=== PATIENT | male | born 1965 | race Caucasian/White ===

== ENCOUNTER → 2016-02-24 | Outpatient (CLI) | payer OTHER ==
[~2016-02-24] MED LIST: /DULO30CA OR; /ESOM40CA; /ESOM40CA OR; /WARF5TA; /WARF5TA OR; ACET50TAOT PO; ACTI300C; ACTI300C OR; ACTI300C PO; AMIT25TA2; ASAC800T2 PO; ASACOL; ATIV2TAB PO; Asacol OR; BENA25CA2 PO; BENZ1TA PO; BENZ5TA PO; BUDE150T OR; BUPR150T2 PO; CITA20TA2 PO; CLOZ25TA2 PO; COUMADIN PO; CYMBALTA; D31000TA PO; DELZ400C PO; DEPA250C PO; DEPA250T2 PO; DEPA500T2 PO; DIAZ10TA2 OR; EFFE150C PO; FERR325T OR; FLUR15CA2; FLUV50TA PO; HALD5INJ2 PO; HYDR1CRE TOP; HYDRO50TAB PO; IMOD2TAB14 PO; INVE234I IM; INVE3TAB2; LAMI25TA; LAMI25TA PO; LITH600C PO; LOPERAMIDE; Loperamide PO; MERCAPTOPURINE; PROP1TAB26 PO; PROT1TAB2 PO; PURINETHOL OR; RISP2TAB30 PO; SERT-141 PO; THERTAB PO; TOPA100T8 PO; TOPI100T OR; TOPI50TA; TRAZ50TA OR; TRAZ50TA2 PO; TYLE325T5 PO; VALI5TAB; WARF1TAB35 PO; WARF4TAB28 PO; XARE20TA PO; [UNRECOGNIZED DRUG - CODE] PO; [UNRECOGNIZED DRUG - OTHER]; [UNRECOGNIZED DRUG - OTHER] PR; cogentin PO; haldol PO
[2016-02-24 08:06] LABS: BASO # 0.1 K/mm3 (0.0-0.2); BASO % 1.1 % (0.0-1.0); EOS # 0.2 K/mm3 (0.0-0.50); EOS % 2.1 % (0.0-3.0); LARGE UNSTAINED CELL # 0.2 K/mm3 (0.0-0.4); LARGE UNSTAINED CELL % 2.2 % (0.0-4.0); LYMPH # 1.9 K/mm3 (1.5-4.5); LYMPH % 17.6 % (24.0-44.0); MEAN CORPUSCULAR HEMOGLOBIN 32.3 pg (27.0-33.0); MEAN CORPUSCULAR HGB CONC 32.3 g/dl (32.0-36.5); MEAN CORPUSCULAR VOLUME 99.9 fl (80.0-96.0); MONO # 0.6 K/mm3 (0.0-0.8); MONO % 6.1 % (0.0-5.0); NEUTROPHILS # 6.7 K/mm3 (1.8-7.7); NEUTROPHILS % 70.9 % (36.0-66.0); PLATELET COUNT, AUTOMATED 309 k/mm3 (150-450); RED CELL DISTRIBUTION WIDTH 15.4 % (11.5-14.5); WHITE BLOOD COUNT 9.4 K/mm3 (4.0-10.0)
== END ==
LOC: M LAB 06:03
PROVIDERS: ATTEND Psychiatry & Neurology Psychiatry
DX: F25.0 Schizoaffective disorder, bipolar type (principal); Z79.899 Other long term (current) drug therapy

== ENCOUNTER → 2016-03-22 | Outpatient (CLI) | payer OTHER ==
[~2016-03-22] MED LIST changes: -IMOD2TAB14 PO; +IMOD2TAB16 PO
[2016-03-22 06:57] LABS: BASO % 0.5 % (0.0-1.0); EOS # 0.2 K/mm3 (0.0-0.50); EOS % 1.9 % (0.0-3.0); LARGE UNSTAINED CELL # 0.1 K/mm3 (0.0-0.4); LARGE UNSTAINED CELL % 0.9 % (0.0-4.0); LYMPH # 1.6 K/mm3 (1.5-4.5); LYMPH % 13.6 % (24.0-44.0); MEAN CORPUSCULAR HEMOGLOBIN 31.9 pg (27.0-33.0); MEAN CORPUSCULAR HGB CONC 31.9 g/dl (32.0-36.5); MONO # 0.6 K/mm3 (0.0-0.8); MONO % 5.4 % (0.0-5.0); NEUTROPHILS # 8.6 K/mm3 (1.8-7.7); NEUTROPHILS % 77.8 % (36.0-66.0); PLATELET COUNT, AUTOMATED 362 k/mm3 (150-450); RED CELL DISTRIBUTION WIDTH 14.7 % (11.5-14.5); WHITE BLOOD COUNT 11.1 K/mm3 (4.0-10.0)
== END ==
LOC: M LAB 06:01
PROVIDERS: ATTEND Psychiatry & Neurology Psychiatry
DX: F25.0 Schizoaffective disorder, bipolar type (principal)

== ENCOUNTER → 2016-04-19 | Outpatient (CLI) | payer OTHER ==
[2016-04-19 06:58] LABS: BASO % 0.4 % (0.0-1.0); EOS # 0.2 K/mm3 (0.0-0.50); EOS % 2.1 % (0.0-3.0); LARGE UNSTAINED CELL # 0.3 K/mm3 (0.0-0.4); LARGE UNSTAINED CELL % 2.2 % (0.0-4.0); LYMPH # 1.4 K/mm3 (1.5-4.5); LYMPH % 11.9 % (24.0-44.0); MEAN CORPUSCULAR HEMOGLOBIN 31.4 pg (27.0-33.0); MEAN CORPUSCULAR VOLUME 98.1 fl (80.0-96.0); MONO # 0.6 K/mm3 (0.0-0.8); NEUTROPHILS # 9.3 K/mm3 (1.8-7.7); NEUTROPHILS % 78.3 % (36.0-66.0); PLATELET COUNT, AUTOMATED 371 k/mm3 (150-450); RED CELL DISTRIBUTION WIDTH 14.5 % (11.5-14.5); WHITE BLOOD COUNT 11.8 K/mm3 (4.0-10.0)
== END ==
LOC: M LAB 06:01
PROVIDERS: ATTEND Psychiatry & Neurology Psychiatry
DX: M35.3 Polymyalgia rheumatica (principal)

== ENCOUNTER → 2016-04-21 | Outpatient (CLI) | payer OTHER ==
[2016-04-21 06:49] LABS: BASO % 0.4 % (0.0-1.0); EOS # 0.2 K/mm3 (0.0-0.50); EOS % 1.9 % (0.0-3.0); LYMPH # 1.7 K/mm3 (1.5-4.5); LYMPH % 14.6 % (24.0-44.0); MEAN CORPUSCULAR HEMOGLOBIN 31.9 pg (27.0-33.0); MEAN CORPUSCULAR HGB CONC 31.6 g/dl (32.0-36.5); MEAN CORPUSCULAR VOLUME 100.8 fl (80.0-96.0); MONO # 0.7 K/mm3 (0.0-0.8); MONO % 6.8 % (0.0-5.0); NEUTROPHILS % 74.9 % (36.0-66.0); RED CELL DISTRIBUTION WIDTH 14.7 % (11.5-14.5); WHITE BLOOD COUNT 10.7 K/mm3 (4.0-10.0)
[2016-04-21 07:24] LABS: ALBUMIN 3.5 GM/DL (3.2-5.2); ALBUMIN/GLOBULIN RATIO 1.03 (1.00-1.93); ALKALINE PHOSPHATASE 162 U/L (45-117); ALT/SGPT 16 U/L (12-78); ANION GAP 10 MEQ/L (8-16); AST/SGOT 13 U/L (15-37); BILIRUBIN,TOTAL 0.4 MG/DL (0.2-1.0); BLOOD UREA NITROGEN 7 MG/DL (7-18); CALCIUM LEVEL 8.6 MG/DL (8.5-10.1); CARBON DIOXIDE LEVEL 23 MEQ/L (21-32); CHLORIDE LEVEL 109 MEQ/L (98-107); CHOLESTEROL LEVEL 200 MG/DL (<200); GLOMERULAR FILTRATION RATE > 60.0 (>60); GLUCOSE, FASTING 103 MG/DL (70-105); POTASSIUM SERUM 4.1 MEQ/L (3.5-5.1); SODIUM LEVEL 142 MEQ/L (136-145); TOTAL PROTEIN 6.9 GM/DL (6.4-8.2); TRIGLYCERIDES LEVEL 102 MG/DL (<150)
== END ==
LOC: M LAB 06:00
PROVIDERS: ATTEND Nurse Practitioner Adult Health
DX: D64.9 Anemia, unspecified (principal); E55.9 Vitamin D deficiency, unspecified; E78.00 Pure hypercholesterolemia, unspecified; Z79.899 Other long term (current) drug therapy

== ENCOUNTER → 2016-05-17 | Outpatient (CLI) | payer OTHER ==
[2016-05-17 06:39] LABS: BASO % 0.3 % (0.0-1.0); EOS # 0.2 K/mm3 (0.0-0.50); EOS % 2.3 % (0.0-3.0); LARGE UNSTAINED CELL # 0.2 K/mm3 (0.0-0.4); LARGE UNSTAINED CELL % 1.6 % (0.0-4.0); LYMPH # 1.9 K/mm3 (1.5-4.5); LYMPH % 17.5 % (24.0-44.0); MEAN CORPUSCULAR HEMOGLOBIN 31.2 pg (27.0-33.0); MEAN CORPUSCULAR HGB CONC 31.3 g/dl (32.0-36.5); MEAN CORPUSCULAR VOLUME 99.6 fl (80.0-96.0); MONO # 0.5 K/mm3 (0.0-0.8); MONO % 5.4 % (0.0-5.0); NEUTROPHILS # 7.2 K/mm3 (1.8-7.7); NEUTROPHILS % 72.9 % (36.0-66.0); PLATELET COUNT, AUTOMATED 298 k/mm3 (150-450); WHITE BLOOD COUNT 9.8 K/mm3 (4.0-10.0)
== END ==
LOC: M LAB 06:05
PROVIDERS: ATTEND Psychiatry & Neurology Psychiatry
DX: F25.0 Schizoaffective disorder, bipolar type (principal)

== ENCOUNTER → 2016-06-14 | Outpatient (CLI) | payer OTHER ==
[2016-06-14 06:31] LABS: BASO % 0.4 % (0.0-1.0); EOS # 0.2 K/mm3 (0.0-0.50); EOS % 1.8 % (0.0-3.0); LARGE UNSTAINED CELL # 0.2 K/mm3 (0.0-0.4); LARGE UNSTAINED CELL % 1.6 % (0.0-4.0); LYMPH # 1.8 K/mm3 (1.5-4.5); MEAN CORPUSCULAR HEMOGLOBIN 31.8 pg (27.0-33.0); MEAN CORPUSCULAR HGB CONC 32.3 g/dl (32.0-36.5); MEAN CORPUSCULAR VOLUME 98.4 fl (80.0-96.0); MONO # 0.4 K/mm3 (0.0-0.8); NEUTROPHILS # 6.9 K/mm3 (1.8-7.7); NEUTROPHILS % 73.1 % (36.0-66.0); PLATELET COUNT, AUTOMATED 375 k/mm3 (150-450); RED CELL DISTRIBUTION WIDTH 14.9 % (11.5-14.5); WHITE BLOOD COUNT 9.4 K/mm3 (4.0-10.0)
== END ==
LOC: M LAB 06:03
PROVIDERS: ATTEND Nurse Practitioner Adult Health
DX: F25.0 Schizoaffective disorder, bipolar type (principal)

== ENCOUNTER → 2016-07-15 | Outpatient (CLI) | payer OTHER ==
[2016-07-15 06:48] LABS: BASO % 0.3 % (0.0-1.0); EOS # 0.2 K/mm3 (0.0-0.50); EOS % 1.7 % (0.0-3.0); LYMPH # 1.6 K/mm3 (1.5-4.5); MEAN CORPUSCULAR HEMOGLOBIN 32.4 pg (27.0-33.0); MEAN CORPUSCULAR HGB CONC 31.8 g/dl (32.0-36.5); MEAN CORPUSCULAR VOLUME 101.9 fl (80.0-96.0); MONO # 0.5 K/mm3 (0.0-0.8); MONO % 4.6 % (0.0-5.0); NEUTROPHILS # 8.6 K/mm3 (1.8-7.7); RED CELL DISTRIBUTION WIDTH 15.3 % (11.5-14.5)
== END ==
LOC: M LAB 06:13
PROVIDERS: ATTEND Psychiatry & Neurology Psychiatry
DX: F25.0 Schizoaffective disorder, bipolar type (principal); Z79.899 Other long term (current) drug therapy

== ENCOUNTER → 2016-08-09 | Outpatient (CLI) | payer OTHER ==
[2016-08-09 06:12] LABS: BASO % 0.3 % (0.0-1.0); EOS # 0.1 K/mm3 (0.0-0.50); EOS % 0.9 % (0.0-3.0); LYMPH # 1.4 K/mm3 (1.5-4.5); MEAN CORPUSCULAR HEMOGLOBIN 33.7 pg (27.0-33.0); MEAN CORPUSCULAR HGB CONC 32.1 g/dl (32.0-36.5); MONO # 0.7 K/mm3 (0.0-0.8); MONO % 5.3 % (0.0-5.0); NEUTROPHILS # 10.2 K/mm3 (1.8-7.7); RED CELL DISTRIBUTION WIDTH 15.5 % (11.5-14.5); WHITE BLOOD COUNT 12.5 K/mm3 (4.0-10.0)
== END ==
LOC: M LAB 06:01
PROVIDERS: ATTEND Psychiatry & Neurology Psychiatry
DX: F25.0 Schizoaffective disorder, bipolar type (principal)

== ENCOUNTER → 2016-08-10 | Outpatient (CLI) | payer OTHER ==
[2016-08-10 07:32] LABS: ALBUMIN 3.6 GM/DL (3.2-5.2); ALBUMIN/GLOBULIN RATIO 1.03 (1.00-1.93); ALKALINE PHOSPHATASE 163 U/L (45-117); ALT/SGPT 15 U/L (12-78); ANION GAP 7 MEQ/L (8-16); AST/SGOT 10 U/L (15-37); BILIRUBIN,DIRECT < 0.1 MG/DL (0.0-0.2); BILIRUBIN,TOTAL 0.5 MG/DL (0.2-1.0); BLOOD UREA NITROGEN 7 MG/DL (7-18); CALCIUM LEVEL 8.9 MG/DL (8.5-10.1); CARBON DIOXIDE LEVEL 25 MEQ/L (21-32); CHLORIDE LEVEL 110 MEQ/L (98-107); CREATININE FOR GFR 0.85 MG/DL (0.70-1.30); GLOMERULAR FILTRATION RATE > 60.0 (>60); GLUCOSE, FASTING 123 MG/DL (70-105); POTASSIUM SERUM 4.4 MEQ/L (3.5-5.1); SODIUM LEVEL 142 MEQ/L (136-145); TOTAL PROTEIN 7.1 GM/DL (6.4-8.2)
[2016-08-10 11:37] LABS: FOLATE 1.4 NG/ML (>5.4)
== END ==
LOC: M LAB 06:37
PROVIDERS: ATTEND Psychiatry & Neurology Psychiatry
DX: Z51.81 Encounter for therapeutic drug level monitoring (principal); Z79.899 Other long term (current) drug therapy

== ENCOUNTER → 2016-09-08 | Outpatient (CLI) | payer OTHER ==
[~2016-09-08] MED LIST changes: -ASAC800T2 PO; +ASAC800T3 PO; +BENZ-52 PO; +BENZ0.5T PO; -BENZ1TA PO; -BENZ5TA PO; -RISP2TAB30 PO; +RISP2TAB32 PO; +TOPA100T12 PO; -TOPA100T8 PO
[2016-09-08 06:52] LABS: BASO % 0.3 % (0.0-1.0); EOS # 0.2 K/mm3 (0.0-0.50); EOS % 1.6 % (0.0-3.0); LYMPH # 1.3 K/mm3 (1.5-4.5); LYMPH % 11.6 % (24.0-44.0); MEAN CORPUSCULAR HEMOGLOBIN 33.7 pg (27.0-33.0); MEAN CORPUSCULAR HGB CONC 32.9 g/dl (32.0-36.5); MEAN CORPUSCULAR VOLUME 102.3 fl (80.0-96.0); MONO # 0.6 K/mm3 (0.0-0.8); MONO % 5.1 % (0.0-5.0); NEUTROPHILS # 9.1 K/mm3 (1.8-7.7); NEUTROPHILS % 80.2 % (36.0-66.0); RED CELL DISTRIBUTION WIDTH 14.4 % (11.5-14.5); WHITE BLOOD COUNT 11.3 K/mm3 (4.0-10.0)
== END ==
LOC: M LAB 06:00
PROVIDERS: ATTEND Psychiatry & Neurology Psychiatry
DX: Z51.81 Encounter for therapeutic drug level monitoring (principal); Z79.899 Other long term (current) drug therapy

== ENCOUNTER → 2016-10-08 | Outpatient (CLI) | payer OTHER ==
[2016-10-08 06:48] LABS: BASO % 0.2 % (0.0-1.0); EOS # 0.1 K/mm3 (0.0-0.50); EOS % 0.8 % (0.0-3.0); LYMPH # 1.5 K/mm3 (1.5-4.5); LYMPH % 10.3 % (24.0-44.0); MEAN CORPUSCULAR HEMOGLOBIN 32.1 pg (27.0-33.0); MEAN CORPUSCULAR HGB CONC 33.1 g/dl (32.0-36.5); MONO # 0.7 K/mm3 (0.0-0.8); MONO % 5.4 % (0.0-5.0); NEUTROPHILS # 10.7 K/mm3 (1.8-7.7); NEUTROPHILS % 82.2 % (36.0-66.0); WHITE BLOOD COUNT 13.1 K/mm3 (4.0-10.0)
== END ==
LOC: M LAB 06:07
PROVIDERS: ATTEND Psychiatry & Neurology Psychiatry
DX: F25.0 Schizoaffective disorder, bipolar type (principal)

== ENCOUNTER → 2016-11-08 | Outpatient (CLI) | payer OTHER ==
[2016-11-08 07:11] LABS: BASO % 0.3 % (0.0-1.0); EOS # 0.2 K/mm3 (0.0-0.50); EOS % 1.8 % (0.0-3.0); LYMPH # 1.1 K/mm3 (1.5-4.5); LYMPH % 8.6 % (24.0-44.0); MEAN CORPUSCULAR HEMOGLOBIN 31.2 pg (27.0-33.0); MEAN CORPUSCULAR HGB CONC 32.4 g/dl (32.0-36.5); MEAN CORPUSCULAR VOLUME 96.5 fl (80.0-96.0); MONO # 0.6 K/mm3 (0.0-0.8); MONO % 4.7 % (0.0-5.0); NEUTROPHILS # 10.4 K/mm3 (1.8-7.7); NEUTROPHILS % 83.8 % (36.0-66.0); WHITE BLOOD COUNT 12.4 K/mm3 (4.0-10.0)
== END ==
LOC: M LAB 05:53
PROVIDERS: ATTEND Psychiatry & Neurology Psychiatry
DX: D70.9 Neutropenia, unspecified (principal)

== ENCOUNTER → 2017-01-10 | Outpatient (CLI) | payer OTHER ==
[2017-01-10 06:39] LABS: BASO % 0.4 % (0.0-1.0); EOS # 0.2 10^3/uL (0.0-0.50); EOS % 1.8 % (0.0-3.0); IMMATURE GRANULOCYTE % 0.6 % (0-0); LYMPH # 1.5 10^3/uL (1.5-4.5); MEAN CORPUSCULAR HEMOGLOBIN 30.7 pg (27.0-33.0); MEAN CORPUSCULAR HGB CONC 32.3 g/dl (32.0-36.5); MEAN CORPUSCULAR VOLUME 94.8 fl (80.0-96.0); MONO # 0.7 10^3/uL (0.0-0.8); MONO % 6.6 % (0.0-5.0); NEUTROPHILS # 8.4 10^3/uL (1.8-7.7); NEUTROPHILS % 76.6 % (36.0-66.0); PLATELET COUNT, AUTOMATED 340 10^3/uL (150-450); RED CELL DISTRIBUTION WIDTH 15.4 % (11.5-14.5)
== END ==
LOC: M LAB 06:12
PROVIDERS: ATTEND Psychiatry & Neurology Psychiatry
DX: D64.9 Anemia, unspecified (principal); E03.9 Hypothyroidism, unspecified; E55.9 Vitamin D deficiency, unspecified; E78.00 Pure hypercholesterolemia, unspecified; Z79.899 Other long term (current) drug therapy

== ENCOUNTER → 2017-01-10 | Outpatient (CLI) | payer OTHER ==
[2017-01-10 06:39] LABS: BASO # 0.1 10^3/uL (0.0-0.2); BASO % 0.6 % (0.0-1.0); EOS # 0.2 10^3/uL (0.0-0.50); EOS % 1.6 % (0.0-3.0); IMMATURE GRANULOCYTE % 0.6 % (0-0); LYMPH # 1.5 10^3/uL (1.5-4.5); LYMPH % 13.4 % (24.0-44.0); MEAN CORPUSCULAR HGB CONC 32.4 g/dl (32.0-36.5); MEAN CORPUSCULAR VOLUME 95.5 fl (80.0-96.0); MONO # 0.7 10^3/uL (0.0-0.8); MONO % 6.7 % (0.0-5.0); NEUTROPHILS # 8.3 10^3/uL (1.8-7.7); NEUTROPHILS % 77.1 % (36.0-66.0); PLATELET COUNT, AUTOMATED 343 10^3/uL (150-450); RED CELL DISTRIBUTION WIDTH 15.4 % (11.5-14.5); WHITE BLOOD COUNT 10.8 10^3/uL (4.0-10.0)
[2017-01-10 07:14] LABS: ALBUMIN 3.3 GM/DL (3.2-5.2); ALKALINE PHOSPHATASE 109 U/L (45-117); ALT/SGPT 12 U/L (12-78); ANION GAP 10 MEQ/L (8-16); AST/SGOT 12 U/L (7-37); BILIRUBIN,TOTAL 0.4 MG/DL (0.2-1.0); BLOOD UREA NITROGEN 6 MG/DL (7-18); CALCIUM LEVEL 8.8 MG/DL (8.5-10.1); CARBON DIOXIDE LEVEL 22 MEQ/L (21-32); CHLORIDE LEVEL 112 MEQ/L (98-107); CHOLESTEROL LEVEL 219 MG/DL (<200); CREATININE FOR GFR 0.77 MG/DL (0.70-1.30); FREE T4 1.07 NG/DL (0.76-1.46); GLOMERULAR FILTRATION RATE > 60.0 (>60); GLUCOSE, FASTING 105 MG/DL (70-105); POTASSIUM SERUM 3.8 MEQ/L (3.5-5.1); SODIUM LEVEL 144 MEQ/L (136-145); TOTAL PROTEIN 6.6 GM/DL (6.4-8.2); TRIGLYCERIDES LEVEL 136 MG/DL (<150)
== END ==
LOC: M LAB 06:09
PROVIDERS: ATTEND Nurse Practitioner Adult Health
DX: D64.9 Anemia, unspecified (principal); E03.9 Hypothyroidism, unspecified; E55.9 Vitamin D deficiency, unspecified; Z79.899 Other long term (current) drug therapy; E78.00 Pure hypercholesterolemia, unspecified

== ENCOUNTER → 2017-02-08 | Outpatient (CLI) | payer OTHER ==
[2017-02-08 06:23] LABS: BASO % 0.4 % (0.0-1.0); EOS # 0.2 10^3/uL (0.0-0.50); EOS % 2.2 % (0.0-3.0); IMMATURE GRANULOCYTE % 0.4 % (0-0); LYMPH # 1.9 10^3/uL (1.5-4.5); LYMPH % 19.9 % (24.0-44.0); MEAN CORPUSCULAR HEMOGLOBIN 31.4 pg (27.0-33.0); MEAN CORPUSCULAR HGB CONC 32.7 g/dl (32.0-36.5); MEAN CORPUSCULAR VOLUME 96.1 fl (80.0-96.0); MONO # 0.6 10^3/uL (0.0-0.8); MONO % 6.5 % (0.0-5.0); NEUTROPHILS # 6.8 10^3/uL (1.8-7.7); NEUTROPHILS % 70.6 % (36.0-66.0); PLATELET COUNT, AUTOMATED 310 10^3/uL (150-450); RED CELL DISTRIBUTION WIDTH 14.9 % (11.5-14.5); WHITE BLOOD COUNT 9.6 10^3/uL (4.0-10.0)
== END ==
LOC: M LAB 06:02
PROVIDERS: ATTEND Psychiatry & Neurology Psychiatry
DX: M35.3 Polymyalgia rheumatica (principal)

== ENCOUNTER → 2017-03-11 | Outpatient (CLI) | payer OTHER ==
[2017-03-11 08:38] LABS: BASO # 0.1 10^3/uL (0.0-0.2); BASO % 0.6 % (0.0-1.0); EOS # 0.2 10^3/uL (0.0-0.50); EOS % 1.8 % (0.0-3.0); HEMATOCRIT 37.7 % (42.0-52.0); HEMOGLOBIN 12.6 g/dl (14.0-18.0); IMMATURE GRANULOCYTE # 0.1 10^3/uL (0-0); IMMATURE GRANULOCYTE % 0.8 % (0-0); LYMPH # 1.6 10^3/uL (1.5-4.5); MEAN CORPUSCULAR HEMOGLOBIN 32.5 pg (27.0-33.0); MEAN CORPUSCULAR HGB CONC 33.4 g/dl (32.0-36.5); MEAN CORPUSCULAR VOLUME 97.2 fl (80.0-96.0); MONO # 0.6 10^3/uL (0.0-0.8); MONO % 6.7 % (0.0-5.0); NEUTROPHILS # 6.5 10^3/uL (1.8-7.7); NEUTROPHILS % 72.1 % (36.0-66.0); PLATELET COUNT, AUTOMATED 280 10^3/uL (150-450); RED BLOOD COUNT 3.88 10^6/uL (4.30-6.10); RED CELL DISTRIBUTION WIDTH 15.4 % (11.5-14.5)
== END ==
LOC: M LAB 06:03
DX: Z51.81 Encounter for therapeutic drug level monitoring (principal); Z79.899 Other long term (current) drug therapy
CPT/HCPCS: 85027

== ENCOUNTER → 2017-04-11 | Outpatient (CLI) | payer OTHER ==
[2017-04-11 06:42] LABS: BASO # 0.1 10^3/uL (0.0-0.2); BASO % 0.6 % (0.0-1.0); EOS # 0.1 10^3/uL (0.0-0.50); EOS % 1.4 % (0.0-3.0); HEMATOCRIT 40.2 % (42.0-52.0); HEMOGLOBIN 13.4 g/dl (14.0-18.0); IMMATURE GRANULOCYTE % 0.3 % (0-3.0); LYMPH # 1.6 10^3/uL (1.5-4.5); LYMPH % 15.1 % (24.0-44.0); MEAN CORPUSCULAR HEMOGLOBIN 33.1 pg (27.0-33.0); MEAN CORPUSCULAR HGB CONC 33.3 g/dl (32.0-36.5); MEAN CORPUSCULAR VOLUME 99.3 fl (80.0-96.0); MONO # 0.6 10^3/uL (0.0-0.8); MONO % 5.9 % (0.0-5.0); NEUTROPHILS # 7.9 10^3/uL (1.8-7.7); NEUTROPHILS % 76.7 % (36.0-66.0); PLATELET COUNT, AUTOMATED 281 10^3/uL (150-450); RED BLOOD COUNT 4.05 10^6/uL (4.30-6.10); RED CELL DISTRIBUTION WIDTH 14.7 % (11.5-14.5); WHITE BLOOD COUNT 10.3 10^3/uL (4.0-10.0)
== END ==
LOC: M LAB 06:01
DX: F25.0 Schizoaffective disorder, bipolar type (principal)
CPT/HCPCS: 85025

== ENCOUNTER → 2017-05-09 | Outpatient (CLI) | payer OTHER ==
[2017-05-09 07:15] LABS: BASO # 0.1 10^3/uL (0.0-0.2); BASO % 0.5 % (0.0-1.0); EOS # 0.2 10^3/uL (0.0-0.50); EOS % 1.9 % (0.0-3.0); HEMOGLOBIN 12.8 g/dl (14.0-18.0); IMMATURE GRANULOCYTE # 0.1 10^3/uL (0-0); IMMATURE GRANULOCYTE % 0.5 % (0-3.0); LYMPH # 1.6 10^3/uL (1.5-4.5); LYMPH % 17.1 % (24.0-44.0); MEAN CORPUSCULAR HEMOGLOBIN 33.3 pg (27.0-33.0); MEAN CORPUSCULAR HGB CONC 32.8 g/dl (32.0-36.5); MEAN CORPUSCULAR VOLUME 101.6 fl (80.0-96.0); MONO # 0.8 10^3/uL (0.0-0.8); MONO % 8.2 % (0.0-5.0); NEUTROPHILS # 6.8 10^3/uL (1.8-7.7); NEUTROPHILS % 71.8 % (36.0-66.0); PLATELET COUNT, AUTOMATED 278 10^3/uL (150-450); RED BLOOD COUNT 3.84 10^6/uL (4.30-6.10); RED CELL DISTRIBUTION WIDTH 15.5 % (11.5-14.5); WHITE BLOOD COUNT 9.5 10^3/uL (4.0-10.0)
== END ==
LOC: M LAB 06:17
DX: Z51.81 Encounter for therapeutic drug level monitoring (principal); Z79.899 Other long term (current) drug therapy
CPT/HCPCS: 85027

== ENCOUNTER → 2017-06-09 | Outpatient (CLI) | payer OTHER ==
[2017-06-09 06:31] LABS: BASO % 0.5 % (0.0-1.0); EOS # 0.1 10^3/uL (0.0-0.50); EOS % 1.6 % (0.0-3.0); HEMATOCRIT 35.5 % (42.0-52.0); HEMOGLOBIN 11.9 g/dl (13.5-17.5); IMMATURE GRANULOCYTE % 0.4 % (0-3.0); LYMPH # 1.6 10^3/uL (1.5-4.5); LYMPH % 20.1 % (24.0-44.0); MEAN CORPUSCULAR HEMOGLOBIN 34.2 pg (27.0-33.0); MEAN CORPUSCULAR HGB CONC 33.5 g/dl (32.0-36.5); MONO # 0.6 10^3/uL (0.0-0.8); MONO % 6.7 % (0.0-5.0); NEUTROPHILS # 5.8 10^3/uL (1.8-7.7); NEUTROPHILS % 70.7 % (36.0-66.0); PLATELET COUNT, AUTOMATED 246 10^3/uL (150-450); RED BLOOD COUNT 3.48 10^6/uL (4.30-6.10); RED CELL DISTRIBUTION WIDTH 16.2 % (11.5-14.5); WHITE BLOOD COUNT 8.2 10^3/uL (4.0-10.0)
== END ==
LOC: M LAB 06:01
DX: Z79.899 Other long term (current) drug therapy (principal)
CPT/HCPCS: 85027

== ENCOUNTER → 2017-07-06 | Outpatient (CLI) | payer OTHER ==
[2017-07-06 06:23] LABS: BASO # 0.1 10^3/uL (0.0-0.2); BASO % 0.6 % (0.0-1.0); EOS # 0.2 10^3/uL (0.0-0.50); HEMATOCRIT 38.2 % (42.0-52.0); HEMOGLOBIN 12.8 g/dl (13.5-17.5); IMMATURE GRANULOCYTE # 0.1 10^3/uL (0-0); IMMATURE GRANULOCYTE % 0.6 % (0-3.0); LYMPH # 1.9 10^3/uL (1.5-4.5); LYMPH % 20.8 % (24.0-44.0); MEAN CORPUSCULAR HEMOGLOBIN 35.6 pg (27.0-33.0); MEAN CORPUSCULAR HGB CONC 33.5 g/dl (32.0-36.5); MEAN CORPUSCULAR VOLUME 106.1 fl (80.0-96.0); MONO # 0.6 10^3/uL (0.0-0.8); MONO % 6.2 % (0.0-5.0); NEUTROPHILS # 6.2 10^3/uL (1.8-7.7); NEUTROPHILS % 69.8 % (36.0-66.0); PLATELET COUNT, AUTOMATED 224 10^3/uL (150-450); RED CELL DISTRIBUTION WIDTH 14.8 % (11.5-14.5); WHITE BLOOD COUNT 8.9 10^3/uL (4.0-10.0)
== END ==
LOC: M LAB 06:01
DX: F25.0 Schizoaffective disorder, bipolar type (principal); Z79.899 Other long term (current) drug therapy
CPT/HCPCS: 85027

== ENCOUNTER → 2017-08-08 | Outpatient (CLI) | payer OTHER ==
[2017-08-08 07:06] LABS: BASO # 0.1 10^3/uL (0.0-0.2); BASO % 0.8 % (0.0-1.0); EOS # 0.2 10^3/uL (0.0-0.50); EOS % 2.1 % (0.0-3.0); HEMATOCRIT 37.2 % (42.0-52.0); HEMOGLOBIN 12.6 g/dl (13.5-17.5); IMMATURE GRANULOCYTE # 0.1 10^3/uL (0-0); IMMATURE GRANULOCYTE % 0.6 % (0-3.0); LYMPH # 1.7 10^3/uL (1.5-4.5); LYMPH % 18.9 % (24.0-44.0); MEAN CORPUSCULAR HEMOGLOBIN 34.9 pg (27.0-33.0); MEAN CORPUSCULAR HGB CONC 33.9 g/dl (32.0-36.5); MONO # 0.6 10^3/uL (0.0-0.8); MONO % 6.5 % (0.0-5.0); NEUTROPHILS # 6.2 10^3/uL (1.8-7.7); NEUTROPHILS % 71.1 % (36.0-66.0); PLATELET COUNT, AUTOMATED 265 10^3/uL (150-450); RED BLOOD COUNT 3.61 10^6/uL (4.30-6.10); RED CELL DISTRIBUTION WIDTH 13.9 % (11.5-14.5); WHITE BLOOD COUNT 8.7 10^3/uL (4.0-10.0)
== END ==
LOC: M LAB 06:13
DX: F25.0 Schizoaffective disorder, bipolar type (principal)
CPT/HCPCS: 85027

== ENCOUNTER → 2017-09-05 | Outpatient (CLI) | payer OTHER ==
[2017-09-05 06:46] LABS: BASO # 0.1 10^3/uL (0.0-0.2); BASO % 0.8 % (0.0-1.0); EOS # 0.2 10^3/uL (0.0-0.50); EOS % 2.4 % (0.0-3.0); HEMATOCRIT 38.2 % (42.0-52.0); HEMOGLOBIN 12.7 g/dl (13.5-17.5); IMMATURE GRANULOCYTE % 0.3 % (0-3.0); LYMPH # 1.6 10^3/uL (1.5-4.5); LYMPH % 19.9 % (24.0-44.0); MEAN CORPUSCULAR HEMOGLOBIN 34.1 pg (27.0-33.0); MEAN CORPUSCULAR HGB CONC 33.2 g/dl (32.0-36.5); MEAN CORPUSCULAR VOLUME 102.7 fl (80.0-96.0); MONO # 0.5 10^3/uL (0.0-0.8); MONO % 6.5 % (0.0-5.0); NEUTROPHILS # 5.6 10^3/uL (1.8-7.7); NEUTROPHILS % 70.1 % (36.0-66.0); PLATELET COUNT, AUTOMATED 245 10^3/uL (150-450); RED BLOOD COUNT 3.72 10^6/uL (4.30-6.10); RED CELL DISTRIBUTION WIDTH 15.2 % (11.5-14.5)
== END ==
LOC: M LAB 06:10
DX: F25.9 Schizoaffective disorder, unspecified (principal)
CPT/HCPCS: 85027

== ENCOUNTER → 2017-09-05 | Outpatient (CLI) | payer OTHER ==
[2017-09-05 06:47] LABS: BASO % 0.5 % (0.0-1.0); EOS # 0.2 10^3/uL (0.0-0.50); EOS % 2.5 % (0.0-3.0); HEMATOCRIT 39.4 % (42.0-52.0); HEMOGLOBIN 12.8 g/dl (13.5-17.5); IMMATURE GRANULOCYTE # 0.1 10^3/uL (0-0); IMMATURE GRANULOCYTE % 0.6 % (0-3.0); LYMPH # 1.5 10^3/uL (1.5-4.5); LYMPH % 18.8 % (24.0-44.0); MEAN CORPUSCULAR HGB CONC 32.5 g/dl (32.0-36.5); MEAN CORPUSCULAR VOLUME 104.8 fl (80.0-96.0); MONO # 0.5 10^3/uL (0.0-0.8); MONO % 6.2 % (0.0-5.0); NEUTROPHILS # 5.7 10^3/uL (1.8-7.7); NEUTROPHILS % 71.4 % (36.0-66.0); PLATELET COUNT, AUTOMATED 230 10^3/uL (150-450); RED BLOOD COUNT 3.76 10^6/uL (4.30-6.10); RED CELL DISTRIBUTION WIDTH 15.2 % (11.5-14.5)
[2017-09-05 07:17] LABS: ALBUMIN 3.4 GM/DL (3.2-5.2); ALKALINE PHOSPHATASE 140 U/L (45-117); ALT/SGPT 15 U/L (12-78); ANION GAP 10 MEQ/L (8-16); AST/SGOT 10 U/L (7-37); BILIRUBIN,TOTAL 0.5 MG/DL (0.2-1.0); BLOOD UREA NITROGEN 6 MG/DL (7-18); CALCIUM LEVEL 8.6 MG/DL (8.5-10.1); CARBON DIOXIDE LEVEL 24 MEQ/L (21-32); CHLORIDE LEVEL 109 MEQ/L (98-107); CHOLESTEROL LEVEL 187 MG/DL (<200); CHOLESTEROL RISK RATIO 3.116 (<5); CREATININE FOR GFR 0.88 MG/DL (0.70-1.30); FREE T4 1.02 NG/DL (0.76-1.46); GLOMERULAR FILTRATION RATE > 60.0 (>56); GLUCOSE, FASTING 97 MG/DL (70-100); HDL CHOLESTEROL 60 MG/DL (>40); NON-HDL-C 127 MG/DL; POTASSIUM SERUM 4.1 MEQ/L (3.5-5.1); SODIUM LEVEL 143 MEQ/L (136-145); TOTAL PROTEIN 6.8 GM/DL (6.4-8.2); TRIGLYCERIDES LEVEL 110 MG/DL (<150)
[2017-09-05 08:05] LABS: ESTIMATED AVERAGE GLUCOSE 59 MG/DL (60-110); HEMOGLOBIN A1c 3.7 %
[2017-09-05 09:50] LABS: TOTAL 25(OH) VITAMIN D 31.2 NG/ML (30.0-100.0)
== END ==
LOC: M LAB 06:06
DX: D64.9 Anemia, unspecified (principal)
CPT/HCPCS: 84443

== ENCOUNTER → 2017-10-04 | Outpatient (CLI) | payer OTHER ==
[2017-10-04 06:47] LABS: BASO # 0.1 10^3/uL (0.0-0.2); BASO % 0.8 % (0.0-1.0); EOS # 0.2 10^3/uL (0.0-0.50); EOS % 2.2 % (0.0-3.0); HEMOGLOBIN 12.3 g/dl (13.5-17.5); IMMATURE GRANULOCYTE % 0.5 % (0-3.0); LYMPH # 1.5 10^3/uL (1.5-4.5); LYMPH % 19.2 % (24.0-44.0); MEAN CORPUSCULAR HEMOGLOBIN 35.2 pg (27.0-33.0); MEAN CORPUSCULAR HGB CONC 33.2 g/dl (32.0-36.5); MONO # 0.5 10^3/uL (0.0-0.8); MONO % 6.9 % (0.0-5.0); NEUTROPHILS # 5.4 10^3/uL (1.8-7.7); NEUTROPHILS % 70.4 % (36.0-66.0); PLATELET COUNT, AUTOMATED 260 10^3/uL (150-450); RED BLOOD COUNT 3.49 10^6/uL (4.30-6.10); WHITE BLOOD COUNT 7.7 10^3/uL (4.0-10.0)
== END ==
LOC: M LAB 06:04
DX: F25.9 Schizoaffective disorder, unspecified (principal)
CPT/HCPCS: 85027

== ENCOUNTER → 2017-10-31 | Outpatient (CLI) | payer OTHER ==
[2017-10-31 06:56] LABS: BASO # 0.1 10^3/uL (0.0-0.2); BASO % 0.7 % (0.0-1.0); EOS # 0.2 10^3/uL (0.0-0.50); HEMATOCRIT 38.8 % (42.0-52.0); HEMOGLOBIN 12.6 g/dl (13.5-17.5); IMMATURE GRANULOCYTE % 0.4 % (0-3.0); LYMPH # 1.8 10^3/uL (1.5-4.5); LYMPH % 21.8 % (24.0-44.0); MEAN CORPUSCULAR HEMOGLOBIN 34.4 pg (27.0-33.0); MEAN CORPUSCULAR HGB CONC 32.5 g/dl (32.0-36.5); MONO # 0.6 10^3/uL (0.0-0.8); MONO % 7.6 % (0.0-5.0); NEUTROPHILS # 5.5 10^3/uL (1.8-7.7); NEUTROPHILS % 67.5 % (36.0-66.0); PLATELET COUNT, AUTOMATED 257 10^3/uL (150-450); RED BLOOD COUNT 3.66 10^6/uL (4.30-6.10); RED CELL DISTRIBUTION WIDTH 14.2 % (11.5-14.5); WHITE BLOOD COUNT 8.2 10^3/uL (4.0-10.0)
== END ==
LOC: M LAB 06:07
DX: F25.9 Schizoaffective disorder, unspecified (principal)
CPT/HCPCS: 36415

== ENCOUNTER → 2017-10-31 | Outpatient (CLI) | payer OTHER ==
[2017-10-31 07:12] LABS: BASO # 0.1 10^3/uL (0.0-0.2); BASO % 0.8 % (0.0-1.0); EOS # 0.2 10^3/uL (0.0-0.50); EOS % 2.3 % (0.0-3.0); HEMATOCRIT 37.9 % (42.0-52.0); HEMOGLOBIN 12.4 g/dl (13.5-17.5); IMMATURE GRANULOCYTE % 0.3 % (0-3.0); LYMPH # 1.8 10^3/uL (1.5-4.5); LYMPH % 22.3 % (24.0-44.0); MEAN CORPUSCULAR HGB CONC 32.7 g/dl (32.0-36.5); MEAN CORPUSCULAR VOLUME 103.8 fl (80.0-96.0); MONO # 0.6 10^3/uL (0.0-0.8); MONO % 7.6 % (0.0-5.0); NEUTROPHILS # 5.3 10^3/uL (1.8-7.7); NEUTROPHILS % 66.7 % (36.0-66.0); PLATELET COUNT, AUTOMATED 255 10^3/uL (150-450); RED BLOOD COUNT 3.65 10^6/uL (4.30-6.10)
== END ==
LOC: M LAB 06:11
DX: F25.0 Schizoaffective disorder, bipolar type (principal)
CPT/HCPCS: 85025

== ENCOUNTER → 2017-11-28 | Outpatient (CLI) | payer OTHER ==
[2017-11-28 06:37] LABS: BASO # 0.1 10^3/uL (0.0-0.2); BASO % 0.8 % (0.0-1.0); EOS # 0.2 10^3/uL (0.0-0.50); EOS % 2.7 % (0.0-3.0); HEMATOCRIT 40.2 % (42.0-52.0); HEMOGLOBIN 12.8 g/dl (13.5-17.5); IMMATURE GRANULOCYTE % 0.6 % (0-3.0); LYMPH % 24.9 % (24.0-44.0); MEAN CORPUSCULAR HEMOGLOBIN 32.6 pg (27.0-33.0); MEAN CORPUSCULAR HGB CONC 31.8 g/dl (32.0-36.5); MEAN CORPUSCULAR VOLUME 102.3 fl (80.0-96.0); MONO # 0.6 10^3/uL (0.0-0.8); MONO % 7.4 % (0.0-5.0); NEUTROPHILS % 63.6 % (36.0-66.0); PLATELET COUNT, AUTOMATED 226 10^3/uL (150-450); RED BLOOD COUNT 3.93 10^6/uL (4.30-6.10); RED CELL DISTRIBUTION WIDTH 14.6 % (11.5-14.5); WHITE BLOOD COUNT 7.9 10^3/uL (4.0-10.0)
== END ==
LOC: M LAB 06:04
DX: F25.0 Schizoaffective disorder, bipolar type (principal)
CPT/HCPCS: 85025

== ENCOUNTER → 2017-12-28 | Outpatient (CLI) | payer OTHER ==
[2017-12-28 06:41] LABS: BASO # 0.1 10^3/uL (0.0-0.2); BASO % 0.6 % (0.0-1.0); EOS # 0.2 10^3/uL (0.0-0.50); EOS % 2.6 % (0.0-3.0); HEMATOCRIT 38.6 % (42.0-52.0); HEMOGLOBIN 12.4 g/dl (13.5-17.5); IMMATURE GRANULOCYTE % 0.5 % (0-3.0); LYMPH # 2.1 10^3/uL (1.5-4.5); LYMPH % 23.9 % (24.0-44.0); MEAN CORPUSCULAR HEMOGLOBIN 33.1 pg (27.0-33.0); MEAN CORPUSCULAR HGB CONC 32.1 g/dl (32.0-36.5); MEAN CORPUSCULAR VOLUME 102.9 fl (80.0-96.0); MONO # 0.6 10^3/uL (0.0-0.8); MONO % 7.3 % (0.0-5.0); NEUTROPHILS # 5.7 10^3/uL (1.8-7.7); NEUTROPHILS % 65.1 % (36.0-66.0); PLATELET COUNT, AUTOMATED 233 10^3/uL (150-450); RED BLOOD COUNT 3.75 10^6/uL (4.30-6.10); RED CELL DISTRIBUTION WIDTH 14.9 % (11.5-14.5); WHITE BLOOD COUNT 8.7 10^3/uL (4.0-10.0)
== END ==
LOC: M LAB 06:08
DX: F25.0 Schizoaffective disorder, bipolar type (principal)
CPT/HCPCS: 85025

== ENCOUNTER → 2018-01-23 | Outpatient (CLI) | payer OTHER ==
[2018-01-23 06:39] LABS: HEMATOCRIT 38.1 % (42.0-52.0); HEMOGLOBIN 12.4 g/dl (13.5-17.5); MEAN CORPUSCULAR VOLUME 105.2 fl (80.0-96.0); RED BLOOD COUNT 3.62 10^6/uL (4.30-6.10); WHITE BLOOD COUNT 6.9 10^3/uL (4.0-10.0)
[2018-01-23 06:40] LABS: BASO # 0.1 10^3/uL (0.0-0.2); BASO % 0.7 % (0.0-1.0); EOS # 0.2 10^3/uL (0.0-0.50); EOS % 2.2 % (0.0-3.0); IMMATURE GRANULOCYTE % 0.1 % (0-3.0); LYMPH # 1.6 10^3/uL (1.5-4.5); LYMPH % 22.5 % (24.0-44.0); MEAN CORPUSCULAR HEMOGLOBIN 34.3 pg (27.0-33.0); MEAN CORPUSCULAR HGB CONC 32.5 g/dl (32.0-36.5); MONO # 0.6 10^3/uL (0.0-0.8); NEUTROPHILS # 4.6 10^3/uL (1.8-7.7); NEUTROPHILS % 66.5 % (36.0-66.0); PLATELET COUNT, AUTOMATED 224 10^3/uL (150-450); RED CELL DISTRIBUTION WIDTH 14.6 % (11.5-14.5)
== END ==
LOC: M LAB 06:01
DX: F25.0 Schizoaffective disorder, bipolar type (principal)
CPT/HCPCS: 85025

== ENCOUNTER → 2018-02-23 | Outpatient (CLI) | payer OTHER ==
[~2018-02-23] MED LIST changes: +ACET500T15 PO; -ACET50TAOT PO; -EFFE150C PO; +EFFE150C2 PO
[2018-02-23 06:55] LABS: BASO # 0.1 10^3/uL (0.0-0.2); BASO % 0.8 % (0.0-1.0); EOS # 0.1 10^3/uL (0.0-0.50); EOS % 1.8 % (0.0-3.0); HEMATOCRIT 40.2 % (42.0-52.0); HEMOGLOBIN 13.2 g/dl (13.5-17.5); LYMPH # 1.5 10^3/uL (1.5-4.5); LYMPH % 20.8 % (24.0-44.0); MEAN CORPUSCULAR HGB CONC 32.8 g/dl (32.0-36.5); MEAN CORPUSCULAR VOLUME 100.5 fl (80.0-96.0); MONO # 0.4 10^3/uL (0.0-0.8); MONO % 5.7 % (0.0-5.0); NEUTROPHILS # 5.2 10^3/uL (1.8-7.7); NEUTROPHILS % 70.8 % (36.0-66.0); PLATELET COUNT, AUTOMATED 253 10^3/uL (150-450); WHITE BLOOD COUNT 7.3 10^3/uL (4.0-10.0)
== END ==
LOC: M LAB 06:19
PROVIDERS: ATTEND Nurse Practitioner Psychiatric/Mental Health
DX: F25.0 Schizoaffective disorder, bipolar type (principal); Z51.81 Encounter for therapeutic drug level monitoring; Z79.899 Other long term (current) drug therapy

== ENCOUNTER → 2018-02-23 | Outpatient (CLI) | payer OTHER ==
[2018-02-23 06:54] LABS: BASO # 0.1 10^3/uL (0.0-0.2); BASO % 1.1 % (0.0-1.0); EOS # 0.1 10^3/uL (0.0-0.50); EOS % 1.6 % (0.0-3.0); HEMATOCRIT 39.9 % (42.0-52.0); HEMOGLOBIN 13.1 g/dl (13.5-17.5); LYMPH # 1.5 10^3/uL (1.5-4.5); LYMPH % 20.1 % (24.0-44.0); MEAN CORPUSCULAR HEMOGLOBIN 33.2 pg (27.0-33.0); MEAN CORPUSCULAR HGB CONC 32.8 g/dl (32.0-36.5); MONO # 0.4 10^3/uL (0.0-0.8); NEUTROPHILS # 5.2 10^3/uL (1.8-7.7); NEUTROPHILS % 70.8 % (36.0-66.0); PLATELET COUNT, AUTOMATED 264 10^3/uL (150-450); RED BLOOD COUNT 3.95 10^6/uL (4.30-6.10); WHITE BLOOD COUNT 7.3 10^3/uL (4.0-10.0)
[2018-02-23 07:27] LABS: ALBUMIN 3.5 GM/DL (3.2-5.2); ALT/SGPT 11 U/L (12-78); BILIRUBIN,TOTAL 0.6 MG/DL (0.2-1.0); BLOOD UREA NITROGEN 6 MG/DL (7-18); CALCIUM LEVEL 8.6 MG/DL (8.5-10.1); CARBON DIOXIDE LEVEL 21 MEQ/L (21-32); CHLORIDE LEVEL 106 MEQ/L (98-107); CHOLESTEROL LEVEL 185 MG/DL (<200); CHOLESTEROL RISK RATIO 3.303 (<5); CREATININE FOR GFR 1.04 MG/DL (0.70-1.30); GLOMERULAR FILTRATION RATE > 60.0 (>56); GLUCOSE, FASTING 101 MG/DL (70-100); HDL CHOLESTEROL 56 MG/DL (>40); LDL CHOLESTEROL 109 MG/DL (<100); NON-HDL-C 129 MG/DL; SODIUM LEVEL 138 MEQ/L (136-145); TOTAL PROTEIN 6.8 GM/DL (6.4-8.2); TRIGLYCERIDES LEVEL 102 MG/DL (<150)
== END ==
LOC: M LAB 06:13
PROVIDERS: ATTEND Internal Medicine Cardiovascular Disease
DX: R53.83 Other fatigue (principal); I10 Essential (primary) hypertension; E78.2 Mixed hyperlipidemia; E03.8 Other specified hypothyroidism

== ENCOUNTER → 2018-03-20 | Outpatient (CLI) | payer OTHER ==
[2018-03-20 07:06] LABS: BASO # 0.1 10^3/uL (0.0-0.2); EOS # 0.2 10^3/uL (0.0-0.50); EOS % 2.3 % (0.0-3.0); HEMATOCRIT 38.7 % (42.0-52.0); HEMOGLOBIN 12.6 g/dl (13.5-17.5); LYMPH # 1.5 10^3/uL (1.5-4.5); LYMPH % 21.6 % (24.0-44.0); MEAN CORPUSCULAR HEMOGLOBIN 33.4 pg (27.0-33.0); MEAN CORPUSCULAR HGB CONC 32.6 g/dl (32.0-36.5); MEAN CORPUSCULAR VOLUME 102.7 fl (80.0-96.0); MONO # 0.6 10^3/uL (0.0-0.8); MONO % 8.8 % (0.0-5.0); NEUTROPHILS # 4.6 10^3/uL (1.8-7.7); NEUTROPHILS % 65.9 % (36.0-66.0); PLATELET COUNT, AUTOMATED 249 10^3/uL (150-450); RED BLOOD COUNT 3.77 10^6/uL (4.30-6.10)
== END ==
LOC: M LAB 06:38
PROVIDERS: ATTEND Nurse Practitioner Psychiatric/Mental Health
DX: F25.0 Schizoaffective disorder, bipolar type (principal)

== ENCOUNTER → 2018-04-19 | Outpatient (CLI) | payer OTHER ==
[2018-04-19 06:58] LABS: BASO # 0.1 10^3/uL (0.0-0.2); BASO % 0.8 % (0.0-1.0); EOS # 0.2 10^3/uL (0.0-0.50); EOS % 1.7 % (0.0-3.0); HEMATOCRIT 39.1 % (42.0-52.0); HEMOGLOBIN 12.5 g/dl (13.5-17.5); LYMPH % 22.6 % (24.0-44.0); MEAN CORPUSCULAR HEMOGLOBIN 32.6 pg (27.0-33.0); MEAN CORPUSCULAR VOLUME 101.8 fl (80.0-96.0); MONO # 0.6 10^3/uL (0.0-0.8); NEUTROPHILS # 5.9 10^3/uL (1.8-7.7); NEUTROPHILS % 67.7 % (36.0-66.0); PLATELET COUNT, AUTOMATED 221 10^3/uL (150-450); RED BLOOD COUNT 3.84 10^6/uL (4.30-6.10); WHITE BLOOD COUNT 8.7 10^3/uL (4.0-10.0)
== END ==
LOC: M LAB 06:13
PROVIDERS: ATTEND Nurse Practitioner Psychiatric/Mental Health
DX: F25.0 Schizoaffective disorder, bipolar type (principal)

== ENCOUNTER → 2018-05-15 | Outpatient (CLI) | payer OTHER ==
[~2018-05-15] MED LIST changes: -/DULO30CA OR; -/ESOM40CA; -/ESOM40CA OR; -/WARF5TA; -/WARF5TA OR; +COUM1TAB17; +COUM1TAB17 OR; +CYMB1CAP5 OR; +HYDR-4274 PO; -HYDRO50TAB PO; +NEXI1CAP3; +NEXI1CAP3 OR
[2018-05-15 06:52] LABS: BASO # 0.1 10^3/uL (0.0-0.2); BASO % 0.9 % (0.0-1.0); EOS # 0.2 10^3/uL (0.0-0.50); EOS % 2.6 % (0.0-3.0); HEMATOCRIT 40.3 % (42.0-52.0); HEMOGLOBIN 12.9 g/dl (13.5-17.5); LYMPH # 1.8 10^3/uL (1.5-4.5); LYMPH % 26.2 % (24.0-44.0); MEAN CORPUSCULAR HEMOGLOBIN 32.8 pg (27.0-33.0); MEAN CORPUSCULAR VOLUME 102.5 fl (80.0-96.0); MONO # 0.6 10^3/uL (0.0-0.8); MONO % 7.9 % (0.0-5.0); NEUTROPHILS # 4.3 10^3/uL (1.8-7.7); PLATELET COUNT, AUTOMATED 238 10^3/uL (150-450); RED BLOOD COUNT 3.93 10^6/uL (4.30-6.10); WHITE BLOOD COUNT 6.9 10^3/uL (4.0-10.0)
== END ==
LOC: M LAB 06:10
PROVIDERS: ATTEND Nurse Practitioner Psychiatric/Mental Health
DX: F25.0 Schizoaffective disorder, bipolar type (principal)

== ENCOUNTER → 2018-06-14 | Outpatient (CLI) | payer OTHER ==
[2018-06-14 06:38] LABS: BASO # 0.1 10^3/uL (0.0-0.2); BASO % 0.9 % (0.0-1.0); EOS # 0.1 10^3/uL (0.0-0.50); EOS % 1.3 % (0.0-3.0); HEMATOCRIT 38.5 % (42.0-52.0); HEMOGLOBIN 12.6 g/dl (13.5-17.5); LYMPH # 1.8 10^3/uL (1.5-4.5); LYMPH % 21.4 % (24.0-44.0); MEAN CORPUSCULAR HEMOGLOBIN 33.2 pg (27.0-33.0); MEAN CORPUSCULAR HGB CONC 32.7 g/dl (32.0-36.5); MEAN CORPUSCULAR VOLUME 101.6 fl (80.0-96.0); MONO # 0.6 10^3/uL (0.0-0.8); NEUTROPHILS # 5.9 10^3/uL (1.8-7.7); PLATELET COUNT, AUTOMATED 233 10^3/uL (150-450); RED BLOOD COUNT 3.79 10^6/uL (4.30-6.10); WHITE BLOOD COUNT 8.6 10^3/uL (4.0-10.0)
== END ==
LOC: M LAB 06:08
PROVIDERS: ATTEND Nurse Practitioner Psychiatric/Mental Health
DX: F25.0 Schizoaffective disorder, bipolar type (principal)

== ENCOUNTER → 2018-07-11 | Outpatient (CLI) | payer OTHER ==
[2018-07-11 06:58] LABS: BASO # 0.1 10^3/uL (0.0-0.2); BASO % 0.9 % (0.0-1.0); EOS # 0.2 10^3/uL (0.0-0.50); EOS % 1.9 % (0.0-3.0); HEMATOCRIT 40.6 % (42.0-52.0); HEMOGLOBIN 12.9 g/dl (13.5-17.5); LYMPH # 1.6 10^3/uL (1.5-4.5); LYMPH % 18.6 % (24.0-44.0); MEAN CORPUSCULAR HEMOGLOBIN 33.3 pg (27.0-33.0); MEAN CORPUSCULAR HGB CONC 31.8 g/dl (32.0-36.5); MEAN CORPUSCULAR VOLUME 104.9 fl (80.0-96.0); MONO # 0.6 10^3/uL (0.0-0.8); MONO % 7.5 % (0.0-5.0); NEUTROPHILS % 70.6 % (36.0-66.0); PLATELET COUNT, AUTOMATED 254 10^3/uL (150-450); RED BLOOD COUNT 3.87 10^6/uL (4.30-6.10); WHITE BLOOD COUNT 8.5 10^3/uL (4.0-10.0)
== END ==
LOC: M LAB 06:08
PROVIDERS: ATTEND Nurse Practitioner Psychiatric/Mental Health
DX: F25.0 Schizoaffective disorder, bipolar type (principal)

== ENCOUNTER → 2018-08-14 | Outpatient (CLI) | payer OTHER ==
[~2018-08-14] MED LIST changes: +ALL10TAB29 PO; +AMAN100T PO; -BENZ0.5T PO; +BENZ0.5T23 PO; +LOXA5CAP PO; +MIRT1TAB15 PO; +NEUR400C PO; +OMEP40CA97 PO; +PROP80TA PO; +SULF1TAB30 PO; +SYNT137T7 PO; +VENTAER INH; +XARE10TA PO
[2018-08-14 07:01] LABS: BASO # 0.1 10^3/uL (0.0-0.2); BASO % 0.8 % (0.0-1.0); EOS # 0.1 10^3/uL (0.0-0.50); EOS % 1.5 % (0.0-3.0); HEMATOCRIT 41.4 % (42.0-52.0); HEMOGLOBIN 13.2 g/dl (13.5-17.5); LYMPH # 1.9 10^3/uL (1.5-4.5); LYMPH % 20.6 % (24.0-44.0); MEAN CORPUSCULAR HEMOGLOBIN 32.8 pg (27.0-33.0); MEAN CORPUSCULAR HGB CONC 31.9 g/dl (32.0-36.5); MEAN CORPUSCULAR VOLUME 102.7 fl (80.0-96.0); MONO # 0.6 10^3/uL (0.0-0.8); MONO % 6.6 % (0.0-5.0); NEUTROPHILS # 6.4 10^3/uL (1.8-7.7); NEUTROPHILS % 70.2 % (36.0-66.0); PLATELET COUNT, AUTOMATED 297 10^3/uL (150-450); RED BLOOD COUNT 4.03 10^6/uL (4.30-6.10); WHITE BLOOD COUNT 9.1 10^3/uL (4.0-10.0)
[2018-08-14 07:28] LABS: ALBUMIN 3.7 GM/DL (3.2-5.2); ALT/SGPT 20 U/L (12-78); BILIRUBIN,TOTAL 0.7 MG/DL (0.2-1.0); BLOOD UREA NITROGEN 6 MG/DL (7-18); CARBON DIOXIDE LEVEL 26 MEQ/L (21-32); CHLORIDE LEVEL 106 MEQ/L (98-107); CHOLESTEROL LEVEL 188 MG/DL (<200); CHOLESTEROL RISK RATIO 3.081 (<5); CREATININE FOR GFR 1.05 MG/DL (0.70-1.30); FREE T4 1.12 NG/DL (0.76-1.46); GLOMERULAR FILTRATION RATE > 60.0 (>56); GLUCOSE, FASTING 95 MG/DL (70-100); HDL CHOLESTEROL 61 MG/DL (>40); LDL CHOLESTEROL 106 MG/DL (<100); NON-HDL-C 127 MG/DL; POTASSIUM SERUM 4.5 MEQ/L (3.5-5.1); SODIUM LEVEL 139 MEQ/L (136-145); TOTAL PROTEIN 7.2 GM/DL (6.4-8.2); TRIGLYCERIDES LEVEL 103 MG/DL (<150)
[2018-08-14 08:44] LABS: HEMOGLOBIN A1c 3.7 %
== END ==
LOC: M LAB 06:21
PROVIDERS: ATTEND Physician Assistant Medical
DX: R53.83 Other fatigue (principal); I10 Essential (primary) hypertension; E78.2 Mixed hyperlipidemia; E03.9 Hypothyroidism, unspecified

== ENCOUNTER 2018-08-28 08:53 | Emergency (ER) | payer OTHER ==
[~2018-08-28] VITALS: Ht 180.3 cm; Wt 131.8 kg
[~2018-08-28 08:53] MED LIST changes: -ALL10TAB29 PO; -AMAN100T PO; -LOXA5CAP PO; -MIRT1TAB15 PO; -NEUR400C PO; -OMEP40CA97 PO; -PROP80TA PO; -SULF1TAB30 PO; -SYNT137T7 PO; -VENTAER INH; -XARE10TA PO
[2018-08-28 08:54] VITALS: BP 142/92
--- NOTE | 2018-08-28 10:57 | REP ---
LEFT SECOND TOE: Four views of the left second toe are performed. There is an avulsion fracture at the dorsal base of the distal phalanx. No other acute fracture or dislocation is seen. Electronically Signed by Og Melton MD 08/28/2018 01:13 P
== END 2018-08-28 11:27 | disposition home or self-care (01) ==
LOC: M ED 08:53
DX: S92.532A Displaced fracture of distal phalanx of left lesser toe(s), initial encounter for closed fracture (principal); X58.XXXA Exposure to other specified factors, initial encounter; Y92.89 Other specified places as the place of occurrence of the external cause; Z86.711 Personal history of pulmonary embolism; Z86.718 Personal history of other venous thrombosis and embolism; Z79.899 Other long term (current) drug therapy; Z79.01 Long term (current) use of anticoagulants; Z88.8 Allergy status to other drugs, medicaments and biological substances

== ENCOUNTER 2018-10-09 03:14 | Emergency (ER) | payer OTHER ==
[~2018-10-09] VITALS: Ht 180.3 cm; Wt 131.8 kg
[2018-10-09 03:57] LABS: BASO # 0.1 10^3/uL (0.0-0.2); BASO % 0.7 % (0.0-1.0); EOS # 0.1 10^3/uL (0.0-0.50); EOS % 0.9 % (0.0-3.0); HEMATOCRIT 41.8 % (42.0-52.0); HEMOGLOBIN 13.9 g/dl (13.5-17.5); LYMPH # 1.4 10^3/uL (1.5-4.5); LYMPH % 19.9 % (24.0-44.0); MEAN CORPUSCULAR HEMOGLOBIN 32.1 pg (27.0-33.0); MEAN CORPUSCULAR HGB CONC 33.3 g/dl (32.0-36.5); MEAN CORPUSCULAR VOLUME 96.5 fl (80.0-96.0); MONO # 0.5 10^3/uL (0.0-0.8); MONO % 7.4 % (0.0-5.0); NEUTROPHILS % 70.8 % (36.0-66.0); PLATELET COUNT, AUTOMATED 279 10^3/uL (150-450); RED BLOOD COUNT 4.33 10^6/uL (4.30-6.10)
[2018-10-09] MEDS ORDERED: AMAN100T PO (03:58)
[2018-10-09] MEDS ORDERED: XARE10TA PO (03:58)
[2018-10-09] MEDS ORDERED: ALL10TAB29 PO (03:58)
[2018-10-09] MEDS ORDERED: VENTAER INH (03:58)
[2018-10-09] MEDS ORDERED: OMEP40CA2 PO (03:58)
[2018-10-09] MEDS ORDERED: NEUR400C PO (03:58)
[2018-10-09] MEDS ORDERED: SYNT137T7 PO (03:58)
[2018-10-09] MEDS ORDERED: PROP80TA PO (03:58)
[2018-10-09] MEDS ORDERED: MIRT1TAB15 PO (03:58)
[2018-10-09] MEDS ORDERED: SULF1TAB30 PO (03:58)
[2018-10-09] MEDS ORDERED: LOXA5CAP PO (03:58)
[2018-10-09] MEDS ORDERED: NS 1,000 ML IV ONE (04:45)
[2018-10-09 04:58] LABS: ALBUMIN 3.3 GM/DL (3.2-5.2); ALT/SGPT 10 U/L (12-78); BILIRUBIN,TOTAL 0.9 MG/DL (0.2-1.0); BLOOD UREA NITROGEN 5 MG/DL (7-18); CALCIUM LEVEL 8.4 MG/DL (8.5-10.1); CARBON DIOXIDE LEVEL 26 MEQ/L (21-32); CHLORIDE LEVEL 100 MEQ/L (98-107); CREATININE FOR GFR 0.92 MG/DL (0.70-1.30); GLOMERULAR FILTRATION RATE > 60.0 (>56); GLUCOSE, FASTING 98 MG/DL (70-100); POTASSIUM SERUM 3.1 MEQ/L (3.5-5.1); SODIUM LEVEL 136 MEQ/L (136-145); TOTAL PROTEIN 6.4 GM/DL (6.4-8.2)
[2018-10-09] MEDS ORDERED: POTASSIUM CHLORIDE 10 MEQ SR TABLET PO ONE (05:30)
[2018-10-09 06:52] VITALS: BP 168/74
--- NOTE | 2018-10-09 20:25 | ECGEPIP ---
[facility] - ED Test Date: 2018-10-09 Pat Name: YOSHI GERMAIN Department: Room: - Gender: Male Supervisor Stripping: : 1965 Requested By: MARILYN OLIVA Order Number: [id number] Reading MD: Enrique Wall Measurements Intervals Ward Rate: 52 P: 15 RI: 183 QRS: 6 QRSD: 120 T: 29 QT: 453 QTc: 425 Interpretive Statements SINUS BRADYCARDIA MODERATE INTRAVENTRICULAR CONDUCTION DELAY NONSPECIFIC ST & T-WAVE ABNORMALITY NO PRIORS FOR COMPARISON Electronically Signed on 10-09-2018 20:25:18 EDT by Enrique Wall
== END 2018-10-09 06:55 | disposition home or self-care (01) ==
LOC: M ED 03:14
DX: E86.9 Volume depletion, unspecified (principal); E03.9 Hypothyroidism, unspecified; R94.31 Abnormal electrocardiogram [ECG] [EKG]; J45.909 Unspecified asthma, uncomplicated; F25.9 Schizoaffective disorder, unspecified; K50.90 Crohn's disease, unspecified, without complications; D50.9 Iron deficiency anemia, unspecified; Z79.52 Long term (current) use of systemic steroids; Z79.899 Other long term (current) drug therapy; Z88.8 Allergy status to other drugs, medicaments and biological substances

== ENCOUNTER → 2022-01-27 | Outpatient (CLI) | payer OTHER ==
[~2022-01-27] MED LIST changes: +AMAN100T PO; +CETI-24 PO; -DELZ400C PO; +DELZ400C5 PO; +LOXA5CAP PO; +MIRT1TAB15 PO; +NEUR400C PO; +OMEP40CA4 PO; +PROP80TA PO; +SULF1TAB30 PO; +SYNT137T7 PO; +VENTAER INH; +XARE10TA PO
[2022-01-27 06:59] LABS: HEMATOCRIT 36.8 % (42.0-52.0); HEMOGLOBIN 11.1 g/dl (13.5-17.5); MEAN CORPUSCULAR HEMOGLOBIN 27.1 pg (27.0-33.0); MEAN CORPUSCULAR HGB CONC 30.2 g/dl (32.0-36.5); PLATELET COUNT, AUTOMATED 424 10^3/uL (150-450); RED BLOOD COUNT 4.09 10^6/uL (4.30-6.10); WHITE BLOOD COUNT 11.5 10^3/uL (4.0-10.0)
[2022-01-27 08:18] LABS: FREE T4 1.61 NG/DL (0.89-1.76); THYROID STIMULATING HORMONE 0.718 uIU/ML (0.55-4.78)
[2022-01-27 08:24] LABS: ALBUMIN 3.1 G/DL (3.2-5.2); BLOOD UREA NITROGEN 12 MG/DL (9-23); CALCIUM LEVEL 8.9 MG/DL (8.5-10.1); CARBON DIOXIDE LEVEL 17 MMOL/L (20-31); CHLORIDE LEVEL 106 MMOL/L (98-107); CHOLESTEROL LEVEL 170 MG/DL (<200); CHOLESTEROL RISK RATIO 3.82 (<5); CREATININE FOR GFR 0.84 MG/DL (0.70-1.30); GLOMERULAR FILTRATION RATE > 60.0 (>56); GLUCOSE, FASTING 113 MG/DL (60-100); HDL CHOLESTEROL 44.5 MG/DL (>40); LDL CHOLESTEROL 105.9 MG/DL (<100); NON-HDL-C 126 MG/DL; PHOSPHORUS LEVEL 3.5 MG/DL (2.5-4.9); POTASSIUM SERUM 4.5 MMOL/L (3.5-5.1); SODIUM LEVEL 137 MMOL/L (136-145); TRIGLYCERIDES LEVEL 98 MG/DL (<150)
== END ==
LOC: M LAB 06:19
PROVIDERS: ATTEND Physician Assistant
DX: E78.5 Hyperlipidemia, unspecified (principal); I10 Essential (primary) hypertension; E03.9 Hypothyroidism, unspecified; E66.9 Obesity, unspecified; Z12.5 Encounter for screening for malignant neoplasm of prostate

== ENCOUNTER 2022-05-04 09:29 | Emergency (ER) | payer BC, MEDICAID, OTHER ==
[~2022-05-04 09:29] MED LIST changes: +AMOX875T2 PO; +BACI1CAP PO; -BENZ-52 PO; +BENZ1TAB5 PO; +CETI-25 PO; +DOXY-444 PO; +FLOM0.4C39 PO; +GABA600T4 PO; +INVE156I IM; +LEVO112T2 PO; +LISI10TA22 PO; +LOPE1CAP5 PO; +MESA4ENE RC; +MESA50SU PR; +PROP80CA PO; +REME45TA2 PO; +SULF500T2 PO
[2022-05-04 10:26] LABS: BASO % 0.4 % (0.0-1.0); EOS % 0.3 % (0.0-3.0); HEMATOCRIT 35.2 % (42.0-52.0); HEMOGLOBIN 11.1 g/dl (13.5-17.5); LYMPH # 1.4 10^3/uL (1.5-5.0); LYMPH % 13.9 % (24.0-44.0); MEAN CORPUSCULAR HEMOGLOBIN 27.5 pg (27.0-33.0); MEAN CORPUSCULAR HGB CONC 31.5 g/dl (32.0-36.5); MEAN CORPUSCULAR VOLUME 87.3 fl (80.0-96.0); MONO # 1.2 10^3/uL (0.0-0.8); NEUTROPHILS # 7.1 10^3/uL (1.5-8.5); NEUTROPHILS % 72.6 % (36.0-66.0); PLATELET COUNT, AUTOMATED 411 10^3/uL (150-450); RED BLOOD COUNT 4.03 10^6/uL (4.30-6.10); WHITE BLOOD COUNT 9.7 10^3/uL (4.0-10.0)
[2022-05-04 11:17] LABS: ALBUMIN 2.1 G/DL (3.2-5.2); BILIRUBIN,DIRECT 0.2 MG/DL (<0.4); BILIRUBIN,TOTAL 0.7 MG/DL (0.3-1.2); TOTAL PROTEIN 5.8 G/DL (5.7-8.2)
[2022-05-04 12:33] VITALS: BP 143/75
== END 2022-05-04 12:50 | disposition home or self-care (01) ==
LOC: M ED 09:29
DX: R53.83 Other fatigue (principal); I10 Essential (primary) hypertension; K21.9 Gastro-esophageal reflux disease without esophagitis; K50.90 Crohn's disease, unspecified, without complications; Z87.442 Personal history of urinary calculi; Z88.6 Allergy status to analgesic agent; Z79.891 Long term (current) use of opiate analgesic; Z79.83 Long term (current) use of bisphosphonates; Z79.2 Long term (current) use of antibiotics; Z79.899 Other long term (current) drug therapy

== ENCOUNTER 2022-05-06 08:29 | Inpatient (IN) | payer OTHER ==
[~2022-05-06] VITALS: Ht 180.3 cm; Wt 108.0 kg
[2022-05-06] MEDS: LEVOTHYROXINE 112MCG TABLET (0.112MG) PO SCH (06:00)
[~2022-05-06 08:29] MED LIST changes: +BENZ0.5T2 PO; -BENZ0.5T23 PO
[2022-05-06] MEDS: CETIRIZINE (ZyrTEC) 10 MG TAB PO SCH (09:00)
[2022-05-06] MEDS: AMANTADINE 100MG TABLET PO SCH ×2 (09:00→21:26)
[2022-05-06] MEDS: OMEPRAZOLE 20MG CAP PO SCH ×2 (09:00→21:26)
[2022-05-06] MEDS: TOPIRAMATE (TopAMAX) 100 MG TAB PO SCH (09:00)
[2022-05-06] MEDS: PROPRANOLOL 80MG LA CAP PO SCH (09:00)
[2022-05-06] MEDS ORDERED: PANTOPRAZOLE 40MG VIAL IV ONE (09:10)
[2022-05-06] MEDS ORDERED: NS 1,000 ML IV ONE (09:20)
[2022-05-06 09:23] LABS: BASO % 0.3 % (0.0-1.0); EOS % 0.1 % (0.0-3.0); HEMATOCRIT 34.9 % (42.0-52.0); HEMOGLOBIN 10.8 g/dl (13.5-17.5); LYMPH # 1.3 10^3/uL (1.5-5.0); LYMPH % 14.3 % (24.0-44.0); MEAN CORPUSCULAR HEMOGLOBIN 27.2 pg (27.0-33.0); MEAN CORPUSCULAR HGB CONC 30.9 g/dl (32.0-36.5); MEAN CORPUSCULAR VOLUME 87.9 fl (80.0-96.0); MONO # 0.8 10^3/uL (0.0-0.8); MONO % 8.6 % (2.0-8.0); NEUTROPHILS % 75.8 % (36.0-66.0); PLATELET COUNT, AUTOMATED 429 10^3/uL (150-450); RED BLOOD COUNT 3.97 10^6/uL (4.30-6.10); WHITE BLOOD COUNT 9.2 10^3/uL (4.0-10.0)
[2022-05-06 09:29] LABS: INR 1.29; PARTIAL THROMBOPLASTIN TIME 23.3 SECONDS (24.8-34.2); PROTHROMBIN TIME 16.3 SECONDS (12.5-14.5)
[2022-05-06 09:49] LABS: THYROID STIMULATING HORMONE 3.594 uIU/ML (0.55-4.78)
[2022-05-06 09:54] LABS: ALBUMIN 2.1 G/DL (3.2-5.2); ALKALINE PHOSPHATASE 150 U/L (46-116); ALT/SGPT 15 U/L (7.0-40); AST/SGOT 82 U/L (<34); BILIRUBIN,DIRECT 0.3 MG/DL (<0.4); BILIRUBIN,TOTAL 0.8 MG/DL (0.3-1.2); BLOOD UREA NITROGEN 7 MG/DL (9-23); CALCIUM LEVEL 7.8 MG/DL (8.5-10.1); CARBON DIOXIDE LEVEL 29 MMOL/L (20-31); CHLORIDE LEVEL 94 MMOL/L (98-107); CK-MB VALUE MASS < 1.0 NG/ML (<3.6); CPK CREATINE PHOSPHOKINASE 100 U/L (46-171); CREATININE FOR GFR 0.63 MG/DL (0.70-1.30); FREE T4 1.16 NG/DL (0.89-1.76); GLOMERULAR FILTRATION RATE > 60.0 (>56); GLUCOSE, FASTING 90 MG/DL (60-100); POTASSIUM SERUM 5.7 MMOL/L (3.5-5.1); SODIUM LEVEL 130 MMOL/L (136-145)
[2022-05-06 10:11] LABS: RSV AMPLIFICATION NEGATIVE (NEGATIVE)
[2022-05-06] MEDS ORDERED: ISOVUE-370 76% 100ML VIAL As Ordered ONE (10:16)
[2022-05-06 10:31] LABS: LIPASE 43 U/L (12-53)
[2022-05-06] MEDS ORDERED: FLOM0.4C39 PO (13:31)
[2022-05-06] MEDS ORDERED: OMEP40CA4 PO (13:31)
[2022-05-06] MEDS ORDERED: MESA50SU PR (13:34)
[2022-05-06] MEDS ORDERED: PATIENT COMMENT (13:34)
[2022-05-06] MEDS ORDERED: HOME MED LIST COMPLETE! XX SCH (13:35)
[2022-05-06] MEDS: cefTRIAXone SOD 1 GM in D5W MINI-BAG PLUS 50 ML IV SCH (13:45)
[2022-05-06] MEDS: metroNIDAZOLE (FLAGYL) 500MG TABLET PO SCH ×2 (14:15→17:57)
[2022-05-06 15:08] LABS: PERCENT SATURATION 19.6 % (19.7-50.0)
[2022-05-06 15:09] LABS: C REACTIVE PROTEIN QUANTITATIV 10.6 MG/DL (<1.0)
[2022-05-06 15:11] LABS: FERRITIN 515.9 NG/ML (10.5-307.3)
[2022-05-06] MEDS ORDERED: SOD POLYSTYRENE SULFONATE SUSP 15GM 60ML UD PO ONE (16:00)
[2022-05-06] MEDS: NS 1,000 ML IV SCH (17:00)
[2022-05-06] MEDS: ACETAMINOPHEN TAB 650MG DOSE (2X325MG) PO PRN (18:33)
[2022-05-06] MEDS: TAMSULOSIN 0.4 MG CAP PO SCH (21:26)
[2022-05-06] MEDS: MESALAMINE 1,000 MG SUPP PR SCH (21:27)
[2022-05-06] MEDS: GABAPENTIN 300 MG CAP PO SCH (21:27)
[2022-05-06 23:40] VITALS: BP 132/72; TEMP 98.6; O2SAT 93
[2022-05-07] MEDS: metroNIDAZOLE (FLAGYL) 500MG TABLET PO SCH ×4 (00:25→17:52)
[2022-05-07] MEDS: NS 1,000 ML IV SCH ×4 (00:25→20:09)
[2022-05-07 04:00] VITALS: BP_SYST 108; BP_SYST 116; BP_SYST 126; BP_DIAS 57; BP_DIAS 66; BP_DIAS 70
[2022-05-07 04:19] VITALS: BP 125/70; TEMP 97.3; O2SAT 94
[2022-05-07] MEDS: LOPERAMIDE 2 MG CAPLET PO PRN ×2 (04:28→21:29)
[2022-05-07] MEDS: ACETAMINOPHEN TAB 650MG DOSE (2X325MG) PO PRN ×2 (04:28→17:52)
[2022-05-07 04:56] LABS: HEMATOCRIT 34.8 % (42.0-52.0); MEAN CORPUSCULAR HEMOGLOBIN 27.8 pg (27.0-33.0); MEAN CORPUSCULAR HGB CONC 31.6 g/dl (32.0-36.5); MEAN CORPUSCULAR VOLUME 88.1 fl (80.0-96.0); PLATELET COUNT, AUTOMATED 425 10^3/uL (150-450); RED BLOOD COUNT 3.95 10^6/uL (4.30-6.10); WHITE BLOOD COUNT 11.9 10^3/uL (4.0-10.0)
[2022-05-07] MEDS: LEVOTHYROXINE 112MCG TABLET (0.112MG) PO SCH (06:02)
[2022-05-07 07:41] VITALS: BP 138/67; TEMP 96.8; O2SAT 94
[2022-05-07 07:49] LABS: ALBUMIN 2.1 G/DL (3.2-5.2); ALKALINE PHOSPHATASE 163 U/L (46-116); ALT/SGPT 13 U/L (7.0-40); AST/SGOT 31 U/L (<34); BILIRUBIN,TOTAL 0.7 MG/DL (0.3-1.2); BLOOD UREA NITROGEN 6 MG/DL (9-23); CALCIUM LEVEL 7.7 MG/DL (8.5-10.1); CARBON DIOXIDE LEVEL 25 MMOL/L (20-31); CHLORIDE LEVEL 98 MMOL/L (98-107); CREATININE FOR GFR 0.49 MG/DL (0.70-1.30); GLOMERULAR FILTRATION RATE > 60.0 (>56); GLUCOSE, FASTING 113 MG/DL (60-100); POTASSIUM SERUM 3.3 MMOL/L (3.5-5.1); SODIUM LEVEL 134 MMOL/L (136-145); TOTAL PROTEIN 5.9 G/DL (5.7-8.2)
[2022-05-07] MEDS ORDERED: POTASSIUM CHLORIDE 10MEQ SR TABLET PO ONE (08:10)
[2022-05-07] MEDS: PROPRANOLOL 80MG LA CAP PO SCH (08:43)
[2022-05-07] MEDS: AMANTADINE 100MG TABLET PO SCH ×2 (08:43→21:28)
[2022-05-07] MEDS: TOPIRAMATE (TopAMAX) 100 MG TAB PO SCH (08:44)
[2022-05-07] MEDS: CETIRIZINE (ZyrTEC) 10 MG TAB PO SCH (08:44)
[2022-05-07] MEDS: OMEPRAZOLE 20MG CAP PO SCH ×2 (08:44→21:29)
[2022-05-07 09:45] LABS: MAGNESIUM LEVEL 1.6 MG/DL (1.8-2.4)
[2022-05-07] MEDS: MAG SULF 1GM/100ML (MAG RUN) 1 GM in IV 1 EA IV SCH ×2 (10:11→11:26)
[2022-05-07 11:42] VITALS: BP 131/67; TEMP 96.9; O2SAT 94
[2022-05-07] MEDS: cefTRIAXone SOD 1 GM in D5W MINI-BAG PLUS 50 ML IV SCH (14:04)
[2022-05-07] MEDS: FOLIC ACID 1MG TAB PO SCH (14:04)
[2022-05-07] MEDS: methylPREDNISolone 40MG 1ML VIAL IV SCH (17:52)
[2022-05-07 20:00] VITALS: BP 113/64; TEMP 97.3; O2SAT 94
[2022-05-07] MEDS: RIVAROXABAN 10MG TAB (XARELTO) PO SCH (21:29)
[2022-05-07] MEDS: GABAPENTIN 300 MG CAP PO SCH (21:29)
[2022-05-07] MEDS: TAMSULOSIN 0.4 MG CAP PO SCH (21:30)
[2022-05-07] MEDS: MESALAMINE 1,000 MG SUPP PR SCH (21:31)
[2022-05-07 22:00] VITALS: BP 98/54
[2022-05-08] MEDS: metroNIDAZOLE (FLAGYL) 500MG TABLET PO SCH ×5 (00:55→23:15)
[2022-05-08] MEDS: NS 1,000 ML IV SCH ×3 (03:01→20:24)
[2022-05-08 04:00] VITALS: BP 127/68; TEMP 96.7; O2SAT 95
[2022-05-08] MEDS: LEVOTHYROXINE 112MCG TABLET (0.112MG) PO SCH (06:01)
[2022-05-08] MEDS: methylPREDNISolone 40MG 1ML VIAL IV SCH ×2 (06:02→17:32)
[2022-05-08 06:11] LABS: HEMATOCRIT 29.9 % (42.0-52.0); HEMOGLOBIN 9.1 g/dl (13.5-17.5); MEAN CORPUSCULAR HEMOGLOBIN 27.5 pg (27.0-33.0); MEAN CORPUSCULAR HGB CONC 30.4 g/dl (32.0-36.5); MEAN CORPUSCULAR VOLUME 90.3 fl (80.0-96.0); PLATELET COUNT, AUTOMATED 350 10^3/uL (150-450); RED BLOOD COUNT 3.31 10^6/uL (4.30-6.10); WHITE BLOOD COUNT 8.7 10^3/uL (4.0-10.0)
[2022-05-08 06:47] LABS: ALBUMIN 1.7 G/DL (3.2-5.2); ALKALINE PHOSPHATASE 134 U/L (46-116); ALT/SGPT 10 U/L (7.0-40); AST/SGOT 20 U/L (<34); BILIRUBIN,TOTAL 0.5 MG/DL (0.3-1.2); BLOOD UREA NITROGEN < 5 MG/DL (9-23); CALCIUM LEVEL 7.5 MG/DL (8.5-10.1); CARBON DIOXIDE LEVEL 26 MMOL/L (20-31); CHLORIDE LEVEL 103 MMOL/L (98-107); CREATININE FOR GFR 0.63 MG/DL (0.70-1.30); GLOMERULAR FILTRATION RATE > 60.0 (>56); GLUCOSE, FASTING 87 MG/DL (60-100); MAGNESIUM LEVEL 1.9 MG/DL (1.8-2.4); POTASSIUM SERUM 2.7 MMOL/L (3.5-5.1); SODIUM LEVEL 137 MMOL/L (136-145); TOTAL PROTEIN 4.8 G/DL (5.7-8.2)
[2022-05-08] MEDS: LOPERAMIDE 2 MG CAPLET PO PRN ×3 (07:30→17:36)
[2022-05-08 07:37] VITALS: BP 148/74; TEMP 97; O2SAT 93
[2022-05-08] MEDS ORDERED: KCL 10MEQ/100ML SWI (KRUN) 10 MEQ in IV 1 EA IV ONE (08:00)
[2022-05-08] MEDS ORDERED: POTASSIUM CHLORIDE 10MEQ SR TABLET PO ONE ×3 (08:00→16:25)
[2022-05-08] MEDS ORDERED: FLUBLOK(EGG FREE)(QUAD)INFLUENZA VACC 0.5ML SYRINGE 18YRS & OLDER IM.IMMUN ONE (09:00)
[2022-05-08] MEDS: TOPIRAMATE (TopAMAX) 100 MG TAB PO SCH (09:25)
[2022-05-08] MEDS: PROPRANOLOL 80MG LA CAP PO SCH (09:26)
[2022-05-08] MEDS: CETIRIZINE (ZyrTEC) 10 MG TAB PO SCH (09:26)
[2022-05-08] MEDS: FOLIC ACID 1MG TAB PO SCH (09:26)
[2022-05-08] MEDS: AMANTADINE 100MG TABLET PO SCH ×2 (09:26→20:15)
[2022-05-08] MEDS: OMEPRAZOLE 20MG CAP PO SCH ×2 (09:26→20:10)
[2022-05-08] MEDS: cefTRIAXone SOD 1 GM in D5W MINI-BAG PLUS 50 ML IV SCH (13:12)
[2022-05-08 14:57] LABS: HEMATOCRIT 27.8 % (42.0-52.0); HEMOGLOBIN 8.7 g/dl (13.5-17.5)
[2022-05-08 15:22] LABS: BLOOD UREA NITROGEN 7 MG/DL (9-23); CALCIUM LEVEL 7.4 MG/DL (8.5-10.1); CARBON DIOXIDE LEVEL 26 MMOL/L (20-31); CHLORIDE LEVEL 104 MMOL/L (98-107); CREATININE FOR GFR 0.72 MG/DL (0.70-1.30); GLOMERULAR FILTRATION RATE > 60.0 (>56); GLUCOSE, FASTING 117 MG/DL (60-100); POTASSIUM SERUM 3.1 MMOL/L (3.5-5.1); SODIUM LEVEL 136 MMOL/L (136-145)
[2022-05-08 16:00] VITALS: BP 114/75; TEMP 97.9; O2SAT 93
[2022-05-08 18:00] VITALS: BP_SYST 103; BP_SYST 113; BP_SYST 70; BP_DIAS 44; BP_DIAS 69; BP_DIAS 74
[2022-05-08 18:26] LABS: HEMATOCRIT 30.3 % (42.0-52.0); HEMOGLOBIN 9.5 g/dl (13.5-17.5)
[2022-05-08 20:00] VITALS: BP 123/74; TEMP 97.3; O2SAT 96
[2022-05-08] MEDS: FERROUS SULFATE 325MG TAB PO SCH (20:09)
[2022-05-08] MEDS: MIRTAZAPINE 15 MG TAB PO SCH (20:09)
[2022-05-08] MEDS: GABAPENTIN 300 MG CAP PO SCH (20:09)
[2022-05-08] MEDS: RIVAROXABAN 10MG TAB (XARELTO) PO SCH (20:10)
[2022-05-08] MEDS: TAMSULOSIN 0.4 MG CAP PO SCH (20:10)
[2022-05-08] MEDS: sulfaSALAzine 500 MG TABEC PO SCH (20:15)
[2022-05-08] MEDS: MESALAMINE 1,000 MG SUPP PR SCH (20:16)
[2022-05-08] MEDS: FLUDROCORTISONE ACETATE 0.1 MG TAB PO SCH (20:49)
[2022-05-09 00:29] LABS: HEMATOCRIT 30.2 % (42.0-52.0); HEMOGLOBIN 9.3 g/dl (13.5-17.5)
[2022-05-09 03:04] VITALS: BP_SYST 125; BP_SYST 150; BP_SYST 97; BP_DIAS 65; BP_DIAS 85; BP_DIAS 89
[2022-05-09] MEDS: methylPREDNISolone 40MG 1ML VIAL IV SCH (04:59)
[2022-05-09 06:00] VITALS: BP 126/69; TEMP 97.7; O2SAT 98
[2022-05-09] MEDS: NS 1,000 ML IV SCH ×3 (06:08→20:27)
[2022-05-09] MEDS: metroNIDAZOLE (FLAGYL) 500MG TABLET PO SCH ×3 (06:08→20:15)
[2022-05-09] MEDS: LEVOTHYROXINE 112MCG TABLET (0.112MG) PO SCH (06:09)
[2022-05-09 07:14] LABS: HEMATOCRIT 29.9 % (42.0-52.0); HEMOGLOBIN 9.2 g/dl (13.5-17.5); MEAN CORPUSCULAR HGB CONC 30.8 g/dl (32.0-36.5); MEAN CORPUSCULAR VOLUME 91.2 fl (80.0-96.0); PLATELET COUNT, AUTOMATED 370 10^3/uL (150-450); RED BLOOD COUNT 3.28 10^6/uL (4.30-6.10); WHITE BLOOD COUNT 10.2 10^3/uL (4.0-10.0)
[2022-05-09 07:41] LABS: ALBUMIN 1.8 G/DL (3.2-5.2); ALKALINE PHOSPHATASE 129 U/L (46-116); ALT/SGPT < 9 U/L (7.0-40); AST/SGOT 18 U/L (<34); BILIRUBIN,TOTAL 0.4 MG/DL (0.3-1.2); BLOOD UREA NITROGEN 9 MG/DL (9-23); CALCIUM LEVEL 7.9 MG/DL (8.5-10.1); CARBON DIOXIDE LEVEL 27 MMOL/L (20-31); CHLORIDE LEVEL 106 MMOL/L (98-107); GLOMERULAR FILTRATION RATE > 60.0 (>56); GLUCOSE, FASTING 93 MG/DL (60-100); MAGNESIUM LEVEL 1.9 MG/DL (1.8-2.4); POTASSIUM SERUM 3.6 MMOL/L (3.5-5.1); SODIUM LEVEL 140 MMOL/L (136-145); TOTAL PROTEIN 4.8 G/DL (5.7-8.2)
[2022-05-09] MEDS: FOLIC ACID 1MG TAB PO SCH (09:06)
[2022-05-09] MEDS: sulfaSALAzine 500 MG TABEC PO SCH ×2 (09:06→20:14)
[2022-05-09] MEDS: TOPIRAMATE (TopAMAX) 100 MG TAB PO SCH (09:07)
[2022-05-09] MEDS: OMEPRAZOLE 20MG CAP PO SCH ×2 (09:08→20:14)
[2022-05-09] MEDS: FLUDROCORTISONE ACETATE 0.1 MG TAB PO SCH (09:08)
[2022-05-09] MEDS: AMANTADINE 100MG TABLET PO SCH ×2 (09:09→20:13)
[2022-05-09] MEDS: PROPRANOLOL 80MG LA CAP PO SCH (09:09)
[2022-05-09] MEDS: CETIRIZINE (ZyrTEC) 10 MG TAB PO SCH (09:09)
[2022-05-09] MEDS: FERROUS SULFATE 325MG TAB PO SCH ×2 (09:09→20:14)
[2022-05-09] MEDS: LOPERAMIDE 2 MG CAPLET PO PRN ×2 (09:18→20:27)
[2022-05-09 10:00] VITALS: BP_SYST 107; BP_SYST 115; BP_SYST 135; BP_DIAS 78; BP_DIAS 79; BP_DIAS 82
[2022-05-09] MEDS ORDERED: POTASSIUM CHLORIDE 10MEQ SR TABLET PO ONE (10:45)
[2022-05-09] MEDS ORDERED: predniSONE 20 MG TAB PO ONE (10:50)
[2022-05-09] MEDS: LACTOBACILLUS ACIDOPHILUS CAP (BACID) PO SCH ×2 (11:23→20:14)
[2022-05-09] MEDS: CEFDINIR 300 MG CAP (OMNICEF) PO SCH ×2 (11:23→20:14)
[2022-05-09 14:00] VITALS: BP 125/82; TEMP 97.7; O2SAT 93
[2022-05-09 18:30] VITALS: BP_SYST 146; BP_SYST 153; BP_SYST 94; BP_DIAS 74; BP_DIAS 94; BP_DIAS 98
[2022-05-09] MEDS: MESALAMINE 1,000 MG SUPP PR SCH (20:13)
[2022-05-09] MEDS: TAMSULOSIN 0.4 MG CAP PO SCH (20:14)
[2022-05-09] MEDS: FINASTERIDE 5MG TAB PO SCH (20:14)
[2022-05-09] MEDS: MIRTAZAPINE 15 MG TAB PO SCH (20:14)
[2022-05-09] MEDS: RIVAROXABAN 10MG TAB (XARELTO) PO SCH (20:15)
[2022-05-09] MEDS: GABAPENTIN 300 MG CAP PO SCH (20:15)
[2022-05-09 22:00] VITALS: BP 155/85; TEMP 97.7; O2SAT 96
[2022-05-10 02:00] VITALS: BP_SYST 124; BP_SYST 133; BP_SYST 152; BP_DIAS 75; BP_DIAS 76; BP_DIAS 85
[2022-05-10] MEDS: NS 1,000 ML IV SCH ×4 (03:40→20:28)
[2022-05-10] MEDS: LEVOTHYROXINE 112MCG TABLET (0.112MG) PO SCH (05:26)
[2022-05-10 06:00] VITALS: BP 134/79; TEMP 98.1; O2SAT 95
[2022-05-10 06:58] LABS: HEMATOCRIT 29.7 % (42.0-52.0); HEMOGLOBIN 8.9 g/dl (13.5-17.5); MEAN CORPUSCULAR HEMOGLOBIN 28.1 pg (27.0-33.0); MEAN CORPUSCULAR VOLUME 93.7 fl (80.0-96.0); PLATELET COUNT, AUTOMATED 388 10^3/uL (150-450); RED BLOOD COUNT 3.17 10^6/uL (4.30-6.10); WHITE BLOOD COUNT 7.7 10^3/uL (4.0-10.0)
[2022-05-10 07:23] LABS: ALBUMIN 1.9 G/DL (3.2-5.2); ALKALINE PHOSPHATASE 138 U/L (46-116); ALT/SGPT 12 U/L (7.0-40); AST/SGOT 31 U/L (<34); BILIRUBIN,TOTAL 0.5 MG/DL (0.3-1.2); BLOOD UREA NITROGEN 8 MG/DL (9-23); CALCIUM LEVEL 8.1 MG/DL (8.5-10.1); CARBON DIOXIDE LEVEL 24 MMOL/L (20-31); CHLORIDE LEVEL 107 MMOL/L (98-107); CREATININE FOR GFR 0.66 MG/DL (0.70-1.30); GLOMERULAR FILTRATION RATE > 60.0 (>56); GLUCOSE, FASTING 100 MG/DL (60-100); MAGNESIUM LEVEL 1.5 MG/DL (1.8-2.4); POTASSIUM SERUM 3.4 MMOL/L (3.5-5.1); SODIUM LEVEL 139 MMOL/L (136-145); TOTAL PROTEIN 5.1 G/DL (5.7-8.2)
[2022-05-10] MEDS ORDERED: POTASSIUM CHLORIDE 10MEQ SR TABLET PO ONE (07:30)
[2022-05-10] MEDS: MAG SULF 1GM/100ML (MAG RUN) 1 GM in IV 1 EA IV SCH ×3 (08:10→10:13)
[2022-05-10] MEDS: sulfaSALAzine 500 MG TABEC PO SCH ×2 (08:11→20:21)
[2022-05-10] MEDS: LACTOBACILLUS ACIDOPHILUS CAP (BACID) PO SCH ×2 (08:11→20:22)
[2022-05-10] MEDS: OMEPRAZOLE 20MG CAP PO SCH ×2 (08:11→20:22)
[2022-05-10] MEDS: LOPERAMIDE 2 MG CAPLET PO PRN ×2 (08:11→18:05)
[2022-05-10] MEDS: FERROUS SULFATE 325MG TAB PO SCH ×2 (08:12→20:22)
[2022-05-10] MEDS: FLUDROCORTISONE ACETATE 0.1 MG TAB PO SCH (08:12)
[2022-05-10] MEDS: PROPRANOLOL 80MG LA CAP PO SCH (08:12)
[2022-05-10] MEDS: CEFDINIR 300 MG CAP (OMNICEF) PO SCH ×2 (08:12→20:21)
[2022-05-10] MEDS: TOPIRAMATE (TopAMAX) 100 MG TAB PO SCH (08:13)
[2022-05-10] MEDS: metroNIDAZOLE (FLAGYL) 500MG TABLET PO SCH ×3 (08:13→20:22)
[2022-05-10] MEDS: FOLIC ACID 1MG TAB PO SCH (08:13)
[2022-05-10] MEDS: AMANTADINE 100MG TABLET PO SCH ×2 (08:13→20:28)
[2022-05-10] MEDS: CETIRIZINE (ZyrTEC) 10 MG TAB PO SCH (08:13)
[2022-05-10] MEDS ORDERED: predniSONE 20 MG TAB PO SCH (09:00)
[2022-05-10] MEDS ORDERED: predniSONE 10MG TAB PO SCH (11:27)
[2022-05-10] MEDS: ACETAMINOPHEN TAB 650MG DOSE (2X325MG) PO PRN (11:49)
[2022-05-10 14:00] VITALS: BP 154/96; TEMP 98.1; O2SAT 95
[2022-05-10 14:22] VITALS: BP_SYST 113; BP_SYST 140; BP_SYST 154; BP_DIAS 80; BP_DIAS 95; BP_DIAS 96
[2022-05-10] MEDS: MESALAMINE 1,000 MG SUPP PR SCH (20:18)
[2022-05-10] MEDS: RIVAROXABAN 10MG TAB (XARELTO) PO SCH (20:22)
[2022-05-10] MEDS: FINASTERIDE 5MG TAB PO SCH (20:22)
[2022-05-10] MEDS: GABAPENTIN 300 MG CAP PO SCH (20:22)
[2022-05-10] MEDS: MIRTAZAPINE 15 MG TAB PO SCH (20:22)
[2022-05-10 22:00] VITALS: BP_SYST 113; BP_SYST 148; BP_SYST 149; BP_DIAS 79; BP_DIAS 91; BP_DIAS 97; TEMP 98.2; O2SAT 95
[2022-05-11 05:26] VITALS: BP 151/84; TEMP 98.1; O2SAT 96
[2022-05-11] MEDS: ACETAMINOPHEN TAB 650MG DOSE (2X325MG) PO PRN (05:28)
[2022-05-11] MEDS: NS 1,000 ML IV SCH ×3 (05:28→18:04)
[2022-05-11] MEDS: LEVOTHYROXINE 112MCG TABLET (0.112MG) PO SCH (05:28)
[2022-05-11 06:30] LABS: HEMATOCRIT 28.9 % (42.0-52.0); HEMOGLOBIN 8.8 g/dl (13.5-17.5); MEAN CORPUSCULAR HEMOGLOBIN 28.1 pg (27.0-33.0); MEAN CORPUSCULAR HGB CONC 30.4 g/dl (32.0-36.5); MEAN CORPUSCULAR VOLUME 92.3 fl (80.0-96.0); PLATELET COUNT, AUTOMATED 375 10^3/uL (150-450); RED BLOOD COUNT 3.13 10^6/uL (4.30-6.10); WHITE BLOOD COUNT 14.1 10^3/uL (4.0-10.0)
[2022-05-11 07:07] LABS: ALBUMIN 1.8 G/DL (3.2-5.2); ALKALINE PHOSPHATASE 118 U/L (46-116); ALT/SGPT 12 U/L (7.0-40); AST/SGOT 21 U/L (<34); BILIRUBIN,TOTAL 0.4 MG/DL (0.3-1.2); BLOOD UREA NITROGEN 8 MG/DL (9-23); CALCIUM LEVEL 7.7 MG/DL (8.5-10.1); CARBON DIOXIDE LEVEL 25 MMOL/L (20-31); CHLORIDE LEVEL 109 MMOL/L (98-107); CREATININE FOR GFR 0.61 MG/DL (0.70-1.30); GLOMERULAR FILTRATION RATE > 60.0 (>56); GLUCOSE, FASTING 89 MG/DL (60-100); MAGNESIUM LEVEL 1.5 MG/DL (1.8-2.4); POTASSIUM SERUM 2.7 MMOL/L (3.5-5.1); SODIUM LEVEL 141 MMOL/L (136-145); TOTAL PROTEIN 4.7 G/DL (5.7-8.2)
[2022-05-11] MEDS ORDERED: POTASSIUM CHLORIDE 10MEQ SR TABLET PO ONE ×2 (07:55→22:30)
[2022-05-11] MEDS: PROPRANOLOL 80MG LA CAP PO SCH (09:06)
[2022-05-11] MEDS: MAG SULF 1GM/100ML (MAG RUN) 1 GM in IV 1 EA IV SCH ×3 (09:06→11:19)
[2022-05-11] MEDS: CEFDINIR 300 MG CAP (OMNICEF) PO SCH ×2 (09:06→20:30)
[2022-05-11] MEDS: LOPERAMIDE 2 MG CAPLET PO PRN (09:06)
[2022-05-11] MEDS: TOPIRAMATE (TopAMAX) 100 MG TAB PO SCH (09:06)
[2022-05-11] MEDS: FLUDROCORTISONE ACETATE 0.1 MG TAB PO SCH (09:06)
[2022-05-11] MEDS: sulfaSALAzine 500 MG TABEC PO SCH ×2 (09:07→20:36)
[2022-05-11] MEDS: FERROUS SULFATE 325MG TAB PO SCH ×2 (09:07→20:31)
[2022-05-11] MEDS: metroNIDAZOLE (FLAGYL) 500MG TABLET PO SCH ×3 (09:07→20:31)
[2022-05-11] MEDS: FOLIC ACID 1MG TAB PO SCH (09:07)
[2022-05-11] MEDS: AMANTADINE 100MG TABLET PO SCH ×2 (09:07→20:30)
[2022-05-11] MEDS: predniSONE 10MG TAB PO SCH (09:08)
[2022-05-11] MEDS: LACTOBACILLUS ACIDOPHILUS CAP (BACID) PO SCH ×2 (09:08→20:31)
[2022-05-11] MEDS: OMEPRAZOLE 20MG CAP PO SCH ×2 (09:08→20:37)
[2022-05-11] MEDS: CETIRIZINE (ZyrTEC) 10 MG TAB PO SCH (09:08)
[2022-05-11] MEDS: KCL 10MEQ/100ML SWI (KRUN) 10 MEQ in IV 1 EA IV SCH ×4 (12:54→18:50)
[2022-05-11] MEDS ORDERED: ONDANSETRON 4MG 2ML VIAL IV PRN (13:00)
[2022-05-11 14:00] VITALS: BP 136/94; TEMP 98.1; O2SAT 94
[2022-05-11] MEDS ORDERED: LIDOCAINE 1% MDV 20ML VIAL As Ordered ONE (16:14)
[2022-05-11 17:47] VITALS: BP 136/90
[2022-05-11] MEDS ORDERED: SODIUM CHLORIDE 0.9% INJ 10 ML SYR IV SCH (18:00)
[2022-05-11] MEDS ORDERED: SODIUM CHLORIDE 0.9% INJ 10 ML SYR IV PRN (18:00)
[2022-05-11] MEDS ORDERED: KCL 10MEQ IN STERILE WATER 100ML As Ordered ONE (18:46)
[2022-05-11] MEDS: SODIUM CHLORIDE 0.9% INJ 10 ML SYR IV SCH (19:50)
[2022-05-11 20:00] VITALS: BP 140/91; TEMP 98.1; O2SAT 96
[2022-05-11] MEDS: GABAPENTIN 300 MG CAP PO SCH (20:30)
[2022-05-11] MEDS: MIRTAZAPINE 15 MG TAB PO SCH (20:31)
[2022-05-11] MEDS: FINASTERIDE 5MG TAB PO SCH (20:31)
[2022-05-11] MEDS: MESALAMINE 1,000 MG SUPP PR SCH (20:32)
[2022-05-11] MEDS: RIVAROXABAN 10MG TAB (XARELTO) PO SCH (20:37)
[2022-05-11] MEDS: KCL 40MEQ in NS 1000ML 1,000 ML IV SCH (22:38)
[2022-05-12] MEDS: LEVOTHYROXINE 112MCG TABLET (0.112MG) PO SCH (05:01)
[2022-05-12] MEDS: KCL 40MEQ in NS 1000ML 1,000 ML IV SCH ×2 (05:01→12:13)
[2022-05-12 05:53] VITALS: BP 143/83; TEMP 98.2; O2SAT 96
[2022-05-12 06:12] LABS: BASO % 0.3 % (0.0-1.0); EOS % 0.3 % (0.0-3.0); HEMATOCRIT 30.7 % (42.0-52.0); HEMOGLOBIN 9.3 g/dl (13.5-17.5); LYMPH # 0.6 10^3/uL (1.5-5.0); LYMPH % 4.5 % (24.0-44.0); MEAN CORPUSCULAR HEMOGLOBIN 27.9 pg (27.0-33.0); MEAN CORPUSCULAR HGB CONC 30.3 g/dl (32.0-36.5); MEAN CORPUSCULAR VOLUME 92.2 fl (80.0-96.0); MONO # 1.5 10^3/uL (0.0-0.8); MONO % 10.6 % (2.0-8.0); NEUTROPHILS # 11.5 10^3/uL (1.5-8.5); NEUTROPHILS % 83.3 % (36.0-66.0); PLATELET COUNT, AUTOMATED 394 10^3/uL (150-450); RED BLOOD COUNT 3.33 10^6/uL (4.30-6.10); WHITE BLOOD COUNT 13.8 10^3/uL (4.0-10.0)
[2022-05-12 06:52] LABS: ALBUMIN 1.8 G/DL (3.2-5.2); ALKALINE PHOSPHATASE 110 U/L (46-116); ALT/SGPT 13 U/L (7.0-40); AST/SGOT 21 U/L (<34); BILIRUBIN,TOTAL 0.4 MG/DL (0.3-1.2); BLOOD UREA NITROGEN 7 MG/DL (9-23); CALCIUM LEVEL 7.9 MG/DL (8.5-10.1); CARBON DIOXIDE LEVEL 24 MMOL/L (20-31); CHLORIDE LEVEL 112 MMOL/L (98-107); CREATININE FOR GFR 0.59 MG/DL (0.70-1.30); GLOMERULAR FILTRATION RATE > 60.0 (>56); GLUCOSE, FASTING 85 MG/DL (60-100); MAGNESIUM LEVEL 1.6 MG/DL (1.8-2.4); POTASSIUM SERUM 3.8 MMOL/L (3.5-5.1); SODIUM LEVEL 142 MMOL/L (136-145); TOTAL PROTEIN 4.8 G/DL (5.7-8.2)
[2022-05-12] MEDS: AMANTADINE 100MG TABLET PO SCH ×2 (08:43→20:35)
[2022-05-12] MEDS: CEFDINIR 300 MG CAP (OMNICEF) PO SCH ×2 (08:43→20:36)
[2022-05-12] MEDS: sulfaSALAzine 500 MG TABEC PO SCH ×2 (08:43→20:36)
[2022-05-12] MEDS: LACTOBACILLUS ACIDOPHILUS CAP (BACID) PO SCH ×2 (08:43→20:36)
[2022-05-12] MEDS: PROPRANOLOL 20 MG TAB PO SCH (08:43)
[2022-05-12] MEDS: predniSONE 10MG TAB PO SCH (08:43)
[2022-05-12] MEDS: MAG SULF 1GM/100ML (MAG RUN) 1 GM in IV 1 EA IV SCH ×2 (08:43→09:52)
[2022-05-12] MEDS: CETIRIZINE (ZyrTEC) 10 MG TAB PO SCH (08:44)
[2022-05-12] MEDS: OMEPRAZOLE 20MG CAP PO SCH ×2 (08:44→20:36)
[2022-05-12] MEDS: TOPIRAMATE (TopAMAX) 100 MG TAB PO SCH (08:44)
[2022-05-12] MEDS: FOLIC ACID 1MG TAB PO SCH (08:44)
[2022-05-12] MEDS: FERROUS SULFATE 325MG TAB PO SCH ×2 (08:44→20:36)
[2022-05-12] MEDS: metroNIDAZOLE (FLAGYL) 500MG TABLET PO SCH ×3 (08:44→20:36)
[2022-05-12] MEDS: FLUDROCORTISONE ACETATE 0.1 MG TAB PO SCH (08:44)
[2022-05-12] MEDS ORDERED: PROPRANOLOL 60MG LA CAP PO SCH (09:00)
[2022-05-12 09:44] VITALS: BP_SYST 133; BP_SYST 137; BP_SYST 142; BP_DIAS 86; BP_DIAS 87; BP_DIAS 90
[2022-05-12 14:00] VITALS: BP 137/87; TEMP 99; O2SAT 93
[2022-05-12] MEDS: SODIUM CHLORIDE 0.9% INJ 10 ML SYR IV SCH (16:36)
[2022-05-12 20:00] VITALS: BP 149/82; TEMP 98.1; O2SAT 96
[2022-05-12] MEDS: GABAPENTIN 300 MG CAP PO SCH (20:36)
[2022-05-12] MEDS: MIRTAZAPINE 15 MG TAB PO SCH (20:36)
[2022-05-12] MEDS: FINASTERIDE 5MG TAB PO SCH (20:37)
[2022-05-12] MEDS: RIVAROXABAN 10MG TAB (XARELTO) PO SCH (20:37)
[2022-05-12] MEDS: MESALAMINE 1,000 MG SUPP PR SCH (20:37)
[2022-05-12 22:23] VITALS: BP_SYST 138; BP_SYST 144; BP_SYST 149; BP_DIAS 81; BP_DIAS 82; BP_DIAS 83
[2022-05-13] VITALS (21 sets, daily range): BP systolic 106–191; BP diastolic 69–142; TEMP 97–102.9; O2SAT 69–98
[2022-05-13] MEDS: KCL 40MEQ in NS 1000ML 1,000 ML IV SCH ×2 (01:23→12:37)
[2022-05-13] MEDS ORDERED: TAMSULOSIN 0.4 MG CAP PO ONE (05:25)
[2022-05-13] MEDS: LEVOTHYROXINE 112MCG TABLET (0.112MG) PO SCH (05:46)
[2022-05-13] MEDS ORDERED: TAMSULOSIN 0.4 MG CAP PO SCH (09:00)
[2022-05-13] MEDS: metroNIDAZOLE (FLAGYL) 500MG TABLET PO SCH (09:14)
[2022-05-13] MEDS: CEFDINIR 300 MG CAP (OMNICEF) PO SCH (09:14)
[2022-05-13] MEDS: CETIRIZINE (ZyrTEC) 10 MG TAB PO SCH (09:14)
[2022-05-13] MEDS: LACTOBACILLUS ACIDOPHILUS CAP (BACID) PO SCH ×2 (09:14→21:00)
[2022-05-13] MEDS: FOLIC ACID 1MG TAB PO SCH (09:14)
[2022-05-13] MEDS: AMANTADINE 100MG TABLET PO SCH ×2 (09:15→21:00)
[2022-05-13] MEDS: OMEPRAZOLE 20MG CAP PO SCH ×2 (09:15→21:00)
[2022-05-13] MEDS: sulfaSALAzine 500 MG TABEC PO SCH ×2 (09:15→21:00)
[2022-05-13] MEDS: FERROUS SULFATE 325MG TAB PO SCH ×2 (09:15→21:00)
[2022-05-13] MEDS: TOPIRAMATE (TopAMAX) 100 MG TAB PO SCH (09:15)
[2022-05-13] MEDS: PROPRANOLOL 20 MG TAB PO SCH (09:17)
[2022-05-13] MEDS: predniSONE 10MG TAB PO SCH (09:18)
[2022-05-13] MEDS: FLUDROCORTISONE ACETATE 0.1 MG TAB PO SCH (09:18)
[2022-05-13 10:20] LABS: BASO % 0.3 % (0.0-1.0); EOS # 0.1 10^3/uL (0.0-0.5); EOS % 0.5 % (0.0-3.0); HEMATOCRIT 29.3 % (42.0-52.0); HEMOGLOBIN 8.9 g/dl (13.5-17.5); LYMPH % 7.8 % (24.0-44.0); MEAN CORPUSCULAR HEMOGLOBIN 28.5 pg (27.0-33.0); MEAN CORPUSCULAR HGB CONC 30.4 g/dl (32.0-36.5); MEAN CORPUSCULAR VOLUME 93.9 fl (80.0-96.0); MONO % 12.5 % (2.0-8.0); NEUTROPHILS # 10.2 10^3/uL (1.5-8.5); NEUTROPHILS % 78.1 % (36.0-66.0); PLATELET COUNT, AUTOMATED 343 10^3/uL (150-450); RED BLOOD COUNT 3.12 10^6/uL (4.30-6.10)
[2022-05-13 10:46] LABS: MONO # 1.6 10^3/uL (0.0-0.8)
[2022-05-13] MEDS ORDERED: BENZONATATE 100MG CAPSULE PO PRN (12:30)
[2022-05-13 12:33] LABS: ALBUMIN 1.9 G/DL (3.2-5.2); ALKALINE PHOSPHATASE 107 U/L (46-116); ALT/SGPT 11 U/L (7.0-40); AST/SGOT 20 U/L (<34); BILIRUBIN,TOTAL 0.4 MG/DL (0.3-1.2); BLOOD UREA NITROGEN 10 MG/DL (9-23); CALCIUM LEVEL 8.1 MG/DL (8.5-10.1); CARBON DIOXIDE LEVEL 23 MMOL/L (20-31); CHLORIDE LEVEL 110 MMOL/L (98-107); CREATININE FOR GFR 0.57 MG/DL (0.70-1.30); GLOMERULAR FILTRATION RATE > 60.0 (>56); GLUCOSE, FASTING 97 MG/DL (60-100); MAGNESIUM LEVEL 1.7 MG/DL (1.8-2.4); POTASSIUM SERUM 5.2 MMOL/L (3.5-5.1); SODIUM LEVEL 139 MMOL/L (136-145); TOTAL PROTEIN 5.1 G/DL (5.7-8.2)
[2022-05-13] MEDS ORDERED: metroNIDAZOLE (FLAGYL) 500MG TABLET PO SCH (14:00)
[2022-05-13] MEDS: MAGNESIUM OXIDE 400MG TAB (MAG-OX) PO SCH ×2 (15:32→21:00)
[2022-05-13] MEDS ORDERED: NS 1,000 ML IV SCH (17:00)
[2022-05-13] MEDS: SODIUM CHLORIDE 0.9% INJ 10 ML SYR IV SCH (17:35)
[2022-05-13] MEDS ORDERED: IPRATROPIUM 0.5MG/ALBUTEROL 2.5MG INH SOL UD 3ML (DUONEB) NEB ONE (20:00)
[2022-05-13] MEDS ORDERED: ISOVUE-370 76% 100ML VIAL As Ordered ONE (20:25)
[2022-05-13] MEDS ORDERED: NS 500 ML IV ONE (20:30)
[2022-05-13] MEDS ORDERED: VANCOMYCIN HCL 1,000 MG, VIAL MATE ADAPTER 1 EACH in NS 250 ML IV SCH (20:35)
[2022-05-13] MEDS: RIVAROXABAN 10MG TAB (XARELTO) PO SCH (21:00)
[2022-05-13] MEDS: MIRTAZAPINE 15 MG TAB PO SCH (21:00)
[2022-05-13] MEDS: GABAPENTIN 300 MG CAP PO SCH (21:00)
[2022-05-13] MEDS: PIPERACILLIN/TAZOBACTAM SOD 3.375 GM in D5W MINI-BAG PLUS 50 ML IV SCH (21:00)
[2022-05-13] MEDS: FINASTERIDE 5MG TAB PO SCH (21:00)
[2022-05-13] MEDS: MESALAMINE 1,000 MG SUPP PR SCH (21:00)
[2022-05-13 21:01] LABS: BASO # 0.1 10^3/uL (0.0-0.2); BASO % 0.2 % (0.0-1.0); HEMOGLOBIN 10.4 g/dl (13.5-17.5); LYMPH # 1.7 10^3/uL (1.5-5.0); MEAN CORPUSCULAR HEMOGLOBIN 28.4 pg (27.0-33.0); MEAN CORPUSCULAR HGB CONC 29.7 g/dl (32.0-36.5); MEAN CORPUSCULAR VOLUME 95.6 fl (80.0-96.0); NEUTROPHILS # 20.9 10^3/uL (1.5-8.5); NEUTROPHILS % 84.7 % (36.0-66.0); PLATELET COUNT, AUTOMATED 568 10^3/uL (150-450); RED BLOOD COUNT 3.66 10^6/uL (4.30-6.10); WHITE BLOOD COUNT 24.7 10^3/uL (4.0-10.0)
[2022-05-13] MEDS ORDERED: ACETAMINOPHEN 1000MG 100ML IV BAG IV ONE (21:05)
[2022-05-13] MEDS: NS 1,000 ML IV SCH (21:15)
[2022-05-13 21:21] LABS: CK-MB VALUE MASS 1.4 NG/ML (<3.6)
[2022-05-13 21:23] LABS: CPK CREATINE PHOSPHOKINASE 41 U/L (46-171); MB/CK RELATIVE INDEX 3.41 (< OR =4)
[2022-05-13 21:52] LABS: ALKALINE PHOSPHATASE 118 U/L (46-116); ALT/SGPT 10 U/L (7.0-40); AST/SGOT 14 U/L (<34); BILIRUBIN,TOTAL 0.3 MG/DL (0.3-1.2); BLOOD UREA NITROGEN 10 MG/DL (9-23); CALCIUM LEVEL 8.5 MG/DL (8.5-10.1); CARBON DIOXIDE LEVEL 23 MMOL/L (20-31); CHLORIDE LEVEL 109 MMOL/L (98-107); CREATININE FOR GFR 0.67 MG/DL (0.70-1.30); GLOMERULAR FILTRATION RATE > 60.0 (>56); GLUCOSE, FASTING 185 MG/DL (60-100); MAGNESIUM LEVEL 1.6 MG/DL (1.8-2.4); POTASSIUM SERUM 6.2 MMOL/L (3.5-5.1); SODIUM LEVEL 137 MMOL/L (136-145); TOTAL PROTEIN 5.6 G/DL (5.7-8.2)
[2022-05-13] MEDS ORDERED: VANCOMYCIN HCL 1,000 MG, VIAL MATE ADAPTER 1 EACH in NS 250 ML IV ONE ×2 (22:00→23:00)
[2022-05-13 22:08] LABS: APPEARANCE, URINE CLEAR (CLEAR); BACTERIA, URINE AUTO NEGATIVE (NEGATIVE); BILIRUBIN, URINE AUTO NEGATIVE (NEGATIVE); BLOOD, URINE BLOOD 1+ (NEGATIVE); COLOR, URINE AMBER (YELLOW); GLUCOSE, URINE (UA) AUTO NEGATIVE (NEGATIVE); KETONE, URINE AUTO TRACE mg/dL (NEGATIVE); LEUKOCYTE ESTERASE, URINE AUTO TRACE (NEGATIVE); MUCUS, URINE SMALL (NEGATIVE); NITRITE, URINE AUTO NEGATIVE (NEGATIVE); PROTEIN, URINE AUTO NEGATIVE (NEGATIVE); RBC, URINE AUTO 2 /HPF (0-3); SQUAMOUS EPITHELIAL CELL UR AU 0 /HPF (0-6); UROBILINOGEN, URINE AUTO 0.2 mg/dL (0.0-2.0); WBC, URINE AUTO 4 /HPF (0-3)
[2022-05-13 22:10] LABS: SPECIFIC GRAVITY URINE AUTO >1.060 (1.002-1.035)
[2022-05-13 22:30] LABS: MONO # 1.7 10^3/uL (0.0-0.8)
[2022-05-13] MEDS ORDERED: CALCIUM GLUCONATE 1,000 MG in D5W MINI-BAG PLUS 100 ML IV ONE (22:30)
[2022-05-13] MEDS ORDERED: DEXTROSE 50% 50ML SYRINGE IV STA (23:22)
[2022-05-13] MEDS ORDERED: HumuLIN R (REGULAR) INSULIN (NovoLIN R) **100U/ML** PER UNIT IV STA (23:22)
[2022-05-13] MEDS ORDERED: ALBUTEROL SULFATE 2.5MG/0.5ML INH NEB SOLN NEB ONE (23:30)
[2022-05-13] MEDS ORDERED: FUROSEMIDE 40MG/4ML VIAL IV ONE (23:30)
[2022-05-14] VITALS (19 sets, daily range): BP systolic 108–167; BP diastolic 52–108; TEMP 96.8–101.2; O2SAT 83–96
[2022-05-14] MEDS: PIPERACILLIN/TAZOBACTAM SOD 3.375 GM in D5W MINI-BAG PLUS 50 ML IV SCH ×4 (03:16→23:25)
[2022-05-14] MEDS: NS 1,000 ML IV SCH (03:55)
[2022-05-14] MEDS ORDERED: LORazepam 2 MG/ML 1ML VIAL IV STA (05:20)
[2022-05-14 05:51] LABS: BASO # 0.1 10^3/uL (0.0-0.2); BASO % 0.2 % (0.0-1.0); HEMATOCRIT 37.1 % (42.0-52.0); HEMOGLOBIN 11.1 g/dl (13.5-17.5); LYMPH # 0.8 10^3/uL (1.5-5.0); LYMPH % 2.6 % (24.0-44.0); MEAN CORPUSCULAR HEMOGLOBIN 28.5 pg (27.0-33.0); MEAN CORPUSCULAR HGB CONC 29.9 g/dl (32.0-36.5); MEAN CORPUSCULAR VOLUME 95.1 fl (80.0-96.0); MONO # 2.1 10^3/uL (0.0-0.8); NEUTROPHILS # 25.9 10^3/uL (1.5-8.5); NEUTROPHILS % 89.2 % (36.0-66.0); PLATELET COUNT, AUTOMATED 583 10^3/uL (150-450); WHITE BLOOD COUNT 29.1 10^3/uL (4.0-10.0)
[2022-05-14] MEDS: LEVOTHYROXINE 112MCG TABLET (0.112MG) PO SCH (06:12)
[2022-05-14 06:33] LABS: BLOOD UREA NITROGEN 10 MG/DL (9-23); CALCIUM LEVEL 9.2 MG/DL (8.5-10.1); CARBON DIOXIDE LEVEL 23 MMOL/L (20-31); CHLORIDE LEVEL 106 MMOL/L (98-107); CREATININE FOR GFR 0.75 MG/DL (0.70-1.30); GLOMERULAR FILTRATION RATE > 60.0 (>56); GLUCOSE, FASTING 138 MG/DL (60-100); POTASSIUM SERUM 6.3 MMOL/L (3.5-5.1); SODIUM LEVEL 137 MMOL/L (136-145)
[2022-05-14] MEDS ORDERED: DEXTROSE 50% 50ML SYRINGE IV STA (06:36)
[2022-05-14] MEDS ORDERED: HumuLIN R (REGULAR) INSULIN (NovoLIN R) **100U/ML** PER UNIT IV STA (06:36)
[2022-05-14] MEDS ORDERED: CALCIUM GLUCONATE 1,000 MG in D5W MINI-BAG PLUS 100 ML IV ONE (06:45)
[2022-05-14] MEDS ORDERED: FUROSEMIDE 40MG/4ML VIAL IV ONE (06:45)
[2022-05-14] MEDS ORDERED: SODIUM BICARBONATE 8.4% INJ 50ML SYRINGE IV STA (06:58)
[2022-05-14 07:53] LABS: VANCOMYCIN RANDOM 21.5 UG/ML
[2022-05-14] MEDS ORDERED: FUROSEMIDE 20MG/2ML VIAL IV ONE ×2 (07:55→16:00)
[2022-05-14] MEDS ORDERED: VANCOMYCIN HCL 750 MG, VIAL MATE ADAPTER 1 EACH in D5W 250 ML IV SCH ×2 (08:00→09:00)
[2022-05-14] MEDS: VANCOMYCIN HCL 1,000 MG, VIAL MATE ADAPTER 1 EACH in D5W 250 ML IV SCH ×2 (08:17→22:56)
[2022-05-14 11:14] LABS: BLOOD UREA NITROGEN 10 MG/DL (9-23); CALCIUM LEVEL 8.5 MG/DL (8.5-10.1); CARBON DIOXIDE LEVEL 25 MMOL/L (20-31); CHLORIDE LEVEL 106 MMOL/L (98-107); CREATININE FOR GFR 0.68 MG/DL (0.70-1.30); GLOMERULAR FILTRATION RATE > 60.0 (>56); GLUCOSE, FASTING 117 MG/DL (60-100); POTASSIUM SERUM 4.9 MMOL/L (3.5-5.1); SODIUM LEVEL 139 MMOL/L (136-145)
[2022-05-14] MEDS ORDERED: LIDOCAINE 1% MDV 20ML VIAL As Ordered ONE (13:24)
[2022-05-14] MEDS: LEVALBUTEROL 1.25MG 0.5ML CONCENTRATE NEB INH PRN ×2 (14:49→20:41)
[2022-05-14] MEDS: SODIUM CHLORIDE HYPERTONIC 3% 15ML NEB SOL INH SCH ×2 (14:49→20:42)
[2022-05-14] MEDS: HEPARIN SOD (PORCINE) 5000UNITS/ML 1ML VIAL/SYRINGE SQ SCH ×2 (16:42→23:30)
[2022-05-14] MEDS: MAG SULF 1GM/100ML (MAG RUN) 1 GM in IV 1 EA IV SCH ×2 (16:42→20:37)
[2022-05-14] MEDS: PANTOPRAZOLE 40MG VIAL IV SCH (16:42)
[2022-05-14] MEDS: SODIUM CHLORIDE 0.9% INJ 10 ML SYR IV SCH ×2 (17:35→18:22)
[2022-05-15] VITALS (7 sets, daily range): BP systolic 104–146; BP diastolic 62–90; TEMP 96.4–99.1; O2SAT 89–97
[2022-05-15] MEDS: MAG SULF 1GM/100ML (MAG RUN) 1 GM in IV 1 EA IV SCH ×2 (00:39→01:25)
[2022-05-15] MEDS: LEVALBUTEROL 1.25MG 0.5ML CONCENTRATE NEB INH PRN ×4 (01:37→20:50)
[2022-05-15] MEDS: SODIUM CHLORIDE HYPERTONIC 3% 15ML NEB SOL INH SCH ×4 (01:37→20:50)
[2022-05-15] MEDS: PIPERACILLIN/TAZOBACTAM SOD 3.375 GM in D5W MINI-BAG PLUS 50 ML IV SCH ×4 (03:03→21:36)
[2022-05-15] MEDS: SODIUM CHLORIDE 0.9% INJ 10 ML SYR IV SCH ×2 (05:14→18:23)
[2022-05-15] MEDS: HEPARIN SOD (PORCINE) 5000UNITS/ML 1ML VIAL/SYRINGE SQ SCH ×3 (05:27→21:36)
[2022-05-15 06:10] LABS: BASO % 0.2 % (0.0-1.0); EOS % 0.1 % (0.0-3.0); HEMATOCRIT 27.9 % (42.0-52.0); LYMPH # 0.8 10^3/uL (1.5-5.0); LYMPH % 3.5 % (24.0-44.0); MEAN CORPUSCULAR HEMOGLOBIN 28.1 pg (27.0-33.0); MEAN CORPUSCULAR HGB CONC 30.5 g/dl (32.0-36.5); MEAN CORPUSCULAR VOLUME 92.4 fl (80.0-96.0); MONO # 1.5 10^3/uL (0.0-0.8); MONO % 6.3 % (2.0-8.0); NEUTROPHILS # 20.8 10^3/uL (1.5-8.5); NEUTROPHILS % 89.1 % (36.0-66.0); RED BLOOD COUNT 3.02 10^6/uL (4.30-6.10); WHITE BLOOD COUNT 23.4 10^3/uL (4.0-10.0)
[2022-05-15 06:17] LABS: HEMOGLOBIN 8.5 g/dl (13.5-17.5); PLATELET COUNT, AUTOMATED 360 10^3/uL (150-450)
[2022-05-15 06:29] LABS: BLOOD UREA NITROGEN 11 MG/DL (9-23); CALCIUM LEVEL 7.8 MG/DL (8.5-10.1); CARBON DIOXIDE LEVEL 28 MMOL/L (20-31); CHLORIDE LEVEL 105 MMOL/L (98-107); CREATININE FOR GFR 0.66 MG/DL (0.70-1.30); GLOMERULAR FILTRATION RATE > 60.0 (>56); GLUCOSE, FASTING 94 MG/DL (60-100); MAGNESIUM LEVEL 2.2 MG/DL (1.8-2.4); POTASSIUM SERUM 4.2 MMOL/L (3.5-5.1); SODIUM LEVEL 139 MMOL/L (136-145)
[2022-05-15] MEDS: VANCOMYCIN HCL 1,000 MG, VIAL MATE ADAPTER 1 EACH in D5W 250 ML IV SCH (07:43)
[2022-05-15] MEDS ORDERED: TAMSULOSIN 0.4 MG CAP PO SCH (09:00)
[2022-05-15] MEDS: LEVOTHYROXINE 100MCG (0.1MG) 5ML SDV PF (SOLUTION FORM) IV SCH (09:42)
[2022-05-15] MEDS: PANTOPRAZOLE 40MG VIAL IV SCH (09:42)
[2022-05-15] MEDS: methylPREDNISolone 40MG 1ML VIAL IV SCH ×2 (12:01→23:44)
[2022-05-15 15:40] LABS: HEMATOCRIT 27.1 % (42.0-52.0); HEMOGLOBIN 8.4 g/dl (13.5-17.5)
[2022-05-15] MEDS: MICAFUNGIN SODIUM 100 MG in D5W MINI-BAG PLUS 100 ML IV SCH (16:46)
[2022-05-15] MEDS ORDERED: FAT EMULSION IV 250 ML IV ONE (18:00)
[2022-05-15] MEDS ORDERED: [UNRECOGNIZED DRUG - OTHER] IV SCH ×7 (18:00)
[2022-05-15] MEDS: INSULIN LISPRO (NovoLOG) PER UNIT SC SCH ×2 (18:00→23:21)
[2022-05-15] MEDS ORDERED: SODIUM ACETATE IV SCH ×7 (18:00)
[2022-05-15] MEDS ORDERED: SODIUM CHLORIDE IV SCH ×7 (18:00)
[2022-05-15] MEDS ORDERED: oxyCODONE 5MG TAB PO PRN (18:20)
[2022-05-15] MEDS ORDERED: fentaNYL 100 MCG/2 ML INJECTION IV PRN (18:20)
[2022-05-15] MEDS ORDERED: MEPERIDINE 25 MG/ML 1ML VIAL IV PRN (18:20)
[2022-05-15] MEDS ORDERED: ONDANSETRON 4MG 2ML VIAL IV PRN (18:20)
[2022-05-15] MEDS ORDERED: LIDOCAINE 2% 100MG/5ML SDV (FOR ANES.) As Ordered ONE (19:05)
[2022-05-15] MEDS ORDERED: propofoL 200 MG/20 ML VIAL As Ordered ONE (19:05)
[2022-05-15 19:13] LABS: ALBUMIN 1.5 G/DL (3.2-5.2); ALKALINE PHOSPHATASE 100 U/L (46-116); ALT/SGPT < 9 U/L (7.0-40); AST/SGOT 11 U/L (<34); BILIRUBIN,DIRECT 0.2 MG/DL (<0.4); BILIRUBIN,TOTAL 0.5 MG/DL (0.3-1.2); TOTAL PROTEIN 4.5 G/DL (5.7-8.2)
[2022-05-15] MEDS ORDERED: ACETAMINOPHEN TAB 650MG DOSE (2X325MG) PO ONE (21:15)
[2022-05-15] MEDS ORDERED: KETOROLAC 30 MG/ML 1ML VIAL IV ONE (22:00)
[2022-05-15] MEDS: SODIUM CHLORIDE 0.9% INJ 10 ML SYR IV PRN (23:44)
[2022-05-16] VITALS (73 sets, daily range): BP systolic 62–146; BP diastolic 34–81; TEMP 96.6–100.6; O2SAT 86–100
[2022-05-16] MEDS: SODIUM CHLORIDE HYPERTONIC 3% 15ML NEB SOL INH SCH ×3 (01:25→14:00)
[2022-05-16] MEDS: LEVALBUTEROL 1.25MG 0.5ML CONCENTRATE NEB INH PRN ×3 (01:25→19:29)
[2022-05-16] MEDS: PIPERACILLIN/TAZOBACTAM SOD 3.375 GM in D5W MINI-BAG PLUS 50 ML IV SCH ×4 (03:21→20:51)
[2022-05-16] MEDS: HEPARIN SOD (PORCINE) 5000UNITS/ML 1ML VIAL/SYRINGE SQ SCH (05:20)
[2022-05-16] MEDS: SODIUM CHLORIDE 0.9% INJ 10 ML SYR IV SCH ×2 (05:20→18:00)
[2022-05-16 05:32] LABS: BASO % 0.1 % (0.0-1.0); HEMATOCRIT 27.1 % (42.0-52.0); LYMPH # 0.3 10^3/uL (1.5-5.0); LYMPH % 1.7 % (24.0-44.0); MEAN CORPUSCULAR HGB CONC 33.2 g/dl (32.0-36.5); MEAN CORPUSCULAR VOLUME 93.4 fl (80.0-96.0); MONO # 0.5 10^3/uL (0.0-0.8); NEUTROPHILS # 15.7 10^3/uL (1.5-8.5); NEUTROPHILS % 94.7 % (36.0-66.0); PLATELET COUNT, AUTOMATED 319 10^3/uL (150-450); WHITE BLOOD COUNT 16.6 10^3/uL (4.0-10.0)
[2022-05-16 07:30] LABS: BLOOD UREA NITROGEN 16 MG/DL (9-23); CALCIUM LEVEL 7.7 MG/DL (8.5-10.1); CARBON DIOXIDE LEVEL 29 MMOL/L (20-31); CHLORIDE LEVEL 103 MMOL/L (98-107); CREATININE FOR GFR 0.65 MG/DL (0.70-1.30); GLOMERULAR FILTRATION RATE > 60.0 (>56); GLUCOSE, FASTING 157 MG/DL (60-100); PHOSPHORUS LEVEL 3.8 MG/DL (2.5-4.9); POTASSIUM SERUM 3.3 MMOL/L (3.5-5.1); SODIUM LEVEL 136 MMOL/L (136-145)
[2022-05-16] MEDS: PANTOPRAZOLE 40MG VIAL IV SCH (09:58)
[2022-05-16] MEDS: LEVOTHYROXINE 100MCG (0.1MG) 5ML SDV PF (SOLUTION FORM) IV SCH (09:58)
[2022-05-16] MEDS ORDERED: KCL 20MEQ IN 100ML SWI (KRUN) 20 MEQ in IV 1 EA IV ONE ×4 (10:00→21:00)
[2022-05-16] MEDS: INSULIN LISPRO (NovoLOG) PER UNIT SC SCH ×3 (10:01→18:00)
[2022-05-16] MEDS ORDERED: MIDAZOLAM INJ 2MG/2ML VIAL As Ordered ONE ×2 (12:07→16:19)
[2022-05-16] MEDS ORDERED: propofoL 200 MG/20 ML VIAL As Ordered ONE (12:07)
[2022-05-16] MEDS ORDERED: fentaNYL 250 MCG/5 ML INJECTION As Ordered ONE (12:07)
[2022-05-16] MEDS ORDERED: ROCURONIUM BROMIDE 50MG/5ML VIAL As Ordered ONE ×3 (12:07→14:35)
[2022-05-16] MEDS ORDERED: LIDOCAINE 2% 100MG/5ML SDV (FOR ANES.) As Ordered ONE (12:07)
[2022-05-16] MEDS ORDERED: CETACAINE SPRAY 5GM As Ordered ONE (12:15)
[2022-05-16] MEDS ORDERED: EPINEPHrine 1MG/10ML SYRINGE 1.5IN As Ordered ONE (12:15)
[2022-05-16] MEDS ORDERED: LIDOCAINE 1% SDV 30ML VIAL As Ordered ONE (12:15)
[2022-05-16] MEDS ORDERED: MEPERIDINE 25 MG/ML 1ML VIAL IV PRN (12:30)
[2022-05-16] MEDS ORDERED: fentaNYL 100 MCG/2 ML INJECTION IV PRN ×2 (12:30→15:30)
[2022-05-16] MEDS ORDERED: oxyCODONE 5MG TAB PO PRN (12:30)
[2022-05-16] MEDS ORDERED: ONDANSETRON 4MG 2ML VIAL IV PRN (12:30)
[2022-05-16] MEDS ORDERED: ZOSYN 3.375GM VIAL As Ordered ONE (13:12)
[2022-05-16] MEDS ORDERED: PHENYLEPHRINE 10MG/ML 1ML VIAL As Ordered ONE ×3 (13:43→14:56)
[2022-05-16] MEDS ORDERED: PHENYLephrine 500MCG 5ML (100MCG/ML) SYRINGE As Ordered ONE (13:43)
[2022-05-16] MEDS ORDERED: SUCCINYLCHOLINE 100MG/5ML SYRINGE As Ordered ONE (13:47)
[2022-05-16] MEDS ORDERED: LACRILUBE (AKWA TEARS) OPHTH OINT 3.5GM As Ordered ONE (13:47)
[2022-05-16] MEDS ORDERED: ALBUTEROL 6.7GM INHALER **FOR ANES. CART/OMNICELL ONLY As Ordered ONE (14:04)
[2022-05-16] MEDS ORDERED: MIDAZOLAM 5MG/ML 1ML VIAL As Ordered ONE (14:35)
[2022-05-16] MEDS ORDERED: LR 1,000 ML IV SCH (15:30)
[2022-05-16] MEDS ORDERED: PHENYLEPHRINE HCL INJ 10 MG in D5W 100 ML IV SCH (15:35)
[2022-05-16] MEDS ORDERED: COMBIVENT RESPIMAT 100-20MCG INHALER 4GM INH SCH (16:00)
[2022-05-16] MEDS: NOREPINEPHRINE 4MG IN D5 250ML 4 MG in IV 1 EA IV SCH ×4 (16:15→22:49)
[2022-05-16] MEDS ORDERED: LIDOCAINE 1% MDV 20ML VIAL As Ordered ONE (16:19)
[2022-05-16 17:08] LABS: ABG BASE EXCESS -1.7 (-2.0-2.0); ABG HCO3 24.4 MEQ/L (22.0-26.0); ABG O2 SATURATION 96.3 % (95.0-99.0); ABG PARTIAL PRESSURE CO2 47.2 mmHg (35.0-45.0); ABG PARTIAL PRESSURE O2 97.2 mmHg (75.0-100.0); ABG STANDARD HCO3 23.1 MEQ/L (22.0-26.0); ABG TOTAL CO2 25.9 MEQ/L (22.0-29.0); ABG pH (ARTERIAL) 7.332 UNITS (7.350-7.450)
[2022-05-16] MEDS ORDERED: MIDAZOLAM 5MG/ML 1ML VIAL IV ONE (17:45)
[2022-05-16] MEDS ORDERED: AMINO AC/ELECTROLYTE/DEX/CALC 2,000 ML IV SCH (18:00)
[2022-05-16] MEDS ORDERED: FAT EMULSION IV 250 ML IV ONE (18:00)
[2022-05-16] MEDS ORDERED: NS 1,000 ML IV ONE ×2 (18:25→18:55)
[2022-05-16 18:47] LABS: HEMOGLOBIN 9.4 g/dl (13.5-17.5); MEAN CORPUSCULAR HGB CONC 30.3 g/dl (32.0-36.5); MEAN CORPUSCULAR VOLUME 92.3 fl (80.0-96.0); RED BLOOD COUNT 3.36 10^6/uL (4.30-6.10); WHITE BLOOD COUNT 20.5 10^3/uL (4.0-10.0)
[2022-05-16 18:51] LABS: PLATELET COUNT, AUTOMATED 430 10^3/uL (150-450)
[2022-05-16 18:57] LABS: LYMPHOCYTES 6 % (16-44); MONOCYTES 2 % (0-5); NEUTROPHILS 85 % (28-66); PLATELET ESTIMATE NORMAL (NORMAL)
[2022-05-16 18:58] LABS: ANISOCYTOSIS 1+; HYPOCHROMASIA 1+
[2022-05-16] MEDS: MIDAZOLAM 100MG/100ML-0.9%NACL 100 MG in IV 1 EA IV SCH (19:04)
[2022-05-16] MEDS: MORPHINE 2 MG/ML 1ML VIAL IV PRN (19:18)
[2022-05-16] MEDS: MICAFUNGIN SODIUM 100 MG in D5W MINI-BAG PLUS 100 ML IV SCH (19:40)
[2022-05-16 20:01] LABS: ALBUMIN 1.5 G/DL (3.2-5.2); ALKALINE PHOSPHATASE 105 U/L (46-116); ALT/SGPT 24 U/L (7.0-40); AST/SGOT 99 U/L (<34); BILIRUBIN,TOTAL 0.7 MG/DL (0.3-1.2); BLOOD UREA NITROGEN 17 MG/DL (9-23); CALCIUM LEVEL 7.4 MG/DL (8.5-10.1); CARBON DIOXIDE LEVEL 24 MMOL/L (20-31); CHLORIDE LEVEL 106 MMOL/L (98-107); CREATININE FOR GFR 0.92 MG/DL (0.70-1.30); GLOMERULAR FILTRATION RATE > 60.0 (>56); GLUCOSE, FASTING 116 MG/DL (60-100); MAGNESIUM LEVEL 1.9 MG/DL (1.8-2.4); PHOSPHORUS LEVEL 4.6 MG/DL (2.5-4.9); POTASSIUM SERUM 3.2 MMOL/L (3.5-5.1); SODIUM LEVEL 137 MMOL/L (136-145); TOTAL PROTEIN 4.6 G/DL (5.7-8.2)
[2022-05-16] MEDS: HYDROCORTISONE 100MG/2ML VIAL IV SCH (20:26)
[2022-05-16] MEDS: CHLORHEXIDINE GLUCONATE 0.12 % 15ML UDC (PERIDEX ORAL RINSE) MT SCH (20:26)
[2022-05-16] MEDS: HEPARIN SOD (PORCINE) 5000UNITS/ML 1ML VIAL/SYRINGE SC SCH (22:55)
[2022-05-16] MEDS: LR 1,000 ML IV SCH (22:56)
[2022-05-16] MEDS ORDERED: VANCOMYCIN HCL 750 MG, VIAL MATE ADAPTER 1 EACH in D5W 250 ML IV ONE (23:00)
[2022-05-16 23:40] LABS: ABG BASE EXCESS -1.8 (-2.0-2.0); ABG HCO3 23.5 MEQ/L (22.0-26.0); ABG O2 SATURATION 98.4 % (95.0-99.0); ABG PARTIAL PRESSURE CO2 42.1 mmHg (35.0-45.0); ABG PARTIAL PRESSURE O2 117.2 mmHg (75.0-100.0); ABG TOTAL CO2 24.8 MEQ/L (22.0-29.0); ABG pH (ARTERIAL) 7.364 UNITS (7.350-7.450)
[2022-05-17] VITALS (101 sets, daily range): BP systolic 90–143; BP diastolic 53–94; TEMP 97.7–99.3; O2SAT 90–100
[2022-05-17] MEDS ORDERED: VANCOMYCIN HCL 750 MG, VIAL MATE ADAPTER 1 EACH in D5W 250 ML IV ONE ×3
[2022-05-17] MEDS: HYDROCORTISONE 100MG/2ML VIAL IV SCH ×4 (00:18→17:50)
[2022-05-17] MEDS: INSULIN LISPRO (NovoLOG) PER UNIT SC SCH ×4 (00:18→17:47)
[2022-05-17] MEDS: NOREPINEPHRINE 4MG IN D5 250ML 4 MG in IV 1 EA IV SCH ×6 (00:56→09:21)
[2022-05-17] MEDS: PIPERACILLIN/TAZOBACTAM SOD 3.375 GM in D5W MINI-BAG PLUS 50 ML IV SCH ×2 (02:20→09:48)
[2022-05-17] MEDS: LEVALBUTEROL 1.25MG 0.5ML CONCENTRATE NEB INH PRN (03:09)
[2022-05-17 04:14] LABS: BASO # 0.1 10^3/uL (0.0-0.2); BASO % 0.2 % (0.0-1.0); HEMOGLOBIN 8.8 g/dl (13.5-17.5); LYMPH # 0.7 10^3/uL (1.5-5.0); LYMPH % 3.1 % (24.0-44.0); MEAN CORPUSCULAR HEMOGLOBIN 28.3 pg (27.0-33.0); MEAN CORPUSCULAR HGB CONC 30.3 g/dl (32.0-36.5); MEAN CORPUSCULAR VOLUME 93.2 fl (80.0-96.0); MONO # 0.7 10^3/uL (0.0-0.8); MONO % 3.1 % (2.0-8.0); NEUTROPHILS # 21.3 10^3/uL (1.5-8.5); NEUTROPHILS % 92.8 % (36.0-66.0); PLATELET COUNT, AUTOMATED 417 10^3/uL (150-450); RED BLOOD COUNT 3.11 10^6/uL (4.30-6.10); WHITE BLOOD COUNT 22.9 10^3/uL (4.0-10.0)
[2022-05-17 04:45] LABS: ALKALINE PHOSPHATASE 88 U/L (46-116); ALT/SGPT 38 U/L (7.0-40); AST/SGOT 81 U/L (<34); BILIRUBIN,TOTAL 0.6 MG/DL (0.3-1.2); BLOOD UREA NITROGEN 22 MG/DL (9-23); CALCIUM LEVEL 6.9 MG/DL (8.5-10.1); CARBON DIOXIDE LEVEL 23 MMOL/L (20-31); CHLORIDE LEVEL 104 MMOL/L (98-107); CREATININE FOR GFR 1.15 MG/DL (0.70-1.30); GLOMERULAR FILTRATION RATE > 60.0 (>56); GLUCOSE, FASTING 262 MG/DL (60-100); POTASSIUM SERUM 3.8 MMOL/L (3.5-5.1); SODIUM LEVEL 134 MMOL/L (136-145); TOTAL PROTEIN 3.8 G/DL (5.7-8.2)
[2022-05-17] MEDS: LR 1,000 ML IV SCH (04:55)
[2022-05-17] MEDS: SODIUM CHLORIDE 0.9% INJ 10 ML SYR IV SCH ×2 (06:00→17:42)
[2022-05-17 06:16] LABS: ABG BASE EXCESS -2.6 (-2.0-2.0); ABG HCO3 22.2 MEQ/L (22.0-26.0); ABG O2 SATURATION 99.6 % (95.0-99.0); ABG PARTIAL PRESSURE CO2 38.1 mmHg (35.0-45.0); ABG PARTIAL PRESSURE O2 211.4 mmHg (75.0-100.0); ABG STANDARD HCO3 22.3 MEQ/L (22.0-26.0); ABG TOTAL CO2 23.4 MEQ/L (22.0-29.0); ABG pH (ARTERIAL) 7.383 UNITS (7.350-7.450)
[2022-05-17] MEDS: HEPARIN SOD (PORCINE) 5000UNITS/ML 1ML VIAL/SYRINGE SC SCH ×3 (06:22→21:20)
[2022-05-17] MEDS ORDERED: NS 1,000 ML IV ONE (07:35)
[2022-05-17] MEDS ORDERED: VANCOMYCIN HCL 1,000 MG, VIAL MATE ADAPTER 1 EACH in NS 250 ML IV SCH (08:00)
[2022-05-17] MEDS ORDERED: LIDOCAINE 1% MDV 20ML VIAL As Ordered ONE (08:05)
[2022-05-17] MEDS ORDERED: LIDOCAINE 1% MDV 20ML VIAL SC ONE (08:40)
[2022-05-17] MEDS ORDERED: LEVEMIR (INSULIN DETEMIR) 1 UNITS/0.01ML SC SCH (09:00)
[2022-05-17 09:19] LABS: PHOSPHORUS LEVEL 3.3 MG/DL (2.5-4.9)
[2022-05-17] MEDS: LEVOTHYROXINE 100MCG (0.1MG) 5ML SDV PF (SOLUTION FORM) IV SCH (09:48)
[2022-05-17] MEDS: CHLORHEXIDINE GLUCONATE 0.12 % 15ML UDC (PERIDEX ORAL RINSE) MT SCH ×2 (09:48→21:19)
[2022-05-17] MEDS: TOPIRAMATE 25 MG PO SCH (09:48)
[2022-05-17] MEDS: PANTOPRAZOLE 40MG VIAL IV SCH (09:48)
[2022-05-17] MEDS: MIDAZOLAM 100MG/100ML-0.9%NACL 100 MG in IV 1 EA IV SCH (11:47)
[2022-05-17] MEDS: VANCOMYCIN HCL 750 MG, VIAL MATE ADAPTER 1 EACH in D5W 250 ML IV SCH (13:55)
[2022-05-17 14:36] LABS: HEMATOCRIT 26.3 % (42.0-52.0)
[2022-05-17] MEDS: PIPERACILLIN/TAZOBACTAM SOD 4.5 GM in D5W MINI-BAG PLUS 50 ML IV SCH ×2 (15:08→21:20)
[2022-05-17] MEDS: MICAFUNGIN SODIUM 100 MG in D5W MINI-BAG PLUS 100 ML IV SCH (15:08)
[2022-05-17] MEDS ORDERED: FAT EMULSION IV 250 ML IV ONE (18:00)
[2022-05-17] MEDS ORDERED: MULTIVITAMIN ADULT IV SCH ×4 (18:00)
[2022-05-17] MEDS ORDERED: ZINC IV SCH ×4 (18:00)
[2022-05-17] MEDS ORDERED: MANGANESE IV SCH ×4 (18:00)
[2022-05-17] MEDS ORDERED: SELENIUM IV SCH ×4 (18:00)
[2022-05-17] MEDS ORDERED: COPPER IV SCH ×4 (18:00)
[2022-05-17] MEDS ORDERED: [UNRECOGNIZED DRUG - OTHER] IV SCH ×4 (18:00)
[2022-05-18] VITALS (74 sets, daily range): BP systolic 102–175; BP diastolic 59–121; TEMP 97.7–98.2; O2SAT 78–100
[2022-05-18] MEDS: HYDROCORTISONE 100MG/2ML VIAL IV SCH ×4 (00:38→19:26)
[2022-05-18] MEDS: VANCOMYCIN HCL 750 MG, VIAL MATE ADAPTER 1 EACH in D5W 250 ML IV SCH (00:38)
[2022-05-18] MEDS: PIPERACILLIN/TAZOBACTAM SOD 4.5 GM in D5W MINI-BAG PLUS 50 ML IV SCH ×4 (03:14→21:16)
[2022-05-18] MEDS: LEVALBUTEROL 1.25MG 0.5ML CONCENTRATE NEB INH PRN ×2 (03:47→20:05)
[2022-05-18 04:50] LABS: BASO % 0.1 % (0.0-1.0); HEMATOCRIT 23.6 % (42.0-52.0); HEMOGLOBIN 7.3 g/dl (13.5-17.5); LYMPH # 0.6 10^3/uL (1.5-5.0); LYMPH % 3.1 % (24.0-44.0); MEAN CORPUSCULAR HEMOGLOBIN 28.1 pg (27.0-33.0); MEAN CORPUSCULAR HGB CONC 30.9 g/dl (32.0-36.5); MEAN CORPUSCULAR VOLUME 90.8 fl (80.0-96.0); MONO # 0.6 10^3/uL (0.0-0.8); MONO % 3.3 % (2.0-8.0); NEUTROPHILS # 17.1 10^3/uL (1.5-8.5); NEUTROPHILS % 92.7 % (36.0-66.0); PLATELET COUNT, AUTOMATED 268 10^3/uL (150-450); WHITE BLOOD COUNT 18.5 10^3/uL (4.0-10.0)
[2022-05-18 05:24] LABS: ALBUMIN 0.9 G/DL (3.2-5.2); BILIRUBIN,TOTAL 0.5 MG/DL (0.3-1.2); CALCIUM LEVEL 7.5 MG/DL (8.5-10.1); CREATININE FOR GFR 1.35 MG/DL (0.70-1.30); GLOMERULAR FILTRATION RATE 58.6 (>56); TOTAL PROTEIN 3.9 G/DL (5.7-8.2)
[2022-05-18] MEDS: SODIUM CHLORIDE 0.9% INJ 10 ML SYR IV SCH ×2 (05:56→17:03)
[2022-05-18] MEDS: KCL 20MEQ IN 100ML SWI (KRUN) 20 MEQ in IV 1 EA IV SCH ×4 (05:57→07:05)
[2022-05-18] MEDS: HEPARIN SOD (PORCINE) 5000UNITS/ML 1ML VIAL/SYRINGE SC SCH ×3 (06:08→21:16)
[2022-05-18] MEDS: INSULIN LISPRO (NovoLOG) PER UNIT SC SCH ×5 (06:08→23:59)
[2022-05-18 06:14] LABS: ABG BASE EXCESS -0.8 (-2.0-2.0); ABG HCO3 23.6 MEQ/L (22.0-26.0); ABG O2 SATURATION 98.8 % (95.0-99.0); ABG PARTIAL PRESSURE CO2 37.4 mmHg (35.0-45.0); ABG PARTIAL PRESSURE O2 134.1 mmHg (75.0-100.0); ABG STANDARD HCO3 23.8 MEQ/L (22.0-26.0); ABG TOTAL CO2 24.7 MEQ/L (22.0-29.0); ABG pH (ARTERIAL) 7.417 UNITS (7.350-7.450)
[2022-05-18] MEDS: MIDAZOLAM 100MG/100ML-0.9%NACL 100 MG in IV 1 EA IV SCH ×2 (06:31→14:10)
[2022-05-18] MEDS ORDERED: KCL 20MEQ IN 100ML SWI (KRUN) 20 MEQ in IV 1 EA IV ONE ×2 (08:00)
[2022-05-18] MEDS: CHLORHEXIDINE GLUCONATE 0.12 % 15ML UDC (PERIDEX ORAL RINSE) MT SCH ×2 (08:22→21:16)
[2022-05-18] MEDS: TOPIRAMATE 25 MG PO SCH (08:22)
[2022-05-18] MEDS: LEVOTHYROXINE 100MCG (0.1MG) 5ML SDV PF (SOLUTION FORM) IV SCH (08:23)
[2022-05-18] MEDS: PANTOPRAZOLE 40MG VIAL IV SCH (08:23)
[2022-05-18] MEDS ORDERED: ETOMIDATE INJ 20MG/10ML VIAL IV STA ×2 (13:32→13:44)
[2022-05-18] MEDS ORDERED: ROCURONIUM BROMIDE 50MG/5ML VIAL IV STA (13:32)
[2022-05-18] MEDS ORDERED: ROCURONIUM BROMIDE 50MG/5ML VIAL IV SCH ×2 (13:45→14:00)
[2022-05-18] MEDS: IPRATROPIUM 0.5MG/ALBUTEROL 2.5MG INH SOL UD 3ML (DUONEB) NEB SCH ×2 (15:30→20:00)
[2022-05-18] MEDS: MICAFUNGIN SODIUM 100 MG in D5W MINI-BAG PLUS 100 ML IV SCH (15:48)
[2022-05-18 16:19] LABS: HEMATOCRIT 28.2 % (42.0-52.0); HEMOGLOBIN 8.9 g/dl (13.5-17.5)
[2022-05-18 16:34] LABS: ABG BASE EXCESS -0.4 (-2.0-2.0); ABG HCO3 23.8 MEQ/L (22.0-26.0); ABG O2 SATURATION 98.9 % (95.0-99.0); ABG PARTIAL PRESSURE CO2 37.6 mmHg (35.0-45.0); ABG PARTIAL PRESSURE O2 156.1 mmHg (75.0-100.0); ABG STANDARD HCO3 24.1 MEQ/L (22.0-26.0)
[2022-05-18] MEDS ORDERED: FAT EMULSION IV 250 ML IV ONE (18:00)
[2022-05-18] MEDS ORDERED: DEX IV SCH (18:00)
[2022-05-18] MEDS ORDERED: CALC IV SCH (18:00)
[2022-05-18] MEDS ORDERED: AMINO AC IV SCH (18:00)
[2022-05-18] MEDS ORDERED: ELECTROLYTE IV SCH (18:00)
[2022-05-18] MEDS ORDERED: INSULIN HUMAN REGULAR IV SCH (18:00)
[2022-05-19] VITALS (50 sets, daily range): BP systolic 131–168; BP diastolic 67–95; TEMP 97.5–98.7; O2SAT 90–100
[2022-05-19] MEDS: HYDROCORTISONE 100MG/2ML VIAL IV SCH ×4 (00:13→17:54)
[2022-05-19] MEDS: PIPERACILLIN/TAZOBACTAM SOD 4.5 GM in D5W MINI-BAG PLUS 50 ML IV SCH ×4 (02:34→20:10)
[2022-05-19] MEDS: MIDAZOLAM 100MG/100ML-0.9%NACL 100 MG in IV 1 EA IV SCH ×2 (04:27→17:56)
[2022-05-19 04:47] LABS: HEMOGLOBIN 8.3 g/dl (13.5-17.5); MEAN CORPUSCULAR HEMOGLOBIN 27.6 pg (27.0-33.0); MEAN CORPUSCULAR HGB CONC 31.9 g/dl (32.0-36.5); MEAN CORPUSCULAR VOLUME 86.4 fl (80.0-96.0); PLATELET COUNT, AUTOMATED 276 10^3/uL (150-450); RED BLOOD COUNT 3.01 10^6/uL (4.30-6.10); WHITE BLOOD COUNT 14.5 10^3/uL (4.0-10.0)
[2022-05-19] MEDS: SODIUM CHLORIDE 0.9% INJ 10 ML SYR IV SCH ×2 (05:13→17:30)
[2022-05-19 05:23] LABS: BILIRUBIN,TOTAL 0.4 MG/DL (0.3-1.2); CALCIUM LEVEL 7.4 MG/DL (8.5-10.1); CREATININE FOR GFR 1.44 MG/DL (0.70-1.30); GLOMERULAR FILTRATION RATE 54.4 (>56); TOTAL PROTEIN 4.3 G/DL (5.7-8.2)
[2022-05-19] MEDS: INSULIN LISPRO (NovoLOG) PER UNIT SC SCH ×4 (05:57→23:10)
[2022-05-19] MEDS: HEPARIN SOD (PORCINE) 5000UNITS/ML 1ML VIAL/SYRINGE SC SCH ×3 (05:59→23:10)
[2022-05-19] MEDS: KCL 20MEQ IN 100ML SWI (KRUN) 20 MEQ in IV 1 EA IV SCH ×4 (06:00→07:13)
[2022-05-19 06:06] LABS: ABG BASE EXCESS 0.1 (-2.0-2.0); ABG HCO3 24.4 MEQ/L (22.0-26.0); ABG O2 SATURATION 96.9 % (95.0-99.0); ABG PARTIAL PRESSURE O2 89.2 mmHg (75.0-100.0); ABG STANDARD HCO3 24.6 MEQ/L (22.0-26.0); ABG TOTAL CO2 25.5 MEQ/L (22.0-29.0); ABG pH (ARTERIAL) 7.425 UNITS (7.350-7.450)
[2022-05-19] MEDS: IPRATROPIUM 0.5MG/ALBUTEROL 2.5MG INH SOL UD 3ML (DUONEB) NEB SCH (07:26)
[2022-05-19] MEDS: PANTOPRAZOLE 40MG VIAL IV SCH (08:14)
[2022-05-19] MEDS: CHLORHEXIDINE GLUCONATE 0.12 % 15ML UDC (PERIDEX ORAL RINSE) MT SCH ×2 (08:15→20:10)
[2022-05-19] MEDS: MORPHINE 2 MG/ML 1ML VIAL IV PRN ×2 (08:15→19:59)
[2022-05-19] MEDS: TOPIRAMATE 25 MG PO SCH (08:15)
[2022-05-19] MEDS: LEVOTHYROXINE 100MCG (0.1MG) 5ML SDV PF (SOLUTION FORM) IV SCH (08:16)
[2022-05-19] MEDS ORDERED: KCL 20MEQ IN 100ML SWI (KRUN) 20 MEQ in IV 1 EA IV ONE ×2 (09:20)
[2022-05-19] MEDS: ALBUTEROL SULFATE 2.5MG/0.5ML INH NEB SOLN NEB SCH ×3 (11:07→19:22)
[2022-05-19] MEDS ORDERED: MIDAZOLAM 100MG/100ML-0.9%NACL 100 MG in IV 1 EA IV SCH (11:12)
[2022-05-19 12:48] LABS: HEMOGLOBIN 8.5 g/dl (13.5-17.5)
[2022-05-19] MEDS: MICAFUNGIN SODIUM 100 MG in D5W MINI-BAG PLUS 100 ML IV SCH (17:43)
[2022-05-19] MEDS ORDERED: MULTIVITAMIN -ADULT INJECTION 10 ML, ZINC/COPPER/MANGANESE/SELENIUM 1 ML in AMINO AC/EL... IV SCH (18:00)
[2022-05-19] MEDS ORDERED: FAT EMULSION IV 250 ML IV ONE (18:00)
[2022-05-20] VITALS (29 sets, daily range): BP systolic 100–163; BP diastolic 57–80; TEMP 97.4–99.6; O2SAT 87–100
[2022-05-20] MEDS: PIPERACILLIN/TAZOBACTAM SOD 4.5 GM in D5W MINI-BAG PLUS 50 ML IV SCH ×4 (03:54→19:56)
[2022-05-20] MEDS: MIDAZOLAM 100MG/100ML-0.9%NACL 100 MG in IV 1 EA IV SCH ×2 (03:56→16:11)
[2022-05-20 04:22] LABS: HEMATOCRIT 25.1 % (42.0-52.0); HEMOGLOBIN 7.9 g/dl (13.5-17.5); MEAN CORPUSCULAR HEMOGLOBIN 27.6 pg (27.0-33.0); MEAN CORPUSCULAR HGB CONC 31.5 g/dl (32.0-36.5); MEAN CORPUSCULAR VOLUME 87.8 fl (80.0-96.0); PLATELET COUNT, AUTOMATED 264 10^3/uL (150-450); RED BLOOD COUNT 2.86 10^6/uL (4.30-6.10); WHITE BLOOD COUNT 9.6 10^3/uL (4.0-10.0)
[2022-05-20 04:46] LABS: ALBUMIN 1.2 G/DL (3.2-5.2); BILIRUBIN,TOTAL 0.4 MG/DL (0.3-1.2); CALCIUM LEVEL 7.8 MG/DL (8.5-10.1); CREATININE FOR GFR 1.44 MG/DL (0.70-1.30); GLOMERULAR FILTRATION RATE 54.4 (>56); TOTAL PROTEIN 4.4 G/DL (5.7-8.2)
[2022-05-20] MEDS: INSULIN LISPRO (NovoLOG) PER UNIT SC SCH ×4 (05:33→23:48)
[2022-05-20] MEDS: KCL 20MEQ IN 100ML SWI (KRUN) 20 MEQ in IV 1 EA IV SCH ×6 (05:39→08:02)
[2022-05-20] MEDS: SODIUM CHLORIDE 0.9% INJ 10 ML SYR IV SCH ×2 (05:39→16:29)
[2022-05-20] MEDS: HEPARIN SOD (PORCINE) 5000UNITS/ML 1ML VIAL/SYRINGE SC SCH ×3 (05:39→22:45)
[2022-05-20] MEDS: ALBUTEROL SULFATE 2.5MG/0.5ML INH NEB SOLN NEB SCH ×4 (07:44→19:25)
[2022-05-20] MEDS: CHLORHEXIDINE GLUCONATE 0.12 % 15ML UDC (PERIDEX ORAL RINSE) MT SCH ×2 (08:02→19:56)
[2022-05-20] MEDS: PANTOPRAZOLE 40MG VIAL IV SCH (08:03)
[2022-05-20] MEDS: LEVOTHYROXINE 100MCG (0.1MG) 5ML SDV PF (SOLUTION FORM) IV SCH (08:03)
[2022-05-20] MEDS: TOPIRAMATE 25 MG PO SCH (08:04)
[2022-05-20] MEDS: MICAFUNGIN SODIUM 100 MG in D5W MINI-BAG PLUS 100 ML IV SCH (16:12)
[2022-05-20] MEDS: MORPHINE 2 MG/ML 1ML VIAL IV PRN ×3 (16:14→22:44)
[2022-05-20] MEDS ORDERED: MIDAZOLAM INJ 2MG/2ML VIAL IV ONE (16:30)
[2022-05-20] MEDS ORDERED: fentaNYL 100 MCG/2 ML INJECTION IV ONE (17:45)
[2022-05-20] MEDS ORDERED: AMINO AC/ELECTROLYTE/DEX/CALC 2,000 ML IV SCH (18:00)
[2022-05-20] MEDS ORDERED: FAT EMULSION IV 250 ML IV ONE (18:00)
[2022-05-20] MEDS ORDERED: FENTANYL DRIP LOCK BOX KEY 1 EACH XX PRN (18:15)
[2022-05-20] MEDS: fentaNYL CITRATE/NaCl 1,000 MCG in IV 1 EA IV SCH (18:44)
[2022-05-21] VITALS (32 sets, daily range): BP systolic 99–166; BP diastolic 57–88; TEMP 97.9–100; O2SAT 89–98
[2022-05-21] MEDS: PIPERACILLIN/TAZOBACTAM SOD 4.5 GM in D5W MINI-BAG PLUS 50 ML IV SCH ×4 (02:03→22:04)
[2022-05-21 04:24] LABS: HEMATOCRIT 30.5 % (42.0-52.0); HEMOGLOBIN 9.6 g/dl (13.5-17.5); MEAN CORPUSCULAR HEMOGLOBIN 27.8 pg (27.0-33.0); MEAN CORPUSCULAR HGB CONC 31.5 g/dl (32.0-36.5); MEAN CORPUSCULAR VOLUME 88.4 fl (80.0-96.0); PLATELET COUNT, AUTOMATED 298 10^3/uL (150-450); RED BLOOD COUNT 3.45 10^6/uL (4.30-6.10); WHITE BLOOD COUNT 16.9 10^3/uL (4.0-10.0)
[2022-05-21 04:53] LABS: ALBUMIN 1.1 G/DL (3.2-5.2); BILIRUBIN,TOTAL 0.6 MG/DL (0.3-1.2); CALCIUM LEVEL 7.5 MG/DL (8.5-10.1); CREATININE FOR GFR 1.53 MG/DL (0.70-1.30); GLOMERULAR FILTRATION RATE 50.7 (>56); POTASSIUM SERUM 3.6 MMOL/L (3.5-5.1); TOTAL PROTEIN 4.2 G/DL (5.7-8.2)
[2022-05-21] MEDS: SODIUM CHLORIDE 0.9% INJ 10 ML SYR IV SCH ×2 (06:00→17:43)
[2022-05-21] MEDS: INSULIN LISPRO (NovoLOG) PER UNIT SC SCH ×4 (06:00→23:21)
[2022-05-21] MEDS: HEPARIN SOD (PORCINE) 5000UNITS/ML 1ML VIAL/SYRINGE SC SCH ×3 (06:44→22:04)
[2022-05-21] MEDS: MIDAZOLAM 100MG/100ML-0.9%NACL 100 MG in IV 1 EA IV SCH (07:39)
[2022-05-21] MEDS: ALBUTEROL SULFATE 2.5MG/0.5ML INH NEB SOLN NEB SCH ×4 (08:07→20:15)
[2022-05-21 09:51] LABS: ABG BASE EXCESS -2.2 (-2.0-2.0); ABG HCO3 21.4 MEQ/L (22.0-26.0); ABG O2 SATURATION 97.6 % (95.0-99.0); ABG PARTIAL PRESSURE CO2 32.7 mmHg (35.0-45.0); ABG PARTIAL PRESSURE O2 103.6 mmHg (75.0-100.0); ABG STANDARD HCO3 22.6 MEQ/L (22.0-26.0); ABG TOTAL CO2 22.4 MEQ/L (22.0-29.0); ABG pH (ARTERIAL) 7.434 UNITS (7.350-7.450)
[2022-05-21] MEDS: LEVOTHYROXINE 100MCG (0.1MG) 5ML SDV PF (SOLUTION FORM) IV SCH (10:26)
[2022-05-21] MEDS: PANTOPRAZOLE 40MG VIAL IV SCH (10:26)
[2022-05-21] MEDS: CHLORHEXIDINE GLUCONATE 0.12 % 15ML UDC (PERIDEX ORAL RINSE) MT SCH ×2 (10:26→20:35)
[2022-05-21] MEDS: TOPIRAMATE 25 MG PO SCH (10:27)
[2022-05-21 13:10] LABS: VENOUS HCO3 24.2 MEQ/L (23.0-27.0); VENOUS O2 SATURATION 95.6 % (60.0-80.0); VENOUS PARTIAL PRESSURE CO2 48.1 mmHg (38.0-50.0); VENOUS STANDARD HCO3 22.7 MEQ/L; VENOUS TOTAL CO2 25.7 MEQ/L (24.0-28.0)
[2022-05-21] MEDS: fentaNYL CITRATE/NaCl 1,000 MCG in IV 1 EA IV SCH (15:32)
[2022-05-21] MEDS: FLUCONAZOLE 400 MG in IV 1 EA IV SCH (16:20)
[2022-05-21] MEDS ORDERED: MULTIVITAMIN -ADULT INJECTION 10 ML, ZINC/COPPER/MANGANESE/SELENIUM 1 ML in AMINO AC/EL... IV SCH (18:00)
[2022-05-21] MEDS ORDERED: FAT EMULSION IV 250 ML IV ONE (18:00)
[2022-05-21] MEDS: FLUCONAZOLE 200 MG in IV 1 EA IV SCH (18:22)
[2022-05-21] MEDS: MORPHINE 2 MG/ML 1ML VIAL IV PRN (23:17)
[2022-05-22] VITALS (54 sets, daily range): BP systolic 74–154; BP diastolic 41–90; TEMP 98.6–100.6; O2SAT 88–100
[2022-05-22 02:24] LABS: ABG BASE EXCESS -3.4 (-2.0-2.0); ABG HCO3 22.9 MEQ/L (22.0-26.0); ABG O2 SATURATION 97.6 % (95.0-99.0); ABG PARTIAL PRESSURE CO2 46.6 mmHg (35.0-45.0); ABG PARTIAL PRESSURE O2 107.2 mmHg (75.0-100.0); ABG STANDARD HCO3 21.6 MEQ/L (22.0-26.0); ABG TOTAL CO2 24.3 MEQ/L (22.0-29.0); ABG pH (ARTERIAL) 7.309 UNITS (7.350-7.450)
[2022-05-22] MEDS ORDERED: MIDAZOLAM 100MG/100ML-0.9%NACL 100 MG in IV 1 EA IV SCH (02:25)
[2022-05-22] MEDS ORDERED: FENTANYL DRIP LOCK BOX KEY 1 EACH XX PRN (02:25)
[2022-05-22] MEDS ORDERED: NS 500 ML IV ONE (02:35)
[2022-05-22] MEDS: MIDAZOLAM 100MG/100ML-0.9%NACL 100 MG in IV 1 EA IV SCH ×2 (02:53→18:08)
[2022-05-22] MEDS: fentaNYL CITRATE/NaCl 1,000 MCG in IV 1 EA IV SCH ×2 (02:54→14:09)
[2022-05-22] MEDS ORDERED: propofoL 200 MG/20 ML VIAL IV ONE (03:00)
[2022-05-22] MEDS ORDERED: ACETAMINOPHEN 1000MG 100ML IV BAG IV ONE (03:00)
[2022-05-22] MEDS: PIPERACILLIN/TAZOBACTAM SOD 4.5 GM in D5W MINI-BAG PLUS 50 ML IV SCH ×4 (03:28→21:18)
[2022-05-22] MEDS: ACETYLCYSTEINE 20% 4 ML VIAL (200MG/ML) INH SCH ×2 (04:12→19:07)
[2022-05-22 04:45] LABS: ABG BASE EXCESS -2.1 (-2.0-2.0); ABG HCO3 23.3 MEQ/L (22.0-26.0); ABG O2 SATURATION 98.8 % (95.0-99.0); ABG PARTIAL PRESSURE CO2 42.2 mmHg (35.0-45.0); ABG PARTIAL PRESSURE O2 198.3 mmHg (75.0-100.0); ABG STANDARD HCO3 22.7 MEQ/L (22.0-26.0); ABG TOTAL CO2 24.5 MEQ/L (22.0-29.0); ABG pH (ARTERIAL) 7.359 UNITS (7.350-7.450)
[2022-05-22] MEDS: HEPARIN SOD (PORCINE) 5000UNITS/ML 1ML VIAL/SYRINGE SC SCH ×3 (05:39→21:18)
[2022-05-22] MEDS: SODIUM CHLORIDE 0.9% INJ 10 ML SYR IV SCH ×2 (05:39→18:01)
[2022-05-22 05:43] LABS: HEMATOCRIT 28.9 % (42.0-52.0); HEMOGLOBIN 8.8 g/dl (13.5-17.5); MEAN CORPUSCULAR HEMOGLOBIN 27.6 pg (27.0-33.0); MEAN CORPUSCULAR HGB CONC 30.4 g/dl (32.0-36.5); MEAN CORPUSCULAR VOLUME 90.6 fl (80.0-96.0); PLATELET COUNT, AUTOMATED 290 10^3/uL (150-450); RED BLOOD COUNT 3.19 10^6/uL (4.30-6.10); WHITE BLOOD COUNT 18.9 10^3/uL (4.0-10.0)
[2022-05-22] MEDS: INSULIN LISPRO (NovoLOG) PER UNIT SC SCH ×3 (05:46→17:37)
[2022-05-22 06:10] LABS: ALBUMIN 1.1 G/DL (3.2-5.2); BILIRUBIN,TOTAL 0.4 MG/DL (0.3-1.2); CREATININE FOR GFR 1.5 MG/DL (0.70-1.30); GLOMERULAR FILTRATION RATE 51.9 (>56); POTASSIUM SERUM 3.6 MMOL/L (3.5-5.1); TOTAL PROTEIN 4.5 G/DL (5.7-8.2)
[2022-05-22 06:11] LABS: MAGNESIUM LEVEL 1.9 MG/DL (1.8-2.4); PHOSPHORUS LEVEL 4.6 MG/DL (2.5-4.9)
[2022-05-22] MEDS: ALBUTEROL SULFATE 2.5MG/0.5ML INH NEB SOLN NEB SCH ×4 (08:17→19:07)
[2022-05-22] MEDS ORDERED: MIDAZOLAM 5MG/ML 1ML VIAL IV STA (08:41)
[2022-05-22] MEDS: LEVOTHYROXINE 100MCG (0.1MG) 5ML SDV PF (SOLUTION FORM) IV SCH (09:00)
[2022-05-22] MEDS ORDERED: LIDOCAINE 1% MDV 20ML VIAL As Ordered ONE (09:05)
[2022-05-22] MEDS ORDERED: LIDOCAINE 1% MDV 20ML VIAL XX ONE (09:30)
[2022-05-22] MEDS: TOPIRAMATE 25 MG PO SCH (09:54)
[2022-05-22] MEDS: CHLORHEXIDINE GLUCONATE 0.12 % 15ML UDC (PERIDEX ORAL RINSE) MT SCH ×2 (09:54→21:17)
[2022-05-22] MEDS: PANTOPRAZOLE 40MG VIAL IV SCH (09:54)
[2022-05-22] MEDS: FLUCONAZOLE 200 MG in IV 1 EA IV SCH (16:15)
[2022-05-22] MEDS: FLUCONAZOLE 400 MG in IV 1 EA IV SCH (17:18)
[2022-05-22] MEDS ORDERED: FAT EMULSION IV 250 ML IV ONE (18:00)
[2022-05-22] MEDS ORDERED: AMINO AC/ELECTROLYTE/DEX/CALC 2,000 ML IV SCH (18:00)
[2022-05-23] VITALS (40 sets, daily range): BP systolic 119–153; BP diastolic 58–84; TEMP 98.3–99.9; O2SAT 95–99
[2022-05-23] MEDS: fentaNYL CITRATE/NaCl 1,000 MCG in IV 1 EA IV SCH (03:06)
[2022-05-23] MEDS: PIPERACILLIN/TAZOBACTAM SOD 4.5 GM in D5W MINI-BAG PLUS 50 ML IV SCH ×4 (03:55→21:33)
[2022-05-23 04:59] LABS: HEMATOCRIT 27.9 % (42.0-52.0); HEMOGLOBIN 8.4 g/dl (13.5-17.5); MEAN CORPUSCULAR HEMOGLOBIN 27.6 pg (27.0-33.0); MEAN CORPUSCULAR HGB CONC 30.1 g/dl (32.0-36.5); MEAN CORPUSCULAR VOLUME 91.8 fl (80.0-96.0); PLATELET COUNT, AUTOMATED 327 10^3/uL (150-450); RED BLOOD COUNT 3.04 10^6/uL (4.30-6.10); WHITE BLOOD COUNT 20.6 10^3/uL (4.0-10.0)
[2022-05-23 05:11] LABS: ALBUMIN 1.1 G/DL (3.2-5.2); BILIRUBIN,TOTAL 0.4 MG/DL (0.3-1.2); CALCIUM LEVEL 7.9 MG/DL (8.5-10.1); CREATININE FOR GFR 1.45 MG/DL (0.70-1.30); POTASSIUM SERUM 3.9 MMOL/L (3.5-5.1); TOTAL PROTEIN 4.6 G/DL (5.7-8.2)
[2022-05-23 05:55] LABS: ABG BASE EXCESS -3.3 (-2.0-2.0); ABG HCO3 21.7 MEQ/L (22.0-26.0); ABG O2 SATURATION 99.2 % (95.0-99.0); ABG PARTIAL PRESSURE CO2 38.5 mmHg (35.0-45.0); ABG PARTIAL PRESSURE O2 153.1 mmHg (75.0-100.0); ABG STANDARD HCO3 21.7 MEQ/L (22.0-26.0); ABG TOTAL CO2 22.8 MEQ/L (22.0-29.0); ABG pH (ARTERIAL) 7.368 UNITS (7.350-7.450)
[2022-05-23] MEDS: HEPARIN SOD (PORCINE) 5000UNITS/ML 1ML VIAL/SYRINGE SC SCH ×3 (06:13→21:33)
[2022-05-23] MEDS: INSULIN LISPRO (NovoLOG) PER UNIT SC SCH ×5 (06:14→23:39)
[2022-05-23] MEDS: SODIUM CHLORIDE 0.9% INJ 10 ML SYR IV SCH ×2 (06:14→18:36)
[2022-05-23] MEDS: ACETYLCYSTEINE 20% 4 ML VIAL (200MG/ML) INH SCH ×2 (07:23→19:48)
[2022-05-23] MEDS: ALBUTEROL SULFATE 2.5MG/0.5ML INH NEB SOLN NEB SCH ×4 (07:23→19:47)
[2022-05-23] MEDS: CHLORHEXIDINE GLUCONATE 0.12 % 15ML UDC (PERIDEX ORAL RINSE) MT SCH ×2 (08:25→21:33)
[2022-05-23] MEDS: TOPIRAMATE 25 MG PO SCH (08:26)
[2022-05-23] MEDS: LEVOTHYROXINE 100MCG (0.1MG) 5ML SDV PF (SOLUTION FORM) IV SCH (08:26)
[2022-05-23] MEDS: PANTOPRAZOLE 40MG VIAL IV SCH (08:26)
[2022-05-23] MEDS: FLUCONAZOLE 400 MG in IV 1 EA IV SCH (16:14)
[2022-05-23] MEDS ORDERED: AMINO AC/ELECTROLYTE/DEX/CALC 2,000 ML IV SCH (18:00)
[2022-05-23] MEDS ORDERED: FAT EMULSION IV 250 ML IV ONE (18:00)
[2022-05-23] MEDS: FLUCONAZOLE 200 MG in IV 1 EA IV SCH (18:37)
[2022-05-23] MEDS: MIDAZOLAM 100MG/100ML-0.9%NACL 100 MG in IV 1 EA IV SCH (19:06)
[2022-05-24] VITALS (34 sets, daily range): BP systolic 98–153; BP diastolic 56–82; TEMP 98.8–100.8; O2SAT 94–99
[2022-05-24] MEDS: PIPERACILLIN/TAZOBACTAM SOD 4.5 GM in D5W MINI-BAG PLUS 50 ML IV SCH ×4 (02:35→21:37)
[2022-05-24] MEDS: fentaNYL CITRATE/NaCl 1,000 MCG in IV 1 EA IV SCH ×2 (02:36→22:19)
[2022-05-24] MEDS ORDERED: LORazepam 2 MG/ML 1ML VIAL IM STA (03:27)
[2022-05-24] MEDS: INSULIN LISPRO (NovoLOG) PER UNIT SC SCH ×3 (05:09→18:00)
[2022-05-24] MEDS: HEPARIN SOD (PORCINE) 5000UNITS/ML 1ML VIAL/SYRINGE SC SCH ×3 (05:16→21:36)
[2022-05-24] MEDS: SODIUM CHLORIDE 0.9% INJ 10 ML SYR IV SCH ×2 (05:17→18:00)
[2022-05-24 05:34] LABS: HEMATOCRIT 25.5 % (42.0-52.0); HEMOGLOBIN 7.7 g/dl (13.5-17.5); MEAN CORPUSCULAR HEMOGLOBIN 27.7 pg (27.0-33.0); MEAN CORPUSCULAR HGB CONC 30.2 g/dl (32.0-36.5); MEAN CORPUSCULAR VOLUME 91.7 fl (80.0-96.0); PLATELET COUNT, AUTOMATED 324 10^3/uL (150-450); RED BLOOD COUNT 2.78 10^6/uL (4.30-6.10); WHITE BLOOD COUNT 19.5 10^3/uL (4.0-10.0)
[2022-05-24 05:47] LABS: ABG BASE EXCESS -1.2 (-2.0-2.0); ABG HCO3 22.9 MEQ/L (22.0-26.0); ABG O2 SATURATION 95.6 % (95.0-99.0); ABG PARTIAL PRESSURE CO2 35.7 mmHg (35.0-45.0); ABG PARTIAL PRESSURE O2 78.7 mmHg (75.0-100.0); ABG STANDARD HCO3 23.4 MEQ/L (22.0-26.0); ABG pH (ARTERIAL) 7.425 UNITS (7.350-7.450)
[2022-05-24 06:04] LABS: CALCIUM LEVEL 7.8 MG/DL (8.5-10.1); CREATININE FOR GFR 1.4 MG/DL (0.70-1.30); MAGNESIUM LEVEL 1.7 MG/DL (1.8-2.4); PHOSPHORUS LEVEL 4.2 MG/DL (2.5-4.9); POTASSIUM SERUM 4.1 MMOL/L (3.5-5.1)
[2022-05-24 06:06] LABS: THYROID STIMULATING HORMONE 3.222 uIU/ML (0.55-4.78)
[2022-05-24] MEDS ORDERED: MAGNESIUM OXIDE 400MG TAB (MAG-OX) NG ONE (07:45)
[2022-05-24] MEDS: ACETYLCYSTEINE 20% 4 ML VIAL (200MG/ML) INH SCH ×2 (07:50→19:07)
[2022-05-24] MEDS: ALBUTEROL SULFATE 2.5MG/0.5ML INH NEB SOLN NEB SCH ×4 (07:50→19:07)
[2022-05-24] MEDS: CHLORHEXIDINE GLUCONATE 0.12 % 15ML UDC (PERIDEX ORAL RINSE) MT SCH ×2 (08:03→21:36)
[2022-05-24] MEDS: TOPIRAMATE 25 MG PO SCH (08:04)
[2022-05-24] MEDS: LEVOTHYROXINE 100MCG (0.1MG) 5ML SDV PF (SOLUTION FORM) IV SCH (08:04)
[2022-05-24] MEDS: PANTOPRAZOLE 40MG VIAL IV SCH (08:04)
[2022-05-24] MEDS: MORPHINE 2 MG/ML 1ML VIAL IV PRN ×3 (08:39→17:01)
[2022-05-24] MEDS: FLUCONAZOLE 400 MG in IV 1 EA IV SCH (16:10)
[2022-05-24] MEDS: ACETAMINOPHEN 325MG/10.15ML UDC GT PRN (17:04)
[2022-05-24] MEDS ORDERED: AMINO AC/ELECTROLYTE/DEX/CALC 2,000 ML IV SCH (18:00)
[2022-05-24] MEDS ORDERED: FAT EMULSION IV 250 ML IV ONE (18:00)
[2022-05-24] MEDS: FLUCONAZOLE 200 MG in IV 1 EA IV SCH (18:17)
[2022-05-25] VITALS (41 sets, daily range): BP systolic 106–155; BP diastolic 55–88; TEMP 97.7–100; O2SAT 93–99
[2022-05-25] MEDS: MIDAZOLAM 100MG/100ML-0.9%NACL 100 MG in IV 1 EA IV SCH (01:20)
[2022-05-25] MEDS: PIPERACILLIN/TAZOBACTAM SOD 4.5 GM in D5W MINI-BAG PLUS 50 ML IV SCH ×4 (02:45→20:36)
[2022-05-25 05:34] LABS: HEMATOCRIT 24.6 % (42.0-52.0); HEMOGLOBIN 7.4 g/dl (13.5-17.5); MEAN CORPUSCULAR HEMOGLOBIN 27.5 pg (27.0-33.0); MEAN CORPUSCULAR HGB CONC 30.1 g/dl (32.0-36.5); MEAN CORPUSCULAR VOLUME 91.4 fl (80.0-96.0); PLATELET COUNT, AUTOMATED 324 10^3/uL (150-450); RED BLOOD COUNT 2.69 10^6/uL (4.30-6.10); WHITE BLOOD COUNT 18.1 10^3/uL (4.0-10.0)
[2022-05-25 05:54] LABS: ABG BASE EXCESS -2.5 (-2.0-2.0); ABG HCO3 22.4 MEQ/L (22.0-26.0); ABG O2 SATURATION 95.8 % (95.0-99.0); ABG PARTIAL PRESSURE CO2 39.2 mmHg (35.0-45.0); ABG PARTIAL PRESSURE O2 83.3 mmHg (75.0-100.0); ABG STANDARD HCO3 22.3 MEQ/L (22.0-26.0); ABG TOTAL CO2 23.6 MEQ/L (22.0-29.0); ABG pH (ARTERIAL) 7.375 UNITS (7.350-7.450)
[2022-05-25] MEDS: SODIUM CHLORIDE 0.9% INJ 10 ML SYR IV SCH ×2 (05:56→17:35)
[2022-05-25] MEDS: HEPARIN SOD (PORCINE) 5000UNITS/ML 1ML VIAL/SYRINGE SC SCH ×3 (05:56→20:37)
[2022-05-25] MEDS: INSULIN LISPRO (NovoLOG) PER UNIT SC SCH ×4 (05:57→17:35)
[2022-05-25 06:02] LABS: CALCIUM LEVEL 8.3 MG/DL (8.5-10.1); CREATININE FOR GFR 1.38 MG/DL (0.70-1.30); MAGNESIUM LEVEL 1.6 MG/DL (1.8-2.4); POTASSIUM SERUM 4.1 MMOL/L (3.5-5.1)
[2022-05-25] MEDS ORDERED: MAG SULF 1GM/100ML (MAG RUN) 1 GM in IV 1 EA IV ONE (07:00)
[2022-05-25] MEDS: ALBUTEROL SULFATE 2.5MG/0.5ML INH NEB SOLN NEB SCH ×4 (08:03→19:08)
[2022-05-25] MEDS: ACETYLCYSTEINE 20% 4 ML VIAL (200MG/ML) INH SCH ×2 (08:03→19:08)
[2022-05-25] MEDS: CHLORHEXIDINE GLUCONATE 0.12 % 15ML UDC (PERIDEX ORAL RINSE) MT SCH ×2 (08:04→20:36)
[2022-05-25] MEDS: PANTOPRAZOLE 40MG VIAL IV SCH (08:05)
[2022-05-25] MEDS: LEVOTHYROXINE 100MCG (0.1MG) 5ML SDV PF (SOLUTION FORM) IV SCH (08:05)
[2022-05-25] MEDS: TOPIRAMATE 25 MG PO SCH (08:07)
[2022-05-25] MEDS ORDERED: FUROSEMIDE 20MG/2ML VIAL IV ONE (09:00)
[2022-05-25] MEDS: fentaNYL CITRATE/NaCl 1,000 MCG in IV 1 EA IV SCH (13:35)
[2022-05-25] MEDS: MORPHINE 2 MG/ML 1ML VIAL IV PRN (14:40)
[2022-05-25] MEDS: FLUCONAZOLE 400 MG in IV 1 EA IV SCH (16:24)
[2022-05-25] MEDS ORDERED: AMINO AC/ELECTROLYTE/DEX/CALC 2,000 ML IV SCH (18:00)
[2022-05-25] MEDS ORDERED: FAT EMULSION IV 250 ML IV ONE (18:00)
[2022-05-25] MEDS: FLUCONAZOLE 200 MG in IV 1 EA IV SCH (18:47)
[2022-05-26] VITALS (37 sets, daily range): BP systolic 105–142; BP diastolic 56–79; TEMP 96.8–98.6; O2SAT 91–100
[2022-05-26] MEDS ORDERED: APIXABAN 5 MG TAB (ELIQUIS) PO SCH (00:55)
[2022-05-26] MEDS: MIDAZOLAM 100MG/100ML-0.9%NACL 100 MG in IV 1 EA IV SCH ×2 (02:35→17:52)
[2022-05-26] MEDS: PIPERACILLIN/TAZOBACTAM SOD 4.5 GM in D5W MINI-BAG PLUS 50 ML IV SCH ×2 (03:00→08:55)
[2022-05-26] MEDS: INSULIN LISPRO (NovoLOG) PER UNIT SC SCH ×5 (06:00→23:44)
[2022-05-26] MEDS: SODIUM CHLORIDE 0.9% INJ 10 ML SYR IV SCH ×2 (06:00→17:44)
[2022-05-26 06:01] LABS: HEMATOCRIT 23.7 % (42.0-52.0); HEMOGLOBIN 7.3 g/dl (13.5-17.5); MEAN CORPUSCULAR HEMOGLOBIN 28.2 pg (27.0-33.0); MEAN CORPUSCULAR HGB CONC 30.8 g/dl (32.0-36.5); MEAN CORPUSCULAR VOLUME 91.5 fl (80.0-96.0); PLATELET COUNT, AUTOMATED 358 10^3/uL (150-450); RED BLOOD COUNT 2.59 10^6/uL (4.30-6.10); WHITE BLOOD COUNT 15.9 10^3/uL (4.0-10.0)
[2022-05-26 06:02] LABS: ABG BASE EXCESS -4.2 (-2.0-2.0); ABG HCO3 20.4 MEQ/L (22.0-26.0); ABG PARTIAL PRESSURE O2 80.8 mmHg (75.0-100.0); ABG STANDARD HCO3 20.9 MEQ/L (22.0-26.0); ABG TOTAL CO2 21.5 MEQ/L (22.0-29.0); ABG pH (ARTERIAL) 7.383 UNITS (7.350-7.450)
[2022-05-26 06:35] LABS: CALCIUM LEVEL 8.3 MG/DL (8.5-10.1); CREATININE FOR GFR 1.39 MG/DL (0.70-1.30); GLOMERULAR FILTRATION RATE 56.5 (>56); MAGNESIUM LEVEL 1.7 MG/DL (1.8-2.4); POTASSIUM SERUM 4.5 MMOL/L (3.5-5.1)
[2022-05-26] MEDS: ACETYLCYSTEINE 20% 4 ML VIAL (200MG/ML) INH SCH (07:21)
[2022-05-26] MEDS: ALBUTEROL SULFATE 2.5MG/0.5ML INH NEB SOLN NEB SCH ×4 (07:21→19:37)
[2022-05-26] MEDS ORDERED: HEPARIN SOD (PORCINE) 5000UNITS/ML 1ML VIAL/SYRINGE IV PRN (08:05)
[2022-05-26] MEDS ORDERED: MAG SULF 1GM/100ML (MAG RUN) 1 GM in IV 1 EA IV ONE (08:10)
[2022-05-26] MEDS: PANTOPRAZOLE 40MG VIAL IV SCH (08:54)
[2022-05-26] MEDS: TOPIRAMATE 25 MG PO SCH (08:55)
[2022-05-26] MEDS: CHLORHEXIDINE GLUCONATE 0.12 % 15ML UDC (PERIDEX ORAL RINSE) MT SCH ×2 (08:55→21:50)
[2022-05-26] MEDS: LEVOTHYROXINE 100MCG (0.1MG) 5ML SDV PF (SOLUTION FORM) IV SCH (08:55)
[2022-05-26] MEDS: SODIUM CHLORIDE 0.9% INJ 10 ML SYR IV PRN (10:39)
[2022-05-26] MEDS: HEPARIN DRIP 25,000 UNITS in IV 1 EA IV SCH ×2 (10:47→23:46)
[2022-05-26] MEDS: fentaNYL CITRATE/NaCl 1,000 MCG in IV 1 EA IV SCH (11:10)
[2022-05-26] MEDS ORDERED: MIDAZOLAM INJ 2MG/2ML VIAL As Ordered ONE (13:50)
[2022-05-26] MEDS ORDERED: FUROSEMIDE 20MG/2ML VIAL IV ONE (15:25)
[2022-05-26] MEDS: FLUCONAZOLE 400 MG in IV 1 EA IV SCH (15:40)
[2022-05-26] MEDS: FLUCONAZOLE 200 MG in IV 1 EA IV SCH (17:46)
[2022-05-26] MEDS ORDERED: [UNRECOGNIZED DRUG - OTHER] IV SCH ×3 (18:00)
[2022-05-26] MEDS ORDERED: AMINO AC IV SCH ×3 (18:00)
[2022-05-26] MEDS ORDERED: ZINC IV SCH ×3 (18:00)
[2022-05-26] MEDS ORDERED: ELECTROLYTE IV SCH ×3 (18:00)
[2022-05-26] MEDS ORDERED: MANGANESE IV SCH ×3 (18:00)
[2022-05-26] MEDS ORDERED: CALC IV SCH ×3 (18:00)
[2022-05-26] MEDS ORDERED: DEX IV SCH ×3 (18:00)
[2022-05-26] MEDS ORDERED: FAT EMULSION IV 250 ML IV ONE (18:00)
[2022-05-26] MEDS ORDERED: SELENIUM IV SCH ×3 (18:00)
[2022-05-26] MEDS ORDERED: COPPER IV SCH ×3 (18:00)
[2022-05-27] VITALS (30 sets, daily range): BP systolic 104–138; BP diastolic 55–72; TEMP 97–99.7; O2SAT 93–100
[2022-05-27 05:39] LABS: HEMATOCRIT 23.2 % (42.0-52.0); HEMOGLOBIN 7.2 g/dl (13.5-17.5); MEAN CORPUSCULAR HEMOGLOBIN 28.2 pg (27.0-33.0); PLATELET COUNT, AUTOMATED 386 10^3/uL (150-450); RED BLOOD COUNT 2.55 10^6/uL (4.30-6.10); WHITE BLOOD COUNT 13.7 10^3/uL (4.0-10.0)
[2022-05-27] MEDS: INSULIN LISPRO (NovoLOG) PER UNIT SC SCH ×3 (05:46→17:33)
[2022-05-27 06:07] LABS: ABG BASE EXCESS -1.3 (-2.0-2.0); ABG HCO3 23.6 MEQ/L (22.0-26.0); ABG O2 SATURATION 98.8 % (95.0-99.0); ABG PARTIAL PRESSURE CO2 39.8 mmHg (35.0-45.0); ABG PARTIAL PRESSURE O2 144.1 mmHg (75.0-100.0); ABG STANDARD HCO3 23.4 MEQ/L (22.0-26.0); ABG TOTAL CO2 24.8 MEQ/L (22.0-29.0)
[2022-05-27 06:11] LABS: BILIRUBIN,TOTAL 0.2 MG/DL (0.3-1.2); CALCIUM LEVEL 8.5 MG/DL (8.5-10.1); CREATININE FOR GFR 1.36 MG/DL (0.70-1.30); GLOMERULAR FILTRATION RATE 57.9 (>56); MAGNESIUM LEVEL 1.7 MG/DL (1.8-2.4); POTASSIUM SERUM 4.5 MMOL/L (3.5-5.1)
[2022-05-27] MEDS ORDERED: MAG SULF 1GM/100ML (MAG RUN) 1 GM in IV 1 EA IV ONE (06:20)
[2022-05-27] MEDS: ALBUTEROL SULFATE 2.5MG/0.5ML INH NEB SOLN NEB SCH ×4 (07:03→20:18)
[2022-05-27] MEDS: TOPIRAMATE 25 MG PO SCH (08:14)
[2022-05-27] MEDS: PANTOPRAZOLE 40MG VIAL IV SCH (08:14)
[2022-05-27] MEDS: CHLORHEXIDINE GLUCONATE 0.12 % 15ML UDC (PERIDEX ORAL RINSE) MT SCH ×2 (08:14→20:02)
[2022-05-27] MEDS: LEVOTHYROXINE 100MCG (0.1MG) 5ML SDV PF (SOLUTION FORM) IV SCH (08:14)
[2022-05-27] MEDS: HEPARIN DRIP 25,000 UNITS in IV 1 EA IV SCH ×2 (10:52→21:49)
[2022-05-27] MEDS: fentaNYL CITRATE/NaCl 1,000 MCG in IV 1 EA IV SCH (13:36)
[2022-05-27] MEDS: FLUCONAZOLE 400 MG in IV 1 EA IV SCH (15:32)
[2022-05-27] MEDS: FLUCONAZOLE 200 MG in IV 1 EA IV SCH (17:33)
[2022-05-27] MEDS ORDERED: AMINO AC/ELECTROLYTE/DEX/CALC 1,000 ML IV SCH (18:00)
[2022-05-27] MEDS ORDERED: FAT EMULSION IV 250 ML IV ONE (18:00)
[2022-05-27] MEDS: MIDAZOLAM 100MG/100ML-0.9%NACL 100 MG in IV 1 EA IV SCH (19:02)
[2022-05-28] VITALS (34 sets, daily range): BP systolic 116–157; BP diastolic 64–86; TEMP 98.1–100.2; O2SAT 94–98
[2022-05-28] MEDS ORDERED: AMINO AC/ELECTROLYTE/DEX/CALC 2,000 ML IV SCH (04:00)
[2022-05-28 04:26] LABS: HEMATOCRIT 23.2 % (42.0-52.0); MEAN CORPUSCULAR HEMOGLOBIN 27.3 pg (27.0-33.0); MEAN CORPUSCULAR HGB CONC 29.7 g/dl (32.0-36.5); MEAN CORPUSCULAR VOLUME 91.7 fl (80.0-96.0); PLATELET COUNT, AUTOMATED 373 10^3/uL (150-450); RED BLOOD COUNT 2.53 10^6/uL (4.30-6.10); WHITE BLOOD COUNT 11.8 10^3/uL (4.0-10.0)
[2022-05-28 04:30] LABS: HEMOGLOBIN 6.9 g/dl (13.5-17.5)
[2022-05-28 04:59] LABS: BLOOD UREA NITROGEN 43 MG/DL (9-23); CALCIUM LEVEL 8.8 MG/DL (8.5-10.1); CARBON DIOXIDE LEVEL 23 MMOL/L (20-31); CHLORIDE LEVEL 104 MMOL/L (98-107); CREATININE FOR GFR 1.24 MG/DL (0.70-1.30); GLOMERULAR FILTRATION RATE > 60.0 (>56); GLUCOSE, FASTING 113 MG/DL (60-100); POTASSIUM SERUM 4.6 MMOL/L (3.5-5.1); SODIUM LEVEL 135 MMOL/L (136-145)
[2022-05-28] MEDS: fentaNYL CITRATE/NaCl 1,000 MCG in IV 1 EA IV SCH (05:41)
[2022-05-28] MEDS: INSULIN LISPRO (NovoLOG) PER UNIT SC SCH ×4 (05:46→18:00)
[2022-05-28] MEDS: ALBUTEROL SULFATE 2.5MG/0.5ML INH NEB SOLN NEB SCH (07:59)
[2022-05-28] MEDS: CHLORHEXIDINE GLUCONATE 0.12 % 15ML UDC (PERIDEX ORAL RINSE) MT SCH ×2 (09:03→21:34)
[2022-05-28] MEDS: ACETAMINOPHEN 325MG/10.15ML UDC GT PRN (09:04)
[2022-05-28] MEDS: TOPIRAMATE 25 MG PO SCH (09:04)
[2022-05-28] MEDS: PANTOPRAZOLE 40MG VIAL IV SCH (09:04)
[2022-05-28] MEDS: LEVOTHYROXINE 100MCG (0.1MG) 5ML SDV PF (SOLUTION FORM) IV SCH (09:05)
[2022-05-28] MEDS: HEPARIN DRIP 25,000 UNITS in IV 1 EA IV SCH ×2 (09:20→21:29)
[2022-05-28] MEDS ORDERED: LIDOCAINE 1% MDV 20ML VIAL As Ordered ONE (14:55)
[2022-05-28] MEDS: FLUCONAZOLE 400 MG in IV 1 EA IV SCH (16:49)
[2022-05-28] MEDS ORDERED: MANGANESE IV SCH ×3 (18:00)
[2022-05-28] MEDS ORDERED: ELECTROLYTE IV SCH ×3 (18:00)
[2022-05-28] MEDS ORDERED: MULTIVITAMIN -ADULT INJECTION 10 ML, ZINC/COPPER/MANGANESE/SELENIUM 1 ML in AMINO AC/EL... IV SCH ×4 (18:00)
[2022-05-28] MEDS ORDERED: FAT EMULSION IV 250 ML IV ONE (18:00)
[2022-05-28] MEDS ORDERED: SELENIUM IV SCH ×3 (18:00)
[2022-05-28] MEDS ORDERED: ZINC IV SCH ×3 (18:00)
[2022-05-28] MEDS ORDERED: [UNRECOGNIZED DRUG - OTHER] IV SCH ×3 (18:00)
[2022-05-28] MEDS ORDERED: DEX IV SCH ×3 (18:00)
[2022-05-28] MEDS ORDERED: AMINO AC/ELECTROLYTE/DEX/CALC 1,000 ML IV SCH (18:00)
[2022-05-28] MEDS ORDERED: AMINO AC IV SCH ×3 (18:00)
[2022-05-28] MEDS ORDERED: CALC IV SCH ×3 (18:00)
[2022-05-28] MEDS ORDERED: COPPER IV SCH ×3 (18:00)
[2022-05-28] MEDS: FLUCONAZOLE 200 MG in IV 1 EA IV SCH (18:26)
[2022-05-28] MEDS: SODIUM CHLORIDE 0.9% INJ 10 ML SYR IV SCH (18:28)
[2022-05-28] MEDS: MIDAZOLAM INJ 2MG/2ML VIAL IV PRN (22:16)
[2022-05-28] MEDS: ALBUTEROL SULFATE 2.5MG/0.5ML INH NEB SOLN NEB PRN (22:34)
[2022-05-28] MEDS ORDERED: MIDAZOLAM INJ 2MG/2ML VIAL IV STA (23:00)
[2022-05-28] MEDS: MIDAZOLAM 100MG/100ML-0.9%NACL 100 MG in IV 1 EA IV SCH (23:13)
[2022-05-29] VITALS (30 sets, daily range): BP systolic 122–157; BP diastolic 58–85; TEMP 97.5–100.2; O2SAT 95–97
[2022-05-29] MEDS: fentaNYL CITRATE/NaCl 1,000 MCG in IV 1 EA IV SCH ×2 (01:54→16:27)
[2022-05-29] MEDS ORDERED: diphenhydrAMINE 50MG/ML VIAL IV ONE (04:10)
[2022-05-29 04:54] LABS: HEMATOCRIT 24.5 % (42.0-52.0); HEMOGLOBIN 7.6 g/dl (13.5-17.5); MEAN CORPUSCULAR HEMOGLOBIN 27.7 pg (27.0-33.0); MEAN CORPUSCULAR VOLUME 89.4 fl (80.0-96.0); PLATELET COUNT, AUTOMATED 347 10^3/uL (150-450); RED BLOOD COUNT 2.74 10^6/uL (4.30-6.10)
[2022-05-29 05:23] LABS: BLOOD UREA NITROGEN 43 MG/DL (9-23); CALCIUM LEVEL 8.6 MG/DL (8.5-10.1); CARBON DIOXIDE LEVEL 23 MMOL/L (20-31); CHLORIDE LEVEL 107 MMOL/L (98-107); CREATININE FOR GFR 1.19 MG/DL (0.70-1.30); GLOMERULAR FILTRATION RATE > 60.0 (>56); GLUCOSE, FASTING 107 MG/DL (60-100); POTASSIUM SERUM 4.8 MMOL/L (3.5-5.1); SODIUM LEVEL 136 MMOL/L (136-145)
[2022-05-29] MEDS: INSULIN LISPRO (NovoLOG) PER UNIT SC SCH ×5 (05:31→23:45)
[2022-05-29] MEDS: SODIUM CHLORIDE 0.9% INJ 10 ML SYR IV SCH ×2 (06:06→15:25)
[2022-05-29] MEDS: HEPARIN DRIP 25,000 UNITS in IV 1 EA IV SCH ×3 (06:26→23:33)
[2022-05-29] MEDS: TOPIRAMATE 25 MG PO SCH (07:52)
[2022-05-29] MEDS: CHLORHEXIDINE GLUCONATE 0.12 % 15ML UDC (PERIDEX ORAL RINSE) MT SCH ×2 (07:52→20:59)
[2022-05-29] MEDS: PANTOPRAZOLE 40MG VIAL IV SCH (07:53)
[2022-05-29] MEDS: LEVOTHYROXINE 100MCG (0.1MG) 5ML SDV PF (SOLUTION FORM) IV SCH (07:53)
[2022-05-29] MEDS: FLUCONAZOLE 400 MG in IV 1 EA IV SCH (15:07)
[2022-05-29] MEDS: FLUCONAZOLE 200 MG in IV 1 EA IV SCH (17:07)
[2022-05-29] MEDS ORDERED: FAT EMULSION IV 250 ML IV ONE (18:00)
[2022-05-29] MEDS ORDERED: AMINO AC/ELECTROLYTE/DEX/CALC 1,000 ML IV SCH (18:00)
[2022-05-30] VITALS (28 sets, daily range): BP systolic 115–148; BP diastolic 55–81; TEMP 97.9–99.4; O2SAT 96–98
[2022-05-30] MEDS ORDERED: AMINO AC/ELECTROLYTE/DEX/CALC 2,000 ML IV SCH (04:00)
[2022-05-30] MEDS: ALBUTEROL SULFATE 2.5MG/0.5ML INH NEB SOLN NEB PRN (04:10)
[2022-05-30] MEDS: SODIUM CHLORIDE 0.9% INJ 10 ML SYR IV SCH ×2 (05:05→14:45)
[2022-05-30] MEDS: INSULIN LISPRO (NovoLOG) PER UNIT SC SCH ×4 (05:14→23:53)
[2022-05-30 05:21] LABS: HEMATOCRIT 24.7 % (42.0-52.0); HEMOGLOBIN 7.5 g/dl (13.5-17.5); MEAN CORPUSCULAR HEMOGLOBIN 27.2 pg (27.0-33.0); MEAN CORPUSCULAR HGB CONC 30.4 g/dl (32.0-36.5); MEAN CORPUSCULAR VOLUME 89.5 fl (80.0-96.0); PLATELET COUNT, AUTOMATED 320 10^3/uL (150-450); RED BLOOD COUNT 2.76 10^6/uL (4.30-6.10); WHITE BLOOD COUNT 12.8 10^3/uL (4.0-10.0)
[2022-05-30 06:08] LABS: BLOOD UREA NITROGEN 42 MG/DL (9-23); CALCIUM LEVEL 9.1 MG/DL (8.5-10.1); CARBON DIOXIDE LEVEL 24 MMOL/L (20-31); CHLORIDE LEVEL 106 MMOL/L (98-107); CREATININE FOR GFR 1.13 MG/DL (0.70-1.30); GLOMERULAR FILTRATION RATE > 60.0 (>56); GLUCOSE, FASTING 112 MG/DL (60-100); POTASSIUM SERUM 4.8 MMOL/L (3.5-5.1); SODIUM LEVEL 135 MMOL/L (136-145)
[2022-05-30] MEDS: MIDAZOLAM 100MG/100ML-0.9%NACL 100 MG in IV 1 EA IV SCH ×2 (06:10→23:05)
[2022-05-30] MEDS: HEPARIN DRIP 25,000 UNITS in IV 1 EA IV SCH ×2 (08:28→17:44)
[2022-05-30] MEDS: CHLORHEXIDINE GLUCONATE 0.12 % 15ML UDC (PERIDEX ORAL RINSE) MT SCH ×2 (08:29→20:27)
[2022-05-30] MEDS: LEVOTHYROXINE 100MCG (0.1MG) 5ML SDV PF (SOLUTION FORM) IV SCH (08:29)
[2022-05-30] MEDS: fentaNYL CITRATE/NaCl 1,000 MCG in IV 1 EA IV SCH (08:33)
[2022-05-30] MEDS: TOPIRAMATE 25 MG PO SCH (08:33)
[2022-05-30] MEDS: PANTOPRAZOLE 40MG VIAL IV SCH (08:33)
[2022-05-30] MEDS: MIDAZOLAM INJ 2MG/2ML VIAL IV PRN (09:15)
[2022-05-30] MEDS ORDERED: FAT EMULSION IV 250 ML IV ONE (18:00)
[2022-05-30] MEDS ORDERED: AMINO AC/ELECTROLYTE/DEX/CALC 1,000 ML IV SCH (18:00)
[2022-05-31] VITALS (36 sets, daily range): BP systolic 124–185; BP diastolic 60–94; TEMP 98.1–99.1; O2SAT 26–98
[2022-05-31] MEDS: fentaNYL CITRATE/NaCl 1,000 MCG in IV 1 EA IV SCH ×2 (01:53→23:55)
[2022-05-31] MEDS: HEPARIN DRIP 25,000 UNITS in IV 1 EA IV SCH (01:58)
[2022-05-31 05:11] LABS: HEMATOCRIT 31.2 % (42.0-52.0); MEAN CORPUSCULAR HEMOGLOBIN 28.1 pg (27.0-33.0); MEAN CORPUSCULAR HGB CONC 31.7 g/dl (32.0-36.5); MEAN CORPUSCULAR VOLUME 88.6 fl (80.0-96.0); PLATELET COUNT, AUTOMATED 295 10^3/uL (150-450); RED BLOOD COUNT 3.52 10^6/uL (4.30-6.10); WHITE BLOOD COUNT 12.5 10^3/uL (4.0-10.0)
[2022-05-31 05:22] LABS: HEMOGLOBIN 9.9 g/dl (13.5-17.5)
[2022-05-31 05:28] LABS: BLOOD UREA NITROGEN 41 MG/DL (9-23); CARBON DIOXIDE LEVEL 21 MMOL/L (20-31); CHLORIDE LEVEL 106 MMOL/L (98-107); CREATININE FOR GFR 1.06 MG/DL (0.70-1.30); GLOMERULAR FILTRATION RATE > 60.0 (>56); GLUCOSE, FASTING 99 MG/DL (60-100); POTASSIUM SERUM 5.3 MMOL/L (3.5-5.1); SODIUM LEVEL 135 MMOL/L (136-145)
[2022-05-31] MEDS: INSULIN LISPRO (NovoLOG) PER UNIT SC SCH ×2 (05:50→11:24)
[2022-05-31] MEDS: SODIUM CHLORIDE 0.9% INJ 10 ML SYR IV SCH ×2 (06:00→17:50)
[2022-05-31] MEDS: LEVOTHYROXINE 100MCG (0.1MG) 5ML SDV PF (SOLUTION FORM) IV SCH (08:15)
[2022-05-31] MEDS: PANTOPRAZOLE 40MG VIAL IV SCH (08:15)
[2022-05-31] MEDS: CHLORHEXIDINE GLUCONATE 0.12 % 15ML UDC (PERIDEX ORAL RINSE) MT SCH ×2 (08:16→20:21)
[2022-05-31] MEDS: TOPIRAMATE 25 MG PO SCH (08:32)
[2022-05-31] MEDS ORDERED: PATIROMER SORBITEX CALCIUM 8.4 GM POWDER PACKET (VELTASSA) PO ONE ×2 (09:00→22:35)
[2022-05-31] MEDS: MIDAZOLAM 100MG/100ML-0.9%NACL 100 MG in IV 1 EA IV SCH (09:00)
[2022-05-31] MEDS ORDERED: PHENYLEPHRINE 0.5% NASAL SPRAY 15 ML As Ordered ONE (13:47)
[2022-05-31] MEDS ORDERED: LIDOCAINE W/EPINEPHRINE 1% 20ML VIAL As Ordered ONE (13:47)
[2022-05-31] MEDS ORDERED: propofoL 200 MG/20 ML VIAL As Ordered ONE (13:52)
[2022-05-31] MEDS ORDERED: MIDAZOLAM INJ 2MG/2ML VIAL As Ordered ONE (13:52)
[2022-05-31] MEDS ORDERED: fentaNYL 100 MCG/2 ML INJECTION As Ordered ONE (13:52)
[2022-05-31] MEDS ORDERED: ROCURONIUM BROMIDE 50MG/5ML VIAL As Ordered ONE ×2 (13:52→14:04)
[2022-05-31] MEDS ORDERED: EPINEPHrine 1MG/10ML SYRINGE 1.5IN As Ordered ONE (13:53)
[2022-05-31] MEDS ORDERED: CLINDAMYCIN 600MG/50ML PREMIX BAG As Ordered ONE (14:02)
[2022-05-31] MEDS ORDERED: NEOSPORIN OINT 0.9 GM PKT TOP ONE (14:55)
[2022-05-31 22:04] LABS: BLOOD UREA NITROGEN 24 MG/DL (9-23); CALCIUM LEVEL 9.3 MG/DL (8.5-10.1); CARBON DIOXIDE LEVEL 22 MMOL/L (20-31); CHLORIDE LEVEL 107 MMOL/L (98-107); GLOMERULAR FILTRATION RATE > 60.0 (>56); GLUCOSE, FASTING 83 MG/DL (60-100); POTASSIUM SERUM 5.9 MMOL/L (3.5-5.1); SODIUM LEVEL 135 MMOL/L (136-145)
[2022-06-01] VITALS (30 sets, daily range): BP systolic 114–155; BP diastolic 61–94; TEMP 98.4–100.4; O2SAT 93–97
[2022-06-01 05:48] LABS: HEMATOCRIT 29.9 % (42.0-52.0); HEMOGLOBIN 9.4 g/dl (13.5-17.5); MEAN CORPUSCULAR HEMOGLOBIN 28.5 pg (27.0-33.0); MEAN CORPUSCULAR HGB CONC 31.4 g/dl (32.0-36.5); MEAN CORPUSCULAR VOLUME 90.6 fl (80.0-96.0); PLATELET COUNT, AUTOMATED 322 10^3/uL (150-450); WHITE BLOOD COUNT 11.4 10^3/uL (4.0-10.0)
[2022-06-01 06:00] LABS: BLOOD UREA NITROGEN 28 MG/DL (9-23); CALCIUM LEVEL 9.7 MG/DL (8.5-10.1); CARBON DIOXIDE LEVEL 23 MMOL/L (20-31); CHLORIDE LEVEL 107 MMOL/L (98-107); CREATININE FOR GFR 1.29 MG/DL (0.70-1.30); GLOMERULAR FILTRATION RATE > 60.0 (>56); GLUCOSE, FASTING 81 MG/DL (60-100); POTASSIUM SERUM 5.3 MMOL/L (3.5-5.1); SODIUM LEVEL 137 MMOL/L (136-145)
[2022-06-01] MEDS: SODIUM CHLORIDE 0.9% INJ 10 ML SYR IV SCH ×2 (06:06→18:13)
[2022-06-01] MEDS: CHLORHEXIDINE GLUCONATE 0.12 % 15ML UDC (PERIDEX ORAL RINSE) MT SCH ×2 (08:30→20:08)
[2022-06-01] MEDS: PANTOPRAZOLE 40MG VIAL IV SCH (08:31)
[2022-06-01] MEDS: LEVOTHYROXINE 100MCG (0.1MG) 5ML SDV PF (SOLUTION FORM) IV SCH (08:31)
[2022-06-01] MEDS: TOPIRAMATE 25 MG PO SCH (08:31)
[2022-06-01] MEDS ORDERED: MIDAZOLAM INJ 2MG/2ML VIAL IV PRN ×2 (08:45→16:10)
[2022-06-01] MEDS: NS 0.45% 1,000 ML IV SCH ×2 (10:06→23:30)
[2022-06-01] MEDS: HEPARIN DRIP 25,000 UNITS in IV 1 EA IV SCH ×2 (11:00→11:16)
[2022-06-01] MEDS: fentaNYL 100 MCG/2 ML INJECTION IV PRN ×2 (12:46→18:14)
[2022-06-01 16:43] LABS: CALCIUM LEVEL 9.6 MG/DL (8.5-10.1); CREATININE FOR GFR 1.36 MG/DL (0.70-1.30); GLOMERULAR FILTRATION RATE 57.9 (>56); POTASSIUM SERUM 4.8 MMOL/L (3.5-5.1)
[2022-06-02] VITALS (28 sets, daily range): BP systolic 128–174; BP diastolic 64–96; TEMP 97.1–99.3; O2SAT 89–97
[2022-06-02] MEDS: SODIUM CHLORIDE 0.9% INJ 10 ML SYR IV SCH ×2 (06:12→18:00)
[2022-06-02 06:20] LABS: HEMATOCRIT 31.5 % (42.0-52.0); HEMOGLOBIN 9.7 g/dl (13.5-17.5); MEAN CORPUSCULAR HEMOGLOBIN 28.3 pg (27.0-33.0); MEAN CORPUSCULAR HGB CONC 30.8 g/dl (32.0-36.5); MEAN CORPUSCULAR VOLUME 91.8 fl (80.0-96.0); PLATELET COUNT, AUTOMATED 278 10^3/uL (150-450); RED BLOOD COUNT 3.43 10^6/uL (4.30-6.10); WHITE BLOOD COUNT 10.1 10^3/uL (4.0-10.0)
[2022-06-02 07:15] LABS: CALCIUM LEVEL 10.2 MG/DL (8.5-10.1); CREATININE FOR GFR 1.46 MG/DL (0.70-1.30); GLOMERULAR FILTRATION RATE 53.4 (>56)
[2022-06-02] MEDS: CHLORHEXIDINE GLUCONATE 0.12 % 15ML UDC (PERIDEX ORAL RINSE) MT SCH ×2 (07:51→22:20)
[2022-06-02] MEDS: LEVOTHYROXINE 100MCG (0.1MG) 5ML SDV PF (SOLUTION FORM) IV SCH (07:51)
[2022-06-02] MEDS: PANTOPRAZOLE 40MG VIAL IV SCH (07:52)
[2022-06-02] MEDS: TOPIRAMATE 25 MG PO SCH (07:52)
[2022-06-02] MEDS ORDERED: LR 1,000 ML IV ONE ×2 (08:05→18:25)
[2022-06-02] MEDS ORDERED: HEPARIN SOD (PORCINE) 5000UNITS/ML 1ML VIAL/SYRINGE IV PRN (08:05)
[2022-06-02] MEDS: HEPARIN DRIP 25,000 UNITS in IV 1 EA IV SCH (10:13)
[2022-06-02] MEDS ORDERED: HEPARIN SOD (PORCINE) 5000UNITS/ML 1ML VIAL/SYRINGE IV ONE (17:50)
[2022-06-02] MEDS ORDERED: [UNRECOGNIZED DRUG - OTHER] IV SCH ×8 (18:00)
[2022-06-02] MEDS: INSULIN LISPRO (NovoLOG) PER UNIT SC SCH ×2 (18:00→23:51)
[2022-06-02] MEDS ORDERED: SODIUM CHLORIDE 23.4% INJ 13.6 MEQ, SODIUM ACETATE INJ 13.6 MEQ, SODIUM PHOSPHATE INJ 1... IV SCH ×8 (18:00)
[2022-06-02] MEDS ORDERED: SODIUM ACETATE IV SCH ×8 (18:00)
[2022-06-02] MEDS ORDERED: SODIUM CHLORIDE IV SCH ×8 (18:00)
[2022-06-02] MEDS ORDERED: FAT EMULSION IV 250 ML IV ONE (18:00)
[2022-06-02] MEDS ORDERED: MULTIVITAMIN -ADULT INJECTION 10 ML, ZINC/COPPER/MANGANESE/SELENIUM 1 ML in AMINO AC/EL... IV SCH ×4 (18:00)
[2022-06-02] MEDS ORDERED: METOPROLOL TART 12.5 MG PER 1/2 TAB NG SCH (18:20)
[2022-06-03] VITALS (30 sets, daily range): BP systolic 137–194; BP diastolic 68–92; TEMP 98.1–100.2; O2SAT 93–97
[2022-06-03 05:29] LABS: HEMATOCRIT 28.4 % (42.0-52.0); HEMOGLOBIN 8.9 g/dl (13.5-17.5); MEAN CORPUSCULAR HGB CONC 31.3 g/dl (32.0-36.5); MEAN CORPUSCULAR VOLUME 89.3 fl (80.0-96.0); PLATELET COUNT, AUTOMATED 254 10^3/uL (150-450); RED BLOOD COUNT 3.18 10^6/uL (4.30-6.10)
[2022-06-03] MEDS: HEPARIN DRIP 25,000 UNITS in IV 1 EA IV SCH (05:39)
[2022-06-03] MEDS: SODIUM CHLORIDE 0.9% INJ 10 ML SYR IV SCH (06:00)
[2022-06-03] MEDS: INSULIN LISPRO (NovoLOG) PER UNIT SC SCH ×3 (06:00→18:00)
[2022-06-03 06:02] LABS: CALCIUM LEVEL 10.4 MG/DL (8.5-10.1); CREATININE FOR GFR 1.37 MG/DL (0.70-1.30); GLOMERULAR FILTRATION RATE 57.4 (>56); POTASSIUM SERUM 3.1 MMOL/L (3.5-5.1)
[2022-06-03] MEDS: KCL 20MEQ IN 100ML SWI (KRUN) 20 MEQ in IV 1 EA IV SCH ×4 (06:36→08:41)
[2022-06-03 06:48] LABS: MAGNESIUM LEVEL 1.7 MG/DL (1.8-2.4)
[2022-06-03] MEDS: PANTOPRAZOLE 40MG VIAL IV SCH (08:41)
[2022-06-03] MEDS: LEVOTHYROXINE 100MCG (0.1MG) 5ML SDV PF (SOLUTION FORM) IV SCH (08:42)
[2022-06-03] MEDS: TOPIRAMATE 25 MG PO SCH (08:42)
[2022-06-03] MEDS ORDERED: HEPARIN SOD (PORCINE) 5000UNITS/ML 1ML VIAL/SYRINGE IV ONE (10:00)
[2022-06-03] MEDS: CHLORHEXIDINE GLUCONATE 0.12 % 15ML UDC (PERIDEX ORAL RINSE) MT SCH ×2 (10:14→20:45)
[2022-06-03 17:17] LABS: BLOOD UREA NITROGEN 34 MG/DL (9-23); CALCIUM LEVEL 10.2 MG/DL (8.5-10.1); CARBON DIOXIDE LEVEL 22 MMOL/L (20-31); CHLORIDE LEVEL 106 MMOL/L (98-107); CREATININE FOR GFR 1.29 MG/DL (0.70-1.30); GLOMERULAR FILTRATION RATE > 60.0 (>56); GLUCOSE, FASTING 113 MG/DL (60-100); POTASSIUM SERUM 3.5 MMOL/L (3.5-5.1); SODIUM LEVEL 136 MMOL/L (136-145)
[2022-06-03] MEDS ORDERED: AMINO AC/ELECTROLYTE/DEX/CALC 1,000 ML IV SCH (18:00)
[2022-06-03] MEDS ORDERED: FAT EMULSION IV 250 ML IV ONE (18:00)
[2022-06-03] MEDS: APIXABAN 5 MG TAB (ELIQUIS) PO SCH (18:22)
[2022-06-03] MEDS: fentaNYL 100 MCG/2 ML INJECTION IV PRN (22:21)
[2022-06-03] MEDS: SODIUM CHLORIDE 0.9% INJ 10 ML SYR IV PRN (22:30)
[2022-06-04] VITALS (28 sets, daily range): BP systolic 137–177; BP diastolic 63–93; TEMP 97.7–100.5; O2SAT 94–97
[2022-06-04] MEDS: INSULIN LISPRO (NovoLOG) PER UNIT SC SCH ×4 (00:06→18:15)
[2022-06-04] MEDS ORDERED: AMINO AC/ELECTROLYTE/DEX/CALC 2,000 ML IV SCH (04:00)
[2022-06-04 05:09] LABS: BASO % 0.3 % (0.0-1.0); EOS # 0.1 10^3/uL (0.0-0.5); HEMATOCRIT 28.1 % (42.0-52.0); HEMOGLOBIN 8.9 g/dl (13.5-17.5); LYMPH # 1.4 10^3/uL (1.5-5.0); LYMPH % 14.3 % (24.0-44.0); MEAN CORPUSCULAR HEMOGLOBIN 28.6 pg (27.0-33.0); MEAN CORPUSCULAR HGB CONC 31.7 g/dl (32.0-36.5); MEAN CORPUSCULAR VOLUME 90.4 fl (80.0-96.0); MONO # 0.8 10^3/uL (0.0-0.8); MONO % 8.2 % (2.0-8.0); NEUTROPHILS # 7.2 10^3/uL (1.5-8.5); NEUTROPHILS % 72.4 % (36.0-66.0); PLATELET COUNT, AUTOMATED 259 10^3/uL (150-450); RED BLOOD COUNT 3.11 10^6/uL (4.30-6.10); WHITE BLOOD COUNT 9.9 10^3/uL (4.0-10.0)
[2022-06-04 05:34] LABS: BLOOD UREA NITROGEN 36 MG/DL (9-23); CALCIUM LEVEL 9.9 MG/DL (8.5-10.1); CARBON DIOXIDE LEVEL 23 MMOL/L (20-31); CHLORIDE LEVEL 107 MMOL/L (98-107); CREATININE FOR GFR 1.25 MG/DL (0.70-1.30); GLOMERULAR FILTRATION RATE > 60.0 (>56); GLUCOSE, FASTING 117 MG/DL (60-100); POTASSIUM SERUM 3.5 MMOL/L (3.5-5.1); SODIUM LEVEL 138 MMOL/L (136-145)
[2022-06-04] MEDS: SODIUM CHLORIDE 0.9% INJ 10 ML SYR IV SCH ×2 (05:50→18:18)
[2022-06-04 05:51] LABS: ABG BASE EXCESS -0.9 (-2.0-2.0); ABG HCO3 22.6 MEQ/L (22.0-26.0); ABG O2 SATURATION 97.4 % (95.0-99.0); ABG PARTIAL PRESSURE CO2 33.4 mmHg (35.0-45.0); ABG PARTIAL PRESSURE O2 99.9 mmHg (75.0-100.0); ABG STANDARD HCO3 23.7 MEQ/L (22.0-26.0); ABG TOTAL CO2 23.7 MEQ/L (22.0-29.0); ABG pH (ARTERIAL) 7.449 UNITS (7.350-7.450)
[2022-06-04] MEDS: APIXABAN 5 MG TAB (ELIQUIS) PO SCH ×2 (05:56→18:08)
[2022-06-04 07:30] LABS: MAGNESIUM LEVEL 1.5 MG/DL (1.8-2.4)
[2022-06-04] MEDS: CHLORHEXIDINE GLUCONATE 0.12 % 15ML UDC (PERIDEX ORAL RINSE) MT SCH ×2 (08:40→20:10)
[2022-06-04] MEDS: LEVOTHYROXINE 100MCG (0.1MG) 5ML SDV PF (SOLUTION FORM) IV SCH (08:42)
[2022-06-04] MEDS: TOPIRAMATE 25 MG PO SCH (08:43)
[2022-06-04] MEDS: PANTOPRAZOLE 40MG VIAL IV SCH (08:44)
[2022-06-04] MEDS: FUROSEMIDE 40MG/4ML VIAL IV SCH (09:00)
[2022-06-04] MEDS ORDERED: KCL 10MEQ/100ML SWI (KRUN) 10 MEQ in IV 1 EA IV ONE (09:00)
[2022-06-04] MEDS ORDERED: MAG SULF 1GM/100ML (MAG RUN) 1 GM in IV 1 EA IV ONE (09:00)
[2022-06-04] MEDS: amLODIPine 5 MG TAB NG SCH (09:19)
[2022-06-04] MEDS: valACYclovir HCL 500 MG TAB NG SCH ×3 (10:12→21:51)
[2022-06-04] MEDS: hydrALAZINE 20MG/ML 1ML VIAL IV PRN (16:02)
[2022-06-04] MEDS ORDERED: FAT EMULSION IV 250 ML IV ONE (18:00)
[2022-06-04] MEDS ORDERED: MULTIVITAMIN -ADULT INJECTION 10 ML, ZINC/COPPER/MANGANESE/SELENIUM 1 ML in AMINO AC/EL... IV SCH ×4 (18:00)
[2022-06-04] MEDS: METOCLOPRAMIDE INJ 10MG/2ML VIAL IV SCH (18:16)
[2022-06-05] VITALS (26 sets, daily range): BP systolic 134–170; BP diastolic 65–85; TEMP 97.8–101.2; O2SAT 93–97
[2022-06-05] MEDS: INSULIN LISPRO (NovoLOG) PER UNIT SC SCH ×4 (00:20→17:56)
[2022-06-05] MEDS: METOCLOPRAMIDE INJ 10MG/2ML VIAL IV SCH ×2 (00:20→05:41)
[2022-06-05] MEDS: hydrALAZINE 20MG/ML 1ML VIAL IV PRN ×2 (00:34→07:26)
[2022-06-05] MEDS: fentaNYL 100 MCG/2 ML INJECTION IV PRN (00:34)
[2022-06-05] MEDS: SODIUM CHLORIDE 0.9% INJ 10 ML SYR IV PRN ×3 (00:49→21:57)
[2022-06-05] MEDS ORDERED: ACETAMINOPHEN 1000MG 100ML IV BAG IV ONE (01:00)
[2022-06-05 04:41] LABS: HEMATOCRIT 29.3 % (42.0-52.0); HEMOGLOBIN 9.2 g/dl (13.5-17.5); MEAN CORPUSCULAR HEMOGLOBIN 28.1 pg (27.0-33.0); MEAN CORPUSCULAR HGB CONC 31.4 g/dl (32.0-36.5); MEAN CORPUSCULAR VOLUME 89.6 fl (80.0-96.0); PLATELET COUNT, AUTOMATED 319 10^3/uL (150-450); RED BLOOD COUNT 3.27 10^6/uL (4.30-6.10); WHITE BLOOD COUNT 11.2 10^3/uL (4.0-10.0)
[2022-06-05 05:04] LABS: BLOOD UREA NITROGEN 41 MG/DL (9-23); CALCIUM LEVEL 9.4 MG/DL (8.5-10.1); CARBON DIOXIDE LEVEL 24 MMOL/L (20-31); CHLORIDE LEVEL 104 MMOL/L (98-107); CREATININE FOR GFR 1.16 MG/DL (0.70-1.30); GLOMERULAR FILTRATION RATE > 60.0 (>56); GLUCOSE, FASTING 123 MG/DL (60-100); MAGNESIUM LEVEL 1.6 MG/DL (1.8-2.4); POTASSIUM SERUM 3.6 MMOL/L (3.5-5.1); SODIUM LEVEL 135 MMOL/L (136-145)
[2022-06-05] MEDS: SODIUM CHLORIDE 0.9% INJ 10 ML SYR IV SCH ×2 (05:29→17:57)
[2022-06-05] MEDS: valACYclovir HCL 500 MG TAB NG SCH ×3 (05:41→21:52)
[2022-06-05] MEDS: APIXABAN 5 MG TAB (ELIQUIS) PO SCH ×2 (05:41→17:58)
[2022-06-05 05:57] LABS: ABG BASE EXCESS -2.3 (-2.0-2.0); ABG HCO3 21.5 MEQ/L (22.0-26.0); ABG O2 SATURATION 96.8 % (95.0-99.0); ABG PARTIAL PRESSURE CO2 33.1 mmHg (35.0-45.0); ABG PARTIAL PRESSURE O2 97.1 mmHg (75.0-100.0); ABG STANDARD HCO3 22.6 MEQ/L (22.0-26.0); ABG TOTAL CO2 22.5 MEQ/L (22.0-29.0)
[2022-06-05] MEDS: MAG SULF 1GM/100ML (MAG RUN) 1 GM in IV 1 EA IV SCH ×2 (06:10→07:26)
[2022-06-05] MEDS: TOPIRAMATE 25 MG PO SCH (08:29)
[2022-06-05] MEDS: amLODIPine 5 MG TAB NG SCH (08:29)
[2022-06-05] MEDS: CHLORHEXIDINE GLUCONATE 0.12 % 15ML UDC (PERIDEX ORAL RINSE) MT SCH ×2 (08:29→21:07)
[2022-06-05] MEDS: LEVOTHYROXINE 100MCG (0.1MG) 5ML SDV PF (SOLUTION FORM) IV SCH (08:30)
[2022-06-05] MEDS: FUROSEMIDE 40MG/4ML VIAL IV SCH (08:30)
[2022-06-05] MEDS: PANTOPRAZOLE 40MG VIAL IV SCH (08:30)
[2022-06-05] MEDS ORDERED: METOPROLOL TART 25 MG TABLET NG SCH (09:00)
[2022-06-05] MEDS ORDERED: ONDANSETRON 4MG 2ML VIAL IV ONE ×2 (09:25→14:00)
[2022-06-05] MEDS ORDERED: ONDANSETRON 4MG 2ML VIAL IV PRN ×2 (09:25→14:05)
[2022-06-05] MEDS: MEROPENEM INJ 1 GM in IV 1 EA IV SCH ×2 (12:11→21:03)
[2022-06-05] MEDS: LINEZOLID 600 MG in IV 1 EA IV SCH (14:36)
[2022-06-05] MEDS ORDERED: NS 500 ML IV ONE (16:45)
[2022-06-05] MEDS: AMINO AC/ELECTROLYTE/DEX/CALC 2,000 ML IV SCH (17:56)
[2022-06-05] MEDS ORDERED: AMINO AC/ELECTROLYTE/DEX/CALC 1,000 ML IV SCH (18:00)
[2022-06-05] MEDS ORDERED: FAT EMULSION IV 250 ML IV ONE (18:00)
[2022-06-05] MEDS: METOPROLOL 5 MG/5 ML VIAL IV SCH (21:52)
[2022-06-06] VITALS (31 sets, daily range): BP systolic 107–160; BP diastolic 60–78; TEMP 97.8–101.1; O2SAT 95–98
[2022-06-06] MEDS: fentaNYL 100 MCG/2 ML INJECTION IV PRN ×2 (00:51→10:17)
[2022-06-06] MEDS: LINEZOLID 600 MG in IV 1 EA IV SCH ×2 (02:09→15:26)
[2022-06-06] MEDS: SODIUM CHLORIDE 0.9% INJ 10 ML SYR IV PRN ×2 (02:09→08:55)
[2022-06-06] MEDS: MEROPENEM INJ 1 GM in IV 1 EA IV SCH ×3 (04:55→20:34)
[2022-06-06] MEDS: METOPROLOL 5 MG/5 ML VIAL IV SCH ×4 (04:55→21:32)
[2022-06-06 05:33] LABS: HEMATOCRIT 29.1 % (42.0-52.0); HEMOGLOBIN 9.3 g/dl (13.5-17.5); MEAN CORPUSCULAR HEMOGLOBIN 28.4 pg (27.0-33.0); PLATELET COUNT, AUTOMATED 438 10^3/uL (150-450); RED BLOOD COUNT 3.27 10^6/uL (4.30-6.10); WHITE BLOOD COUNT 13.2 10^3/uL (4.0-10.0)
[2022-06-06 05:59] LABS: BLOOD UREA NITROGEN 36 MG/DL (9-23); CALCIUM LEVEL 9.2 MG/DL (8.5-10.1); CARBON DIOXIDE LEVEL 22 MMOL/L (20-31); CHLORIDE LEVEL 102 MMOL/L (98-107); CREATININE FOR GFR 1.14 MG/DL (0.70-1.30); GLOMERULAR FILTRATION RATE > 60.0 (>56); GLUCOSE, FASTING 117 MG/DL (60-100); MAGNESIUM LEVEL 1.9 MG/DL (1.8-2.4); POTASSIUM SERUM 3.6 MMOL/L (3.5-5.1); SODIUM LEVEL 133 MMOL/L (136-145)
[2022-06-06] MEDS: SODIUM CHLORIDE 0.9% INJ 10 ML SYR IV SCH ×2 (06:00→17:57)
[2022-06-06] MEDS: valACYclovir HCL 500 MG TAB NG SCH ×3 (06:06→21:32)
[2022-06-06] MEDS: APIXABAN 5 MG TAB (ELIQUIS) PO SCH (06:06)
[2022-06-06] MEDS: INSULIN LISPRO (NovoLOG) PER UNIT SC SCH ×4 (06:08→17:58)
[2022-06-06] MEDS: AMINO AC/ELECTROLYTE/DEX/CALC 2,000 ML IV SCH ×2 (07:00→12:18)
[2022-06-06] MEDS: PANTOPRAZOLE 40MG VIAL IV SCH (08:54)
[2022-06-06] MEDS: FUROSEMIDE 40MG/4ML VIAL IV SCH (08:54)
[2022-06-06] MEDS: TOPIRAMATE 25 MG PO SCH (08:54)
[2022-06-06] MEDS: LEVOTHYROXINE 100MCG (0.1MG) 5ML SDV PF (SOLUTION FORM) IV SCH (08:54)
[2022-06-06] MEDS: CHLORHEXIDINE GLUCONATE 0.12 % 15ML UDC (PERIDEX ORAL RINSE) MT SCH ×2 (09:00→20:34)
[2022-06-06] MEDS ORDERED: ACETAMINOPHEN 1000MG 100ML IV BAG IV ONE (14:35)
[2022-06-06 16:26] LABS: HEMATOCRIT 29.3 % (42.0-52.0); HEMOGLOBIN 9.3 g/dl (13.5-17.5)
[2022-06-06] MEDS: POLYVINYL ALCOHOL OPHTH SOLN 15ML (LIQUITEARS) OS SCH ×2 (17:58→21:31)
[2022-06-06] MEDS ORDERED: FAT EMULSION IV 250 ML IV SCH (18:00)
[2022-06-06] MEDS ORDERED: AMINO AC/ELECTROLYTE/DEX/CALC 1,000 ML IV SCH (18:00)
[2022-06-07] VITALS (27 sets, daily range): BP systolic 127–153; BP diastolic 59–79; TEMP 98.9–101.3; O2SAT 95–98
[2022-06-07] MEDS ORDERED: AMINO AC/ELECTROLYTE/DEX/CALC 2,000 ML IV SCH (03:00)
[2022-06-07] MEDS: LINEZOLID 600 MG in IV 1 EA IV SCH ×2 (03:20→14:25)
[2022-06-07] MEDS: METOPROLOL 5 MG/5 ML VIAL IV SCH ×4 (04:40→21:55)
[2022-06-07] MEDS: MEROPENEM INJ 1 GM in IV 1 EA IV SCH ×3 (04:40→20:23)
[2022-06-07 05:06] LABS: VENOUS BASE EXCESS 0.5 (-2.0-2.0); VENOUS HCO3 23.6 MEQ/L (23.0-27.0); VENOUS O2 SATURATION 99.2 % (60.0-80.0); VENOUS PARTIAL PRESSURE CO2 32.7 mmHg (38.0-50.0); VENOUS PARTIAL PRESSURE O2 208.3 mmHg (30.0-50.0); VENOUS PH 7.477 UNITS (7.330-7.430); VENOUS SITE NOT GIVEN; VENOUS TOTAL CO2 24.6 MEQ/L (24.0-28.0)
[2022-06-07 05:10] LABS: HEMATOCRIT 29.8 % (42.0-52.0); HEMOGLOBIN 9.6 g/dl (13.5-17.5); MEAN CORPUSCULAR HEMOGLOBIN 28.8 pg (27.0-33.0); MEAN CORPUSCULAR HGB CONC 32.2 g/dl (32.0-36.5); MEAN CORPUSCULAR VOLUME 89.5 fl (80.0-96.0); PLATELET COUNT, AUTOMATED 515 10^3/uL (150-450); RED BLOOD COUNT 3.33 10^6/uL (4.30-6.10); WHITE BLOOD COUNT 14.1 10^3/uL (4.0-10.0)
[2022-06-07 05:36] LABS: ALBUMIN 1.6 G/DL (3.2-5.2); ALKALINE PHOSPHATASE 382 U/L (46-116); ALT/SGPT 36 U/L (7.0-40); AST/SGOT 69 U/L (<34); BILIRUBIN,TOTAL 0.3 MG/DL (0.3-1.2); BLOOD UREA NITROGEN 44 MG/DL (9-23); CALCIUM LEVEL 8.7 MG/DL (8.5-10.1); CARBON DIOXIDE LEVEL 22 MMOL/L (20-31); CHLORIDE LEVEL 101 MMOL/L (98-107); CREATININE FOR GFR 1.14 MG/DL (0.70-1.30); GLOMERULAR FILTRATION RATE > 60.0 (>56); GLUCOSE, FASTING 120 MG/DL (60-100); MAGNESIUM LEVEL 1.7 MG/DL (1.8-2.4); POTASSIUM SERUM 4.1 MMOL/L (3.5-5.1); SODIUM LEVEL 132 MMOL/L (136-145); TOTAL PROTEIN 6.8 G/DL (5.7-8.2); TRIGLYCERIDES LEVEL 113 MG/DL (<150)
[2022-06-07] MEDS: valACYclovir HCL 500 MG TAB NG SCH ×3 (05:52→21:55)
[2022-06-07] MEDS: INSULIN LISPRO (NovoLOG) PER UNIT SC SCH ×5 (05:52→23:42)
[2022-06-07 05:58] LABS: ANISOCYTOSIS 1+; EOSINOPHILS 2 % (0-3); LYMPHOCYTES 8 % (16-44); METAMYELOCYTES 1 % (0-0); MONOCYTES 9 % (0-5); MYELOCYTES 9 % (0-0); NEUTROPHILS 71 % (28-66); PLATELET ESTIMATE INCREASED (NORMAL)
[2022-06-07] MEDS: SODIUM CHLORIDE 0.9% INJ 10 ML SYR IV SCH ×2 (06:00→18:10)
[2022-06-07] MEDS: CHLORHEXIDINE GLUCONATE 0.12 % 15ML UDC (PERIDEX ORAL RINSE) MT SCH ×2 (09:14→20:23)
[2022-06-07] MEDS: PANTOPRAZOLE 40MG VIAL IV SCH (09:14)
[2022-06-07] MEDS: FUROSEMIDE 40MG/4ML VIAL IV SCH (09:14)
[2022-06-07] MEDS: TOPIRAMATE 25 MG PO SCH (09:15)
[2022-06-07] MEDS: POLYVINYL ALCOHOL OPHTH SOLN 15ML (LIQUITEARS) OS SCH (09:15)
[2022-06-07] MEDS: LEVOTHYROXINE 100MCG (0.1MG) 5ML SDV PF (SOLUTION FORM) IV SCH (09:15)
[2022-06-07] MEDS: CIPROFLOXACIN 0.3% OPHTH SOLN 2.5ML OU SCH ×4 (10:12→21:55)
[2022-06-07] MEDS ORDERED: LIDOCAINE 1% MDV 20ML VIAL As Ordered ONE (12:14)
[2022-06-07] MEDS: fentaNYL 100 MCG/2 ML INJECTION IV PRN (16:07)
[2022-06-07] MEDS ORDERED: FAT EMULSION IV 250 ML IV ONE (18:00)
[2022-06-07] MEDS ORDERED: MULTIVITAMIN -ADULT INJECTION 10 ML, ZINC/COPPER/MANGANESE/SELENIUM 1 ML in AMINO AC/EL... IV SCH ×4 (18:00)
[2022-06-07] MEDS: LACRILUBE (AKWA TEARS) OPHTH OINT 3.5GM OS SCH (20:23)
[2022-06-08] VITALS (30 sets, daily range): BP systolic 119–160; BP diastolic 59–90; TEMP 97.9–99.4; O2SAT 7–98
[2022-06-08] MEDS: CIPROFLOXACIN 0.3% OPHTH SOLN 2.5ML OU SCH ×6 (01:50→21:01)
[2022-06-08] MEDS: LINEZOLID 600 MG in IV 1 EA IV SCH ×2 (02:58→14:49)
[2022-06-08] MEDS: MEROPENEM INJ 1 GM in IV 1 EA IV SCH ×3 (04:48→21:00)
[2022-06-08] MEDS: METOPROLOL 5 MG/5 ML VIAL IV SCH ×4 (04:49→21:01)
[2022-06-08 05:12] LABS: HEMATOCRIT 31.2 % (42.0-52.0); HEMOGLOBIN 9.8 g/dl (13.5-17.5); MEAN CORPUSCULAR HGB CONC 31.4 g/dl (32.0-36.5); MEAN CORPUSCULAR VOLUME 89.1 fl (80.0-96.0); PLATELET COUNT, AUTOMATED 562 10^3/uL (150-450); WHITE BLOOD COUNT 13.2 10^3/uL (4.0-10.0)
[2022-06-08 05:41] LABS: BLOOD UREA NITROGEN 49 MG/DL (9-23); CALCIUM LEVEL 8.9 MG/DL (8.5-10.1); CARBON DIOXIDE LEVEL 25 MMOL/L (20-31); CHLORIDE LEVEL 102 MMOL/L (98-107); CREATININE FOR GFR 1.03 MG/DL (0.70-1.30); GLOMERULAR FILTRATION RATE > 60.0 (>56); GLUCOSE, FASTING 121 MG/DL (60-100); MAGNESIUM LEVEL 1.9 MG/DL (1.8-2.4); POTASSIUM SERUM 4.5 MMOL/L (3.5-5.1); SODIUM LEVEL 133 MMOL/L (136-145)
[2022-06-08] MEDS: INSULIN LISPRO (NovoLOG) PER UNIT SC SCH ×3 (05:44→17:45)
[2022-06-08] MEDS: valACYclovir HCL 500 MG TAB NG SCH ×3 (05:47→21:01)
[2022-06-08] MEDS: SODIUM CHLORIDE 0.9% INJ 10 ML SYR IV SCH ×2 (05:47→17:45)
[2022-06-08 05:48] LABS: BASOPHILS 3 % (0-1); EOSINOPHILS 5 % (0-3); LYMPHOCYTES 15 % (16-44); METAMYELOCYTES 1 % (0-0); MONOCYTES 11 % (0-5); MYELOCYTES 4 % (0-0); NEUTROPHILS 60 % (28-66)
[2022-06-08 05:49] LABS: ANISOCYTOSIS 1+; HYPOCHROMASIA 1+; PLATELET ESTIMATE INCREASED (NORMAL)
[2022-06-08] MEDS: LEVOTHYROXINE 100MCG (0.1MG) 5ML SDV PF (SOLUTION FORM) IV SCH (09:10)
[2022-06-08] MEDS: FUROSEMIDE 40MG/4ML VIAL IV SCH (09:11)
[2022-06-08] MEDS: CHLORHEXIDINE GLUCONATE 0.12 % 15ML UDC (PERIDEX ORAL RINSE) MT SCH ×2 (09:11→21:00)
[2022-06-08] MEDS: PANTOPRAZOLE 40MG VIAL IV SCH (09:11)
[2022-06-08] MEDS: TOPIRAMATE 25 MG PO SCH (09:11)
[2022-06-08] MEDS: fentaNYL 100 MCG/2 ML INJECTION IV PRN (11:24)
[2022-06-08] MEDS: AMINO AC/ELECTROLYTE/DEX/CALC 1,000 ML IV SCH (17:45)
[2022-06-08] MEDS ORDERED: FAT EMULSION IV 250 ML IV ONE (18:00)
[2022-06-08] MEDS ORDERED: AMINO AC/ELECTROLYTE/DEX/CALC 2,000 ML IV SCH (18:00)
[2022-06-08] MEDS: LACRILUBE (AKWA TEARS) OPHTH OINT 3.5GM OS SCH (21:00)
[2022-06-09] VITALS (26 sets, daily range): BP systolic 118–175; BP diastolic 58–94; TEMP 97.4–99.4; O2SAT 95–99
[2022-06-09] MEDS: INSULIN LISPRO (NovoLOG) PER UNIT SC SCH ×5 (00:25→23:24)
[2022-06-09] MEDS: CIPROFLOXACIN 0.3% OPHTH SOLN 2.5ML OU SCH ×6 (02:10→22:12)
[2022-06-09] MEDS: LINEZOLID 600 MG in IV 1 EA IV SCH ×2 (03:54→14:30)
[2022-06-09] MEDS: METOPROLOL 5 MG/5 ML VIAL IV SCH ×4 (03:58→22:10)
[2022-06-09 04:46] LABS: HEMATOCRIT 31.3 % (42.0-52.0); HEMOGLOBIN 9.9 g/dl (13.5-17.5); MEAN CORPUSCULAR HGB CONC 31.6 g/dl (32.0-36.5); MEAN CORPUSCULAR VOLUME 88.7 fl (80.0-96.0); PLATELET COUNT, AUTOMATED 601 10^3/uL (150-450); RED BLOOD COUNT 3.53 10^6/uL (4.30-6.10); WHITE BLOOD COUNT 14.6 10^3/uL (4.0-10.0)
[2022-06-09 05:08] LABS: EOSINOPHILS 6 % (0-3); LYMPHOCYTES 18 % (16-44); MONOCYTES 12 % (0-5); NEUTROPHILS 64 % (28-66)
[2022-06-09 05:09] LABS: ANISOCYTOSIS 1+; HYPOCHROMASIA 1+; PLATELET CLUMPS SMALL AMT; PLATELET ESTIMATE INCREASED (NORMAL)
[2022-06-09 05:10] LABS: BLOOD UREA NITROGEN 54 MG/DL (9-23); CALCIUM LEVEL 8.7 MG/DL (8.5-10.1); CARBON DIOXIDE LEVEL 24 MMOL/L (20-31); CHLORIDE LEVEL 103 MMOL/L (98-107); CREATININE FOR GFR 0.99 MG/DL (0.70-1.30); GLOMERULAR FILTRATION RATE > 60.0 (>56); GLUCOSE, FASTING 117 MG/DL (60-100); MAGNESIUM LEVEL 1.9 MG/DL (1.8-2.4); POTASSIUM SERUM 4.4 MMOL/L (3.5-5.1); SODIUM LEVEL 134 MMOL/L (136-145)
[2022-06-09] MEDS: MEROPENEM INJ 1 GM in IV 1 EA IV SCH ×3 (05:56→20:42)
[2022-06-09] MEDS: valACYclovir HCL 500 MG TAB NG SCH ×3 (05:58→22:10)
[2022-06-09] MEDS: APIXABAN 5 MG TAB (ELIQUIS) PO SCH (06:07)
[2022-06-09] MEDS: SODIUM CHLORIDE 0.9% INJ 10 ML SYR IV SCH ×2 (06:08→17:39)
[2022-06-09] MEDS: PANTOPRAZOLE 40MG VIAL IV SCH (08:28)
[2022-06-09] MEDS: CHLORHEXIDINE GLUCONATE 0.12 % 15ML UDC (PERIDEX ORAL RINSE) MT SCH ×2 (08:28→20:42)
[2022-06-09] MEDS: LEVOTHYROXINE 100MCG (0.1MG) 5ML SDV PF (SOLUTION FORM) IV SCH (08:28)
[2022-06-09] MEDS: FUROSEMIDE 40MG/4ML VIAL IV SCH (08:29)
[2022-06-09] MEDS: TOPIRAMATE 25 MG PO SCH (08:29)
[2022-06-09] MEDS: AMINO AC/ELECTROLYTE/DEX/CALC 1,000 ML IV SCH (11:45)
[2022-06-09] MEDS ORDERED: MULTIVITAMIN -ADULT INJECTION 10 ML, ZINC/COPPER/MANGANESE/SELENIUM 1 ML in AMINO AC/EL... IV SCH ×4 (18:00)
[2022-06-09] MEDS ORDERED: FAT EMULSION IV 250 ML IV ONE (18:00)
[2022-06-09] MEDS: LACRILUBE (AKWA TEARS) OPHTH OINT 3.5GM OS SCH (20:42)
[2022-06-09] MEDS: ACETAMINOPHEN 325MG/10.15ML UDC GT PRN (22:09)
[2022-06-10] VITALS (21 sets, daily range): BP systolic 108–158; BP diastolic 56–83; TEMP 97.9–98.9; O2SAT 95–99
[2022-06-10] MEDS: CIPROFLOXACIN 0.3% OPHTH SOLN 2.5ML OU SCH ×6 (02:19→21:18)
[2022-06-10] MEDS: LINEZOLID 600 MG in IV 1 EA IV SCH ×2 (03:35→14:44)
[2022-06-10] MEDS: MEROPENEM INJ 1 GM in IV 1 EA IV SCH ×3 (04:44→21:17)
[2022-06-10] MEDS: METOPROLOL 5 MG/5 ML VIAL IV SCH ×4 (04:44→21:18)
[2022-06-10 04:52] LABS: HEMATOCRIT 31.8 % (42.0-52.0); HEMOGLOBIN 10.1 g/dl (13.5-17.5); MEAN CORPUSCULAR HEMOGLOBIN 28.3 pg (27.0-33.0); MEAN CORPUSCULAR HGB CONC 31.8 g/dl (32.0-36.5); MEAN CORPUSCULAR VOLUME 89.1 fl (80.0-96.0); PLATELET COUNT, AUTOMATED 616 10^3/uL (150-450); RED BLOOD COUNT 3.57 10^6/uL (4.30-6.10); WHITE BLOOD COUNT 14.6 10^3/uL (4.0-10.0)
[2022-06-10 05:08] LABS: ATYPICAL LYMPH 1 % (0-5); BASOPHILS 1 % (0-1); EOSINOPHILS 13 % (0-3); LYMPHOCYTES 18 % (16-44); METAMYELOCYTES 1 % (0-0); MONOCYTES 8 % (0-5); MYELOCYTES 1 % (0-0); NEUTROPHILS 56 % (28-66); PLATELET ESTIMATE INCREASED (NORMAL)
[2022-06-10 05:09] LABS: ANISOCYTOSIS 1+
[2022-06-10 05:11] LABS: BLOOD UREA NITROGEN 51 MG/DL (9-23); CALCIUM LEVEL 9.1 MG/DL (8.5-10.1); CARBON DIOXIDE LEVEL 24 MMOL/L (20-31); CHLORIDE LEVEL 100 MMOL/L (98-107); CREATININE FOR GFR 0.87 MG/DL (0.70-1.30); GLOMERULAR FILTRATION RATE > 60.0 (>56); GLUCOSE, FASTING 119 MG/DL (60-100); MAGNESIUM LEVEL 1.9 MG/DL (1.8-2.4); POTASSIUM SERUM 4.2 MMOL/L (3.5-5.1); SODIUM LEVEL 133 MMOL/L (136-145)
[2022-06-10] MEDS: INSULIN LISPRO (NovoLOG) PER UNIT SC SCH ×2 (05:26→13:12)
[2022-06-10] MEDS: SODIUM CHLORIDE 0.9% INJ 10 ML SYR IV SCH ×2 (05:40→18:18)
[2022-06-10] MEDS: valACYclovir HCL 500 MG TAB NG SCH ×3 (05:40→21:18)
[2022-06-10] MEDS: CHLORHEXIDINE GLUCONATE 0.12 % 15ML UDC (PERIDEX ORAL RINSE) MT SCH ×2 (09:36→21:17)
[2022-06-10] MEDS: TOPIRAMATE 25 MG PO SCH (09:36)
[2022-06-10] MEDS: PANTOPRAZOLE 40MG VIAL IV SCH (09:37)
[2022-06-10] MEDS: FUROSEMIDE 40MG/4ML VIAL IV SCH (09:37)
[2022-06-10] MEDS: LEVOTHYROXINE 100MCG (0.1MG) 5ML SDV PF (SOLUTION FORM) IV SCH (09:37)
[2022-06-10] MEDS ORDERED: AMINO AC/ELECTROLYTE/DEX/CALC 1,000 ML IV SCH (18:00)
[2022-06-10] MEDS ORDERED: FAT EMULSION IV 250 ML IV ONE (18:00)
[2022-06-10] MEDS: fentaNYL 100 MCG/2 ML INJECTION IV PRN ×2 (18:17→21:18)
[2022-06-10] MEDS: LACRILUBE (AKWA TEARS) OPHTH OINT 3.5GM OS SCH (21:18)
[2022-06-10] MEDS: SODIUM CHLORIDE 0.9% INJ 10 ML SYR IV PRN (22:14)
[2022-06-11] VITALS (21 sets, daily range): BP systolic 127–150; BP diastolic 68–79; TEMP 97.7–98.9; O2SAT 97–99
[2022-06-11] MEDS: CIPROFLOXACIN 0.3% OPHTH SOLN 2.5ML OU SCH ×6 (02:11→21:53)
[2022-06-11] MEDS: LINEZOLID 600 MG in IV 1 EA IV SCH ×2 (02:12→15:01)
[2022-06-11] MEDS: METOPROLOL 5 MG/5 ML VIAL IV SCH ×4 (03:30→22:00)
[2022-06-11] MEDS ORDERED: AMINO AC/ELECTROLYTE/DEX/CALC 2,000 ML IV SCH (04:00)
[2022-06-11] MEDS: MEROPENEM INJ 1 GM in IV 1 EA IV SCH ×3 (04:36→21:54)
[2022-06-11 05:24] LABS: HEMATOCRIT 32.4 % (42.0-52.0); HEMOGLOBIN 10.3 g/dl (13.5-17.5); MEAN CORPUSCULAR HEMOGLOBIN 28.1 pg (27.0-33.0); MEAN CORPUSCULAR HGB CONC 31.8 g/dl (32.0-36.5); MEAN CORPUSCULAR VOLUME 88.5 fl (80.0-96.0); PLATELET COUNT, AUTOMATED 612 10^3/uL (150-450); RED BLOOD COUNT 3.66 10^6/uL (4.30-6.10); WHITE BLOOD COUNT 16.9 10^3/uL (4.0-10.0)
[2022-06-11 05:43] LABS: ALBUMIN 1.9 G/DL (3.2-5.2); ALKALINE PHOSPHATASE 376 U/L (46-116); ALT/SGPT 72 U/L (7.0-40); AST/SGOT 109 U/L (<34); BILIRUBIN,TOTAL 0.2 MG/DL (0.3-1.2); BLOOD UREA NITROGEN 47 MG/DL (9-23); CARBON DIOXIDE LEVEL 24 MMOL/L (20-31); CHLORIDE LEVEL 100 MMOL/L (98-107); GLOMERULAR FILTRATION RATE > 60.0 (>56); GLUCOSE, FASTING 113 MG/DL (60-100); MAGNESIUM LEVEL 1.8 MG/DL (1.8-2.4); POTASSIUM SERUM 4.3 MMOL/L (3.5-5.1); SODIUM LEVEL 133 MMOL/L (136-145); TOTAL PROTEIN 7.3 G/DL (5.7-8.2)
[2022-06-11 06:01] LABS: BASOPHILS 1 % (0-1); EOSINOPHILS 9 % (0-3); LYMPHOCYTES 13 % (16-44); MONOCYTES 12 % (0-5); MYELOCYTES 2 % (0-0); NEUTROPHILS 63 % (28-66); PLATELET ESTIMATE NORMAL (NORMAL)
[2022-06-11] MEDS: SODIUM CHLORIDE 0.9% INJ 10 ML SYR IV SCH ×2 (06:01→09:10)
[2022-06-11 06:02] LABS: ANISOCYTOSIS 1+; HYPOCHROMASIA 1+
[2022-06-11] MEDS: PANTOPRAZOLE 40MG VIAL IV SCH (08:32)
[2022-06-11] MEDS: LEVOTHYROXINE 100MCG (0.1MG) 5ML SDV PF (SOLUTION FORM) IV SCH (08:32)
[2022-06-11] MEDS: CHLORHEXIDINE GLUCONATE 0.12 % 15ML UDC (PERIDEX ORAL RINSE) MT SCH ×2 (08:32→21:53)
[2022-06-11] MEDS: FUROSEMIDE 40MG/4ML VIAL IV SCH (08:32)
[2022-06-11] MEDS: TOPIRAMATE 25 MG PO SCH (08:32)
[2022-06-11] MEDS: INSULIN LISPRO (NovoLOG) PER UNIT SC SCH (17:04)
[2022-06-11] MEDS ORDERED: FAT EMULSION IV 250 ML IV ONE ×2 (18:00)
[2022-06-11] MEDS ORDERED: MULTIVITAMIN -ADULT INJECTION 10 ML, ZINC/COPPER/MANGANESE/SELENIUM 1 ML in AMINO AC/EL... IV SCH ×4 (18:00)
[2022-06-11] MEDS: LACRILUBE (AKWA TEARS) OPHTH OINT 3.5GM OS SCH (21:53)
[2022-06-12] VITALS (10 sets, daily range): BP systolic 128–148; BP diastolic 63–78; TEMP 97.9–98.6; O2SAT 97–99
[2022-06-12] MEDS: LINEZOLID 600 MG in IV 1 EA IV SCH (02:10)
[2022-06-12] MEDS: MEROPENEM INJ 1 GM in IV 1 EA IV SCH (04:24)
[2022-06-12] MEDS: METOPROLOL 5 MG/5 ML VIAL IV SCH (04:24)
[2022-06-12 05:23] LABS: BASO # 0.2 10^3/uL (0.0-0.2); EOS # 1.3 10^3/uL (0.0-0.5); EOS % 7.6 % (0.0-3.0); HEMATOCRIT 31.4 % (42.0-52.0); HEMOGLOBIN 10.1 g/dl (13.5-17.5); LYMPH # 2.1 10^3/uL (1.5-5.0); LYMPH % 12.1 % (24.0-44.0); MEAN CORPUSCULAR HEMOGLOBIN 28.2 pg (27.0-33.0); MEAN CORPUSCULAR HGB CONC 32.2 g/dl (32.0-36.5); MEAN CORPUSCULAR VOLUME 87.7 fl (80.0-96.0); MONO % 10.5 % (2.0-8.0); NEUTROPHILS % 63.9 % (36.0-66.0); PLATELET COUNT, AUTOMATED 582 10^3/uL (150-450); RED BLOOD COUNT 3.58 10^6/uL (4.30-6.10); WHITE BLOOD COUNT 17.2 10^3/uL (4.0-10.0)
[2022-06-12] MEDS: SODIUM CHLORIDE 0.9% INJ 10 ML SYR IV SCH ×2 (05:23→18:24)
[2022-06-12 05:49] LABS: BLOOD UREA NITROGEN 45 MG/DL (9-23); CALCIUM LEVEL 8.8 MG/DL (8.5-10.1); CARBON DIOXIDE LEVEL 26 MMOL/L (20-31); CHLORIDE LEVEL 101 MMOL/L (98-107); CREATININE FOR GFR 0.75 MG/DL (0.70-1.30); GLOMERULAR FILTRATION RATE > 60.0 (>56); GLUCOSE, FASTING 113 MG/DL (60-100); MAGNESIUM LEVEL 1.9 MG/DL (1.8-2.4); POTASSIUM SERUM 4.3 MMOL/L (3.5-5.1); SODIUM LEVEL 134 MMOL/L (136-145)
[2022-06-12 05:57] LABS: MONO # 1.8 10^3/uL (0.0-0.8)
[2022-06-12] MEDS ORDERED: FAT EMULSION IV 250 ML IV ONE ×2 (06:00→18:00)
[2022-06-12] MEDS: INSULIN LISPRO (NovoLOG) PER UNIT SC SCH ×5 (06:00→23:57)
[2022-06-12] MEDS ORDERED: VANCOMYCIN HCL 500 MG in D5W MINI-BAG PLUS 100 ML IV ONE (08:00)
[2022-06-12] MEDS: LEVOTHYROXINE 100MCG (0.1MG) 5ML SDV PF (SOLUTION FORM) IV SCH (08:45)
[2022-06-12] MEDS: CHLORHEXIDINE GLUCONATE 0.12 % 15ML UDC (PERIDEX ORAL RINSE) MT SCH ×2 (08:45→20:13)
[2022-06-12] MEDS: PANTOPRAZOLE 40MG VIAL IV SCH (08:45)
[2022-06-12] MEDS: TOPIRAMATE 25 MG PO SCH (08:46)
[2022-06-12] MEDS: FUROSEMIDE 40MG/4ML VIAL IV SCH (08:46)
[2022-06-12] MEDS: VANCOMYCIN HCL 1,000 MG, VIAL MATE ADAPTER 1 EACH in NS 250 ML IV SCH ×2 (10:32→20:14)
[2022-06-12] MEDS: METOPROLOL TART 25 MG TABLET PO SCH ×2 (10:32→20:14)
[2022-06-12] MEDS: APIXABAN 5 MG TAB (ELIQUIS) PO SCH ×2 (10:33→20:13)
[2022-06-12] MEDS ORDERED: AMINO AC/ELECTROLYTE/DEX/CALC 2,000 ML IV SCH (18:00)
[2022-06-12] MEDS: LACRILUBE (AKWA TEARS) OPHTH OINT 3.5GM OS SCH (20:14)
[2022-06-13] VITALS (22 sets, daily range): BP systolic 126–157; BP diastolic 65–80; TEMP 96.8–98.5; O2SAT 95–100
[2022-06-13] MEDS: SODIUM CHLORIDE 0.9% INJ 10 ML SYR IV SCH ×2 (04:38→17:06)
[2022-06-13 05:02] LABS: HEMATOCRIT 30.8 % (42.0-52.0); MEAN CORPUSCULAR HEMOGLOBIN 28.9 pg (27.0-33.0); MEAN CORPUSCULAR HGB CONC 32.5 g/dl (32.0-36.5); PLATELET COUNT, AUTOMATED 544 10^3/uL (150-450); RED BLOOD COUNT 3.46 10^6/uL (4.30-6.10); WHITE BLOOD COUNT 17.5 10^3/uL (4.0-10.0)
[2022-06-13 05:21] LABS: ANISOCYTOSIS 1+; EOSINOPHILS 5 % (0-3); HYPOCHROMASIA 1+; LYMPHOCYTES 16 % (16-44); METAMYELOCYTES 2 % (0-0); MONOCYTES 13 % (0-5); NEUTROPHILS 64 % (28-66); PLATELET CLUMPS SMALL AMT; PLATELET ESTIMATE INCREASED (NORMAL)
[2022-06-13 05:22] LABS: TOXIC VACUOLATION 1+
[2022-06-13 05:33] LABS: ALKALINE PHOSPHATASE 352 U/L (46-116); ALT/SGPT 64 U/L (7.0-40); AST/SGOT 79 U/L (<34); BILIRUBIN,TOTAL 0.2 MG/DL (0.3-1.2); BLOOD UREA NITROGEN 44 MG/DL (9-23); CARBON DIOXIDE LEVEL 25 MMOL/L (20-31); CHLORIDE LEVEL 103 MMOL/L (98-107); CREATININE FOR GFR 0.68 MG/DL (0.70-1.30); GLOMERULAR FILTRATION RATE > 60.0 (>56); GLUCOSE, FASTING 112 MG/DL (60-100); MAGNESIUM LEVEL 1.9 MG/DL (1.8-2.4); POTASSIUM SERUM 4.1 MMOL/L (3.5-5.1); SODIUM LEVEL 135 MMOL/L (136-145); TOTAL PROTEIN 7.2 G/DL (5.7-8.2)
[2022-06-13] MEDS: INSULIN LISPRO (NovoLOG) PER UNIT SC SCH ×3 (06:00→17:17)
[2022-06-13] MEDS: ALBUTEROL SULFATE 2.5MG/0.5ML INH NEB SOLN NEB SCH ×3 (08:25→23:07)
[2022-06-13] MEDS: SODIUM CHLORIDE HYPERTONIC 3% 15ML NEB SOL INH SCH ×3 (08:26→23:07)
[2022-06-13] MEDS: VANCOMYCIN HCL 750 MG, VIAL MATE ADAPTER 1 EACH in D5W 250 ML IV SCH ×2 (09:16→21:05)
[2022-06-13] MEDS: CHLORHEXIDINE GLUCONATE 0.12 % 15ML UDC (PERIDEX ORAL RINSE) MT SCH ×2 (09:16→21:00)
[2022-06-13] MEDS: TOPIRAMATE 25 MG PO SCH (09:16)
[2022-06-13] MEDS: METOPROLOL TART 25 MG TABLET PO SCH ×2 (09:17→21:07)
[2022-06-13] MEDS: APIXABAN 5 MG TAB (ELIQUIS) PO SCH ×2 (09:17→21:05)
[2022-06-13] MEDS: FUROSEMIDE 40MG/4ML VIAL IV SCH (09:17)
[2022-06-13] MEDS: PANTOPRAZOLE 40MG VIAL IV SCH (09:17)
[2022-06-13] MEDS: LEVOTHYROXINE 100MCG (0.1MG) 5ML SDV PF (SOLUTION FORM) IV SCH (09:17)
[2022-06-13] MEDS ORDERED: AMINO AC/ELECTROLYTE/DEX/CALC 1,000 ML IV SCH (12:12)
[2022-06-13] MEDS ORDERED: FAT EMULSION IV 250 ML IV ONE (18:00)
[2022-06-13] MEDS ORDERED: AMINO AC/ELECTROLYTE/DEX/CALC 2,000 ML IV SCH (18:00)
[2022-06-13] MEDS: LACRILUBE (AKWA TEARS) OPHTH OINT 3.5GM OS SCH (21:10)
[2022-06-14] VITALS (9 sets, daily range): BP systolic 128–154; BP diastolic 62–85; TEMP 97.1–99; O2SAT 97–100
[2022-06-14] MEDS: INSULIN LISPRO (NovoLOG) PER UNIT SC SCH ×3 (00:12→12:00)
[2022-06-14 05:48] LABS: BASO # 0.2 10^3/uL (0.0-0.2); BASO % 1.1 % (0.0-1.0); EOS # 0.4 10^3/uL (0.0-0.5); EOS % 2.6 % (0.0-3.0); HEMATOCRIT 31.8 % (42.0-52.0); LYMPH # 2.2 10^3/uL (1.5-5.0); LYMPH % 13.6 % (24.0-44.0); MEAN CORPUSCULAR HEMOGLOBIN 28.4 pg (27.0-33.0); MEAN CORPUSCULAR HGB CONC 31.4 g/dl (32.0-36.5); MEAN CORPUSCULAR VOLUME 90.3 fl (80.0-96.0); MONO # 1.5 10^3/uL (0.0-0.8); NEUTROPHILS # 11.2 10^3/uL (1.5-8.5); NEUTROPHILS % 69.1 % (36.0-66.0); PLATELET COUNT, AUTOMATED 465 10^3/uL (150-450); RED BLOOD COUNT 3.52 10^6/uL (4.30-6.10); WHITE BLOOD COUNT 16.2 10^3/uL (4.0-10.0)
[2022-06-14] MEDS: SODIUM CHLORIDE 0.9% INJ 10 ML SYR IV SCH ×2 (06:13→18:05)
[2022-06-14 06:25] LABS: ALBUMIN 1.9 G/DL (3.2-5.2); ALKALINE PHOSPHATASE 324 U/L (46-116); ALT/SGPT 60 U/L (7.0-40); AST/SGOT 67 U/L (<34); BILIRUBIN,TOTAL 0.2 MG/DL (0.3-1.2); BLOOD UREA NITROGEN 46 MG/DL (9-23); CALCIUM LEVEL 8.7 MG/DL (8.5-10.1); CARBON DIOXIDE LEVEL 24 MMOL/L (20-31); CHLORIDE LEVEL 104 MMOL/L (98-107); CREATININE FOR GFR 0.64 MG/DL (0.70-1.30); GLOMERULAR FILTRATION RATE > 60.0 (>56); GLUCOSE, FASTING 118 MG/DL (60-100); MAGNESIUM LEVEL 1.8 MG/DL (1.8-2.4); SODIUM LEVEL 135 MMOL/L (136-145); TOTAL PROTEIN 6.7 G/DL (5.7-8.2)
[2022-06-14] MEDS: SODIUM CHLORIDE HYPERTONIC 3% 15ML NEB SOL INH SCH ×3 (07:17→23:18)
[2022-06-14] MEDS: ALBUTEROL SULFATE 2.5MG/0.5ML INH NEB SOLN NEB SCH ×3 (07:17→23:18)
[2022-06-14] MEDS: PANTOPRAZOLE 40MG VIAL IV SCH (08:41)
[2022-06-14] MEDS: FUROSEMIDE 40MG/4ML VIAL IV SCH (08:41)
[2022-06-14] MEDS: APIXABAN 5 MG TAB (ELIQUIS) PO SCH ×2 (08:42→20:18)
[2022-06-14] MEDS: TOPIRAMATE 25 MG PO SCH (08:42)
[2022-06-14] MEDS: METOPROLOL TART 25 MG TABLET PO SCH ×2 (08:42→20:17)
[2022-06-14] MEDS: CHLORHEXIDINE GLUCONATE 0.12 % 15ML UDC (PERIDEX ORAL RINSE) MT SCH ×2 (08:43→20:16)
[2022-06-14] MEDS: LEVOTHYROXINE 100MCG (0.1MG) 5ML SDV PF (SOLUTION FORM) IV SCH (09:00)
[2022-06-14] MEDS: VANCOMYCIN HCL 750 MG, VIAL MATE ADAPTER 1 EACH in D5W 250 ML IV SCH (09:05)
[2022-06-14] MEDS: VANCOMYCIN HCL 500 MG in D5W MINI-BAG PLUS 100 ML IV SCH (10:44)
[2022-06-14] MEDS ORDERED: AMINO AC/ELECTROLYTE/DEX/CALC 1,000 ML IV SCH (12:12)
[2022-06-14] MEDS: LACRILUBE (AKWA TEARS) OPHTH OINT 3.5GM OS SCH (20:18)
[2022-06-15] VITALS: BP 124/74; TEMP 97.2; O2SAT 97
[2022-06-15 04:00] VITALS: BP 132/83; TEMP 97.8; O2SAT 99
[2022-06-15] MEDS: SODIUM CHLORIDE 0.9% INJ 10 ML SYR IV SCH ×2 (05:42→17:53)
[2022-06-15 05:46] LABS: BASO # 0.1 10^3/uL (0.0-0.2); BASO % 0.8 % (0.0-1.0); EOS # 0.1 10^3/uL (0.0-0.5); EOS % 0.8 % (0.0-3.0); HEMATOCRIT 31.3 % (42.0-52.0); HEMOGLOBIN 9.8 g/dl (13.5-17.5); LYMPH % 12.2 % (24.0-44.0); MEAN CORPUSCULAR HEMOGLOBIN 28.3 pg (27.0-33.0); MEAN CORPUSCULAR HGB CONC 31.3 g/dl (32.0-36.5); MEAN CORPUSCULAR VOLUME 90.5 fl (80.0-96.0); MONO % 9.2 % (2.0-8.0); NEUTROPHILS # 12.3 10^3/uL (1.5-8.5); NEUTROPHILS % 73.1 % (36.0-66.0); PLATELET COUNT, AUTOMATED 452 10^3/uL (150-450); RED BLOOD COUNT 3.46 10^6/uL (4.30-6.10); WHITE BLOOD COUNT 16.8 10^3/uL (4.0-10.0)
[2022-06-15 06:12] LABS: ALBUMIN 2.2 G/DL (3.2-5.2); ALKALINE PHOSPHATASE 321 U/L (46-116); ALT/SGPT 60 U/L (7.0-40); AST/SGOT 60 U/L (<34); BILIRUBIN,TOTAL 0.3 MG/DL (0.3-1.2); BLOOD UREA NITROGEN 45 MG/DL (9-23); CALCIUM LEVEL 8.8 MG/DL (8.5-10.1); CARBON DIOXIDE LEVEL 26 MMOL/L (20-31); CHLORIDE LEVEL 104 MMOL/L (98-107); GLOMERULAR FILTRATION RATE > 60.0 (>56); GLUCOSE, FASTING 87 MG/DL (60-100); MAGNESIUM LEVEL 1.8 MG/DL (1.8-2.4); POTASSIUM SERUM 3.7 MMOL/L (3.5-5.1); SODIUM LEVEL 138 MMOL/L (136-145)
[2022-06-15 06:47] LABS: MONO # 1.6 10^3/uL (0.0-0.8)
[2022-06-15] MEDS: ALBUTEROL SULFATE 2.5MG/0.5ML INH NEB SOLN NEB SCH ×3 (07:10→23:10)
[2022-06-15] MEDS: SODIUM CHLORIDE HYPERTONIC 3% 15ML NEB SOL INH SCH ×3 (07:10→23:11)
[2022-06-15 08:08] VITALS: BP 123/63; TEMP 97.3; O2SAT 96
[2022-06-15] MEDS: CHLORHEXIDINE GLUCONATE 0.12 % 15ML UDC (PERIDEX ORAL RINSE) MT SCH ×2 (09:00→20:43)
[2022-06-15] MEDS: FUROSEMIDE 40MG/4ML VIAL IV SCH (09:51)
[2022-06-15] MEDS: LEVOTHYROXINE 100MCG (0.1MG) 5ML SDV PF (SOLUTION FORM) IV SCH (09:51)
[2022-06-15] MEDS: PANTOPRAZOLE 40MG VIAL IV SCH (09:51)
[2022-06-15] MEDS: VANCOMYCIN HCL 750 MG, VIAL MATE ADAPTER 1 EACH in D5W 250 ML IV SCH (09:51)
[2022-06-15] MEDS: METOPROLOL TART 25 MG TABLET PO SCH ×2 (09:52→20:42)
[2022-06-15] MEDS: TOPIRAMATE 25 MG PO SCH (09:52)
[2022-06-15] MEDS: APIXABAN 5 MG TAB (ELIQUIS) PO SCH ×2 (09:53→20:42)
[2022-06-15] MEDS: VANCOMYCIN HCL 500 MG in D5W MINI-BAG PLUS 100 ML IV SCH (11:34)
[2022-06-15 12:05] VITALS: BP 133/76; TEMP 97.6; O2SAT 98
[2022-06-15 16:11] VITALS: BP 135/87; TEMP 97.2; O2SAT 95
[2022-06-15 20:32] VITALS: BP 133/68; TEMP 97.4; O2SAT 98
[2022-06-15] MEDS: LACRILUBE (AKWA TEARS) OPHTH OINT 3.5GM OS SCH (20:43)
[2022-06-16] VITALS (7 sets, daily range): BP systolic 121–190; BP diastolic 64–85; TEMP 96.7–97.9; O2SAT 90–99
[2022-06-16 05:20] LABS: BASO # 0.1 10^3/uL (0.0-0.2); BASO % 0.8 % (0.0-1.0); EOS # 0.1 10^3/uL (0.0-0.5); EOS % 0.3 % (0.0-3.0); HEMATOCRIT 32.2 % (42.0-52.0); HEMOGLOBIN 10.1 g/dl (13.5-17.5); LYMPH # 2.2 10^3/uL (1.5-5.0); LYMPH % 13.5 % (24.0-44.0); MEAN CORPUSCULAR HEMOGLOBIN 28.2 pg (27.0-33.0); MEAN CORPUSCULAR HGB CONC 31.4 g/dl (32.0-36.5); MEAN CORPUSCULAR VOLUME 89.9 fl (80.0-96.0); MONO # 1.5 10^3/uL (0.0-0.8); MONO % 9.2 % (2.0-8.0); NEUTROPHILS # 12.1 10^3/uL (1.5-8.5); NEUTROPHILS % 73.4 % (36.0-66.0); PLATELET COUNT, AUTOMATED 444 10^3/uL (150-450); RED BLOOD COUNT 3.58 10^6/uL (4.30-6.10); WHITE BLOOD COUNT 16.5 10^3/uL (4.0-10.0)
[2022-06-16 05:48] LABS: ALBUMIN 2.4 G/DL (3.2-5.2); ALKALINE PHOSPHATASE 323 U/L (46-116); ALT/SGPT 62 U/L (7.0-40); AST/SGOT 58 U/L (<34); BILIRUBIN,TOTAL 0.3 MG/DL (0.3-1.2); BLOOD UREA NITROGEN 47 MG/DL (9-23); CALCIUM LEVEL 8.9 MG/DL (8.5-10.1); CARBON DIOXIDE LEVEL 25 MMOL/L (20-31); CHLORIDE LEVEL 105 MMOL/L (98-107); CREATININE FOR GFR 0.75 MG/DL (0.70-1.30); GLOMERULAR FILTRATION RATE > 60.0 (>56); GLUCOSE, FASTING 106 MG/DL (60-100); MAGNESIUM LEVEL 1.6 MG/DL (1.8-2.4); POTASSIUM SERUM 3.4 MMOL/L (3.5-5.1); SODIUM LEVEL 139 MMOL/L (136-145); TOTAL PROTEIN 7.3 G/DL (5.7-8.2)
[2022-06-16] MEDS: SODIUM CHLORIDE 0.9% INJ 10 ML SYR IV SCH ×2 (06:09→17:40)
[2022-06-16] MEDS ORDERED: MAG SULF 1GM/100ML (MAG RUN) 1 GM in IV 1 EA IV ONE (07:00)
[2022-06-16] MEDS: SODIUM CHLORIDE HYPERTONIC 3% 15ML NEB SOL INH SCH ×3 (07:03→23:12)
[2022-06-16] MEDS: ALBUTEROL SULFATE 2.5MG/0.5ML INH NEB SOLN NEB SCH ×3 (07:03→23:12)
[2022-06-16] MEDS ORDERED: KCL 10MEQ/100ML SWI (KRUN) 10 MEQ in IV 1 EA IV ONE (08:00)
[2022-06-16 08:11] LABS: VANCOMYCIN RANDOM 18.6 UG/ML
[2022-06-16] MEDS: CHLORHEXIDINE GLUCONATE 0.12 % 15ML UDC (PERIDEX ORAL RINSE) MT SCH ×2 (09:00→21:26)
[2022-06-16] MEDS: FUROSEMIDE 40MG/4ML VIAL IV SCH (09:01)
[2022-06-16] MEDS: APIXABAN 5 MG TAB (ELIQUIS) PO SCH ×2 (09:01→20:51)
[2022-06-16] MEDS: PANTOPRAZOLE 40MG VIAL IV SCH (09:01)
[2022-06-16] MEDS: METOPROLOL TART 25 MG TABLET PO SCH ×2 (09:02→20:51)
[2022-06-16] MEDS: TOPIRAMATE 25 MG PO SCH (09:03)
[2022-06-16] MEDS: LEVOTHYROXINE 100MCG (0.1MG) 5ML SDV PF (SOLUTION FORM) IV SCH (09:04)
[2022-06-16] MEDS: VANCOMYCIN HCL 750 MG, VIAL MATE ADAPTER 1 EACH in D5W 250 ML IV SCH (09:04)
[2022-06-16] MEDS: VANCOMYCIN HCL 500 MG in D5W MINI-BAG PLUS 100 ML IV SCH (09:10)
[2022-06-16] MEDS: LACRILUBE (AKWA TEARS) OPHTH OINT 3.5GM OS SCH (21:26)
[2022-06-17 00:33] VITALS: BP 132/79; TEMP 97.3; O2SAT 97
[2022-06-17 05:13] VITALS: BP 134/80; TEMP 96.4; O2SAT 98
[2022-06-17] MEDS: SODIUM CHLORIDE 0.9% INJ 10 ML SYR IV SCH ×2 (05:52→18:31)
[2022-06-17 06:08] LABS: BASO # 0.1 10^3/uL (0.0-0.2); BASO % 0.8 % (0.0-1.0); EOS # 0.1 10^3/uL (0.0-0.5); EOS % 0.4 % (0.0-3.0); HEMATOCRIT 31.4 % (42.0-52.0); HEMOGLOBIN 9.7 g/dl (13.5-17.5); LYMPH # 2.1 10^3/uL (1.5-5.0); LYMPH % 13.6 % (24.0-44.0); MEAN CORPUSCULAR HEMOGLOBIN 28.1 pg (27.0-33.0); MEAN CORPUSCULAR HGB CONC 30.9 g/dl (32.0-36.5); MONO # 1.4 10^3/uL (0.0-0.8); MONO % 8.8 % (2.0-8.0); NEUTROPHILS # 11.7 10^3/uL (1.5-8.5); NEUTROPHILS % 74.8 % (36.0-66.0); PLATELET COUNT, AUTOMATED 426 10^3/uL (150-450); RED BLOOD COUNT 3.45 10^6/uL (4.30-6.10); WHITE BLOOD COUNT 15.6 10^3/uL (4.0-10.0)
[2022-06-17 06:29] LABS: ALBUMIN 2.4 G/DL (3.2-5.2); ALKALINE PHOSPHATASE 284 U/L (46-116); ALT/SGPT 60 U/L (7.0-40); AST/SGOT 44 U/L (<34); BILIRUBIN,TOTAL 0.4 MG/DL (0.3-1.2); BLOOD UREA NITROGEN 51 MG/DL (9-23); CALCIUM LEVEL 8.9 MG/DL (8.5-10.1); CARBON DIOXIDE LEVEL 26 MMOL/L (20-31); CHLORIDE LEVEL 107 MMOL/L (98-107); CREATININE FOR GFR 0.77 MG/DL (0.70-1.30); GLOMERULAR FILTRATION RATE > 60.0 (>56); GLUCOSE, FASTING 109 MG/DL (60-100); MAGNESIUM LEVEL 1.8 MG/DL (1.8-2.4); POTASSIUM SERUM 3.3 MMOL/L (3.5-5.1); SODIUM LEVEL 141 MMOL/L (136-145); TOTAL PROTEIN 7.2 G/DL (5.7-8.2)
[2022-06-17] MEDS: SODIUM CHLORIDE HYPERTONIC 3% 15ML NEB SOL INH SCH ×3 (07:12→23:18)
[2022-06-17] MEDS: ALBUTEROL SULFATE 2.5MG/0.5ML INH NEB SOLN NEB SCH ×3 (07:12→23:18)
[2022-06-17 08:00] VITALS: BP 158/80; TEMP 96.8; O2SAT 98
[2022-06-17] MEDS ORDERED: POTASSIUM CHLORIDE 10% LIQ 20MEQ/15ML UDC NG ONE (08:00)
[2022-06-17] MEDS: TOPIRAMATE 25 MG PO SCH (10:04)
[2022-06-17] MEDS: FUROSEMIDE 40MG/4ML VIAL IV SCH (10:05)
[2022-06-17] MEDS: METOPROLOL TART 25 MG TABLET PO SCH ×2 (10:06→21:41)
[2022-06-17] MEDS: PANTOPRAZOLE 40MG VIAL IV SCH (10:06)
[2022-06-17] MEDS: LEVOTHYROXINE 100MCG (0.1MG) 5ML SDV PF (SOLUTION FORM) IV SCH (10:07)
[2022-06-17] MEDS: APIXABAN 5 MG TAB (ELIQUIS) PO SCH ×2 (10:07→21:40)
[2022-06-17] MEDS: CHLORHEXIDINE GLUCONATE 0.12 % 15ML UDC (PERIDEX ORAL RINSE) MT SCH ×2 (10:07→21:40)
[2022-06-17] MEDS: VANCOMYCIN HCL 750 MG, VIAL MATE ADAPTER 1 EACH in D5W 250 ML IV SCH (10:08)
[2022-06-17] MEDS: VANCOMYCIN HCL 500 MG in D5W MINI-BAG PLUS 100 ML IV SCH (11:57)
[2022-06-17 12:00] VITALS: BP 128/76; TEMP 96.7; O2SAT 100
[2022-06-17 16:17] VITALS: BP 134/82; TEMP 97.8; O2SAT 96
[2022-06-17 20:38] VITALS: BP 151/90; TEMP 97.3; O2SAT 97
[2022-06-17] MEDS: LACRILUBE (AKWA TEARS) OPHTH OINT 3.5GM OS SCH (21:41)
[2022-06-18 00:44] VITALS: BP 135/65; TEMP 97.6; O2SAT 98
[2022-06-18 04:00] VITALS: BP 141/79; TEMP 97.5; O2SAT 97
[2022-06-18] MEDS: SODIUM CHLORIDE 0.9% INJ 10 ML SYR IV SCH ×2 (06:18→18:56)
[2022-06-18 06:39] LABS: BASO # 0.1 10^3/uL (0.0-0.2); BASO % 0.6 % (0.0-1.0); EOS # 0.1 10^3/uL (0.0-0.5); EOS % 0.3 % (0.0-3.0); LYMPH % 13.3 % (24.0-44.0); MEAN CORPUSCULAR HEMOGLOBIN 28.6 pg (27.0-33.0); MEAN CORPUSCULAR HGB CONC 31.3 g/dl (32.0-36.5); MEAN CORPUSCULAR VOLUME 91.4 fl (80.0-96.0); MONO # 1.2 10^3/uL (0.0-0.8); MONO % 7.9 % (2.0-8.0); NEUTROPHILS # 11.3 10^3/uL (1.5-8.5); NEUTROPHILS % 76.3 % (36.0-66.0); PLATELET COUNT, AUTOMATED 394 10^3/uL (150-450); WHITE BLOOD COUNT 14.8 10^3/uL (4.0-10.0)
[2022-06-18 06:54] LABS: ALBUMIN 2.6 G/DL (3.2-5.2); ALKALINE PHOSPHATASE 255 U/L (46-116); ALT/SGPT 50 U/L (7.0-40); AST/SGOT 37 U/L (<34); BILIRUBIN,TOTAL 0.3 MG/DL (0.3-1.2); BLOOD UREA NITROGEN 52 MG/DL (9-23); CALCIUM LEVEL 9.2 MG/DL (8.5-10.1); CARBON DIOXIDE LEVEL 26 MMOL/L (20-31); CHLORIDE LEVEL 107 MMOL/L (98-107); CREATININE FOR GFR 0.82 MG/DL (0.70-1.30); GLOMERULAR FILTRATION RATE > 60.0 (>56); GLUCOSE, FASTING 110 MG/DL (60-100); MAGNESIUM LEVEL 1.7 MG/DL (1.8-2.4); POTASSIUM SERUM 3.2 MMOL/L (3.5-5.1); SODIUM LEVEL 144 MMOL/L (136-145); TOTAL PROTEIN 7.3 G/DL (5.7-8.2)
[2022-06-18] MEDS ORDERED: POTASSIUM CHLORIDE 10% LIQ 20MEQ/15ML UDC NG ONE (07:15)
[2022-06-18] MEDS: ALBUTEROL SULFATE 2.5MG/0.5ML INH NEB SOLN NEB SCH ×3 (07:20→23:20)
[2022-06-18] MEDS: SODIUM CHLORIDE HYPERTONIC 3% 15ML NEB SOL INH SCH ×3 (07:20→23:20)
[2022-06-18 08:10] VITALS: BP 125/72; TEMP 97.5; O2SAT 97
[2022-06-18] MEDS: APIXABAN 5 MG TAB (ELIQUIS) PO SCH ×2 (10:43→21:01)
[2022-06-18] MEDS: TOPIRAMATE 25 MG PO SCH (10:44)
[2022-06-18] MEDS: METOPROLOL TART 25 MG TABLET PO SCH ×2 (10:44→21:04)
[2022-06-18] MEDS: FUROSEMIDE 40MG/4ML VIAL IV SCH (10:45)
[2022-06-18] MEDS: LEVOTHYROXINE 100MCG (0.1MG) 5ML SDV PF (SOLUTION FORM) IV SCH (10:46)
[2022-06-18] MEDS: PANTOPRAZOLE 40MG VIAL IV SCH (10:46)
[2022-06-18] MEDS: VANCOMYCIN HCL 750 MG, VIAL MATE ADAPTER 1 EACH in D5W 250 ML IV SCH (10:47)
[2022-06-18] MEDS: CHLORHEXIDINE GLUCONATE 0.12 % 15ML UDC (PERIDEX ORAL RINSE) MT SCH ×2 (11:34→21:03)
[2022-06-18] MEDS: VANCOMYCIN HCL 500 MG in D5W MINI-BAG PLUS 100 ML IV SCH (11:35)
[2022-06-18 12:21] VITALS: BP 123/62; TEMP 97.1; O2SAT 99
[2022-06-18 16:43] VITALS: BP 130/81; TEMP 97.2; O2SAT 98
[2022-06-18 19:40] VITALS: BP 130/81; TEMP 97; O2SAT 99
[2022-06-18] MEDS: LACRILUBE (AKWA TEARS) OPHTH OINT 3.5GM OS SCH (21:02)
[2022-06-19] VITALS: BP 131/70; TEMP 98.4; O2SAT 95
[2022-06-19 04:10] VITALS: BP 138/75; TEMP 97.8; O2SAT 99
[2022-06-19 04:22] LABS: BASO # 0.1 10^3/uL (0.0-0.2); BASO % 0.8 % (0.0-1.0); EOS # 0.1 10^3/uL (0.0-0.5); EOS % 0.4 % (0.0-3.0); HEMATOCRIT 32.5 % (42.0-52.0); LYMPH # 2.4 10^3/uL (1.5-5.0); LYMPH % 15.1 % (24.0-44.0); MEAN CORPUSCULAR HEMOGLOBIN 28.2 pg (27.0-33.0); MEAN CORPUSCULAR HGB CONC 30.8 g/dl (32.0-36.5); MEAN CORPUSCULAR VOLUME 91.8 fl (80.0-96.0); MONO # 1.3 10^3/uL (0.0-0.8); MONO % 8.3 % (2.0-8.0); NEUTROPHILS # 11.8 10^3/uL (1.5-8.5); NEUTROPHILS % 74.2 % (36.0-66.0); PLATELET COUNT, AUTOMATED 393 10^3/uL (150-450); RED BLOOD COUNT 3.54 10^6/uL (4.30-6.10); WHITE BLOOD COUNT 15.9 10^3/uL (4.0-10.0)
[2022-06-19 04:43] LABS: ALBUMIN 2.5 G/DL (3.2-5.2); ALKALINE PHOSPHATASE 234 U/L (46-116); ALT/SGPT 45 U/L (7.0-40); AST/SGOT 35 U/L (<34); BILIRUBIN,TOTAL 0.4 MG/DL (0.3-1.2); BLOOD UREA NITROGEN 54 MG/DL (9-23); CALCIUM LEVEL 9.2 MG/DL (8.5-10.1); CARBON DIOXIDE LEVEL 27 MMOL/L (20-31); CHLORIDE LEVEL 108 MMOL/L (98-107); GLOMERULAR FILTRATION RATE > 60.0 (>56); GLUCOSE, FASTING 107 MG/DL (60-100); MAGNESIUM LEVEL 1.7 MG/DL (1.8-2.4); POTASSIUM SERUM 3.3 MMOL/L (3.5-5.1); SODIUM LEVEL 144 MMOL/L (136-145); TOTAL PROTEIN 7.3 G/DL (5.7-8.2)
[2022-06-19] MEDS: SODIUM CHLORIDE 0.9% INJ 10 ML SYR IV SCH ×2 (05:44→18:46)
[2022-06-19] MEDS ORDERED: MAG SULF 1GM/100ML (MAG RUN) 1 GM in IV 1 EA IV ONE (06:00)
[2022-06-19] MEDS ORDERED: KCL 10MEQ/100ML SWI (KRUN) 10 MEQ in IV 1 EA IV SCH (07:00)
[2022-06-19] MEDS ORDERED: POTASSIUM CHLORIDE 10% LIQ 20MEQ/15ML UDC PO ONE (07:10)
[2022-06-19] MEDS ORDERED: POTASSIUM CHLORIDE 10MEQ SR TABLET PO ONE (07:10)
[2022-06-19] MEDS: ALBUTEROL SULFATE 2.5MG/0.5ML INH NEB SOLN NEB SCH (07:15)
[2022-06-19] MEDS: SODIUM CHLORIDE HYPERTONIC 3% 15ML NEB SOL INH SCH (07:16)
[2022-06-19 07:39] VITALS: BP 128/74; TEMP 97.1; O2SAT 98
[2022-06-19] MEDS ORDERED: APIXABAN 5 MG TAB (ELIQUIS) NG SCH (09:00)
[2022-06-19] MEDS: PANTOPRAZOLE 40MG VIAL IV SCH (09:52)
[2022-06-19] MEDS: POTASSIUM CHLORIDE 10% LIQ 20MEQ/15ML UDC NG SCH ×2 (09:53→20:47)
[2022-06-19] MEDS: FUROSEMIDE 40MG/4ML VIAL IV SCH (09:53)
[2022-06-19] MEDS: VANCOMYCIN HCL 750 MG, VIAL MATE ADAPTER 1 EACH in D5W 250 ML IV SCH (09:54)
[2022-06-19] MEDS: TOPIRAMATE 25 MG PO SCH (09:54)
[2022-06-19] MEDS: METOPROLOL TART 25 MG TABLET NG SCH ×2 (09:54→20:48)
[2022-06-19] MEDS: LEVOTHYROXINE 100MCG (0.1MG) 5ML SDV PF (SOLUTION FORM) IV SCH (09:54)
[2022-06-19] MEDS: APIXABAN 5 MG TAB (ELIQUIS) NG SCH ×2 (09:55→20:48)
[2022-06-19] MEDS: VANCOMYCIN HCL 500 MG in D5W MINI-BAG PLUS 100 ML IV SCH (11:23)
[2022-06-19 11:37] VITALS: BP 123/75; TEMP 97.4; O2SAT 98
[2022-06-19 15:31] VITALS: BP 146/74; TEMP 96.7; O2SAT 98
[2022-06-19 20:02] VITALS: BP 106/58; TEMP 96.9; O2SAT 98
[2022-06-19] MEDS: LACRILUBE (AKWA TEARS) OPHTH OINT 3.5GM OS SCH (20:48)
[2022-06-20] VITALS: BP 126/68; TEMP 97.4; O2SAT 99
[2022-06-20] MEDS: ALBUTEROL SULFATE 2.5MG/0.5ML INH NEB SOLN NEB SCH ×3 (00:34→15:46)
[2022-06-20] MEDS: SODIUM CHLORIDE HYPERTONIC 3% 15ML NEB SOL INH SCH ×3 (00:35→15:46)
[2022-06-20 04:14] VITALS: BP 121/66; TEMP 97.2; O2SAT 99
[2022-06-20] MEDS: SODIUM CHLORIDE 0.9% INJ 10 ML SYR IV SCH ×2 (05:12→17:26)
[2022-06-20 07:24] VITALS: BP 130/73; TEMP 98.6; O2SAT 99
[2022-06-20 08:27] LABS: BASO # 0.1 10^3/uL (0.0-0.2); BASO % 0.5 % (0.0-1.0); EOS # 0.1 10^3/uL (0.0-0.5); EOS % 0.3 % (0.0-3.0); HEMATOCRIT 33.8 % (42.0-52.0); HEMOGLOBIN 10.4 g/dl (13.5-17.5); LYMPH # 1.7 10^3/uL (1.5-5.0); LYMPH % 11.5 % (24.0-44.0); MEAN CORPUSCULAR HEMOGLOBIN 28.5 pg (27.0-33.0); MEAN CORPUSCULAR HGB CONC 30.8 g/dl (32.0-36.5); MEAN CORPUSCULAR VOLUME 92.6 fl (80.0-96.0); MONO # 0.8 10^3/uL (0.0-0.8); MONO % 5.6 % (2.0-8.0); NEUTROPHILS # 11.7 10^3/uL (1.5-8.5); NEUTROPHILS % 81.2 % (36.0-66.0); PLATELET COUNT, AUTOMATED 397 10^3/uL (150-450); RED BLOOD COUNT 3.65 10^6/uL (4.30-6.10); WHITE BLOOD COUNT 14.4 10^3/uL (4.0-10.0)
[2022-06-20 08:51] LABS: VANCOMYCIN LEVEL TROUGH 17.1 UG/ML (10.0-20.0)
[2022-06-20 08:53] LABS: ALBUMIN 2.9 G/DL (3.2-5.2); ALKALINE PHOSPHATASE 216 U/L (46-116); ALT/SGPT 37 U/L (7.0-40); AST/SGOT 33 U/L (<34); BILIRUBIN,TOTAL 0.4 MG/DL (0.3-1.2); BLOOD UREA NITROGEN 37 MG/DL (9-23); CALCIUM LEVEL 9.4 MG/DL (8.5-10.1); CARBON DIOXIDE LEVEL 23 MMOL/L (20-31); CHLORIDE LEVEL 111 MMOL/L (98-107); GLOMERULAR FILTRATION RATE > 60.0 (>56); GLUCOSE, FASTING 111 MG/DL (60-100); MAGNESIUM LEVEL 1.8 MG/DL (1.8-2.4); POTASSIUM SERUM 4.3 MMOL/L (3.5-5.1); SODIUM LEVEL 143 MMOL/L (136-145); TOTAL PROTEIN 7.8 G/DL (5.7-8.2)
[2022-06-20] MEDS: VANCOMYCIN HCL 750 MG, VIAL MATE ADAPTER 1 EACH in D5W 250 ML IV SCH (10:00)
[2022-06-20] MEDS: PANTOPRAZOLE 40MG VIAL IV SCH (10:02)
[2022-06-20] MEDS: FUROSEMIDE 40MG/4ML VIAL IV SCH (10:03)
[2022-06-20] MEDS: LEVOTHYROXINE 100MCG (0.1MG) 5ML SDV PF (SOLUTION FORM) IV SCH (10:03)
[2022-06-20] MEDS: METOPROLOL TART 25 MG TABLET NG SCH ×2 (10:04→20:05)
[2022-06-20] MEDS: TOPIRAMATE 25 MG PO SCH (10:04)
[2022-06-20] MEDS: APIXABAN 5 MG TAB (ELIQUIS) NG SCH ×2 (10:04→20:05)
[2022-06-20] MEDS: POTASSIUM CHLORIDE 10% LIQ 20MEQ/15ML UDC NG SCH (10:05)
[2022-06-20] MEDS: VANCOMYCIN HCL 500 MG in D5W MINI-BAG PLUS 100 ML IV SCH (11:10)
[2022-06-20 11:14] VITALS: BP 145/76; TEMP 97.8; O2SAT 93
[2022-06-20 15:57] VITALS: BP 144/75; TEMP 97.5; O2SAT 98
[2022-06-20 19:37] VITALS: BP 133/75; TEMP 97.8; O2SAT 94
[2022-06-20] MEDS: LACRILUBE (AKWA TEARS) OPHTH OINT 3.5GM OS SCH (20:05)
[2022-06-21] VITALS (7 sets, daily range): BP systolic 119–140; BP diastolic 62–80; TEMP 96.8–97.6; O2SAT 95–100
[2022-06-21] MEDS: SODIUM CHLORIDE 0.9% INJ 10 ML SYR IV SCH ×2 (05:26→18:26)
[2022-06-21] MEDS: LEVOTHYROXINE 112MCG TABLET (0.112MG) NG SCH (05:26)
[2022-06-21 07:50] LABS: BASO # 0.1 10^3/uL (0.0-0.2); BASO % 0.6 % (0.0-1.0); EOS # 0.1 10^3/uL (0.0-0.5); EOS % 0.3 % (0.0-3.0); HEMATOCRIT 32.3 % (42.0-52.0); HEMOGLOBIN 10.1 g/dl (13.5-17.5); LYMPH # 1.8 10^3/uL (1.5-5.0); MEAN CORPUSCULAR HGB CONC 31.3 g/dl (32.0-36.5); MEAN CORPUSCULAR VOLUME 92.8 fl (80.0-96.0); MONO % 6.1 % (2.0-8.0); NEUTROPHILS # 13.6 10^3/uL (1.5-8.5); NEUTROPHILS % 81.2 % (36.0-66.0); PLATELET COUNT, AUTOMATED 345 10^3/uL (150-450); RED BLOOD COUNT 3.48 10^6/uL (4.30-6.10); WHITE BLOOD COUNT 16.8 10^3/uL (4.0-10.0)
[2022-06-21] MEDS: ALBUTEROL SULFATE 2.5MG/0.5ML INH NEB SOLN NEB SCH ×4 (08:09→23:58)
[2022-06-21] MEDS: SODIUM CHLORIDE HYPERTONIC 3% 15ML NEB SOL INH SCH ×4 (08:10→23:58)
[2022-06-21] MEDS: FUROSEMIDE 40MG/4ML VIAL IV SCH (08:23)
[2022-06-21] MEDS: PANTOPRAZOLE 40MG VIAL IV SCH (08:23)
[2022-06-21] MEDS: POTASSIUM CHLORIDE 10% LIQ 20MEQ/15ML UDC NG SCH (08:23)
[2022-06-21] MEDS: TOPIRAMATE 25 MG PO SCH (08:24)
[2022-06-21] MEDS: APIXABAN 5 MG TAB (ELIQUIS) NG SCH ×2 (08:24→20:38)
[2022-06-21] MEDS: METOPROLOL TART 25 MG TABLET NG SCH ×2 (08:24→20:37)
[2022-06-21] MEDS: VANCOMYCIN HCL 750 MG, VIAL MATE ADAPTER 1 EACH in D5W 250 ML IV SCH (08:25)
[2022-06-21 09:04] LABS: ALBUMIN 2.8 G/DL (3.2-5.2); ALKALINE PHOSPHATASE 211 U/L (46-116); ALT/SGPT 42 U/L (7.0-40); AST/SGOT 38 U/L (<34); BILIRUBIN,TOTAL 0.4 MG/DL (0.3-1.2); BLOOD UREA NITROGEN 51 MG/DL (9-23); CALCIUM LEVEL 9.7 MG/DL (8.5-10.1); CARBON DIOXIDE LEVEL 23 MMOL/L (20-31); CHLORIDE LEVEL 112 MMOL/L (98-107); CREATININE FOR GFR 0.76 MG/DL (0.70-1.30); GLOMERULAR FILTRATION RATE > 60.0 (>56); GLUCOSE, FASTING 103 MG/DL (60-100); MAGNESIUM LEVEL 1.7 MG/DL (1.8-2.4); POTASSIUM SERUM 4.2 MMOL/L (3.5-5.1); SODIUM LEVEL 144 MMOL/L (136-145); TOTAL PROTEIN 7.7 G/DL (5.7-8.2)
[2022-06-21 10:07] LABS: ALBUMIN 2.6 G/DL (3.2-5.2); ALKALINE PHOSPHATASE 217 U/L (46-116); ALT/SGPT 41 U/L (7.0-40); AST/SGOT 35 U/L (<34); BILIRUBIN,TOTAL 0.5 MG/DL (0.3-1.2); BLOOD UREA NITROGEN 50 MG/DL (9-23); CALCIUM LEVEL 9.8 MG/DL (8.5-10.1); CARBON DIOXIDE LEVEL 25 MMOL/L (20-31); CHLORIDE LEVEL 108 MMOL/L (98-107); CREATININE FOR GFR 0.78 MG/DL (0.70-1.30); GLOMERULAR FILTRATION RATE > 60.0 (>56); GLUCOSE, FASTING 122 MG/DL (60-100); POTASSIUM SERUM 5.1 MMOL/L (3.5-5.1); SODIUM LEVEL 142 MMOL/L (136-145); TOTAL PROTEIN 7.6 G/DL (5.7-8.2)
[2022-06-21] MEDS: VANCOMYCIN HCL 500 MG in D5W MINI-BAG PLUS 100 ML IV SCH (10:31)
[2022-06-21] MEDS ORDERED: ISOVUE-370 76% 100ML VIAL As Ordered ONE (12:02)
[2022-06-21] MEDS: SODIUM CHLORIDE 0.9% INJ 10 ML SYR IV PRN (18:26)
[2022-06-21] MEDS: LACRILUBE (AKWA TEARS) OPHTH OINT 3.5GM OS SCH (20:38)
[2022-06-22 03:57] VITALS: BP 131/74; TEMP 97.8; O2SAT 98
[2022-06-22] MEDS: LEVOTHYROXINE 112MCG TABLET (0.112MG) NG SCH (06:22)
[2022-06-22] MEDS: SODIUM CHLORIDE 0.9% INJ 10 ML SYR IV SCH ×2 (06:23→18:20)
[2022-06-22 07:03] LABS: BASO # 0.1 10^3/uL (0.0-0.2); BASO % 0.6 % (0.0-1.0); EOS # 0.1 10^3/uL (0.0-0.5); EOS % 0.5 % (0.0-3.0); HEMATOCRIT 32.6 % (42.0-52.0); HEMOGLOBIN 10.3 g/dl (13.5-17.5); LYMPH # 1.7 10^3/uL (1.5-5.0); LYMPH % 10.5 % (24.0-44.0); MEAN CORPUSCULAR HEMOGLOBIN 29.1 pg (27.0-33.0); MEAN CORPUSCULAR HGB CONC 31.6 g/dl (32.0-36.5); MEAN CORPUSCULAR VOLUME 92.1 fl (80.0-96.0); MONO % 6.4 % (2.0-8.0); NEUTROPHILS # 13.1 10^3/uL (1.5-8.5); NEUTROPHILS % 81.1 % (36.0-66.0); PLATELET COUNT, AUTOMATED 386 10^3/uL (150-450); RED BLOOD COUNT 3.54 10^6/uL (4.30-6.10); WHITE BLOOD COUNT 16.1 10^3/uL (4.0-10.0)
[2022-06-22] MEDS: ALBUTEROL SULFATE 2.5MG/0.5ML INH NEB SOLN NEB SCH ×3 (07:29→23:46)
[2022-06-22] MEDS: SODIUM CHLORIDE HYPERTONIC 3% 15ML NEB SOL INH SCH ×3 (07:29→23:47)
[2022-06-22 07:44] LABS: ALBUMIN 2.8 G/DL (3.2-5.2); ALKALINE PHOSPHATASE 206 U/L (46-116); ALT/SGPT 39 U/L (7.0-40); AST/SGOT 34 U/L (<34); BILIRUBIN,TOTAL 0.4 MG/DL (0.3-1.2); BLOOD UREA NITROGEN 48 MG/DL (9-23); CALCIUM LEVEL 9.6 MG/DL (8.5-10.1); CARBON DIOXIDE LEVEL 24 MMOL/L (20-31); CHLORIDE LEVEL 109 MMOL/L (98-107); CREATININE FOR GFR 0.76 MG/DL (0.70-1.30); GLOMERULAR FILTRATION RATE > 60.0 (>56); GLUCOSE, FASTING 113 MG/DL (60-100); MAGNESIUM LEVEL 1.8 MG/DL (1.8-2.4); SODIUM LEVEL 142 MMOL/L (136-145); TOTAL PROTEIN 7.7 G/DL (5.7-8.2)
[2022-06-22 08:30] VITALS: BP 126/78; TEMP 97.8; O2SAT 97
[2022-06-22] MEDS: PANTOPRAZOLE 40MG VIAL IV SCH (08:43)
[2022-06-22] MEDS: METOPROLOL TART 25 MG TABLET NG SCH ×2 (08:44→21:55)
[2022-06-22] MEDS: TOPIRAMATE 25 MG PO SCH (08:44)
[2022-06-22] MEDS: FUROSEMIDE 40MG/4ML VIAL IV SCH (08:44)
[2022-06-22] MEDS: APIXABAN 5 MG TAB (ELIQUIS) NG SCH ×2 (08:45→21:55)
[2022-06-22] MEDS: VANCOMYCIN HCL 750 MG, VIAL MATE ADAPTER 1 EACH in D5W 250 ML IV SCH ×2 (08:58→10:06)
[2022-06-22] MEDS ORDERED: LIDOCAINE 1% MDV 20ML VIAL As Ordered ONE (11:16)
[2022-06-22 13:50] VITALS: BP 129/73; TEMP 97.8; O2SAT 95
[2022-06-22 16:49] VITALS: BP 126/86; TEMP 97.7; O2SAT 97
[2022-06-22 20:35] VITALS: BP 130/70; TEMP 97.2; O2SAT 95
[2022-06-22] MEDS: LACRILUBE (AKWA TEARS) OPHTH OINT 3.5GM OS SCH (21:56)
[2022-06-22 23:34] VITALS: BP 127/81; TEMP 97.5; O2SAT 97
[2022-06-23 03:53] VITALS: BP 143/67; TEMP 98.1; O2SAT 98
[2022-06-23] MEDS: LEVOTHYROXINE 112MCG TABLET (0.112MG) NG SCH (06:01)
[2022-06-23] MEDS: SODIUM CHLORIDE 0.9% INJ 10 ML SYR IV SCH ×2 (06:02→18:00)
[2022-06-23 07:34] VITALS: BP 126/81; TEMP 97.1; O2SAT 95
[2022-06-23] MEDS: ALBUTEROL SULFATE 2.5MG/0.5ML INH NEB SOLN NEB SCH ×3 (07:58→23:19)
[2022-06-23] MEDS: SODIUM CHLORIDE HYPERTONIC 3% 15ML NEB SOL INH SCH ×3 (07:58→23:19)
[2022-06-23 08:14] LABS: BASO # 0.1 10^3/uL (0.0-0.2); BASO % 0.6 % (0.0-1.0); EOS # 0.1 10^3/uL (0.0-0.5); EOS % 0.6 % (0.0-3.0); HEMATOCRIT 33.5 % (42.0-52.0); HEMOGLOBIN 10.6 g/dl (13.5-17.5); LYMPH # 1.7 10^3/uL (1.5-5.0); LYMPH % 10.5 % (24.0-44.0); MEAN CORPUSCULAR HEMOGLOBIN 29.1 pg (27.0-33.0); MEAN CORPUSCULAR HGB CONC 31.6 g/dl (32.0-36.5); MONO # 0.9 10^3/uL (0.0-0.8); MONO % 5.8 % (2.0-8.0); NEUTROPHILS % 81.9 % (36.0-66.0); PLATELET COUNT, AUTOMATED 373 10^3/uL (150-450); RED BLOOD COUNT 3.64 10^6/uL (4.30-6.10); WHITE BLOOD COUNT 15.8 10^3/uL (4.0-10.0)
[2022-06-23 08:32] LABS: VANCOMYCIN LEVEL TROUGH 14.9 UG/ML (10.0-20.0)
[2022-06-23 08:33] LABS: ALBUMIN 2.6 G/DL (3.2-5.2); ALKALINE PHOSPHATASE 200 U/L (46-116); ALT/SGPT 37 U/L (7.0-40); AST/SGOT 33 U/L (<34); BILIRUBIN,TOTAL 0.4 MG/DL (0.3-1.2); BLOOD UREA NITROGEN 49 MG/DL (9-23); CALCIUM LEVEL 9.5 MG/DL (8.5-10.1); CARBON DIOXIDE LEVEL 25 MMOL/L (20-31); CHLORIDE LEVEL 108 MMOL/L (98-107); CREATININE FOR GFR 0.72 MG/DL (0.70-1.30); GLOMERULAR FILTRATION RATE > 60.0 (>56); GLUCOSE, FASTING 118 MG/DL (60-100); MAGNESIUM LEVEL 1.8 MG/DL (1.8-2.4); POTASSIUM SERUM 3.6 MMOL/L (3.5-5.1); SODIUM LEVEL 143 MMOL/L (136-145); TOTAL PROTEIN 7.4 G/DL (5.7-8.2)
[2022-06-23] MEDS: VANCOMYCIN HCL 750 MG, VIAL MATE ADAPTER 1 EACH in D5W 250 ML IV SCH ×2 (09:21→10:32)
[2022-06-23] MEDS: FUROSEMIDE 40MG/4ML VIAL IV SCH (09:28)
[2022-06-23] MEDS: TOPIRAMATE 25 MG PO SCH (09:28)
[2022-06-23] MEDS: PANTOPRAZOLE 40MG VIAL IV SCH (09:28)
[2022-06-23] MEDS: APIXABAN 5 MG TAB (ELIQUIS) NG SCH ×2 (09:29→21:47)
[2022-06-23] MEDS: METOPROLOL TART 25 MG TABLET NG SCH ×2 (09:29→21:47)
[2022-06-23 11:58] VITALS: BP 116/79; TEMP 97.7; O2SAT 93
[2022-06-23 16:00] VITALS: BP 118/76; TEMP 98.6; O2SAT 94
[2022-06-23 20:00] VITALS: BP 121/72; TEMP 98.6; O2SAT 97
[2022-06-23] MEDS: LACRILUBE (AKWA TEARS) OPHTH OINT 3.5GM OS SCH (21:47)
[2022-06-24] VITALS (7 sets, daily range): BP systolic 119–139; BP diastolic 72–85; TEMP 96.9–97.8; O2SAT 92–97
[2022-06-24 06:06] LABS: BASO # 0.1 10^3/uL (0.0-0.2); BASO % 0.5 % (0.0-1.0); EOS # 0.2 10^3/uL (0.0-0.5); EOS % 0.9 % (0.0-3.0); HEMATOCRIT 36.5 % (42.0-52.0); HEMOGLOBIN 11.3 g/dl (13.5-17.5); LYMPH % 11.7 % (24.0-44.0); MEAN CORPUSCULAR HEMOGLOBIN 28.9 pg (27.0-33.0); MEAN CORPUSCULAR VOLUME 93.4 fl (80.0-96.0); MONO # 1.2 10^3/uL (0.0-0.8); MONO % 6.8 % (2.0-8.0); NEUTROPHILS # 13.6 10^3/uL (1.5-8.5); NEUTROPHILS % 79.5 % (36.0-66.0); PLATELET COUNT, AUTOMATED 400 10^3/uL (150-450); RED BLOOD COUNT 3.91 10^6/uL (4.30-6.10); WHITE BLOOD COUNT 17.1 10^3/uL (4.0-10.0)
[2022-06-24] MEDS: ALBUTEROL SULFATE 2.5MG/0.5ML INH NEB SOLN NEB SCH ×3 (06:09→23:14)
[2022-06-24] MEDS: SODIUM CHLORIDE HYPERTONIC 3% 15ML NEB SOL INH SCH ×3 (06:09→23:14)
[2022-06-24 06:22] LABS: ALBUMIN 2.7 G/DL (3.2-5.2); ALKALINE PHOSPHATASE 234 U/L (46-116); ALT/SGPT 43 U/L (7.0-40); AST/SGOT 38 U/L (<34); BILIRUBIN,TOTAL 0.5 MG/DL (0.3-1.2); BLOOD UREA NITROGEN 54 MG/DL (9-23); CALCIUM LEVEL 9.8 MG/DL (8.5-10.1); CARBON DIOXIDE LEVEL 23 MMOL/L (20-31); CHLORIDE LEVEL 106 MMOL/L (98-107); CREATININE FOR GFR 0.79 MG/DL (0.70-1.30); GLOMERULAR FILTRATION RATE > 60.0 (>56); GLUCOSE, FASTING 113 MG/DL (60-100); MAGNESIUM LEVEL 1.8 MG/DL (1.8-2.4); POTASSIUM SERUM 3.4 MMOL/L (3.5-5.1); SODIUM LEVEL 142 MMOL/L (136-145); TOTAL PROTEIN 7.8 G/DL (5.7-8.2)
[2022-06-24] MEDS: LEVOTHYROXINE 112MCG TABLET (0.112MG) NG SCH (07:49)
[2022-06-24] MEDS: SODIUM CHLORIDE 0.9% INJ 10 ML SYR IV SCH ×2 (07:49→17:59)
[2022-06-24] MEDS: PANTOPRAZOLE 40MG VIAL IV SCH (09:16)
[2022-06-24] MEDS: APIXABAN 5 MG TAB (ELIQUIS) NG SCH ×2 (09:16→21:52)
[2022-06-24] MEDS: METOPROLOL TART 25 MG TABLET NG SCH ×2 (09:16→21:53)
[2022-06-24] MEDS: FUROSEMIDE 40MG/4ML VIAL IV SCH (09:17)
[2022-06-24] MEDS: VANCOMYCIN HCL 750 MG, VIAL MATE ADAPTER 1 EACH in D5W 250 ML IV SCH ×2 (09:17→10:28)
[2022-06-24] MEDS: TOPIRAMATE 25 MG PO SCH (09:17)
[2022-06-24] MEDS: LACRILUBE (AKWA TEARS) OPHTH OINT 3.5GM OS SCH (21:53)
[2022-06-25 04:55] VITALS: BP 116/75; TEMP 97.2; O2SAT 88
[2022-06-25 05:51] LABS: BASO # 0.1 10^3/uL (0.0-0.2); BASO % 0.4 % (0.0-1.0); EOS # 0.1 10^3/uL (0.0-0.5); EOS % 0.4 % (0.0-3.0); HEMATOCRIT 41.5 % (42.0-52.0); LYMPH # 2.4 10^3/uL (1.5-5.0); LYMPH % 10.4 % (24.0-44.0); MEAN CORPUSCULAR HGB CONC 31.3 g/dl (32.0-36.5); MEAN CORPUSCULAR VOLUME 92.4 fl (80.0-96.0); MONO # 1.4 10^3/uL (0.0-0.8); NEUTROPHILS % 82.2 % (36.0-66.0); PLATELET COUNT, AUTOMATED 419 10^3/uL (150-450); RED BLOOD COUNT 4.49 10^6/uL (4.30-6.10); WHITE BLOOD COUNT 23.1 10^3/uL (4.0-10.0)
[2022-06-25] MEDS: LEVOTHYROXINE 112MCG TABLET (0.112MG) NG SCH (05:56)
[2022-06-25] MEDS: SODIUM CHLORIDE 0.9% INJ 10 ML SYR IV SCH ×2 (05:57→17:40)
[2022-06-25 05:58] VITALS: O2SAT 97
[2022-06-25 06:21] LABS: ALBUMIN 3.2 G/DL (3.2-5.2); ALKALINE PHOSPHATASE 291 U/L (46-116); ALT/SGPT 61 U/L (7.0-40); AST/SGOT 55 U/L (<34); BILIRUBIN,TOTAL 0.5 MG/DL (0.3-1.2); BLOOD UREA NITROGEN 65 MG/DL (9-23); CALCIUM LEVEL 9.6 MG/DL (8.5-10.1); CARBON DIOXIDE LEVEL 23 MMOL/L (20-31); CHLORIDE LEVEL 104 MMOL/L (98-107); CREATININE FOR GFR 0.87 MG/DL (0.70-1.30); GLOMERULAR FILTRATION RATE > 60.0 (>56); GLUCOSE, FASTING 127 MG/DL (60-100); MAGNESIUM LEVEL 1.8 MG/DL (1.8-2.4); POTASSIUM SERUM 4.4 MMOL/L (3.5-5.1); SODIUM LEVEL 141 MMOL/L (136-145); TOTAL PROTEIN 8.6 G/DL (5.7-8.2)
[2022-06-25 07:53] VITALS: BP 120/65; TEMP 97; O2SAT 98
[2022-06-25] MEDS: ALBUTEROL SULFATE 2.5MG/0.5ML INH NEB SOLN NEB SCH ×3 (08:02→23:16)
[2022-06-25] MEDS: SODIUM CHLORIDE HYPERTONIC 3% 15ML NEB SOL INH SCH ×3 (08:02→23:16)
[2022-06-25] MEDS: TOPIRAMATE 25 MG PO SCH (08:43)
[2022-06-25] MEDS: FUROSEMIDE 40MG/4ML VIAL IV SCH (08:44)
[2022-06-25] MEDS: PANTOPRAZOLE 40MG VIAL IV SCH (08:44)
[2022-06-25] MEDS: APIXABAN 5 MG TAB (ELIQUIS) NG SCH ×2 (08:44→21:02)
[2022-06-25] MEDS: METOPROLOL TART 25 MG TABLET NG SCH ×2 (08:44→21:04)
[2022-06-25] MEDS: VANCOMYCIN HCL 750 MG, VIAL MATE ADAPTER 1 EACH in D5W 250 ML IV SCH ×2 (08:45→10:18)
[2022-06-25 11:59] VITALS: BP 113/80; TEMP 97.2; O2SAT 99
[2022-06-25] MEDS ORDERED: ISOVUE-370 76% 100ML VIAL As Ordered ONE (12:42)
[2022-06-25 15:06] VITALS: BP 115/70; TEMP 97.7; O2SAT 99
[2022-06-25] MEDS: SODIUM CHLORIDE 0.9% INJ 10 ML SYR IV PRN (17:41)
[2022-06-25] MEDS: LACRILUBE (AKWA TEARS) OPHTH OINT 3.5GM OS SCH (21:03)
[2022-06-25 21:07] VITALS: BP 129/62; TEMP 97.9; O2SAT 99
[2022-06-26] VITALS: BP 116/62; TEMP 97.7; O2SAT 99
[2022-06-26 04:19] VITALS: BP 131/69; TEMP 97.5; O2SAT 99
[2022-06-26] MEDS: LEVOTHYROXINE 112MCG TABLET (0.112MG) NG SCH (06:31)
[2022-06-26] MEDS: SODIUM CHLORIDE 0.9% INJ 10 ML SYR IV SCH ×2 (06:32→18:10)
[2022-06-26 07:33] VITALS: BP 127/65; TEMP 97.6; O2SAT 95
[2022-06-26] MEDS: ALBUTEROL SULFATE 2.5MG/0.5ML INH NEB SOLN NEB SCH ×3 (07:36→19:24)
[2022-06-26] MEDS: SODIUM CHLORIDE HYPERTONIC 3% 15ML NEB SOL INH SCH ×3 (07:36→19:24)
[2022-06-26 08:13] LABS: BASO # 0.1 10^3/uL (0.0-0.2); BASO % 0.6 % (0.0-1.0); EOS # 0.7 10^3/uL (0.0-0.5); EOS % 3.3 % (0.0-3.0); HEMATOCRIT 37.4 % (42.0-52.0); HEMOGLOBIN 11.9 g/dl (13.5-17.5); LYMPH # 2.1 10^3/uL (1.5-5.0); LYMPH % 10.4 % (24.0-44.0); MEAN CORPUSCULAR HGB CONC 31.8 g/dl (32.0-36.5); MEAN CORPUSCULAR VOLUME 91.2 fl (80.0-96.0); MONO # 1.1 10^3/uL (0.0-0.8); MONO % 5.6 % (2.0-8.0); NEUTROPHILS # 16.1 10^3/uL (1.5-8.5); NEUTROPHILS % 79.6 % (36.0-66.0); PLATELET COUNT, AUTOMATED 383 10^3/uL (150-450); WHITE BLOOD COUNT 20.2 10^3/uL (4.0-10.0)
[2022-06-26 08:47] LABS: ALBUMIN 2.8 G/DL (3.2-5.2); ALKALINE PHOSPHATASE 277 U/L (46-116); ALT/SGPT 59 U/L (7.0-40); AST/SGOT 39 U/L (<34); BILIRUBIN,TOTAL 0.5 MG/DL (0.3-1.2); BLOOD UREA NITROGEN 70 MG/DL (9-23); CARBON DIOXIDE LEVEL 25 MMOL/L (20-31); CHLORIDE LEVEL 103 MMOL/L (98-107); CREATININE FOR GFR 0.87 MG/DL (0.70-1.30); GLOMERULAR FILTRATION RATE > 60.0 (>56); GLUCOSE, FASTING 131 MG/DL (60-100); MAGNESIUM LEVEL 1.9 MG/DL (1.8-2.4); POTASSIUM SERUM 3.1 MMOL/L (3.5-5.1); SODIUM LEVEL 140 MMOL/L (136-145)
[2022-06-26] MEDS: METOPROLOL TART 25 MG TABLET NG SCH ×2 (08:57→20:55)
[2022-06-26] MEDS: APIXABAN 5 MG TAB (ELIQUIS) NG SCH ×2 (08:57→20:55)
[2022-06-26] MEDS: TOPIRAMATE 25 MG PO SCH (08:57)
[2022-06-26] MEDS: PANTOPRAZOLE 40MG VIAL IV SCH (08:58)
[2022-06-26] MEDS: FUROSEMIDE 40MG/4ML VIAL IV SCH (08:58)
[2022-06-26] MEDS: VANCOMYCIN HCL 750 MG, VIAL MATE ADAPTER 1 EACH in D5W 250 ML IV SCH (09:04)
[2022-06-26] MEDS: VANCOMYCIN HCL 500 MG in D5W MINI-BAG PLUS 100 ML IV SCH (10:22)
[2022-06-26 11:50] VITALS: BP 129/74; TEMP 97.6; O2SAT 98
[2022-06-26] MEDS: POTASSIUM CHLORIDE 10% LIQ 20MEQ/15ML UDC GT SCH ×2 (12:33→20:54)
[2022-06-26] MEDS: SODIUM CHLORIDE 0.9% INJ 10 ML SYR IV PRN (12:43)
[2022-06-26 16:28] VITALS: BP 120/58; TEMP 98.1; O2SAT 97
[2022-06-26 19:45] VITALS: BP 131/68; TEMP 97.8; O2SAT 96
[2022-06-26] MEDS: LACRILUBE (AKWA TEARS) OPHTH OINT 3.5GM OS SCH (20:55)
[2022-06-27] VITALS (7 sets, daily range): BP systolic 120–133; BP diastolic 59–75; TEMP 96.7–98.4; O2SAT 98–100
[2022-06-27] MEDS: LEVOTHYROXINE 112MCG TABLET (0.112MG) NG SCH (05:48)
[2022-06-27] MEDS: SODIUM CHLORIDE 0.9% INJ 10 ML SYR IV SCH ×2 (05:49→18:58)
[2022-06-27 06:51] LABS: BASO # 0.1 10^3/uL (0.0-0.2); BASO % 0.5 % (0.0-1.0); EOS # 0.9 10^3/uL (0.0-0.5); EOS % 5.8 % (0.0-3.0); HEMATOCRIT 34.3 % (42.0-52.0); HEMOGLOBIN 10.9 g/dl (13.5-17.5); LYMPH # 1.6 10^3/uL (1.5-5.0); LYMPH % 10.6 % (24.0-44.0); MEAN CORPUSCULAR HEMOGLOBIN 28.9 pg (27.0-33.0); MEAN CORPUSCULAR HGB CONC 31.8 g/dl (32.0-36.5); MONO # 0.8 10^3/uL (0.0-0.8); MONO % 5.3 % (2.0-8.0); NEUTROPHILS # 11.8 10^3/uL (1.5-8.5); NEUTROPHILS % 77.1 % (36.0-66.0); PLATELET COUNT, AUTOMATED 296 10^3/uL (150-450); RED BLOOD COUNT 3.77 10^6/uL (4.30-6.10); WHITE BLOOD COUNT 15.2 10^3/uL (4.0-10.0)
[2022-06-27 07:25] LABS: ALBUMIN 2.6 G/DL (3.2-5.2); ALKALINE PHOSPHATASE 257 U/L (46-116); ALT/SGPT 53 U/L (7.0-40); AST/SGOT 36 U/L (<34); BILIRUBIN,TOTAL 0.4 MG/DL (0.3-1.2); BLOOD UREA NITROGEN 73 MG/DL (9-23); CALCIUM LEVEL 9.5 MG/DL (8.5-10.1); CARBON DIOXIDE LEVEL 25 MMOL/L (20-31); CHLORIDE LEVEL 106 MMOL/L (98-107); CREATININE FOR GFR 0.76 MG/DL (0.70-1.30); GLOMERULAR FILTRATION RATE > 60.0 (>56); GLUCOSE, FASTING 126 MG/DL (60-100); POTASSIUM SERUM 3.4 MMOL/L (3.5-5.1); SODIUM LEVEL 141 MMOL/L (136-145); TOTAL PROTEIN 7.5 G/DL (5.7-8.2)
[2022-06-27] MEDS: SODIUM CHLORIDE HYPERTONIC 3% 15ML NEB SOL INH SCH ×3 (08:44→23:05)
[2022-06-27] MEDS: ALBUTEROL SULFATE 2.5MG/0.5ML INH NEB SOLN NEB SCH ×3 (08:44→23:05)
[2022-06-27] MEDS: PANTOPRAZOLE 40MG VIAL IV SCH (08:58)
[2022-06-27] MEDS: FUROSEMIDE 40MG/4ML VIAL IV SCH (08:58)
[2022-06-27] MEDS: VANCOMYCIN HCL 750 MG, VIAL MATE ADAPTER 1 EACH in D5W 250 ML IV SCH (08:58)
[2022-06-27] MEDS: METOPROLOL TART 25 MG TABLET NG SCH ×2 (08:59→20:42)
[2022-06-27] MEDS: TOPIRAMATE 25 MG PO SCH (09:00)
[2022-06-27] MEDS: APIXABAN 5 MG TAB (ELIQUIS) NG SCH ×2 (09:00→20:42)
[2022-06-27] MEDS: VANCOMYCIN HCL 500 MG in D5W MINI-BAG PLUS 100 ML IV SCH (10:16)
[2022-06-27] MEDS ORDERED: POTASSIUM CHLORIDE 10% LIQ 20MEQ/15ML UDC GT ONE (11:00)
[2022-06-27] MEDS ORDERED: POTASSIUM CHLORIDE 10% LIQ 20MEQ/15ML UDC NG ONE (12:30)
[2022-06-27] MEDS: LACRILUBE (AKWA TEARS) OPHTH OINT 3.5GM OS SCH (20:43)
[2022-06-28 04:00] VITALS: BP 121/70; TEMP 97.1; O2SAT 98
[2022-06-28] MEDS: SODIUM CHLORIDE 0.9% INJ 10 ML SYR IV SCH ×2 (05:31→18:20)
[2022-06-28] MEDS: LEVOTHYROXINE 112MCG TABLET (0.112MG) NG SCH (05:31)
[2022-06-28] MEDS: SODIUM CHLORIDE 0.9% INJ 10 ML SYR IV PRN (05:31)
[2022-06-28 07:11] LABS: BASO # 0.1 10^3/uL (0.0-0.2); BASO % 0.4 % (0.0-1.0); EOS # 0.5 10^3/uL (0.0-0.5); EOS % 3.5 % (0.0-3.0); HEMATOCRIT 36.4 % (42.0-52.0); HEMOGLOBIN 11.6 g/dl (13.5-17.5); LYMPH # 1.4 10^3/uL (1.5-5.0); LYMPH % 10.4 % (24.0-44.0); MEAN CORPUSCULAR HEMOGLOBIN 29.1 pg (27.0-33.0); MEAN CORPUSCULAR HGB CONC 31.9 g/dl (32.0-36.5); MEAN CORPUSCULAR VOLUME 91.5 fl (80.0-96.0); MONO # 0.6 10^3/uL (0.0-0.8); MONO % 4.4 % (2.0-8.0); NEUTROPHILS # 10.9 10^3/uL (1.5-8.5); NEUTROPHILS % 80.8 % (36.0-66.0); PLATELET COUNT, AUTOMATED 173 10^3/uL (150-450); RED BLOOD COUNT 3.98 10^6/uL (4.30-6.10); WHITE BLOOD COUNT 13.5 10^3/uL (4.0-10.0)
[2022-06-28 07:27] LABS: ALBUMIN 2.7 G/DL (3.2-5.2); ALKALINE PHOSPHATASE 261 U/L (46-116); ALT/SGPT 44 U/L (7.0-40); AST/SGOT 38 U/L (<34); BILIRUBIN,TOTAL 0.4 MG/DL (0.3-1.2); BLOOD UREA NITROGEN 64 MG/DL (9-23); CARBON DIOXIDE LEVEL 25 MMOL/L (20-31); CHLORIDE LEVEL 104 MMOL/L (98-107); CREATININE FOR GFR 0.67 MG/DL (0.70-1.30); GLOMERULAR FILTRATION RATE > 60.0 (>56); GLUCOSE, FASTING 128 MG/DL (60-100); MAGNESIUM LEVEL 1.9 MG/DL (1.8-2.4); POTASSIUM SERUM 4.2 MMOL/L (3.5-5.1); SODIUM LEVEL 139 MMOL/L (136-145); TOTAL PROTEIN 7.7 G/DL (5.7-8.2)
[2022-06-28] MEDS: ALBUTEROL SULFATE 2.5MG/0.5ML INH NEB SOLN NEB SCH ×3 (08:42→23:19)
[2022-06-28] MEDS: SODIUM CHLORIDE HYPERTONIC 3% 15ML NEB SOL INH SCH ×3 (08:42→23:19)
[2022-06-28 09:00] VITALS: BP 143/70; TEMP 97.6; O2SAT 99
[2022-06-28] MEDS ORDERED: E-Z-PAQUE 96% w/w SUSP 176GM BTL As Ordered ONE (09:10)
[2022-06-28] MEDS ORDERED: E-Z-GAS II EFFERVESCENT PACKET (SODIUM BICARB./CITRIC ACID/SIMETHICONE) As Ordered ONE (09:10)
[2022-06-28] MEDS ORDERED: E-Z-HD 98% w/w 340GM SUSP BTL As Ordered ONE (09:11)
[2022-06-28] MEDS ORDERED: VARIBAR NECTAR 40% w/v 240ML SUSP BTL As Ordered ONE (09:13)
[2022-06-28] MEDS ORDERED: BARIUM SULFATE 700 MG TABLET (E-Z-DISK) As Ordered ONE (09:13)
[2022-06-28] MEDS ORDERED: VARIBAR PUDDING 40% w/v 230ML TUBE As Ordered ONE (09:13)
[2022-06-28] MEDS: PANTOPRAZOLE 40MG VIAL IV SCH (10:49)
[2022-06-28] MEDS: FUROSEMIDE 40MG/4ML VIAL IV SCH (10:49)
[2022-06-28] MEDS: TOPIRAMATE 25 MG PO SCH (10:50)
[2022-06-28] MEDS: APIXABAN 5 MG TAB (ELIQUIS) NG SCH ×2 (10:50→20:37)
[2022-06-28] MEDS: METOPROLOL TART 25 MG TABLET NG SCH ×2 (10:51→20:37)
[2022-06-28] MEDS: VANCOMYCIN HCL 750 MG, VIAL MATE ADAPTER 1 EACH in D5W 250 ML IV SCH (10:51)
[2022-06-28 12:00] VITALS: BP 123/68; TEMP 97.2; O2SAT 99
[2022-06-28] MEDS: VANCOMYCIN HCL 500 MG in D5W MINI-BAG PLUS 100 ML IV SCH (12:22)
[2022-06-28 15:30] VITALS: BP 130/74; TEMP 97.6; O2SAT 98
[2022-06-28] MEDS: ACETAMINOPHEN 325MG/10.15ML UDC GT PRN (18:20)
[2022-06-28 20:02] VITALS: BP 113/65; TEMP 97.4; O2SAT 97
[2022-06-28] MEDS: LACRILUBE (AKWA TEARS) OPHTH OINT 3.5GM OS SCH (20:38)
[2022-06-29 00:24] VITALS: BP 116/65; TEMP 97.2; O2SAT 96
[2022-06-29 04:20] VITALS: BP 117/72; TEMP 96.3; O2SAT 98
[2022-06-29] MEDS: SODIUM CHLORIDE 0.9% INJ 10 ML SYR IV SCH ×2 (06:12→18:26)
[2022-06-29] MEDS: LEVOTHYROXINE 112MCG TABLET (0.112MG) NG SCH (06:13)
[2022-06-29 07:38] VITALS: BP 137/69; TEMP 97.6; O2SAT 98
[2022-06-29] MEDS: ALBUTEROL SULFATE 2.5MG/0.5ML INH NEB SOLN NEB SCH ×3 (07:49→23:06)
[2022-06-29] MEDS: SODIUM CHLORIDE HYPERTONIC 3% 15ML NEB SOL INH SCH ×3 (07:49→23:06)
[2022-06-29 08:44] LABS: VANCOMYCIN LEVEL TROUGH 16.7 UG/ML (10.0-20.0)
[2022-06-29 09:22] LABS: BASO # 0.1 10^3/uL (0.0-0.2); BASO % 0.3 % (0.0-1.0); EOS # 0.3 10^3/uL (0.0-0.5); EOS % 2.1 % (0.0-3.0); HEMATOCRIT 34.8 % (42.0-52.0); HEMOGLOBIN 10.9 g/dl (13.5-17.5); LYMPH # 1.7 10^3/uL (1.5-5.0); LYMPH % 11.8 % (24.0-44.0); MEAN CORPUSCULAR HEMOGLOBIN 28.6 pg (27.0-33.0); MEAN CORPUSCULAR HGB CONC 31.3 g/dl (32.0-36.5); MEAN CORPUSCULAR VOLUME 91.3 fl (80.0-96.0); MONO # 0.9 10^3/uL (0.0-0.8); MONO % 6.2 % (2.0-8.0); NEUTROPHILS # 11.5 10^3/uL (1.5-8.5); NEUTROPHILS % 78.9 % (36.0-66.0); PLATELET COUNT, AUTOMATED 283 10^3/uL (150-450); RED BLOOD COUNT 3.81 10^6/uL (4.30-6.10); WHITE BLOOD COUNT 14.5 10^3/uL (4.0-10.0)
[2022-06-29] MEDS: APIXABAN 5 MG TAB (ELIQUIS) NG SCH (09:22)
[2022-06-29] MEDS: VANCOMYCIN HCL 750 MG, VIAL MATE ADAPTER 1 EACH in D5W 250 ML IV SCH (09:22)
[2022-06-29] MEDS: METOPROLOL TART 25 MG TABLET NG SCH ×2 (09:22→21:13)
[2022-06-29] MEDS: FUROSEMIDE 40MG/4ML VIAL IV SCH (09:22)
[2022-06-29] MEDS: PANTOPRAZOLE 40MG VIAL IV SCH (09:22)
[2022-06-29] MEDS: TOPIRAMATE 25 MG PO SCH (09:22)
[2022-06-29 09:43] LABS: ALBUMIN 2.9 G/DL (3.2-5.2); ALKALINE PHOSPHATASE 255 U/L (46-116); ALT/SGPT 57 U/L (7.0-40); AST/SGOT 44 U/L (<34); BILIRUBIN,TOTAL 0.4 MG/DL (0.3-1.2); BLOOD UREA NITROGEN 56 MG/DL (9-23); CALCIUM LEVEL 9.8 MG/DL (8.5-10.1); CARBON DIOXIDE LEVEL 25 MMOL/L (20-31); CHLORIDE LEVEL 105 MMOL/L (98-107); CREATININE FOR GFR 0.71 MG/DL (0.70-1.30); GLOMERULAR FILTRATION RATE > 60.0 (>56); GLUCOSE, FASTING 119 MG/DL (60-100); MAGNESIUM LEVEL 1.9 MG/DL (1.8-2.4); POTASSIUM SERUM 2.9 MMOL/L (3.5-5.1); SODIUM LEVEL 141 MMOL/L (136-145); TOTAL PROTEIN 7.4 G/DL (5.7-8.2)
[2022-06-29] MEDS ORDERED: KCL 10MEQ/100ML SWI (KRUN) 10 MEQ in IV 1 EA IV SCH (10:00)
[2022-06-29] MEDS ORDERED: POTASSIUM CHLORIDE 10% LIQ 20MEQ/15ML UDC NG ONE (10:30)
[2022-06-29] MEDS: VANCOMYCIN HCL 500 MG in D5W MINI-BAG PLUS 100 ML IV SCH (10:43)
[2022-06-29 11:36] VITALS: BP 116/74; TEMP 97.3; O2SAT 98
[2022-06-29 12:45] LABS: BLOOD UREA NITROGEN 53 MG/DL (9-23); CALCIUM LEVEL 9.3 MG/DL (8.5-10.1); CARBON DIOXIDE LEVEL 26 MMOL/L (20-31); CHLORIDE LEVEL 104 MMOL/L (98-107); CREATININE FOR GFR 0.69 MG/DL (0.70-1.30); GLOMERULAR FILTRATION RATE > 60.0 (>56); GLUCOSE, FASTING 115 MG/DL (60-100); POTASSIUM SERUM 3.6 MMOL/L (3.5-5.1); SODIUM LEVEL 140 MMOL/L (136-145)
[2022-06-29 16:45] VITALS: BP 131/76; TEMP 96.6; O2SAT 96
[2022-06-29 20:42] VITALS: BP 150/79; TEMP 98.5; O2SAT 97
[2022-06-29] MEDS: LACRILUBE (AKWA TEARS) OPHTH OINT 3.5GM OS SCH (21:13)
[2022-06-30 00:37] VITALS: BP 115/68; TEMP 97.5; O2SAT 95
[2022-06-30 04:00] VITALS: BP 120/85; TEMP 97.2; O2SAT 96
[2022-06-30] MEDS: LEVOTHYROXINE 112MCG TABLET (0.112MG) NG SCH (05:34)
[2022-06-30] MEDS: SODIUM CHLORIDE 0.9% INJ 10 ML SYR IV SCH ×2 (05:34→18:45)
[2022-06-30 07:01] LABS: ALKALINE PHOSPHATASE 267 U/L (46-116); ALT/SGPT 70 U/L (7.0-40); AST/SGOT 56 U/L (<34); BILIRUBIN,TOTAL 0.4 MG/DL (0.3-1.2); BLOOD UREA NITROGEN 52 MG/DL (9-23); CALCIUM LEVEL 10.1 MG/DL (8.5-10.1); CARBON DIOXIDE LEVEL 25 MMOL/L (20-31); CHLORIDE LEVEL 106 MMOL/L (98-107); CREATININE FOR GFR 0.74 MG/DL (0.70-1.30); GLOMERULAR FILTRATION RATE > 60.0 (>56); GLUCOSE, FASTING 116 MG/DL (60-100); MAGNESIUM LEVEL 1.8 MG/DL (1.8-2.4); POTASSIUM SERUM 4.1 MMOL/L (3.5-5.1); SODIUM LEVEL 141 MMOL/L (136-145); TOTAL PROTEIN 7.7 G/DL (5.7-8.2)
[2022-06-30 07:13] LABS: BASO # 0.1 10^3/uL (0.0-0.2); BASO % 0.3 % (0.0-1.0); EOS # 0.4 10^3/uL (0.0-0.5); EOS % 2.8 % (0.0-3.0); HEMOGLOBIN 10.9 g/dl (13.5-17.5); LYMPH # 1.6 10^3/uL (1.5-5.0); LYMPH % 11.1 % (24.0-44.0); MEAN CORPUSCULAR HEMOGLOBIN 28.4 pg (27.0-33.0); MEAN CORPUSCULAR HGB CONC 31.1 g/dl (32.0-36.5); MEAN CORPUSCULAR VOLUME 91.1 fl (80.0-96.0); MONO % 6.5 % (2.0-8.0); NEUTROPHILS # 11.6 10^3/uL (1.5-8.5); NEUTROPHILS % 78.6 % (36.0-66.0); PLATELET COUNT, AUTOMATED 269 10^3/uL (150-450); RED BLOOD COUNT 3.84 10^6/uL (4.30-6.10); WHITE BLOOD COUNT 14.7 10^3/uL (4.0-10.0)
[2022-06-30] MEDS: SODIUM CHLORIDE HYPERTONIC 3% 15ML NEB SOL INH SCH ×2 (07:39→15:00)
[2022-06-30] MEDS: ALBUTEROL SULFATE 2.5MG/0.5ML INH NEB SOLN NEB SCH ×2 (07:39→15:00)
[2022-06-30 07:52] VITALS: BP 126/66; TEMP 97.7; O2SAT 96
[2022-06-30] MEDS ORDERED: POTASSIUM CHLORIDE 10% LIQ 20MEQ/15ML UDC PO SCH (09:00)
[2022-06-30] MEDS: PANTOPRAZOLE 40MG VIAL IV SCH (10:25)
[2022-06-30] MEDS: METOPROLOL TART 25 MG TABLET NG SCH ×2 (10:25→21:01)
[2022-06-30] MEDS: FUROSEMIDE 40MG/4ML VIAL IV SCH (10:26)
[2022-06-30] MEDS: VANCOMYCIN HCL 750 MG, VIAL MATE ADAPTER 1 EACH in D5W 250 ML IV SCH (10:27)
[2022-06-30] MEDS: TOPIRAMATE 25 MG PO SCH (10:28)
[2022-06-30] MEDS: VANCOMYCIN HCL 500 MG in D5W MINI-BAG PLUS 100 ML IV SCH (11:46)
[2022-06-30 12:26] VITALS: BP 118/68; TEMP 97.2; O2SAT 94
[2022-06-30 17:00] VITALS: BP 127/71; TEMP 97.3; O2SAT 98
[2022-06-30 20:30] VITALS: BP 122/70; TEMP 97.5; O2SAT 97
[2022-06-30] MEDS: LACRILUBE (AKWA TEARS) OPHTH OINT 3.5GM OS SCH (21:01)
[2022-07-01] VITALS (7 sets, daily range): BP systolic 114–139; BP diastolic 59–80; TEMP 97–97.8; O2SAT 93–97
[2022-07-01] MEDS: SODIUM CHLORIDE HYPERTONIC 3% 15ML NEB SOL INH SCH ×4 (00:57→15:01)
[2022-07-01] MEDS: ALBUTEROL SULFATE 2.5MG/0.5ML INH NEB SOLN NEB SCH ×4 (00:57→15:00)
[2022-07-01] MEDS: SODIUM CHLORIDE 0.9% INJ 10 ML SYR IV SCH ×2 (05:27→17:16)
[2022-07-01] MEDS: LEVOTHYROXINE 112MCG TABLET (0.112MG) NG SCH (05:27)
[2022-07-01 07:19] LABS: BASO # 0.1 10^3/uL (0.0-0.2); BASO % 0.4 % (0.0-1.0); EOS # 0.4 10^3/uL (0.0-0.5); EOS % 3.3 % (0.0-3.0); HEMATOCRIT 33.6 % (42.0-52.0); HEMOGLOBIN 10.8 g/dl (13.5-17.5); LYMPH # 1.8 10^3/uL (1.5-5.0); LYMPH % 14.7 % (24.0-44.0); MEAN CORPUSCULAR HGB CONC 32.1 g/dl (32.0-36.5); MEAN CORPUSCULAR VOLUME 90.3 fl (80.0-96.0); MONO # 0.8 10^3/uL (0.0-0.8); MONO % 6.3 % (2.0-8.0); NEUTROPHILS # 9.2 10^3/uL (1.5-8.5); NEUTROPHILS % 74.6 % (36.0-66.0); PLATELET COUNT, AUTOMATED 240 10^3/uL (150-450); RED BLOOD COUNT 3.72 10^6/uL (4.30-6.10); WHITE BLOOD COUNT 12.3 10^3/uL (4.0-10.0)
[2022-07-01 07:56] LABS: ALBUMIN 2.7 G/DL (3.2-5.2); ALKALINE PHOSPHATASE 259 U/L (46-116); ALT/SGPT 74 U/L (7.0-40); AST/SGOT 53 U/L (<34); BILIRUBIN,TOTAL 0.5 MG/DL (0.3-1.2); BLOOD UREA NITROGEN 51 MG/DL (9-23); CALCIUM LEVEL 10.2 MG/DL (8.5-10.1); CARBON DIOXIDE LEVEL 27 MMOL/L (20-31); CHLORIDE LEVEL 104 MMOL/L (98-107); CREATININE FOR GFR 0.78 MG/DL (0.70-1.30); GLOMERULAR FILTRATION RATE > 60.0 (>56); GLUCOSE, FASTING 113 MG/DL (60-100); MAGNESIUM LEVEL 1.8 MG/DL (1.8-2.4); POTASSIUM SERUM 2.9 MMOL/L (3.5-5.1); SODIUM LEVEL 140 MMOL/L (136-145); TOTAL PROTEIN 7.3 G/DL (5.7-8.2)
[2022-07-01] MEDS: METOPROLOL TART 25 MG TABLET NG SCH ×2 (09:00→20:43)
[2022-07-01] MEDS: POTASSIUM CHLORIDE 10% LIQ 20MEQ/15ML UDC PO SCH (09:00)
[2022-07-01] MEDS: TOPIRAMATE 25 MG PO SCH (09:00)
[2022-07-01] MEDS ORDERED: LIDOCAINE 2% MDV 20ML VIAL As Ordered ONE (09:15)
[2022-07-01] MEDS ORDERED: fentaNYL 100 MCG/2 ML INJECTION As Ordered ONE (09:15)
[2022-07-01] MEDS ORDERED: propofoL 200 MG/20 ML VIAL As Ordered ONE (09:15)
[2022-07-01] MEDS: FUROSEMIDE 40MG/4ML VIAL IV SCH (09:25)
[2022-07-01] MEDS: PANTOPRAZOLE 40MG VIAL IV SCH (09:25)
[2022-07-01] MEDS: VANCOMYCIN HCL 750 MG, VIAL MATE ADAPTER 1 EACH in D5W 250 ML IV SCH (09:26)
[2022-07-01] MEDS: KCL 20MEQ IN 100ML SWI (KRUN) 20 MEQ in IV 1 EA IV SCH ×4 (09:32→10:36)
[2022-07-01] MEDS ORDERED: MAG SULF 1GM/100ML (MAG RUN) 1 GM in IV 1 EA IV ONE (10:00)
[2022-07-01] MEDS: VANCOMYCIN HCL 500 MG in D5W MINI-BAG PLUS 100 ML IV SCH (10:36)
[2022-07-01] MEDS: LIDOCAINE 4% CREAM 5GM (LMX4) TOP PRN (14:32)
[2022-07-01 19:33] LABS: BLOOD UREA NITROGEN 45 MG/DL (9-23); CALCIUM LEVEL 10.1 MG/DL (8.5-10.1); CARBON DIOXIDE LEVEL 25 MMOL/L (20-31); CHLORIDE LEVEL 104 MMOL/L (98-107); CREATININE FOR GFR 0.79 MG/DL (0.70-1.30); GLOMERULAR FILTRATION RATE > 60.0 (>56); GLUCOSE, FASTING 107 MG/DL (60-100); POTASSIUM SERUM 3.2 MMOL/L (3.5-5.1); SODIUM LEVEL 139 MMOL/L (136-145)
[2022-07-01] MEDS ORDERED: POTASSIUM CHLORIDE 10% LIQ 20MEQ/15ML UDC PO ONE (20:35)
[2022-07-01] MEDS: LACRILUBE (AKWA TEARS) OPHTH OINT 3.5GM OS SCH (21:00)
[2022-07-02] MEDS: SODIUM CHLORIDE HYPERTONIC 3% 15ML NEB SOL INH SCH ×4 (00:32→23:51)
[2022-07-02] MEDS: ALBUTEROL SULFATE 2.5MG/0.5ML INH NEB SOLN NEB SCH ×4 (00:32→23:51)
[2022-07-02 04:17] VITALS: BP 141/68; TEMP 97.8; O2SAT 96
[2022-07-02] MEDS: SODIUM CHLORIDE 0.9% INJ 10 ML SYR IV SCH ×2 (05:43→17:57)
[2022-07-02] MEDS: LEVOTHYROXINE 112MCG TABLET (0.112MG) NG SCH (05:43)
[2022-07-02 07:39] VITALS: BP 119/70; TEMP 97.3; O2SAT 100
[2022-07-02 07:55] LABS: BASO % 0.3 % (0.0-1.0); EOS # 0.3 10^3/uL (0.0-0.5); EOS % 2.4 % (0.0-3.0); HEMATOCRIT 34.9 % (42.0-52.0); HEMOGLOBIN 10.9 g/dl (13.5-17.5); LYMPH # 1.6 10^3/uL (1.5-5.0); LYMPH % 13.6 % (24.0-44.0); MEAN CORPUSCULAR HEMOGLOBIN 28.6 pg (27.0-33.0); MEAN CORPUSCULAR HGB CONC 31.2 g/dl (32.0-36.5); MEAN CORPUSCULAR VOLUME 91.6 fl (80.0-96.0); MONO # 0.7 10^3/uL (0.0-0.8); NEUTROPHILS # 9.3 10^3/uL (1.5-8.5); NEUTROPHILS % 77.2 % (36.0-66.0); PLATELET COUNT, AUTOMATED 237 10^3/uL (150-450); RED BLOOD COUNT 3.81 10^6/uL (4.30-6.10); WHITE BLOOD COUNT 12.1 10^3/uL (4.0-10.0)
[2022-07-02 08:22] LABS: ALBUMIN 2.5 G/DL (3.2-5.2); ALKALINE PHOSPHATASE 276 U/L (46-116); ALT/SGPT 82 U/L (7.0-40); AST/SGOT 52 U/L (<34); BILIRUBIN,TOTAL 0.4 MG/DL (0.3-1.2); BLOOD UREA NITROGEN 45 MG/DL (9-23); CALCIUM LEVEL 9.4 MG/DL (8.5-10.1); CARBON DIOXIDE LEVEL 24 MMOL/L (20-31); CHLORIDE LEVEL 103 MMOL/L (98-107); CREATININE FOR GFR 0.76 MG/DL (0.70-1.30); GLOMERULAR FILTRATION RATE > 60.0 (>56); GLUCOSE, FASTING 118 MG/DL (60-100); MAGNESIUM LEVEL 1.9 MG/DL (1.8-2.4); POTASSIUM SERUM 3.5 MMOL/L (3.5-5.1); SODIUM LEVEL 139 MMOL/L (136-145); TOTAL PROTEIN 7.1 G/DL (5.7-8.2)
[2022-07-02] MEDS: PANTOPRAZOLE 40MG VIAL IV SCH (09:41)
[2022-07-02] MEDS: FUROSEMIDE 40MG/4ML VIAL IV SCH (09:41)
[2022-07-02] MEDS: TOPIRAMATE 25 MG PO SCH (09:42)
[2022-07-02] MEDS: POTASSIUM CHLORIDE 10% LIQ 20MEQ/15ML UDC PO SCH (09:42)
[2022-07-02] MEDS: APIXABAN 5 MG TAB (ELIQUIS) NG SCH ×2 (09:43→20:26)
[2022-07-02] MEDS: METOPROLOL TART 25 MG TABLET NG SCH ×2 (09:43→20:26)
[2022-07-02] MEDS: VANCOMYCIN HCL 750 MG, VIAL MATE ADAPTER 1 EACH in D5W 250 ML IV SCH (09:43)
[2022-07-02] MEDS: LIDOCAINE 4% CREAM 5GM (LMX4) TOP PRN (10:04)
[2022-07-02] MEDS: VANCOMYCIN HCL 500 MG in D5W MINI-BAG PLUS 100 ML IV SCH (11:37)
[2022-07-02 11:48] VITALS: BP 116/72; TEMP 97; O2SAT 99
[2022-07-02] MEDS: SODIUM CHLORIDE 0.9% INJ 10 ML SYR IV PRN (13:03)
[2022-07-02] MEDS: DOXYCYCLINE HYCLATE 100MG TABLET PEG SCH ×2 (13:49→20:26)
[2022-07-02 15:08] VITALS: BP 119/56; TEMP 96.8; O2SAT 98
[2022-07-02] MEDS: SERTRALINE HCL 50 MG TAB PEG SCH (18:29)
[2022-07-02 19:50] VITALS: BP 122/66; TEMP 98.4; O2SAT 99
[2022-07-02] MEDS: ACETAMINOPHEN 325MG/10.15ML UDC GT PRN (20:26)
[2022-07-02] MEDS: LACRILUBE (AKWA TEARS) OPHTH OINT 3.5GM OS SCH (20:38)
[2022-07-03 00:24] VITALS: BP 123/57; TEMP 97.6; O2SAT 97
[2022-07-03 04:44] LABS: BASO # 0.1 10^3/uL (0.0-0.2); BASO % 0.4 % (0.0-1.0); EOS # 0.5 10^3/uL (0.0-0.5); EOS % 3.8 % (0.0-3.0); HEMATOCRIT 32.3 % (42.0-52.0); HEMOGLOBIN 10.2 g/dl (13.5-17.5); LYMPH # 1.6 10^3/uL (1.5-5.0); LYMPH % 13.1 % (24.0-44.0); MEAN CORPUSCULAR HEMOGLOBIN 28.8 pg (27.0-33.0); MEAN CORPUSCULAR HGB CONC 31.6 g/dl (32.0-36.5); MEAN CORPUSCULAR VOLUME 91.2 fl (80.0-96.0); MONO # 0.9 10^3/uL (0.0-0.8); MONO % 7.8 % (2.0-8.0); NEUTROPHILS # 8.8 10^3/uL (1.5-8.5); NEUTROPHILS % 74.1 % (36.0-66.0); PLATELET COUNT, AUTOMATED 213 10^3/uL (150-450); RED BLOOD COUNT 3.54 10^6/uL (4.30-6.10); WHITE BLOOD COUNT 11.8 10^3/uL (4.0-10.0)
[2022-07-03 04:59] VITALS: BP 136/71; TEMP 96.6; O2SAT 98
[2022-07-03 05:13] LABS: ALBUMIN 2.5 G/DL (3.2-5.2); ALKALINE PHOSPHATASE 244 U/L (46-116); ALT/SGPT 68 U/L (7.0-40); AST/SGOT 36 U/L (<34); BILIRUBIN,TOTAL 0.4 MG/DL (0.3-1.2); BLOOD UREA NITROGEN 40 MG/DL (9-23); CALCIUM LEVEL 9.7 MG/DL (8.5-10.1); CARBON DIOXIDE LEVEL 25 MMOL/L (20-31); CHLORIDE LEVEL 103 MMOL/L (98-107); CREATININE FOR GFR 0.74 MG/DL (0.70-1.30); GLOMERULAR FILTRATION RATE > 60.0 (>56); GLUCOSE, FASTING 114 MG/DL (60-100); MAGNESIUM LEVEL 1.6 MG/DL (1.8-2.4); POTASSIUM SERUM 3.1 MMOL/L (3.5-5.1); SODIUM LEVEL 138 MMOL/L (136-145); TOTAL PROTEIN 6.7 G/DL (5.7-8.2)
[2022-07-03] MEDS: SODIUM CHLORIDE 0.9% INJ 10 ML SYR IV SCH ×2 (05:50→17:26)
[2022-07-03] MEDS: LEVOTHYROXINE 112MCG TABLET (0.112MG) NG SCH (05:51)
[2022-07-03] MEDS: POTASSIUM CHLORIDE 10% LIQ 20MEQ/15ML UDC PO SCH (05:51)
[2022-07-03] MEDS ORDERED: MAG SULF 1GM/100ML (MAG RUN) 1 GM in IV 1 EA IV ONE (06:00)
[2022-07-03] MEDS ORDERED: POTASSIUM CHLORIDE 10% LIQ 20MEQ/15ML UDC PEG ONE (07:10)
[2022-07-03 07:38] VITALS: BP 140/71; TEMP 97.5; O2SAT 96
[2022-07-03] MEDS: ALBUTEROL SULFATE 2.5MG/0.5ML INH NEB SOLN NEB SCH ×2 (08:32→15:53)
[2022-07-03] MEDS: SODIUM CHLORIDE HYPERTONIC 3% 15ML NEB SOL INH SCH ×2 (08:33→15:53)
[2022-07-03] MEDS: PANTOPRAZOLE 40MG VIAL IV SCH (08:43)
[2022-07-03] MEDS: FUROSEMIDE 40MG/4ML VIAL IV SCH (08:43)
[2022-07-03] MEDS: APIXABAN 5 MG TAB (ELIQUIS) NG SCH ×2 (08:44→21:03)
[2022-07-03] MEDS: SERTRALINE HCL 50 MG TAB PEG SCH (08:44)
[2022-07-03] MEDS: DOXYCYCLINE HYCLATE 100MG TABLET PEG SCH ×2 (08:44→21:03)
[2022-07-03] MEDS: METOPROLOL TART 25 MG TABLET NG SCH ×2 (08:44→20:57)
[2022-07-03] MEDS: TOPIRAMATE 25 MG PO SCH (08:45)
[2022-07-03 11:26] VITALS: BP 114/63; TEMP 97.2; O2SAT 97
[2022-07-03 20:18] VITALS: BP 131/68; TEMP 97.7; O2SAT 98
[2022-07-03] MEDS: LACRILUBE (AKWA TEARS) OPHTH OINT 3.5GM OS SCH (21:03)
[2022-07-04] MEDS: SODIUM CHLORIDE HYPERTONIC 3% 15ML NEB SOL INH SCH ×4 (00:01→23:21)
[2022-07-04] MEDS: ALBUTEROL SULFATE 2.5MG/0.5ML INH NEB SOLN NEB SCH ×4 (00:01→23:21)
[2022-07-04 03:39] LABS: BASO # 0.1 10^3/uL (0.0-0.2); BASO % 0.4 % (0.0-1.0); EOS # 0.4 10^3/uL (0.0-0.5); EOS % 3.2 % (0.0-3.0); HEMATOCRIT 32.3 % (42.0-52.0); HEMOGLOBIN 10.4 g/dl (13.5-17.5); LYMPH # 1.7 10^3/uL (1.5-5.0); LYMPH % 14.9 % (24.0-44.0); MEAN CORPUSCULAR HEMOGLOBIN 29.3 pg (27.0-33.0); MEAN CORPUSCULAR HGB CONC 32.2 g/dl (32.0-36.5); MONO # 0.8 10^3/uL (0.0-0.8); NEUTROPHILS # 8.3 10^3/uL (1.5-8.5); NEUTROPHILS % 73.6 % (36.0-66.0); PLATELET COUNT, AUTOMATED 213 10^3/uL (150-450); RED BLOOD COUNT 3.55 10^6/uL (4.30-6.10); WHITE BLOOD COUNT 11.2 10^3/uL (4.0-10.0)
[2022-07-04 03:59] LABS: ALBUMIN 2.6 G/DL (3.2-5.2); ALKALINE PHOSPHATASE 231 U/L (46-116); ALT/SGPT 66 U/L (7.0-40); AST/SGOT 40 U/L (<34); BILIRUBIN,TOTAL 0.3 MG/DL (0.3-1.2); BLOOD UREA NITROGEN 37 MG/DL (9-23); CALCIUM LEVEL 9.7 MG/DL (8.5-10.1); CARBON DIOXIDE LEVEL 24 MMOL/L (20-31); CHLORIDE LEVEL 105 MMOL/L (98-107); CREATININE FOR GFR 0.67 MG/DL (0.70-1.30); GLOMERULAR FILTRATION RATE > 60.0 (>56); GLUCOSE, FASTING 116 MG/DL (60-100); MAGNESIUM LEVEL 1.6 MG/DL (1.8-2.4); POTASSIUM SERUM 3.4 MMOL/L (3.5-5.1); SODIUM LEVEL 135 MMOL/L (136-145); TOTAL PROTEIN 6.9 G/DL (5.7-8.2)
[2022-07-04 04:00] VITALS: BP 118/68; TEMP 97.7; O2SAT 100
[2022-07-04] MEDS ORDERED: MAG SULF 1GM/100ML (MAG RUN) 1 GM in IV 1 EA IV ONE ×2 (05:00→14:00)
[2022-07-04] MEDS: LEVOTHYROXINE 112MCG TABLET (0.112MG) NG SCH (05:48)
[2022-07-04] MEDS: SODIUM CHLORIDE 0.9% INJ 10 ML SYR IV SCH ×2 (05:49→16:26)
[2022-07-04 07:18] VITALS: BP 138/63; TEMP 97.5; O2SAT 98
[2022-07-04] MEDS: SODIUM CHLORIDE 0.9% INJ 10 ML SYR IV PRN (07:57)
[2022-07-04] MEDS: POTASSIUM CHLORIDE 10% LIQ 20MEQ/15ML UDC PO SCH (09:38)
[2022-07-04] MEDS: TOPIRAMATE 25 MG PO SCH (09:39)
[2022-07-04] MEDS: METOPROLOL TART 25 MG TABLET NG SCH ×2 (09:39→21:43)
[2022-07-04] MEDS: DOXYCYCLINE HYCLATE 100MG TABLET PEG SCH ×2 (09:40→21:43)
[2022-07-04] MEDS: FUROSEMIDE 40MG/4ML VIAL IV SCH (09:40)
[2022-07-04] MEDS: PANTOPRAZOLE 40MG VIAL IV SCH (09:40)
[2022-07-04] MEDS: APIXABAN 5 MG TAB (ELIQUIS) NG SCH ×2 (09:40→21:43)
[2022-07-04] MEDS: SERTRALINE HCL 50 MG TAB PEG SCH (09:40)
[2022-07-04 15:44] VITALS: BP 134/74; TEMP 97.2; O2SAT 98
[2022-07-04 20:00] VITALS: BP 156/72; TEMP 96.6; O2SAT 96
[2022-07-04] MEDS: ACETAMINOPHEN 325MG/10.15ML UDC GT PRN (21:42)
[2022-07-04] MEDS: LACRILUBE (AKWA TEARS) OPHTH OINT 3.5GM OS SCH (21:43)
[2022-07-05] MEDS: ACETAMINOPHEN 325MG/10.15ML UDC GT PRN (02:32)
[2022-07-05 04:00] VITALS: BP 128/64; TEMP 97.7; O2SAT 100
[2022-07-05] MEDS: LEVOTHYROXINE 112MCG TABLET (0.112MG) NG SCH (06:15)
[2022-07-05] MEDS: SODIUM CHLORIDE 0.9% INJ 10 ML SYR IV SCH ×2 (06:15→17:07)
[2022-07-05 06:48] LABS: BASO % 0.4 % (0.0-1.0); EOS # 0.4 10^3/uL (0.0-0.5); EOS % 3.6 % (0.0-3.0); HEMOGLOBIN 10.4 g/dl (13.5-17.5); LYMPH # 1.7 10^3/uL (1.5-5.0); LYMPH % 15.9 % (24.0-44.0); MEAN CORPUSCULAR HEMOGLOBIN 28.9 pg (27.0-33.0); MEAN CORPUSCULAR HGB CONC 31.5 g/dl (32.0-36.5); MEAN CORPUSCULAR VOLUME 91.7 fl (80.0-96.0); MONO # 0.7 10^3/uL (0.0-0.8); MONO % 6.7 % (2.0-8.0); NEUTROPHILS # 7.8 10^3/uL (1.5-8.5); NEUTROPHILS % 72.6 % (36.0-66.0); PLATELET COUNT, AUTOMATED 223 10^3/uL (150-450); WHITE BLOOD COUNT 10.8 10^3/uL (4.0-10.0)
[2022-07-05 07:14] LABS: ALBUMIN 2.5 G/DL (3.2-5.2); ALKALINE PHOSPHATASE 240 U/L (46-116); ALT/SGPT 73 U/L (7.0-40); AST/SGOT 46 U/L (<34); BILIRUBIN,TOTAL 0.3 MG/DL (0.3-1.2); BLOOD UREA NITROGEN 33 MG/DL (9-23); CALCIUM LEVEL 9.9 MG/DL (8.5-10.1); CARBON DIOXIDE LEVEL 25 MMOL/L (20-31); CHLORIDE LEVEL 104 MMOL/L (98-107); CREATININE FOR GFR 0.67 MG/DL (0.70-1.30); GLOMERULAR FILTRATION RATE > 60.0 (>56); GLUCOSE, FASTING 113 MG/DL (60-100); MAGNESIUM LEVEL 1.7 MG/DL (1.8-2.4); POTASSIUM SERUM 3.2 MMOL/L (3.5-5.1); SODIUM LEVEL 137 MMOL/L (136-145); TOTAL PROTEIN 6.8 G/DL (5.7-8.2)
[2022-07-05 07:48] VITALS: BP 122/66; TEMP 97.2; O2SAT 98
[2022-07-05] MEDS: SODIUM CHLORIDE HYPERTONIC 3% 15ML NEB SOL INH SCH ×3 (08:55→23:01)
[2022-07-05] MEDS: ALBUTEROL SULFATE 2.5MG/0.5ML INH NEB SOLN NEB SCH ×3 (08:55→23:01)
[2022-07-05] MEDS ORDERED: POTASSIUM CHLORIDE 10% LIQ 20MEQ/15ML UDC PEG SCH (09:00)
[2022-07-05] MEDS: POTASSIUM CHLORIDE 10% LIQ 20MEQ/15ML UDC PEG SCH ×2 (09:18→22:09)
[2022-07-05] MEDS: APIXABAN 5 MG TAB (ELIQUIS) NG SCH ×2 (09:19→22:10)
[2022-07-05] MEDS: DOXYCYCLINE HYCLATE 100MG TABLET PEG SCH ×2 (09:19→22:10)
[2022-07-05] MEDS: METOPROLOL TART 25 MG TABLET NG SCH ×2 (09:19→22:09)
[2022-07-05] MEDS: OMEPRAZOLE/SODIUM BICARB 20-840MG 10ML ORAL SYRINGE GT SCH (09:20)
[2022-07-05] MEDS: MAG SULF 1GM/100ML (MAG RUN) 1 GM in IV 1 EA IV SCH ×2 (09:20→11:07)
[2022-07-05] MEDS: FUROSEMIDE 40 MG TAB PEG SCH ×2 (09:21→17:06)
[2022-07-05] MEDS: TOPIRAMATE 25 MG PO SCH (09:22)
[2022-07-05] MEDS: SERTRALINE 100 MG TAB PEG SCH (09:23)
[2022-07-05 11:18] VITALS: BP 113/65; TEMP 97.5; O2SAT 97
[2022-07-05] MEDS: SODIUM CHLORIDE 0.9% INJ 10 ML SYR IV PRN ×2 (12:21)
[2022-07-05 19:22] VITALS: BP 131/62; TEMP 97.2; O2SAT 98
[2022-07-05] MEDS: LACRILUBE (AKWA TEARS) OPHTH OINT 3.5GM OS SCH (22:10)
[2022-07-06 03:22] VITALS: BP 115/55; TEMP 97.8; O2SAT 97
[2022-07-06] MEDS: LEVOTHYROXINE 112MCG TABLET (0.112MG) NG SCH (06:23)
[2022-07-06] MEDS: SODIUM CHLORIDE 0.9% INJ 10 ML SYR IV SCH (06:24)
[2022-07-06 06:56] LABS: BASO % 0.3 % (0.0-1.0); EOS # 0.4 10^3/uL (0.0-0.5); EOS % 3.5 % (0.0-3.0); HEMATOCRIT 33.9 % (42.0-52.0); HEMOGLOBIN 10.8 g/dl (13.5-17.5); LYMPH # 1.5 10^3/uL (1.5-5.0); LYMPH % 14.5 % (24.0-44.0); MEAN CORPUSCULAR HGB CONC 31.9 g/dl (32.0-36.5); MEAN CORPUSCULAR VOLUME 91.1 fl (80.0-96.0); MONO # 0.6 10^3/uL (0.0-0.8); MONO % 5.8 % (2.0-8.0); NEUTROPHILS # 7.8 10^3/uL (1.5-8.5); NEUTROPHILS % 74.9 % (36.0-66.0); PLATELET COUNT, AUTOMATED 234 10^3/uL (150-450); RED BLOOD COUNT 3.72 10^6/uL (4.30-6.10); WHITE BLOOD COUNT 10.4 10^3/uL (4.0-10.0)
[2022-07-06 07:22] LABS: ALBUMIN 2.7 G/DL (3.2-5.2); ALKALINE PHOSPHATASE 236 U/L (46-116); ALT/SGPT 82 U/L (7.0-40); AST/SGOT 57 U/L (<34); BILIRUBIN,TOTAL 0.3 MG/DL (0.3-1.2); BLOOD UREA NITROGEN 30 MG/DL (9-23); CALCIUM LEVEL 9.7 MG/DL (8.5-10.1); CARBON DIOXIDE LEVEL 25 MMOL/L (20-31); CHLORIDE LEVEL 105 MMOL/L (98-107); CREATININE FOR GFR 0.66 MG/DL (0.70-1.30); GLOMERULAR FILTRATION RATE > 60.0 (>56); GLUCOSE, FASTING 112 MG/DL (60-100); MAGNESIUM LEVEL 1.8 MG/DL (1.8-2.4); POTASSIUM SERUM 3.7 MMOL/L (3.5-5.1); SODIUM LEVEL 135 MMOL/L (136-145); TOTAL PROTEIN 6.8 G/DL (5.7-8.2)
[2022-07-06 07:47] VITALS: BP 134/73; TEMP 97.1; O2SAT 99
[2022-07-06] MEDS: ALBUTEROL SULFATE 2.5MG/0.5ML INH NEB SOLN NEB SCH ×3 (08:27→23:22)
[2022-07-06] MEDS: SODIUM CHLORIDE HYPERTONIC 3% 15ML NEB SOL INH SCH ×3 (08:28→23:22)
[2022-07-06 09:40] VITALS: BP 114/66
[2022-07-06] MEDS: ACETAMINOPHEN 325MG/10.15ML UDC GT PRN (09:42)
[2022-07-06] MEDS: POTASSIUM CHLORIDE 10% LIQ 20MEQ/15ML UDC PEG SCH ×2 (09:43→20:32)
[2022-07-06] MEDS: TOPIRAMATE 25 MG PO SCH (09:43)
[2022-07-06] MEDS: DOXYCYCLINE HYCLATE 100MG TABLET PEG SCH ×2 (09:44→20:32)
[2022-07-06] MEDS: FUROSEMIDE 40 MG TAB PEG SCH ×2 (09:44→17:18)
[2022-07-06] MEDS: SERTRALINE 100 MG TAB PEG SCH (09:44)
[2022-07-06] MEDS: APIXABAN 5 MG TAB (ELIQUIS) NG SCH ×2 (09:44→20:32)
[2022-07-06] MEDS: METOPROLOL TART 25 MG TABLET NG SCH ×2 (09:45→20:33)
[2022-07-06] MEDS: OMEPRAZOLE/SODIUM BICARB 20-840MG 10ML ORAL SYRINGE GT SCH (09:45)
[2022-07-06 11:22] VITALS: BP 119/69; TEMP 97.5; O2SAT 99
[2022-07-06] MEDS ORDERED: NEOSPORIN OINT 0.9 GM PKT TOP ONE (15:00)
[2022-07-06 17:17] VITALS: BP 144/76
[2022-07-06 18:09] VITALS: BP 120/80; TEMP 97.7; O2SAT 99
[2022-07-06] MEDS: LACRILUBE (AKWA TEARS) OPHTH OINT 3.5GM OS SCH (21:20)
[2022-07-07] MEDS: LEVOTHYROXINE 112MCG TABLET (0.112MG) NG SCH (05:39)
[2022-07-07] MEDS: ACETAMINOPHEN 325MG/10.15ML UDC GT PRN ×3 (05:39→16:40)
[2022-07-07 06:00] VITALS: BP 121/78; TEMP 97.5; O2SAT 99
[2022-07-07] MEDS: ALBUTEROL SULFATE 2.5MG/0.5ML INH NEB SOLN NEB SCH ×3 (08:30→23:42)
[2022-07-07] MEDS: SODIUM CHLORIDE HYPERTONIC 3% 15ML NEB SOL INH SCH ×3 (08:33→23:42)
[2022-07-07] MEDS: POTASSIUM CHLORIDE 10% LIQ 20MEQ/15ML UDC PEG SCH ×2 (09:06→20:54)
[2022-07-07] MEDS: OMEPRAZOLE/SODIUM BICARB 20-840MG 10ML ORAL SYRINGE GT SCH (09:06)
[2022-07-07] MEDS: FUROSEMIDE 40 MG TAB PEG SCH ×2 (09:07→16:40)
[2022-07-07] MEDS: SERTRALINE 100 MG TAB PEG SCH (09:07)
[2022-07-07] MEDS: TOPIRAMATE 25 MG PO SCH (09:07)
[2022-07-07] MEDS: DOXYCYCLINE HYCLATE 100MG TABLET PEG SCH ×2 (09:07→20:56)
[2022-07-07] MEDS: METOPROLOL TART 25 MG TABLET NG SCH ×2 (09:08→20:56)
[2022-07-07] MEDS: APIXABAN 5 MG TAB (ELIQUIS) NG SCH ×2 (09:08→20:55)
[2022-07-07 15:45] VITALS: BP 125/79
[2022-07-07] MEDS: GABAPENTIN 100 MG CAP PEG SCH ×2 (16:40→20:56)
[2022-07-07] MEDS: LACRILUBE (AKWA TEARS) OPHTH OINT 3.5GM OS SCH (20:56)
[2022-07-08] MEDS: LEVOTHYROXINE 112MCG TABLET (0.112MG) NG SCH (05:28)
[2022-07-08 06:00] VITALS: BP 115/80; TEMP 97.7; O2SAT 97
[2022-07-08] MEDS: SODIUM CHLORIDE HYPERTONIC 3% 15ML NEB SOL INH SCH ×3 (08:10→23:31)
[2022-07-08] MEDS: ALBUTEROL SULFATE 2.5MG/0.5ML INH NEB SOLN NEB SCH ×3 (08:10→23:30)
[2022-07-08] MEDS: OMEPRAZOLE/SODIUM BICARB 20-840MG 10ML ORAL SYRINGE GT SCH (09:54)
[2022-07-08] MEDS: ACETAMINOPHEN 325MG/10.15ML UDC GT PRN (09:54)
[2022-07-08] MEDS: DOXYCYCLINE HYCLATE 100MG TABLET PEG SCH ×2 (09:54→20:35)
[2022-07-08] MEDS: SERTRALINE 100 MG TAB PEG SCH (09:55)
[2022-07-08] MEDS: GABAPENTIN 100 MG CAP PEG SCH ×3 (09:55→20:34)
[2022-07-08] MEDS: POTASSIUM CHLORIDE 10% LIQ 20MEQ/15ML UDC PEG SCH ×2 (09:55→20:34)
[2022-07-08] MEDS: FUROSEMIDE 40 MG TAB PEG SCH ×2 (09:55→17:27)
[2022-07-08] MEDS: APIXABAN 5 MG TAB (ELIQUIS) NG SCH ×2 (09:55→20:35)
[2022-07-08] MEDS: METOPROLOL TART 25 MG TABLET NG SCH ×2 (09:56→20:34)
[2022-07-08] MEDS: TOPIRAMATE 25 MG PO SCH (09:56)
[2022-07-08] MEDS: LACRILUBE (AKWA TEARS) OPHTH OINT 3.5GM OS SCH (20:35)
[2022-07-09] MEDS: LEVOTHYROXINE 112MCG TABLET (0.112MG) NG SCH (05:31)
[2022-07-09 06:00] VITALS: BP 129/72; TEMP 97.5; O2SAT 100
[2022-07-09] MEDS: ALBUTEROL SULFATE 2.5MG/0.5ML INH NEB SOLN NEB SCH ×3 (07:34→23:09)
[2022-07-09] MEDS: SODIUM CHLORIDE HYPERTONIC 3% 15ML NEB SOL INH SCH ×3 (07:34→23:09)
[2022-07-09] MEDS: OMEPRAZOLE/SODIUM BICARB 20-840MG 10ML ORAL SYRINGE GT SCH (08:25)
[2022-07-09] MEDS: POTASSIUM CHLORIDE 10% LIQ 20MEQ/15ML UDC PEG SCH ×2 (08:26→21:55)
[2022-07-09] MEDS: METOPROLOL TART 25 MG TABLET NG SCH ×2 (08:26→21:56)
[2022-07-09] MEDS: TOPIRAMATE 25 MG PO SCH (08:26)
[2022-07-09] MEDS: GABAPENTIN 100 MG CAP PEG SCH ×3 (08:27→21:55)
[2022-07-09] MEDS: FUROSEMIDE 40 MG TAB PEG SCH ×2 (08:27→16:53)
[2022-07-09] MEDS: APIXABAN 5 MG TAB (ELIQUIS) NG SCH ×2 (08:27→21:56)
[2022-07-09] MEDS: SERTRALINE 100 MG TAB PEG SCH (08:27)
[2022-07-09] MEDS: DOXYCYCLINE HYCLATE 100MG TABLET PEG SCH ×2 (08:27→21:56)
[2022-07-09] MEDS ORDERED: ISOVUE-370 76% 100ML VIAL As Ordered ONE (13:02)
[2022-07-09 16:52] VITALS: BP 128/75
[2022-07-09] MEDS: LACRILUBE (AKWA TEARS) OPHTH OINT 3.5GM OS SCH (21:56)
[2022-07-10 05:47] VITALS: BP 121/72; TEMP 97.7; O2SAT 99
[2022-07-10] MEDS: LEVOTHYROXINE 112MCG TABLET (0.112MG) NG SCH (06:33)
[2022-07-10] MEDS: SODIUM CHLORIDE HYPERTONIC 3% 15ML NEB SOL INH SCH ×3 (07:08→23:27)
[2022-07-10] MEDS: ALBUTEROL SULFATE 2.5MG/0.5ML INH NEB SOLN NEB SCH ×3 (07:08→23:27)
[2022-07-10] MEDS: APIXABAN 5 MG TAB (ELIQUIS) NG SCH ×2 (10:04→21:43)
[2022-07-10] MEDS: FUROSEMIDE 40 MG TAB PEG SCH ×2 (10:04→16:34)
[2022-07-10] MEDS: METOPROLOL TART 25 MG TABLET NG SCH ×2 (10:04→21:43)
[2022-07-10] MEDS: TOPIRAMATE 25 MG PO SCH (10:05)
[2022-07-10] MEDS: DOXYCYCLINE HYCLATE 100MG TABLET PEG SCH ×2 (10:05→21:43)
[2022-07-10] MEDS: POTASSIUM CHLORIDE 10% LIQ 20MEQ/15ML UDC PEG SCH ×2 (10:05→21:42)
[2022-07-10] MEDS: GABAPENTIN 100 MG CAP PEG SCH ×3 (10:05→21:43)
[2022-07-10] MEDS: SERTRALINE 100 MG TAB PEG SCH (10:05)
[2022-07-10] MEDS: OMEPRAZOLE/SODIUM BICARB 20-840MG 10ML ORAL SYRINGE GT SCH (10:06)
[2022-07-10 16:32] VITALS: BP 123/67
[2022-07-10] MEDS: LACRILUBE (AKWA TEARS) OPHTH OINT 3.5GM OS SCH (21:44)
[2022-07-11] MEDS: LEVOTHYROXINE 112MCG TABLET (0.112MG) NG SCH (05:48)
[2022-07-11 06:30] VITALS: BP 124/68; TEMP 97.9; O2SAT 95
[2022-07-11] MEDS: SODIUM CHLORIDE HYPERTONIC 3% 15ML NEB SOL INH SCH ×3 (07:09→23:07)
[2022-07-11] MEDS: ALBUTEROL SULFATE 2.5MG/0.5ML INH NEB SOLN NEB SCH ×3 (07:09→23:07)
[2022-07-11] MEDS: FUROSEMIDE 40 MG TAB PEG SCH ×2 (09:26→16:01)
[2022-07-11] MEDS: APIXABAN 5 MG TAB (ELIQUIS) NG SCH ×2 (09:26→21:05)
[2022-07-11] MEDS: SERTRALINE 100 MG TAB PEG SCH (09:26)
[2022-07-11] MEDS: DOXYCYCLINE HYCLATE 100MG TABLET PEG SCH ×2 (09:26→21:06)
[2022-07-11] MEDS: GABAPENTIN 100 MG CAP PEG SCH ×3 (09:26→21:05)
[2022-07-11] MEDS: TOPIRAMATE 25 MG PO SCH (09:26)
[2022-07-11] MEDS: OMEPRAZOLE/SODIUM BICARB 20-840MG 10ML ORAL SYRINGE GT SCH (09:27)
[2022-07-11] MEDS: METOPROLOL TART 25 MG TABLET NG SCH ×2 (09:27→21:06)
[2022-07-11] MEDS: POTASSIUM CHLORIDE 10% LIQ 20MEQ/15ML UDC PEG SCH ×2 (09:27→21:05)
[2022-07-11 16:01] VITALS: BP 126/71
[2022-07-11] MEDS: LACRILUBE (AKWA TEARS) OPHTH OINT 3.5GM OS SCH (21:06)
[2022-07-12 06:00] VITALS: BP 139/77; TEMP 97.9; O2SAT 99
[2022-07-12] MEDS: LEVOTHYROXINE 112MCG TABLET (0.112MG) NG SCH (06:24)
[2022-07-12] MEDS: ACETAMINOPHEN 325MG/10.15ML UDC GT PRN ×2 (06:24→20:50)
[2022-07-12] MEDS: ALBUTEROL SULFATE 2.5MG/0.5ML INH NEB SOLN NEB SCH ×3 (07:28→23:15)
[2022-07-12] MEDS: SODIUM CHLORIDE HYPERTONIC 3% 15ML NEB SOL INH SCH ×3 (07:29→23:15)
[2022-07-12] MEDS: APIXABAN 5 MG TAB (ELIQUIS) NG SCH ×2 (09:26→20:49)
[2022-07-12] MEDS: GABAPENTIN 100 MG CAP PEG SCH ×3 (09:27→20:49)
[2022-07-12] MEDS: TOPIRAMATE 25 MG PO SCH (09:27)
[2022-07-12] MEDS: DOXYCYCLINE HYCLATE 100MG TABLET PEG SCH ×2 (09:27→20:49)
[2022-07-12] MEDS: POTASSIUM CHLORIDE 10% LIQ 20MEQ/15ML UDC PEG SCH ×2 (09:27→20:51)
[2022-07-12] MEDS: SERTRALINE 100 MG TAB PEG SCH (09:27)
[2022-07-12] MEDS: FUROSEMIDE 40 MG TAB PEG SCH ×2 (09:28→17:30)
[2022-07-12] MEDS: METOPROLOL TART 25 MG TABLET NG SCH ×2 (09:28→20:49)
[2022-07-12] MEDS: OMEPRAZOLE/SODIUM BICARB 20-840MG 10ML ORAL SYRINGE GT SCH (09:28)
[2022-07-12 17:29] VITALS: BP 113/67
[2022-07-12] MEDS: LACRILUBE (AKWA TEARS) OPHTH OINT 3.5GM OS SCH (21:05)
[2022-07-13 05:40] VITALS: BP 125/71; TEMP 97.7; O2SAT 93
[2022-07-13] MEDS: LEVOTHYROXINE 112MCG TABLET (0.112MG) NG SCH (06:08)
[2022-07-13] MEDS: SODIUM CHLORIDE HYPERTONIC 3% 15ML NEB SOL INH SCH ×3 (07:32→23:07)
[2022-07-13] MEDS: ALBUTEROL SULFATE 2.5MG/0.5ML INH NEB SOLN NEB SCH ×3 (07:32→23:07)
[2022-07-13] MEDS: TOPIRAMATE 25 MG PO SCH (08:55)
[2022-07-13] MEDS: OMEPRAZOLE/SODIUM BICARB 20-840MG 10ML ORAL SYRINGE GT SCH (08:55)
[2022-07-13] MEDS: POTASSIUM CHLORIDE 10% LIQ 20MEQ/15ML UDC PEG SCH ×2 (08:55→22:07)
[2022-07-13] MEDS: FUROSEMIDE 40 MG TAB PEG SCH ×2 (08:55→17:18)
[2022-07-13] MEDS: DOXYCYCLINE HYCLATE 100MG TABLET PEG SCH ×2 (08:55→22:07)
[2022-07-13] MEDS: GABAPENTIN 100 MG CAP PEG SCH ×3 (08:56→22:07)
[2022-07-13] MEDS: APIXABAN 5 MG TAB (ELIQUIS) NG SCH ×2 (08:56→22:07)
[2022-07-13] MEDS: METOPROLOL TART 25 MG TABLET NG SCH ×2 (08:56→22:07)
[2022-07-13] MEDS: SERTRALINE 100 MG TAB PEG SCH (08:56)
[2022-07-13] MEDS: ACETAMINOPHEN 325MG/10.15ML UDC GT PRN ×2 (09:00→22:09)
[2022-07-14] MEDS: LACRILUBE (AKWA TEARS) OPHTH OINT 3.5GM OS SCH ×2 (00:14→20:49)
[2022-07-14 06:00] VITALS: BP 126/73; TEMP 97.7; O2SAT 98
[2022-07-14] MEDS: LEVOTHYROXINE 112MCG TABLET (0.112MG) NG SCH (06:00)
[2022-07-14] MEDS: SODIUM CHLORIDE HYPERTONIC 3% 15ML NEB SOL INH SCH ×3 (07:28→23:07)
[2022-07-14] MEDS: ALBUTEROL SULFATE 2.5MG/0.5ML INH NEB SOLN NEB SCH ×3 (07:28→23:07)
[2022-07-14 09:50] VITALS: BP 131/74
[2022-07-14] MEDS: OMEPRAZOLE/SODIUM BICARB 20-840MG 10ML ORAL SYRINGE GT SCH (09:51)
[2022-07-14] MEDS: FUROSEMIDE 40 MG TAB PEG SCH ×2 (09:52→18:01)
[2022-07-14] MEDS: APIXABAN 5 MG TAB (ELIQUIS) NG SCH ×2 (09:52→20:48)
[2022-07-14] MEDS: POTASSIUM CHLORIDE 10% LIQ 20MEQ/15ML UDC PEG SCH ×2 (09:52→20:47)
[2022-07-14] MEDS: SERTRALINE 100 MG TAB PEG SCH (09:52)
[2022-07-14] MEDS: TOPIRAMATE (TopAMAX) 100 MG TAB PO SCH (09:52)
[2022-07-14] MEDS: DOXYCYCLINE HYCLATE 100MG TABLET PEG SCH ×2 (09:53→20:48)
[2022-07-14] MEDS: METOPROLOL TART 25 MG TABLET NG SCH ×2 (09:53→20:48)
[2022-07-14] MEDS: GABAPENTIN 100 MG CAP PEG SCH ×3 (09:53→20:47)
[2022-07-14 18:02] VITALS: BP 129/74
[2022-07-15] MEDS: LEVOTHYROXINE 112MCG TABLET (0.112MG) NG SCH (05:26)
[2022-07-15 06:45] VITALS: BP 126/67; TEMP 98.1; TEMP 98.2; O2SAT 98
[2022-07-15] MEDS: ALBUTEROL SULFATE 2.5MG/0.5ML INH NEB SOLN NEB SCH ×2 (07:03→15:16)
[2022-07-15] MEDS: SODIUM CHLORIDE HYPERTONIC 3% 15ML NEB SOL INH SCH ×2 (07:04→15:16)
[2022-07-15] MEDS: APIXABAN 5 MG TAB (ELIQUIS) NG SCH ×2 (09:56→20:37)
[2022-07-15 09:58] VITALS: BP 133/75
[2022-07-15] MEDS: SERTRALINE 100 MG TAB PEG SCH (09:59)
[2022-07-15] MEDS: TOPIRAMATE (TopAMAX) 100 MG TAB PO SCH (09:59)
[2022-07-15] MEDS: METOPROLOL TART 25 MG TABLET NG SCH ×2 (09:59→20:37)
[2022-07-15] MEDS: DOXYCYCLINE HYCLATE 100MG TABLET PEG SCH ×2 (09:59→20:37)
[2022-07-15] MEDS: GABAPENTIN 100 MG CAP PEG SCH ×3 (09:59→20:37)
[2022-07-15] MEDS: FUROSEMIDE 40 MG TAB PEG SCH ×2 (09:59→17:03)
[2022-07-15] MEDS: POTASSIUM CHLORIDE 10% LIQ 20MEQ/15ML UDC PEG SCH ×2 (10:00→20:35)
[2022-07-15] MEDS: OMEPRAZOLE/SODIUM BICARB 20-840MG 10ML ORAL SYRINGE GT SCH (10:00)
[2022-07-15] MEDS: LACRILUBE (AKWA TEARS) OPHTH OINT 3.5GM OS SCH (21:21)
[2022-07-16] MEDS: SODIUM CHLORIDE HYPERTONIC 3% 15ML NEB SOL INH SCH ×3 (01:11→15:25)
[2022-07-16] MEDS: ALBUTEROL SULFATE 2.5MG/0.5ML INH NEB SOLN NEB SCH ×3 (01:11→15:25)
[2022-07-16 05:30] VITALS: BP 121/67; TEMP 97.9; O2SAT 98
[2022-07-16] MEDS: LEVOTHYROXINE 112MCG TABLET (0.112MG) NG SCH (05:37)
[2022-07-16] MEDS ORDERED: GASTROGRAFIN SOLUTION 30ML As Ordered ONE (08:44)
[2022-07-16] MEDS: GABAPENTIN 100 MG CAP PEG SCH ×3 (09:38→20:45)
[2022-07-16] MEDS: METOPROLOL TART 25 MG TABLET NG SCH ×2 (09:38→20:55)
[2022-07-16] MEDS: POTASSIUM CHLORIDE 10% LIQ 20MEQ/15ML UDC PEG SCH ×2 (09:38→20:45)
[2022-07-16] MEDS: OMEPRAZOLE/SODIUM BICARB 20-840MG 10ML ORAL SYRINGE GT SCH (09:38)
[2022-07-16] MEDS: SERTRALINE 100 MG TAB PEG SCH (09:39)
[2022-07-16] MEDS: TOPIRAMATE (TopAMAX) 100 MG TAB PO SCH (09:39)
[2022-07-16] MEDS: DOXYCYCLINE HYCLATE 100MG TABLET PEG SCH ×2 (09:39→20:45)
[2022-07-16] MEDS: TRIAMCINOLONE ACET 0.1% OINTMENT 15GM TOP SCH (09:39)
[2022-07-16] MEDS: APIXABAN 5 MG TAB (ELIQUIS) NG SCH ×2 (09:39→20:45)
[2022-07-16] MEDS: FUROSEMIDE 40 MG TAB PEG SCH ×2 (09:39→16:27)
[2022-07-16 16:40] VITALS: BP 141/69
[2022-07-16] MEDS: LACRILUBE (AKWA TEARS) OPHTH OINT 3.5GM OS SCH (20:55)
[2022-07-17] MEDS: SODIUM CHLORIDE HYPERTONIC 3% 15ML NEB SOL INH SCH ×3 (00:55→15:29)
[2022-07-17] MEDS: ALBUTEROL SULFATE 2.5MG/0.5ML INH NEB SOLN NEB SCH ×3 (00:55→15:29)
[2022-07-17 04:50] VITALS: BP 119/66; TEMP 97.9; O2SAT 96
[2022-07-17] MEDS: LEVOTHYROXINE 112MCG TABLET (0.112MG) NG SCH (05:33)
[2022-07-17] MEDS: METOPROLOL TART 25 MG TABLET NG SCH ×2 (08:36→20:44)
[2022-07-17] MEDS: DOXYCYCLINE HYCLATE 100MG TABLET PEG SCH ×2 (08:37→20:44)
[2022-07-17] MEDS: APIXABAN 5 MG TAB (ELIQUIS) NG SCH ×2 (08:37→20:45)
[2022-07-17] MEDS: SERTRALINE 100 MG TAB PEG SCH (08:37)
[2022-07-17] MEDS: FUROSEMIDE 40 MG TAB PEG SCH ×2 (08:37→16:51)
[2022-07-17] MEDS: OMEPRAZOLE/SODIUM BICARB 20-840MG 10ML ORAL SYRINGE GT SCH (08:37)
[2022-07-17] MEDS: TOPIRAMATE (TopAMAX) 100 MG TAB PO SCH (08:37)
[2022-07-17] MEDS: GABAPENTIN 100 MG CAP PEG SCH ×3 (08:37→20:44)
[2022-07-17] MEDS: POTASSIUM CHLORIDE 10% LIQ 20MEQ/15ML UDC PEG SCH ×2 (08:38→20:45)
[2022-07-17] MEDS: ACETAMINOPHEN 325MG/10.15ML UDC GT PRN ×2 (08:38→20:43)
[2022-07-17] MEDS: TRIAMCINOLONE ACET 0.1% OINTMENT 15GM TOP SCH (08:39)
[2022-07-17] MEDS: LACRILUBE (AKWA TEARS) OPHTH OINT 3.5GM OS SCH (20:16)
[2022-07-18] MEDS: ALBUTEROL SULFATE 2.5MG/0.5ML INH NEB SOLN NEB SCH ×4 (00:56→23:44)
[2022-07-18] MEDS: SODIUM CHLORIDE HYPERTONIC 3% 15ML NEB SOL INH SCH ×4 (00:56→23:44)
[2022-07-18 05:40] VITALS: BP 117/62; TEMP 97.5; O2SAT 97
[2022-07-18] MEDS: LEVOTHYROXINE 112MCG TABLET (0.112MG) NG SCH (06:24)
[2022-07-18] MEDS: TRIAMCINOLONE ACET 0.1% OINTMENT 15GM TOP SCH (09:58)
[2022-07-18] MEDS: OMEPRAZOLE/SODIUM BICARB 20-840MG 10ML ORAL SYRINGE GT SCH (09:58)
[2022-07-18] MEDS: POTASSIUM CHLORIDE 10% LIQ 20MEQ/15ML UDC PEG SCH ×2 (09:58→21:04)
[2022-07-18] MEDS: DOXYCYCLINE HYCLATE 100MG TABLET PEG SCH ×2 (09:59→21:05)
[2022-07-18] MEDS: SERTRALINE 100 MG TAB PEG SCH (09:59)
[2022-07-18] MEDS: APIXABAN 5 MG TAB (ELIQUIS) NG SCH ×2 (09:59→21:05)
[2022-07-18] MEDS: TOPIRAMATE (TopAMAX) 100 MG TAB PO SCH (09:59)
[2022-07-18] MEDS: GABAPENTIN 100 MG CAP PEG SCH ×3 (09:59→21:04)
[2022-07-18] MEDS: METOPROLOL TART 25 MG TABLET NG SCH ×2 (10:01→21:08)
[2022-07-18] MEDS: FUROSEMIDE 40 MG TAB PEG SCH ×2 (10:02→16:32)
[2022-07-18] MEDS: LACRILUBE (AKWA TEARS) OPHTH OINT 3.5GM OS SCH ×2 (21:05→21:08)
[2022-07-19 05:00] VITALS: BP 119/67; TEMP 98.1; O2SAT 98
[2022-07-19] MEDS: LEVOTHYROXINE 112MCG TABLET (0.112MG) NG SCH (05:40)
[2022-07-19] MEDS: SODIUM CHLORIDE HYPERTONIC 3% 15ML NEB SOL INH SCH ×3 (06:11→21:50)
[2022-07-19] MEDS: ALBUTEROL SULFATE 2.5MG/0.5ML INH NEB SOLN NEB SCH ×3 (06:11→21:50)
[2022-07-19] MEDS: OMEPRAZOLE/SODIUM BICARB 20-840MG 10ML ORAL SYRINGE GT SCH (09:55)
[2022-07-19] MEDS: DOXYCYCLINE HYCLATE 100MG TABLET PEG SCH ×2 (09:56→21:10)
[2022-07-19] MEDS: POTASSIUM CHLORIDE 10% LIQ 20MEQ/15ML UDC PEG SCH ×2 (09:56→21:10)
[2022-07-19] MEDS: APIXABAN 5 MG TAB (ELIQUIS) NG SCH ×2 (09:56→21:10)
[2022-07-19] MEDS: FUROSEMIDE 40 MG TAB PEG SCH ×2 (09:56→16:33)
[2022-07-19] MEDS: SERTRALINE 100 MG TAB PEG SCH (09:56)
[2022-07-19] MEDS: GABAPENTIN 100 MG CAP PEG SCH ×3 (09:56→21:10)
[2022-07-19] MEDS: TOPIRAMATE (TopAMAX) 100 MG TAB PO SCH (09:56)
[2022-07-19] MEDS: METOPROLOL TART 25 MG TABLET NG SCH ×2 (09:59→21:11)
[2022-07-19] MEDS: TRIAMCINOLONE ACET 0.1% OINTMENT 15GM TOP SCH (10:00)
[2022-07-19] MEDS: LACRILUBE (AKWA TEARS) OPHTH OINT 3.5GM OS SCH (21:00)
[2022-07-20] MEDS: LEVOTHYROXINE 112MCG TABLET (0.112MG) NG SCH (05:22)
[2022-07-20 06:00] VITALS: BP 133/74; TEMP 97.7; O2SAT 98
[2022-07-20] MEDS: SODIUM CHLORIDE HYPERTONIC 3% 15ML NEB SOL INH SCH ×3 (07:18→23:00)
[2022-07-20] MEDS: ALBUTEROL SULFATE 2.5MG/0.5ML INH NEB SOLN NEB SCH ×3 (07:18→23:00)
[2022-07-20] MEDS: TOPIRAMATE (TopAMAX) 100 MG TAB PO SCH (09:16)
[2022-07-20] MEDS: SERTRALINE 100 MG TAB PEG SCH (09:16)
[2022-07-20] MEDS: FUROSEMIDE 40 MG TAB PEG SCH ×2 (09:16→16:47)
[2022-07-20] MEDS: OMEPRAZOLE/SODIUM BICARB 20-840MG 10ML ORAL SYRINGE GT SCH (09:16)
[2022-07-20] MEDS: GABAPENTIN 100 MG CAP PEG SCH ×3 (09:16→20:52)
[2022-07-20] MEDS: POTASSIUM CHLORIDE 10% LIQ 20MEQ/15ML UDC PEG SCH ×2 (09:16→20:53)
[2022-07-20] MEDS: DOXYCYCLINE HYCLATE 100MG TABLET PEG SCH ×2 (09:16→20:52)
[2022-07-20] MEDS: APIXABAN 5 MG TAB (ELIQUIS) NG SCH ×2 (09:16→20:53)
[2022-07-20] MEDS: METOPROLOL TART 25 MG TABLET NG SCH ×2 (09:18→20:56)
[2022-07-20] MEDS: TRIAMCINOLONE ACET 0.1% OINTMENT 15GM TOP SCH (09:20)
[2022-07-20] MEDS ORDERED: E-Z-PAQUE 96% w/w SUSP 176GM BTL As Ordered ONE (11:25)
[2022-07-20] MEDS ORDERED: BARIUM SULFATE 700 MG TABLET (E-Z-DISK) As Ordered ONE (11:25)
[2022-07-20] MEDS ORDERED: VARIBAR NECTAR 40% w/v 240ML SUSP BTL As Ordered ONE (11:25)
[2022-07-20] MEDS ORDERED: VARIBAR PUDDING 40% w/v 230ML TUBE As Ordered ONE (11:25)
[2022-07-20] MEDS: LACRILUBE (AKWA TEARS) OPHTH OINT 3.5GM OS SCH (20:56)
[2022-07-21 05:33] VITALS: BP 142/74; TEMP 97.7; O2SAT 99
[2022-07-21] MEDS: LEVOTHYROXINE 112MCG TABLET (0.112MG) NG SCH (05:37)
[2022-07-21] MEDS: ALBUTEROL SULFATE 2.5MG/0.5ML INH NEB SOLN NEB SCH ×3 (07:17→23:17)
[2022-07-21] MEDS: SODIUM CHLORIDE HYPERTONIC 3% 15ML NEB SOL INH SCH ×3 (07:17→23:16)
[2022-07-21] MEDS: SERTRALINE 100 MG TAB PEG SCH (08:25)
[2022-07-21] MEDS: APIXABAN 5 MG TAB (ELIQUIS) NG SCH (08:25)
[2022-07-21] MEDS: TOPIRAMATE (TopAMAX) 100 MG TAB PO SCH (08:25)
[2022-07-21] MEDS: FUROSEMIDE 40 MG TAB PEG SCH (08:25)
[2022-07-21] MEDS: POTASSIUM CHLORIDE 10% LIQ 20MEQ/15ML UDC PEG SCH (08:26)
[2022-07-21] MEDS: DOXYCYCLINE HYCLATE 100MG TABLET PEG SCH (08:26)
[2022-07-21] MEDS: METOPROLOL TART 25 MG TABLET NG SCH (08:26)
[2022-07-21] MEDS: GABAPENTIN 100 MG CAP PEG SCH (08:26)
[2022-07-21] MEDS: OMEPRAZOLE/SODIUM BICARB 20-840MG 10ML ORAL SYRINGE GT SCH (08:27)
[2022-07-21] MEDS: TRIAMCINOLONE ACET 0.1% OINTMENT 15GM TOP SCH (08:28)
[2022-07-21 12:08] LABS: HEMATOCRIT 35.2 % (42.0-52.0); HEMOGLOBIN 10.9 g/dl (13.5-17.5); MEAN CORPUSCULAR HEMOGLOBIN 29.2 pg (27.0-33.0); MEAN CORPUSCULAR VOLUME 94.4 fl (80.0-96.0); PLATELET COUNT, AUTOMATED 323 10^3/uL (150-450); RED BLOOD COUNT 3.73 10^6/uL (4.30-6.10)
[2022-07-21 12:36] LABS: ALBUMIN 2.6 G/DL (3.2-5.2); ALKALINE PHOSPHATASE 215 U/L (46-116); ALT/SGPT 62 U/L (7.0-40); AST/SGOT 35 U/L (<34); BILIRUBIN,TOTAL 0.3 MG/DL (0.3-1.2); BLOOD UREA NITROGEN 23 MG/DL (9-23); CALCIUM LEVEL 9.5 MG/DL (8.5-10.1); CARBON DIOXIDE LEVEL 28 MMOL/L (20-31); CHLORIDE LEVEL 102 MMOL/L (98-107); CREATININE FOR GFR 0.65 MG/DL (0.70-1.30); GLOMERULAR FILTRATION RATE > 60.0 (>56); GLUCOSE, FASTING 103 MG/DL (60-100); MAGNESIUM LEVEL 1.4 MG/DL (1.8-2.4); POTASSIUM SERUM 4.5 MMOL/L (3.5-5.1); SODIUM LEVEL 137 MMOL/L (136-145); TOTAL PROTEIN 6.3 G/DL (5.7-8.2)
[2022-07-21 16:09] VITALS: BP 136/74
[2022-07-21] MEDS: FUROSEMIDE 40 MG TAB PO SCH (16:09)
[2022-07-21] MEDS: GABAPENTIN 100 MG CAP PO SCH ×2 (16:09→20:57)
[2022-07-21] MEDS: APIXABAN 5 MG TAB (ELIQUIS) PO SCH (20:55)
[2022-07-21] MEDS: LACRILUBE (AKWA TEARS) OPHTH OINT 3.5GM OS SCH (20:55)
[2022-07-21] MEDS: POTASSIUM CHLORIDE 10% LIQ 20MEQ/15ML UDC PO SCH (20:55)
[2022-07-21] MEDS: METOPROLOL TART 25 MG TABLET PO SCH (20:57)
[2022-07-21] MEDS: DOXYCYCLINE HYCLATE 100MG TABLET PO SCH (20:57)
[2022-07-22] MEDS: LEVOTHYROXINE 112MCG TABLET (0.112MG) PO SCH (05:30)
[2022-07-22 05:39] VITALS: BP 137/80; TEMP 97.9; O2SAT 99
[2022-07-22] MEDS: SODIUM CHLORIDE HYPERTONIC 3% 15ML NEB SOL INH SCH ×3 (08:00→23:12)
[2022-07-22] MEDS: ALBUTEROL SULFATE 2.5MG/0.5ML INH NEB SOLN NEB SCH ×3 (08:00→23:12)
[2022-07-22] MEDS: POTASSIUM CHLORIDE 10% LIQ 20MEQ/15ML UDC PO SCH (09:26)
[2022-07-22] MEDS: OMEPRAZOLE/SODIUM BICARB 20-840MG 10ML ORAL SYRINGE PO SCH (09:26)
[2022-07-22] MEDS: SERTRALINE 100 MG TAB PO SCH (09:27)
[2022-07-22] MEDS: TOPIRAMATE (TopAMAX) 100 MG TAB PO SCH (09:27)
[2022-07-22] MEDS: FUROSEMIDE 40 MG TAB PO SCH ×2 (09:27→16:48)
[2022-07-22] MEDS: APIXABAN 5 MG TAB (ELIQUIS) PO SCH ×2 (09:27→20:47)
[2022-07-22] MEDS: DOXYCYCLINE HYCLATE 100MG TABLET PO SCH ×2 (09:27→20:47)
[2022-07-22] MEDS: GABAPENTIN 100 MG CAP PO SCH ×3 (09:27→20:47)
[2022-07-22] MEDS: TRIAMCINOLONE ACET 0.1% OINTMENT 15GM TOP SCH (09:28)
[2022-07-22] MEDS: METOPROLOL TART 25 MG TABLET PO SCH ×2 (09:30→20:47)
[2022-07-22] MEDS: LACRILUBE (AKWA TEARS) OPHTH OINT 3.5GM OS SCH (20:44)
[2022-07-23] MEDS: LEVOTHYROXINE 112MCG TABLET (0.112MG) PO SCH (05:59)
[2022-07-23 06:00] VITALS: BP 131/76; TEMP 97.5; O2SAT 96
[2022-07-23] MEDS: ALBUTEROL SULFATE 2.5MG/0.5ML INH NEB SOLN NEB SCH ×2 (07:20→15:51)
[2022-07-23] MEDS: SODIUM CHLORIDE HYPERTONIC 3% 15ML NEB SOL INH SCH ×2 (07:22→15:51)
[2022-07-23] MEDS: POTASSIUM CHLORIDE 10% LIQ 20MEQ/15ML UDC PO SCH (09:34)
[2022-07-23] MEDS: OMEPRAZOLE/SODIUM BICARB 20-840MG 10ML ORAL SYRINGE PO SCH (09:35)
[2022-07-23] MEDS: METOPROLOL TART 25 MG TABLET PO SCH ×2 (09:36→21:00)
[2022-07-23] MEDS: GABAPENTIN 100 MG CAP PO SCH ×3 (09:37→21:34)
[2022-07-23] MEDS: TOPIRAMATE (TopAMAX) 100 MG TAB PO SCH (09:37)
[2022-07-23] MEDS: SERTRALINE 100 MG TAB PO SCH (09:37)
[2022-07-23] MEDS: DOXYCYCLINE HYCLATE 100MG TABLET PO SCH ×2 (09:37→21:34)
[2022-07-23] MEDS: APIXABAN 5 MG TAB (ELIQUIS) PO SCH ×2 (09:37→21:34)
[2022-07-23] MEDS: FUROSEMIDE 40 MG TAB PO SCH ×2 (09:37→17:24)
[2022-07-23] MEDS: TRIAMCINOLONE ACET 0.1% OINTMENT 15GM TOP SCH (09:38)
[2022-07-23] MEDS: LACRILUBE (AKWA TEARS) OPHTH OINT 3.5GM OS SCH (21:34)
[2022-07-24] MEDS: ALBUTEROL SULFATE 2.5MG/0.5ML INH NEB SOLN NEB SCH ×4 (00:12→23:26)
[2022-07-24] MEDS: SODIUM CHLORIDE HYPERTONIC 3% 15ML NEB SOL INH SCH ×4 (00:13→23:26)
[2022-07-24 06:00] VITALS: BP 125/64; TEMP 97.7; O2SAT 97
[2022-07-24] MEDS: LEVOTHYROXINE 112MCG TABLET (0.112MG) PO SCH (06:21)
[2022-07-24] MEDS: SERTRALINE 100 MG TAB PO SCH (10:01)
[2022-07-24] MEDS: TOPIRAMATE (TopAMAX) 100 MG TAB PO SCH (10:01)
[2022-07-24] MEDS: DOXYCYCLINE HYCLATE 100MG TABLET PO SCH ×2 (10:01→21:44)
[2022-07-24] MEDS: METOPROLOL TART 25 MG TABLET PO SCH ×2 (10:01→21:44)
[2022-07-24] MEDS: GABAPENTIN 100 MG CAP PO SCH ×3 (10:01→21:43)
[2022-07-24] MEDS: FUROSEMIDE 40 MG TAB PO SCH ×2 (10:02→17:10)
[2022-07-24] MEDS: APIXABAN 5 MG TAB (ELIQUIS) PO SCH ×2 (10:02→21:44)
[2022-07-24] MEDS: POTASSIUM CHLORIDE 10% LIQ 20MEQ/15ML UDC PO SCH (10:02)
[2022-07-24] MEDS: OMEPRAZOLE/SODIUM BICARB 20-840MG 10ML ORAL SYRINGE PO SCH (10:02)
[2022-07-24] MEDS: TRIAMCINOLONE ACET 0.1% OINTMENT 15GM TOP SCH (10:03)
[2022-07-24] MEDS: LACRILUBE (AKWA TEARS) OPHTH OINT 3.5GM OS SCH (21:45)
[2022-07-25] MEDS: LEVOTHYROXINE 112MCG TABLET (0.112MG) PO SCH (05:34)
[2022-07-25 06:00] VITALS: BP 123/72; TEMP 97.5; O2SAT 96
[2022-07-25] MEDS: ALBUTEROL SULFATE 2.5MG/0.5ML INH NEB SOLN NEB SCH ×3 (07:05→23:32)
[2022-07-25] MEDS: SODIUM CHLORIDE HYPERTONIC 3% 15ML NEB SOL INH SCH ×3 (07:05→23:32)
[2022-07-25] MEDS: OMEPRAZOLE/SODIUM BICARB 20-840MG 10ML ORAL SYRINGE PO SCH (09:20)
[2022-07-25] MEDS: POTASSIUM CHLORIDE 10% LIQ 20MEQ/15ML UDC PO SCH (09:20)
[2022-07-25] MEDS: GABAPENTIN 100 MG CAP PO SCH ×3 (09:20→21:28)
[2022-07-25] MEDS: METOPROLOL TART 25 MG TABLET PO SCH ×2 (09:21→21:29)
[2022-07-25] MEDS: SERTRALINE 100 MG TAB PO SCH (09:21)
[2022-07-25] MEDS: TOPIRAMATE (TopAMAX) 100 MG TAB PO SCH (09:21)
[2022-07-25] MEDS: DOXYCYCLINE HYCLATE 100MG TABLET PO SCH ×2 (09:21→21:29)
[2022-07-25] MEDS: FUROSEMIDE 40 MG TAB PO SCH ×2 (09:21→16:16)
[2022-07-25] MEDS: TRIAMCINOLONE ACET 0.1% OINTMENT 15GM TOP SCH (09:22)
[2022-07-25] MEDS: APIXABAN 5 MG TAB (ELIQUIS) PO SCH ×2 (09:22→21:29)
[2022-07-25] MEDS: LACRILUBE (AKWA TEARS) OPHTH OINT 3.5GM OS SCH (21:29)
[2022-07-26] MEDS: LEVOTHYROXINE 112MCG TABLET (0.112MG) PO SCH (05:54)
[2022-07-26] MEDS: ALBUTEROL SULFATE 2.5MG/0.5ML INH NEB SOLN NEB SCH ×3 (08:31→23:16)
[2022-07-26] MEDS: SODIUM CHLORIDE HYPERTONIC 3% 15ML NEB SOL INH SCH ×3 (08:31→23:16)
[2022-07-26] MEDS: FUROSEMIDE 40 MG TAB PO SCH ×2 (09:00→17:14)
[2022-07-26] MEDS: METOPROLOL TART 25 MG TABLET PO SCH ×2 (09:00→20:25)
[2022-07-26] MEDS: SERTRALINE 100 MG TAB PO SCH (09:21)
[2022-07-26] MEDS: APIXABAN 5 MG TAB (ELIQUIS) PO SCH ×2 (09:21→20:22)
[2022-07-26] MEDS: POTASSIUM CHLORIDE 10% LIQ 20MEQ/15ML UDC PO SCH (09:21)
[2022-07-26] MEDS: TOPIRAMATE (TopAMAX) 100 MG TAB PO SCH (09:22)
[2022-07-26] MEDS: OMEPRAZOLE/SODIUM BICARB 20-840MG 10ML ORAL SYRINGE PO SCH (09:22)
[2022-07-26] MEDS: DOXYCYCLINE HYCLATE 100MG TABLET PO SCH ×2 (09:22→20:22)
[2022-07-26] MEDS: GABAPENTIN 100 MG CAP PO SCH ×3 (09:22→20:21)
[2022-07-26] MEDS: TRIAMCINOLONE ACET 0.1% OINTMENT 15GM TOP SCH (09:23)
[2022-07-26] MEDS: LACRILUBE (AKWA TEARS) OPHTH OINT 3.5GM OS SCH (20:22)
[2022-07-27 06:00] VITALS: BP 148/69; TEMP 97.7; O2SAT 94
[2022-07-27] MEDS: LEVOTHYROXINE 112MCG TABLET (0.112MG) PO SCH (06:06)
[2022-07-27] MEDS: ALBUTEROL SULFATE 2.5MG/0.5ML INH NEB SOLN NEB SCH ×3 (07:46→23:33)
[2022-07-27] MEDS: SODIUM CHLORIDE HYPERTONIC 3% 15ML NEB SOL INH SCH ×3 (07:46→23:34)
[2022-07-27 10:00] VITALS: BP 126/73; TEMP 97.9; O2SAT 98
[2022-07-27] MEDS: APIXABAN 5 MG TAB (ELIQUIS) PO SCH ×2 (10:01→20:46)
[2022-07-27] MEDS: SERTRALINE 100 MG TAB PO SCH (10:02)
[2022-07-27] MEDS: DOXYCYCLINE HYCLATE 100MG TABLET PO SCH ×2 (10:02→20:46)
[2022-07-27] MEDS: GABAPENTIN 100 MG CAP PO SCH ×3 (10:02→20:46)
[2022-07-27] MEDS: TOPIRAMATE (TopAMAX) 100 MG TAB PO SCH (10:03)
[2022-07-27] MEDS: FUROSEMIDE 40 MG TAB PO SCH ×2 (10:03→16:18)
[2022-07-27] MEDS: TRIAMCINOLONE ACET 0.1% OINTMENT 15GM TOP SCH (10:04)
[2022-07-27] MEDS: POTASSIUM CHLORIDE 10% LIQ 20MEQ/15ML UDC PO SCH (10:04)
[2022-07-27] MEDS: METOPROLOL TART 25 MG TABLET PO SCH ×2 (10:05→20:52)
[2022-07-27] MEDS: OMEPRAZOLE/SODIUM BICARB 20-840MG 10ML ORAL SYRINGE PO SCH (10:06)
[2022-07-27 14:39] LABS: BASO # 0.1 10^3/uL (0.0-0.2); BASO % 0.5 % (0.0-1.0); EOS # 0.2 10^3/uL (0.0-0.5); EOS % 1.7 % (0.0-3.0); HEMATOCRIT 34.6 % (42.0-52.0); HEMOGLOBIN 10.6 g/dl (13.5-17.5); LYMPH # 1.6 10^3/uL (1.5-5.0); LYMPH % 13.3 % (24.0-44.0); MEAN CORPUSCULAR HEMOGLOBIN 28.7 pg (27.0-33.0); MEAN CORPUSCULAR HGB CONC 30.6 g/dl (32.0-36.5); MEAN CORPUSCULAR VOLUME 93.8 fl (80.0-96.0); MONO # 0.8 10^3/uL (0.0-0.8); MONO % 6.2 % (2.0-8.0); NEUTROPHILS # 9.4 10^3/uL (1.5-8.5); NEUTROPHILS % 77.9 % (36.0-66.0); PLATELET COUNT, AUTOMATED 429 10^3/uL (150-450); RED BLOOD COUNT 3.69 10^6/uL (4.30-6.10); WHITE BLOOD COUNT 12.1 10^3/uL (4.0-10.0)
[2022-07-27 14:52] LABS: BLOOD UREA NITROGEN 31 MG/DL (9-23); CALCIUM LEVEL 8.8 MG/DL (8.5-10.1); CARBON DIOXIDE LEVEL 29 MMOL/L (20-31); CHLORIDE LEVEL 103 MMOL/L (98-107); CREATININE FOR GFR 0.64 MG/DL (0.70-1.30); GLOMERULAR FILTRATION RATE > 60.0 (>56); GLUCOSE, FASTING 107 MG/DL (60-100); MAGNESIUM LEVEL 1.3 MG/DL (1.8-2.4); POTASSIUM SERUM 4.1 MMOL/L (3.5-5.1); SODIUM LEVEL 140 MMOL/L (136-145)
[2022-07-27 14:53] LABS: ALBUMIN 2.6 G/DL (3.2-5.2); ALKALINE PHOSPHATASE 179 U/L (46-116); ALT/SGPT 47 U/L (7.0-40); AST/SGOT 27 U/L (<34); BILIRUBIN,DIRECT < 0.1 MG/DL (<0.4); BILIRUBIN,TOTAL 0.2 MG/DL (0.3-1.2); TOTAL PROTEIN 6.4 G/DL (5.7-8.2)
[2022-07-27] MEDS: LACRILUBE (AKWA TEARS) OPHTH OINT 3.5GM OS SCH (20:54)
[2022-07-28] MEDS: LEVOTHYROXINE 112MCG TABLET (0.112MG) PO SCH (05:58)
[2022-07-28 06:00] VITALS: BP 124/64; TEMP 97.9; O2SAT 95
[2022-07-28] MEDS: ALBUTEROL SULFATE 2.5MG/0.5ML INH NEB SOLN NEB SCH ×3 (07:41→23:21)
[2022-07-28] MEDS: SODIUM CHLORIDE HYPERTONIC 3% 15ML NEB SOL INH SCH ×3 (07:41→23:21)
[2022-07-28] MEDS: TOPIRAMATE (TopAMAX) 100 MG TAB PO SCH (08:56)
[2022-07-28] MEDS: GABAPENTIN 100 MG CAP PO SCH ×3 (08:56→20:13)
[2022-07-28] MEDS: MAGNESIUM OXIDE 400MG TAB (MAG-OX) PO SCH ×3 (08:56→20:13)
[2022-07-28] MEDS: DOXYCYCLINE HYCLATE 100MG TABLET PO SCH ×2 (08:57→20:13)
[2022-07-28] MEDS: METOPROLOL TART 25 MG TABLET PO SCH ×2 (08:57→20:13)
[2022-07-28] MEDS: OMEPRAZOLE/SODIUM BICARB 20-840MG 10ML ORAL SYRINGE PO SCH (08:57)
[2022-07-28] MEDS: POTASSIUM CHLORIDE 10% LIQ 20MEQ/15ML UDC PO SCH (08:57)
[2022-07-28] MEDS: APIXABAN 5 MG TAB (ELIQUIS) PO SCH ×2 (08:57→20:13)
[2022-07-28] MEDS: SERTRALINE 100 MG TAB PO SCH (08:57)
[2022-07-28] MEDS: FUROSEMIDE 40 MG TAB PO SCH ×2 (08:57→16:30)
[2022-07-28] MEDS: TRIAMCINOLONE ACET 0.1% OINTMENT 15GM TOP SCH (08:58)
[2022-07-28] MEDS: LACRILUBE (AKWA TEARS) OPHTH OINT 3.5GM OS SCH ×2 (20:14→20:19)
[2022-07-29 04:40] VITALS: BP 125/67; TEMP 97.7; O2SAT 94
[2022-07-29] MEDS: LEVOTHYROXINE 112MCG TABLET (0.112MG) PO SCH (06:00)
[2022-07-29] MEDS: ALBUTEROL SULFATE 2.5MG/0.5ML INH NEB SOLN NEB SCH ×3 (07:11→23:51)
[2022-07-29] MEDS: SODIUM CHLORIDE HYPERTONIC 3% 15ML NEB SOL INH SCH ×3 (07:11→23:51)
[2022-07-29] MEDS: GABAPENTIN 100 MG CAP PO SCH ×3 (09:19→20:18)
[2022-07-29] MEDS: DOXYCYCLINE HYCLATE 100MG TABLET PO SCH ×2 (09:19→20:19)
[2022-07-29] MEDS: SERTRALINE 100 MG TAB PO SCH (09:20)
[2022-07-29] MEDS: MAGNESIUM OXIDE 400MG TAB (MAG-OX) PO SCH ×3 (09:20→20:18)
[2022-07-29] MEDS: FUROSEMIDE 40 MG TAB PO SCH ×2 (09:20→16:28)
[2022-07-29] MEDS: TOPIRAMATE (TopAMAX) 100 MG TAB PO SCH (09:20)
[2022-07-29] MEDS: METOPROLOL TART 25 MG TABLET PO SCH ×2 (09:21→20:19)
[2022-07-29] MEDS: OMEPRAZOLE/SODIUM BICARB 20-840MG 10ML ORAL SYRINGE PO SCH (09:21)
[2022-07-29] MEDS: APIXABAN 5 MG TAB (ELIQUIS) PO SCH ×2 (09:21→20:19)
[2022-07-29] MEDS: POTASSIUM CHLORIDE 10% LIQ 20MEQ/15ML UDC PO SCH (09:21)
[2022-07-29] MEDS: TRIAMCINOLONE ACET 0.1% OINTMENT 15GM TOP SCH (09:22)
[2022-07-29] MEDS: LACRILUBE (AKWA TEARS) OPHTH OINT 3.5GM OS SCH (20:19)
[2022-07-30] MEDS: LEVOTHYROXINE 112MCG TABLET (0.112MG) PO SCH (05:39)
[2022-07-30 06:00] VITALS: BP 126/65; TEMP 97.7; O2SAT 92
[2022-07-30 06:37] LABS: POTASSIUM SERUM 3.6 MMOL/L (3.5-5.1)
[2022-07-30 07:24] LABS: MAGNESIUM LEVEL 1.6 MG/DL (1.8-2.4)
[2022-07-30] MEDS: SODIUM CHLORIDE HYPERTONIC 3% 15ML NEB SOL INH SCH ×3 (07:27→23:20)
[2022-07-30] MEDS: ALBUTEROL SULFATE 2.5MG/0.5ML INH NEB SOLN NEB SCH ×3 (07:27→23:20)
[2022-07-30] MEDS: POTASSIUM CHLORIDE 10% LIQ 20MEQ/15ML UDC PO SCH (09:55)
[2022-07-30] MEDS: OMEPRAZOLE/SODIUM BICARB 20-840MG 10ML ORAL SYRINGE PO SCH (09:56)
[2022-07-30] MEDS: METOPROLOL TART 25 MG TABLET PO SCH ×2 (09:57→20:22)
[2022-07-30] MEDS: MAGNESIUM OXIDE 400MG TAB (MAG-OX) PO SCH ×3 (09:57→20:23)
[2022-07-30] MEDS: SERTRALINE 100 MG TAB PO SCH (09:58)
[2022-07-30] MEDS: TOPIRAMATE (TopAMAX) 100 MG TAB PO SCH (09:58)
[2022-07-30] MEDS: DOXYCYCLINE HYCLATE 100MG TABLET PO SCH ×2 (09:58→20:23)
[2022-07-30] MEDS: FUROSEMIDE 40 MG TAB PO SCH ×2 (09:58→16:51)
[2022-07-30] MEDS: GABAPENTIN 100 MG CAP PO SCH ×3 (09:58→20:22)
[2022-07-30] MEDS: APIXABAN 5 MG TAB (ELIQUIS) PO SCH ×2 (09:58→20:23)
[2022-07-30] MEDS: TRIAMCINOLONE ACET 0.1% OINTMENT 15GM TOP SCH (10:03)
[2022-07-30] MEDS: LACRILUBE (AKWA TEARS) OPHTH OINT 3.5GM OS SCH (20:23)
[2022-07-31 05:27] LABS: MAGNESIUM LEVEL 1.4 MG/DL (1.8-2.4); POTASSIUM SERUM 3.7 MMOL/L (3.5-5.1)
[2022-07-31 06:00] VITALS: BP 127/68; TEMP 97.7; O2SAT 96
[2022-07-31] MEDS: LEVOTHYROXINE 112MCG TABLET (0.112MG) PO SCH (06:12)
[2022-07-31] MEDS: SODIUM CHLORIDE HYPERTONIC 3% 15ML NEB SOL INH SCH (08:00)
[2022-07-31] MEDS: ALBUTEROL SULFATE 2.5MG/0.5ML INH NEB SOLN NEB SCH ×2 (08:00→19:52)
[2022-07-31] MEDS: MAG SULF 1GM/100ML (MAG RUN) 1 GM in IV 1 EA IV SCH ×2 (08:03→09:11)
[2022-07-31] MEDS: POTASSIUM CHLORIDE 10% LIQ 20MEQ/15ML UDC PO SCH (10:05)
[2022-07-31] MEDS: OMEPRAZOLE/SODIUM BICARB 20-840MG 10ML ORAL SYRINGE PO SCH (10:06)
[2022-07-31] MEDS: MAGNESIUM OXIDE 400MG TAB (MAG-OX) PO SCH ×3 (10:06→20:50)
[2022-07-31] MEDS: DOXYCYCLINE HYCLATE 100MG TABLET PO SCH ×2 (10:07→20:49)
[2022-07-31] MEDS: GABAPENTIN 100 MG CAP PO SCH ×3 (10:07→20:49)
[2022-07-31] MEDS: SERTRALINE 100 MG TAB PO SCH (10:07)
[2022-07-31] MEDS: METOPROLOL TART 25 MG TABLET PO SCH ×2 (10:07→20:50)
[2022-07-31] MEDS: FUROSEMIDE 40 MG TAB PO SCH ×2 (10:08→17:16)
[2022-07-31] MEDS: TOPIRAMATE (TopAMAX) 100 MG TAB PO SCH (10:08)
[2022-07-31] MEDS: APIXABAN 5 MG TAB (ELIQUIS) PO SCH ×2 (10:08→20:49)
[2022-07-31] MEDS: TRIAMCINOLONE ACET 0.1% OINTMENT 15GM TOP SCH (10:08)
[2022-07-31] MEDS: LACRILUBE (AKWA TEARS) OPHTH OINT 3.5GM OS SCH (20:51)
[2022-08-01] MEDS: LEVOTHYROXINE 112MCG TABLET (0.112MG) PO SCH (05:59)
[2022-08-01 06:00] VITALS: BP 115/61; TEMP 97.7; O2SAT 95
[2022-08-01] MEDS: ALBUTEROL SULFATE 2.5MG/0.5ML INH NEB SOLN NEB SCH ×2 (08:27→19:17)
[2022-08-01] MEDS: METOPROLOL TART 25 MG TABLET PO SCH ×2 (09:00→20:05)
[2022-08-01] MEDS: POTASSIUM CHLORIDE 10% LIQ 20MEQ/15ML UDC PO SCH (09:34)
[2022-08-01] MEDS: OMEPRAZOLE/SODIUM BICARB 20-840MG 10ML ORAL SYRINGE PO SCH (09:34)
[2022-08-01] MEDS: MAGNESIUM OXIDE 400MG TAB (MAG-OX) PO SCH ×2 (09:36→20:04)
[2022-08-01] MEDS: GABAPENTIN 100 MG CAP PO SCH ×3 (09:37→20:05)
[2022-08-01] MEDS: TOPIRAMATE (TopAMAX) 100 MG TAB PO SCH (09:38)
[2022-08-01] MEDS: SERTRALINE 100 MG TAB PO SCH (09:38)
[2022-08-01] MEDS: FUROSEMIDE 40 MG TAB PO SCH ×2 (09:38→17:22)
[2022-08-01] MEDS: APIXABAN 5 MG TAB (ELIQUIS) PO SCH ×2 (09:39→20:05)
[2022-08-01] MEDS: TRIAMCINOLONE ACET 0.1% OINTMENT 15GM TOP SCH (09:39)
[2022-08-01] MEDS: DOXYCYCLINE HYCLATE 100MG TABLET PO SCH ×2 (09:39→20:05)
[2022-08-01 17:21] VITALS: BP 145/72
[2022-08-01] MEDS: LACRILUBE (AKWA TEARS) OPHTH OINT 3.5GM OS SCH (20:05)
[2022-08-02] MEDS: LEVOTHYROXINE 112MCG TABLET (0.112MG) PO SCH (05:33)
[2022-08-02 06:00] VITALS: BP 129/66; TEMP 97.9; O2SAT 95
[2022-08-02 06:13] LABS: BASO # 0.1 10^3/uL (0.0-0.2); BASO % 0.5 % (0.0-1.0); EOS # 0.2 10^3/uL (0.0-0.5); EOS % 1.5 % (0.0-3.0); HEMATOCRIT 30.6 % (42.0-52.0); HEMOGLOBIN 9.7 g/dl (13.5-17.5); LYMPH # 1.4 10^3/uL (1.5-5.0); LYMPH % 12.8 % (24.0-44.0); MEAN CORPUSCULAR HEMOGLOBIN 29.3 pg (27.0-33.0); MEAN CORPUSCULAR HGB CONC 31.7 g/dl (32.0-36.5); MEAN CORPUSCULAR VOLUME 92.4 fl (80.0-96.0); MONO # 0.8 10^3/uL (0.0-0.8); MONO % 7.7 % (2.0-8.0); NEUTROPHILS # 8.4 10^3/uL (1.5-8.5); NEUTROPHILS % 76.9 % (36.0-66.0); PLATELET COUNT, AUTOMATED 370 10^3/uL (150-450); RED BLOOD COUNT 3.31 10^6/uL (4.30-6.10); WHITE BLOOD COUNT 10.9 10^3/uL (4.0-10.0)
[2022-08-02 06:42] LABS: ALBUMIN 2.4 G/DL (3.2-5.2); ALKALINE PHOSPHATASE 155 U/L (46-116); ALT/SGPT 32 U/L (7.0-40); AST/SGOT 17 U/L (<34); BILIRUBIN,TOTAL 0.3 MG/DL (0.3-1.2); BLOOD UREA NITROGEN 16 MG/DL (9-23); CALCIUM LEVEL 9.6 MG/DL (8.5-10.1); CARBON DIOXIDE LEVEL 27 MMOL/L (20-31); CHLORIDE LEVEL 105 MMOL/L (98-107); CREATININE FOR GFR 0.77 MG/DL (0.70-1.30); GLOMERULAR FILTRATION RATE > 60.0 (>56); GLUCOSE, FASTING 95 MG/DL (60-100); POTASSIUM SERUM 3.8 MMOL/L (3.5-5.1); SODIUM LEVEL 139 MMOL/L (136-145); TOTAL PROTEIN 5.9 G/DL (5.7-8.2)
[2022-08-02] MEDS: ALBUTEROL SULFATE 2.5MG/0.5ML INH NEB SOLN NEB SCH ×2 (07:36→21:06)
[2022-08-02] MEDS ORDERED: SODIUM CHLORIDE HYPERTONIC 3% 4ML NEB SOL INH SCH (08:00)
[2022-08-02] MEDS: GABAPENTIN 100 MG CAP PO SCH ×3 (09:44→20:32)
[2022-08-02] MEDS: POTASSIUM CHLORIDE 10% LIQ 20MEQ/15ML UDC PO SCH (09:44)
[2022-08-02] MEDS: MAGNESIUM OXIDE 400MG TAB (MAG-OX) PO SCH ×2 (09:44→20:33)
[2022-08-02] MEDS: APIXABAN 5 MG TAB (ELIQUIS) PO SCH ×2 (09:44→20:33)
[2022-08-02] MEDS: SERTRALINE 100 MG TAB PO SCH (09:44)
[2022-08-02] MEDS: FUROSEMIDE 40 MG TAB PO SCH ×2 (09:44→16:14)
[2022-08-02] MEDS: TOPIRAMATE (TopAMAX) 100 MG TAB PO SCH (09:44)
[2022-08-02] MEDS: DOXYCYCLINE HYCLATE 100MG TABLET PO SCH ×2 (09:44→20:32)
[2022-08-02] MEDS: OMEPRAZOLE/SODIUM BICARB 20-840MG 10ML ORAL SYRINGE PO SCH (09:45)
[2022-08-02] MEDS: TRIAMCINOLONE ACET 0.1% OINTMENT 15GM TOP SCH (09:45)
[2022-08-02] MEDS: METOPROLOL TART 25 MG TABLET PO SCH ×2 (09:45→20:32)
[2022-08-02 19:23] LABS: MAGNESIUM LEVEL 1.8 MG/DL (1.8-2.4)
[2022-08-02] MEDS: LACRILUBE (AKWA TEARS) OPHTH OINT 3.5GM OS SCH (20:33)
[2022-08-03] MEDS: LEVOTHYROXINE 112MCG TABLET (0.112MG) PO SCH (05:06)
[2022-08-03 05:48] VITALS: BP 120/64; TEMP 97.3; O2SAT 99
[2022-08-03] MEDS: ALBUTEROL SULFATE 2.5MG/0.5ML INH NEB SOLN NEB SCH ×3 (07:25→19:42)
[2022-08-03] MEDS: POTASSIUM CHLORIDE 10% LIQ 20MEQ/15ML UDC PO SCH (09:52)
[2022-08-03] MEDS: TOPIRAMATE (TopAMAX) 100 MG TAB PO SCH (09:52)
[2022-08-03] MEDS: FUROSEMIDE 40 MG TAB PO SCH ×2 (09:52→17:29)
[2022-08-03] MEDS: DOXYCYCLINE HYCLATE 100MG TABLET PO SCH ×2 (09:53→20:13)
[2022-08-03] MEDS: SERTRALINE 100 MG TAB PO SCH (09:53)
[2022-08-03] MEDS: METOPROLOL TART 25 MG TABLET PO SCH ×2 (09:53→20:13)
[2022-08-03] MEDS: APIXABAN 5 MG TAB (ELIQUIS) PO SCH ×2 (09:53→20:13)
[2022-08-03] MEDS: GABAPENTIN 100 MG CAP PO SCH ×3 (09:53→20:13)
[2022-08-03] MEDS: MAGNESIUM OXIDE 400MG TAB (MAG-OX) PO SCH ×2 (09:53→20:13)
[2022-08-03] MEDS: TRIAMCINOLONE ACET 0.1% OINTMENT 15GM TOP SCH (09:54)
[2022-08-03] MEDS: OMEPRAZOLE/SODIUM BICARB 20-840MG 10ML ORAL SYRINGE PO SCH (09:54)
[2022-08-03] MEDS: LACRILUBE (AKWA TEARS) OPHTH OINT 3.5GM OS SCH (20:11)
[2022-08-04] MEDS: LEVOTHYROXINE 112MCG TABLET (0.112MG) PO SCH (05:00)
[2022-08-04 05:38] VITALS: BP 116/63; TEMP 97.5; O2SAT 97
[2022-08-04] MEDS: ALBUTEROL SULFATE 2.5MG/0.5ML INH NEB SOLN NEB SCH ×2 (07:31→19:11)
[2022-08-04] MEDS: OMEPRAZOLE/SODIUM BICARB 20-840MG 10ML ORAL SYRINGE PO SCH (09:32)
[2022-08-04] MEDS: POTASSIUM CHLORIDE 10% LIQ 20MEQ/15ML UDC PO SCH (09:32)
[2022-08-04] MEDS: METOPROLOL TART 25 MG TABLET PO SCH ×2 (09:32→20:36)
[2022-08-04] MEDS: GABAPENTIN 100 MG CAP PO SCH ×3 (09:32→20:35)
[2022-08-04] MEDS: DOXYCYCLINE HYCLATE 100MG TABLET PO SCH ×2 (09:32→20:35)
[2022-08-04] MEDS: APIXABAN 5 MG TAB (ELIQUIS) PO SCH ×2 (09:33→20:36)
[2022-08-04] MEDS: TOPIRAMATE (TopAMAX) 100 MG TAB PO SCH (09:33)
[2022-08-04] MEDS: FUROSEMIDE 40 MG TAB PO SCH ×2 (09:33→17:32)
[2022-08-04] MEDS: TRIAMCINOLONE ACET 0.1% OINTMENT 15GM TOP SCH (09:33)
[2022-08-04] MEDS: SERTRALINE 100 MG TAB PO SCH (09:33)
[2022-08-04] MEDS: MAGNESIUM OXIDE 400MG TAB (MAG-OX) PO SCH ×2 (09:33→20:35)
[2022-08-04] MEDS: ACETAMINOPHEN 325MG/10.15ML UDC PO PRN (17:32)
[2022-08-04] MEDS: LACRILUBE (AKWA TEARS) OPHTH OINT 3.5GM OS SCH (20:36)
[2022-08-05 05:00] VITALS: BP 131/64; TEMP 97.5; O2SAT 96
[2022-08-05] MEDS: LEVOTHYROXINE 112MCG TABLET (0.112MG) PO SCH (06:48)
[2022-08-05] MEDS: ALBUTEROL SULFATE 2.5MG/0.5ML INH NEB SOLN NEB SCH ×2 (07:12→20:02)
[2022-08-05] MEDS: GABAPENTIN 100 MG CAP PO SCH ×3 (10:02→19:57)
[2022-08-05] MEDS: APIXABAN 5 MG TAB (ELIQUIS) PO SCH ×2 (10:02→19:56)
[2022-08-05] MEDS: OMEPRAZOLE/SODIUM BICARB 20-840MG 10ML ORAL SYRINGE PO SCH (10:02)
[2022-08-05] MEDS: DOXYCYCLINE HYCLATE 100MG TABLET PO SCH ×2 (10:02→19:57)
[2022-08-05] MEDS: TOPIRAMATE (TopAMAX) 100 MG TAB PO SCH (10:02)
[2022-08-05] MEDS: MAGNESIUM OXIDE 400MG TAB (MAG-OX) PO SCH ×2 (10:02→19:56)
[2022-08-05] MEDS: SERTRALINE 100 MG TAB PO SCH (10:03)
[2022-08-05] MEDS: FUROSEMIDE 40 MG TAB PO SCH ×2 (10:03→16:03)
[2022-08-05] MEDS: METOPROLOL TART 25 MG TABLET PO SCH ×2 (10:03→21:00)
[2022-08-05] MEDS: TRIAMCINOLONE ACET 0.1% OINTMENT 15GM TOP SCH (10:04)
[2022-08-05] MEDS: POTASSIUM CHLORIDE 10% LIQ 20MEQ/15ML UDC PO SCH (10:04)
[2022-08-05] MEDS: ACETAMINOPHEN 325MG/10.15ML UDC PO PRN (10:06)
[2022-08-05] MEDS: LACRILUBE (AKWA TEARS) OPHTH OINT 3.5GM OS SCH (19:58)
[2022-08-06] MEDS: LEVOTHYROXINE 112MCG TABLET (0.112MG) PO SCH (05:33)
[2022-08-06 06:15] VITALS: BP 148/74; TEMP 97.9; O2SAT 96
[2022-08-06] MEDS: ALBUTEROL SULFATE 2.5MG/0.5ML INH NEB SOLN NEB SCH ×2 (07:24→18:53)
[2022-08-06] MEDS: TRIAMCINOLONE ACET 0.1% OINTMENT 15GM TOP SCH (09:00)
[2022-08-06] MEDS: POTASSIUM CHLORIDE 10% LIQ 20MEQ/15ML UDC PO SCH (09:29)
[2022-08-06] MEDS: METOPROLOL TART 25 MG TABLET PO SCH ×2 (09:30→20:20)
[2022-08-06] MEDS: TOPIRAMATE (TopAMAX) 100 MG TAB PO SCH (09:30)
[2022-08-06] MEDS: SERTRALINE 100 MG TAB PO SCH (09:35)
[2022-08-06] MEDS: GABAPENTIN 100 MG CAP PO SCH ×3 (09:35→20:19)
[2022-08-06] MEDS: DOXYCYCLINE HYCLATE 100MG TABLET PO SCH ×2 (09:35→20:20)
[2022-08-06] MEDS: MAGNESIUM OXIDE 400MG TAB (MAG-OX) PO SCH ×2 (09:35→20:19)
[2022-08-06] MEDS: APIXABAN 5 MG TAB (ELIQUIS) PO SCH ×2 (09:35→20:19)
[2022-08-06] MEDS: OMEPRAZOLE/SODIUM BICARB 20-840MG 10ML ORAL SYRINGE PO SCH (09:36)
[2022-08-06] MEDS: FUROSEMIDE 40 MG TAB PO SCH ×2 (09:36→16:44)
[2022-08-06] MEDS: ACETAMINOPHEN 325MG/10.15ML UDC PO PRN (09:40)
[2022-08-06 16:40] VITALS: BP 123/67
[2022-08-06] MEDS: LACRILUBE (AKWA TEARS) OPHTH OINT 3.5GM OS SCH (20:20)
[2022-08-07 05:10] VITALS: BP 124/65; TEMP 97.9; O2SAT 98
[2022-08-07] MEDS: LEVOTHYROXINE 112MCG TABLET (0.112MG) PO SCH (05:20)
[2022-08-07] MEDS: ALBUTEROL SULFATE 2.5MG/0.5ML INH NEB SOLN NEB SCH ×2 (07:07→19:02)
[2022-08-07] MEDS: POTASSIUM CHLORIDE 10% LIQ 20MEQ/15ML UDC PO SCH (09:17)
[2022-08-07] MEDS: OMEPRAZOLE/SODIUM BICARB 20-840MG 10ML ORAL SYRINGE PO SCH (09:18)
[2022-08-07] MEDS: TOPIRAMATE (TopAMAX) 100 MG TAB PO SCH (09:19)
[2022-08-07] MEDS: MAGNESIUM OXIDE 400MG TAB (MAG-OX) PO SCH ×2 (09:19→20:10)
[2022-08-07] MEDS: APIXABAN 5 MG TAB (ELIQUIS) PO SCH ×2 (09:19→20:09)
[2022-08-07] MEDS: SERTRALINE 100 MG TAB PO SCH (09:19)
[2022-08-07] MEDS: DOXYCYCLINE HYCLATE 100MG TABLET PO SCH ×2 (09:19→20:09)
[2022-08-07] MEDS: GABAPENTIN 100 MG CAP PO SCH ×3 (09:19→20:11)
[2022-08-07] MEDS: METOPROLOL TART 25 MG TABLET PO SCH ×2 (09:20→20:10)
[2022-08-07] MEDS: FUROSEMIDE 40 MG TAB PO SCH ×2 (09:20→16:39)
[2022-08-07] MEDS: TRIAMCINOLONE ACET 0.1% OINTMENT 15GM TOP SCH (09:21)
[2022-08-07] MEDS: ACETAMINOPHEN 325MG/10.15ML UDC PO PRN (09:25)
[2022-08-07 16:39] VITALS: BP 118/63
[2022-08-07 19:54] VITALS: BP 129/54
[2022-08-07] MEDS: LACRILUBE (AKWA TEARS) OPHTH OINT 3.5GM OS SCH (20:11)
[2022-08-08] MEDS: LEVOTHYROXINE 112MCG TABLET (0.112MG) PO SCH (06:11)
[2022-08-08 06:14] VITALS: BP 136/62; TEMP 97.7; O2SAT 99
[2022-08-08] MEDS: ALBUTEROL SULFATE 2.5MG/0.5ML INH NEB SOLN NEB SCH ×2 (07:07→19:20)
[2022-08-08] MEDS: OMEPRAZOLE/SODIUM BICARB 20-840MG 10ML ORAL SYRINGE PO SCH (08:41)
[2022-08-08] MEDS: MAGNESIUM OXIDE 400MG TAB (MAG-OX) PO SCH ×2 (08:41→20:46)
[2022-08-08] MEDS: APIXABAN 5 MG TAB (ELIQUIS) PO SCH ×2 (08:41→20:46)
[2022-08-08] MEDS: POTASSIUM CHLORIDE 10% LIQ 20MEQ/15ML UDC PO SCH (08:41)
[2022-08-08] MEDS: GABAPENTIN 100 MG CAP PO SCH ×3 (08:42→20:46)
[2022-08-08] MEDS: FUROSEMIDE 40 MG TAB PO SCH ×2 (08:42→16:01)
[2022-08-08] MEDS: DOXYCYCLINE HYCLATE 100MG TABLET PO SCH ×2 (08:42→20:46)
[2022-08-08] MEDS: METOPROLOL TART 25 MG TABLET PO SCH ×2 (08:42→20:49)
[2022-08-08] MEDS: TOPIRAMATE (TopAMAX) 100 MG TAB PO SCH (08:42)
[2022-08-08] MEDS: SERTRALINE 100 MG TAB PO SCH (08:42)
[2022-08-08] MEDS: TRIAMCINOLONE ACET 0.1% OINTMENT 15GM TOP SCH (08:43)
[2022-08-08] MEDS: ACETAMINOPHEN 325MG/10.15ML UDC PO PRN (13:40)
[2022-08-08 16:56] LABS: MAGNESIUM LEVEL 1.4 MG/DL (1.8-2.4)
[2022-08-08] MEDS: MAG SULF 1GM/100ML (MAG RUN) 1 GM in IV 1 EA IV SCH ×3 (20:40→23:27)
[2022-08-08] MEDS: LACRILUBE (AKWA TEARS) OPHTH OINT 3.5GM OS SCH (20:49)
[2022-08-09] MEDS: LEVOTHYROXINE 112MCG TABLET (0.112MG) PO SCH (06:12)
[2022-08-09] MEDS: ACETAMINOPHEN 325MG/10.15ML UDC PO PRN ×2 (06:14→20:51)
[2022-08-09 06:24] VITALS: BP 110/47; TEMP 97.7; O2SAT 96
[2022-08-09] MEDS: ALBUTEROL SULFATE 2.5MG/0.5ML INH NEB SOLN NEB SCH ×2 (07:51→21:19)
[2022-08-09 08:47] VITALS: BP 113/66
[2022-08-09] MEDS: MAGNESIUM OXIDE 400MG TAB (MAG-OX) PO SCH ×2 (08:48→20:46)
[2022-08-09] MEDS: TRIAMCINOLONE ACET 0.1% OINTMENT 15GM TOP SCH (08:48)
[2022-08-09] MEDS: METOPROLOL TART 25 MG TABLET PO SCH ×2 (08:48→20:45)
[2022-08-09] MEDS: DOXYCYCLINE HYCLATE 100MG TABLET PO SCH ×2 (08:49→20:46)
[2022-08-09] MEDS: GABAPENTIN 100 MG CAP PO SCH ×3 (08:49→20:46)
[2022-08-09] MEDS: TOPIRAMATE (TopAMAX) 100 MG TAB PO SCH (08:49)
[2022-08-09] MEDS: POTASSIUM CHLORIDE 10MEQ SR TABLET PO SCH (08:49)
[2022-08-09] MEDS: FUROSEMIDE 40 MG TAB PO SCH (08:49)
[2022-08-09] MEDS: SERTRALINE 100 MG TAB PO SCH (08:49)
[2022-08-09] MEDS: APIXABAN 5 MG TAB (ELIQUIS) PO SCH ×2 (08:50→20:46)
[2022-08-09] MEDS: OMEPRAZOLE/SODIUM BICARB 20-840MG 10ML ORAL SYRINGE PO SCH (08:50)
[2022-08-09] MEDS: LACRILUBE (AKWA TEARS) OPHTH OINT 3.5GM OS SCH (20:47)
[2022-08-10] MEDS: ACETAMINOPHEN 325MG/10.15ML UDC PO PRN ×2 (05:48→20:56)
[2022-08-10] MEDS: LEVOTHYROXINE 112MCG TABLET (0.112MG) PO SCH (05:48)
[2022-08-10 05:53] VITALS: BP 120/67; TEMP 98.1; O2SAT 96
[2022-08-10] MEDS: ALBUTEROL SULFATE 2.5MG/0.5ML INH NEB SOLN NEB SCH ×2 (07:23→20:34)
[2022-08-10] MEDS: GABAPENTIN 100 MG CAP PO SCH ×3 (08:41→20:56)
[2022-08-10] MEDS: DOXYCYCLINE HYCLATE 100MG TABLET PO SCH ×2 (08:42→20:55)
[2022-08-10] MEDS: POTASSIUM CHLORIDE 10MEQ SR TABLET PO SCH (08:42)
[2022-08-10] MEDS: MAGNESIUM OXIDE 400MG TAB (MAG-OX) PO SCH ×2 (08:42→20:56)
[2022-08-10] MEDS: TOPIRAMATE (TopAMAX) 100 MG TAB PO SCH (08:43)
[2022-08-10] MEDS: FUROSEMIDE 40 MG TAB PO SCH (08:43)
[2022-08-10] MEDS: METOPROLOL TART 25 MG TABLET PO SCH ×2 (08:44→20:55)
[2022-08-10] MEDS: SERTRALINE 100 MG TAB PO SCH (08:44)
[2022-08-10] MEDS: OMEPRAZOLE/SODIUM BICARB 20-840MG 10ML ORAL SYRINGE PO SCH (08:45)
[2022-08-10] MEDS: APIXABAN 5 MG TAB (ELIQUIS) PO SCH ×2 (08:45→20:55)
[2022-08-10] MEDS: TRIAMCINOLONE ACET 0.1% OINTMENT 15GM TOP SCH (08:46)
[2022-08-10] MEDS: LACRILUBE (AKWA TEARS) OPHTH OINT 3.5GM OS SCH (20:56)
[2022-08-11 05:17] VITALS: BP 122/67; TEMP 97.9; O2SAT 98
[2022-08-11] MEDS: LEVOTHYROXINE 112MCG TABLET (0.112MG) PO SCH (06:47)
[2022-08-11] MEDS: TRIAMCINOLONE ACET 0.1% OINTMENT 15GM TOP SCH (09:00)
[2022-08-11] MEDS: ALBUTEROL SULFATE 2.5MG/0.5ML INH NEB SOLN NEB SCH (09:03)
[2022-08-11] MEDS: MAGNESIUM OXIDE 400MG TAB (MAG-OX) PO SCH ×2 (09:21→21:17)
[2022-08-11] MEDS: METOPROLOL TART 25 MG TABLET PO SCH ×2 (09:21→21:20)
[2022-08-11] MEDS: DOXYCYCLINE HYCLATE 100MG TABLET PO SCH ×2 (09:21→21:17)
[2022-08-11] MEDS: GABAPENTIN 100 MG CAP PO SCH ×3 (09:22→21:17)
[2022-08-11] MEDS: TOPIRAMATE (TopAMAX) 100 MG TAB PO SCH (09:22)
[2022-08-11] MEDS: SERTRALINE 100 MG TAB PO SCH (09:22)
[2022-08-11] MEDS: FUROSEMIDE 40 MG TAB PO SCH (09:22)
[2022-08-11] MEDS: APIXABAN 5 MG TAB (ELIQUIS) PO SCH ×2 (09:22→21:17)
[2022-08-11] MEDS: POTASSIUM CHLORIDE 10MEQ SR TABLET PO SCH (09:23)
[2022-08-11] MEDS: OMEPRAZOLE/SODIUM BICARB 20-840MG 10ML ORAL SYRINGE PO SCH (09:23)
[2022-08-11] MEDS: ACETAMINOPHEN 325MG/10.15ML UDC PO PRN ×3 (09:25→21:20)
[2022-08-11] MEDS ORDERED: ALBUTEROL SULFATE 2.5MG/0.5ML INH NEB SOLN NEB PRN (20:00)
[2022-08-11] MEDS: LACRILUBE (AKWA TEARS) OPHTH OINT 3.5GM OS SCH (20:19)
[2022-08-12 04:50] VITALS: BP 118/81; TEMP 97.7; O2SAT 94
[2022-08-12] MEDS: LEVOTHYROXINE 112MCG TABLET (0.112MG) PO SCH (06:35)
[2022-08-12] MEDS: ACETAMINOPHEN 325MG/10.15ML UDC PO PRN ×3 (06:39→21:51)
[2022-08-12] MEDS: MAGNESIUM OXIDE 400MG TAB (MAG-OX) PO SCH ×2 (08:35→21:50)
[2022-08-12] MEDS: TOPIRAMATE (TopAMAX) 100 MG TAB PO SCH (08:35)
[2022-08-12] MEDS: OMEPRAZOLE/SODIUM BICARB 20-840MG 10ML ORAL SYRINGE PO SCH (08:35)
[2022-08-12] MEDS: SERTRALINE 100 MG TAB PO SCH (08:36)
[2022-08-12] MEDS: DOXYCYCLINE HYCLATE 100MG TABLET PO SCH ×2 (08:36→21:50)
[2022-08-12] MEDS: GABAPENTIN 100 MG CAP PO SCH ×3 (08:36→21:50)
[2022-08-12] MEDS: APIXABAN 5 MG TAB (ELIQUIS) PO SCH ×2 (08:36→21:50)
[2022-08-12] MEDS: POTASSIUM CHLORIDE 10MEQ SR TABLET PO SCH (08:36)
[2022-08-12] MEDS: METOPROLOL TART 25 MG TABLET PO SCH ×2 (08:39→21:00)
[2022-08-12] MEDS: FUROSEMIDE 40 MG TAB PO SCH (08:40)
[2022-08-12] MEDS: TRIAMCINOLONE ACET 0.1% OINTMENT 15GM TOP SCH (08:41)
[2022-08-12] MEDS: LACRILUBE (AKWA TEARS) OPHTH OINT 3.5GM OS SCH (21:00)
[2022-08-13 05:42] VITALS: BP 122/71; TEMP 97.7; O2SAT 97
[2022-08-13] MEDS: ACETAMINOPHEN 325MG/10.15ML UDC PO PRN ×3 (06:33→20:58)
[2022-08-13] MEDS: LEVOTHYROXINE 112MCG TABLET (0.112MG) PO SCH (06:33)
[2022-08-13] MEDS: TRIAMCINOLONE ACET 0.1% OINTMENT 15GM TOP SCH (09:00)
[2022-08-13] MEDS: OMEPRAZOLE/SODIUM BICARB 20-840MG 10ML ORAL SYRINGE PO SCH (09:33)
[2022-08-13] MEDS: APIXABAN 5 MG TAB (ELIQUIS) PO SCH ×2 (09:35→20:59)
[2022-08-13] MEDS: TOPIRAMATE (TopAMAX) 100 MG TAB PO SCH (09:35)
[2022-08-13] MEDS: MAGNESIUM OXIDE 400MG TAB (MAG-OX) PO SCH ×2 (09:35→20:59)
[2022-08-13] MEDS: SERTRALINE 100 MG TAB PO SCH (09:35)
[2022-08-13] MEDS: DOXYCYCLINE HYCLATE 100MG TABLET PO SCH ×2 (09:36→20:59)
[2022-08-13] MEDS: POTASSIUM CHLORIDE 10MEQ SR TABLET PO SCH (09:36)
[2022-08-13] MEDS: FUROSEMIDE 40 MG TAB PO SCH (09:36)
[2022-08-13] MEDS: METOPROLOL TART 25 MG TABLET PO SCH ×2 (09:36→21:00)
[2022-08-13] MEDS: GABAPENTIN 100 MG CAP PO SCH ×3 (09:36→20:59)
[2022-08-13] MEDS: LACRILUBE (AKWA TEARS) OPHTH OINT 3.5GM OS SCH (21:00)
[2022-08-14 05:00] VITALS: BP 140/72; TEMP 97.5; O2SAT 100
[2022-08-14] MEDS: ACETAMINOPHEN 325MG/10.15ML UDC PO PRN ×3 (06:40→20:52)
[2022-08-14] MEDS: LEVOTHYROXINE 112MCG TABLET (0.112MG) PO SCH (06:40)
[2022-08-14 08:10] VITALS: BP_SYST 100; BP_SYST 110; BP_DIAS 60; TEMP 97.2; O2SAT 100
[2022-08-14] MEDS: TRIAMCINOLONE ACET 0.1% OINTMENT 15GM TOP SCH (09:00)
[2022-08-14] MEDS: FUROSEMIDE 40 MG TAB PO SCH (09:00)
[2022-08-14] MEDS: METOPROLOL TART 25 MG TABLET PO SCH ×2 (09:00→20:51)
[2022-08-14] MEDS: APIXABAN 5 MG TAB (ELIQUIS) PO SCH ×2 (09:35→20:50)
[2022-08-14] MEDS: DOXYCYCLINE HYCLATE 100MG TABLET PO SCH ×2 (09:36→20:50)
[2022-08-14] MEDS: POTASSIUM CHLORIDE 10MEQ SR TABLET PO SCH (09:36)
[2022-08-14] MEDS: MAGNESIUM OXIDE 400MG TAB (MAG-OX) PO SCH ×2 (09:37→20:51)
[2022-08-14] MEDS: SERTRALINE 100 MG TAB PO SCH (09:38)
[2022-08-14] MEDS: TOPIRAMATE (TopAMAX) 100 MG TAB PO SCH (09:39)
[2022-08-14] MEDS: GABAPENTIN 100 MG CAP PO SCH ×3 (09:39→20:50)
[2022-08-14] MEDS: OMEPRAZOLE/SODIUM BICARB 20-840MG 10ML ORAL SYRINGE PO SCH (09:40)
[2022-08-14 11:52] LABS: BASO # 0.1 10^3/uL (0.0-0.2); BASO % 0.5 % (0.0-1.0); EOS # 0.2 10^3/uL (0.0-0.5); EOS % 1.3 % (0.0-3.0); HEMOGLOBIN 10.1 g/dl (13.5-17.5); LYMPH # 1.6 10^3/uL (1.5-5.0); LYMPH % 13.6 % (24.0-44.0); MEAN CORPUSCULAR HEMOGLOBIN 28.3 pg (27.0-33.0); MEAN CORPUSCULAR HGB CONC 30.6 g/dl (32.0-36.5); MEAN CORPUSCULAR VOLUME 92.4 fl (80.0-96.0); MONO # 0.9 10^3/uL (0.0-0.8); MONO % 7.9 % (2.0-8.0); NEUTROPHILS # 9.1 10^3/uL (1.5-8.5); NEUTROPHILS % 75.9 % (36.0-66.0); PLATELET COUNT, AUTOMATED 345 10^3/uL (150-450); RED BLOOD COUNT 3.57 10^6/uL (4.30-6.10)
[2022-08-14 12:11] LABS: ALBUMIN 2.4 G/DL (3.2-5.2); ALKALINE PHOSPHATASE 159 U/L (46-116); ALT/SGPT 15 U/L (7.0-40); AST/SGOT 12 U/L (<34); BILIRUBIN,TOTAL 0.3 MG/DL (0.3-1.2); BLOOD UREA NITROGEN 18 MG/DL (9-23); CALCIUM LEVEL 9.5 MG/DL (8.5-10.1); CARBON DIOXIDE LEVEL 23 MMOL/L (20-31); CHLORIDE LEVEL 108 MMOL/L (98-107); CREATININE FOR GFR 0.81 MG/DL (0.70-1.30); GLOMERULAR FILTRATION RATE > 60.0 (>56); GLUCOSE, FASTING 89 MG/DL (60-100); MAGNESIUM LEVEL 1.4 MG/DL (1.8-2.4); POTASSIUM SERUM 4.1 MMOL/L (3.5-5.1); SODIUM LEVEL 141 MMOL/L (136-145)
[2022-08-14] MEDS: MAG SULF 1GM/100ML (MAG RUN) 1 GM in IV 1 EA IV SCH ×3 (13:50→16:19)
[2022-08-14] MEDS: KETOCONAZOLE 2% CREAM TOP SCH ×2 (14:37→20:53)
[2022-08-14] MEDS: LACRILUBE (AKWA TEARS) OPHTH OINT 3.5GM OS SCH (20:53)
[2022-08-15 04:40] VITALS: BP 109/67; TEMP 97.5; O2SAT 97
[2022-08-15] MEDS: LEVOTHYROXINE 112MCG TABLET (0.112MG) PO SCH (06:00)
[2022-08-15] MEDS: ACETAMINOPHEN 325MG/10.15ML UDC PO PRN ×3 (06:00→18:34)
[2022-08-15] MEDS: TRIAMCINOLONE ACET 0.1% OINTMENT 15GM TOP SCH (09:00)
[2022-08-15] MEDS: SERTRALINE 100 MG TAB PO SCH (10:03)
[2022-08-15] MEDS: MAGNESIUM OXIDE 400MG TAB (MAG-OX) PO SCH ×2 (10:03→21:03)
[2022-08-15] MEDS: OMEPRAZOLE/SODIUM BICARB 20-840MG 10ML ORAL SYRINGE PO SCH (10:03)
[2022-08-15] MEDS: GABAPENTIN 100 MG CAP PO SCH ×3 (10:03→21:03)
[2022-08-15] MEDS: APIXABAN 5 MG TAB (ELIQUIS) PO SCH ×2 (10:05→21:03)
[2022-08-15] MEDS: POTASSIUM CHLORIDE 10MEQ SR TABLET PO SCH (10:05)
[2022-08-15] MEDS: DOXYCYCLINE HYCLATE 100MG TABLET PO SCH ×2 (10:05→21:02)
[2022-08-15] MEDS: TOPIRAMATE (TopAMAX) 100 MG TAB PO SCH (10:06)
[2022-08-15] MEDS: FUROSEMIDE 40 MG TAB PO SCH (10:06)
[2022-08-15] MEDS: METOPROLOL TART 25 MG TABLET PO SCH ×2 (10:06→21:00)
[2022-08-15] MEDS: KETOCONAZOLE 2% CREAM TOP SCH ×2 (10:07→21:03)
[2022-08-15] MEDS: LACRILUBE (AKWA TEARS) OPHTH OINT 3.5GM OS SCH (19:59)
[2022-08-16] MEDS: LEVOTHYROXINE 112MCG TABLET (0.112MG) PO SCH (05:50)
[2022-08-16] MEDS: ACETAMINOPHEN 325MG/10.15ML UDC PO PRN ×2 (05:51→15:48)
[2022-08-16 05:53] VITALS: BP 138/74; TEMP 97.5; O2SAT 98
[2022-08-16] MEDS: OMEPRAZOLE/SODIUM BICARB 20-840MG 10ML ORAL SYRINGE PO SCH (08:51)
[2022-08-16] MEDS: MAGNESIUM OXIDE 400MG TAB (MAG-OX) PO SCH ×2 (08:51→21:02)
[2022-08-16] MEDS: POTASSIUM CHLORIDE 10MEQ SR TABLET PO SCH (08:52)
[2022-08-16] MEDS: TOPIRAMATE (TopAMAX) 100 MG TAB PO SCH (08:52)
[2022-08-16] MEDS: APIXABAN 5 MG TAB (ELIQUIS) PO SCH ×2 (08:52→21:01)
[2022-08-16] MEDS: DOXYCYCLINE HYCLATE 100MG TABLET PO SCH ×2 (08:53→21:02)
[2022-08-16] MEDS: SERTRALINE 100 MG TAB PO SCH (08:53)
[2022-08-16] MEDS: GABAPENTIN 100 MG CAP PO SCH ×3 (08:53→21:01)
[2022-08-16] MEDS: KETOCONAZOLE 2% CREAM TOP SCH ×2 (08:53→21:02)
[2022-08-16] MEDS: FUROSEMIDE 40 MG TAB PO SCH (08:53)
[2022-08-16] MEDS: TRIAMCINOLONE ACET 0.1% OINTMENT 15GM TOP SCH (08:56)
[2022-08-16] MEDS: METOPROLOL TART 25 MG TABLET PO SCH ×2 (09:24→21:02)
[2022-08-16] MEDS ORDERED: GABA-1171 PO (13:07)
[2022-08-16] MEDS ORDERED: ALB2.5NEB NEB (13:07)
[2022-08-16] MEDS ORDERED: LIDO4CR TOP (13:07)
[2022-08-16] MEDS ORDERED: TOPA100T12 PO (13:07)
[2022-08-16] MEDS ORDERED: ZOLO100T PO (13:07)
[2022-08-16] MEDS ORDERED: DOXY100T PO (13:07)
[2022-08-16] MEDS ORDERED: POTA-136 PO (13:07)
[2022-08-16] MEDS ORDERED: CETI-25 PO (13:07)
[2022-08-16] MEDS ORDERED: FURO40TA2 PO (13:07)
[2022-08-16] MEDS ORDERED: ELIQ5TAB PO (13:07)
[2022-08-16] MEDS ORDERED: SYNT112T2 PO (13:07)
[2022-08-16] MEDS ORDERED: FLOM0.4C39 PO (13:07)
[2022-08-16] MEDS ORDERED: METO1TAB87 PO (13:07)
[2022-08-16] MEDS ORDERED: KETO2CR TOP (13:07)
[2022-08-16] MEDS ORDERED: AMAN100T PO (13:07)
[2022-08-16] MEDS ORDERED: OMEP90SU PO (13:07)
[2022-08-16] MEDS: LACRILUBE (AKWA TEARS) OPHTH OINT 3.5GM OS SCH (20:57)
[2022-08-17] MEDS: LEVOTHYROXINE 112MCG TABLET (0.112MG) PO SCH (05:32)
[2022-08-17] MEDS: ACETAMINOPHEN 325MG/10.15ML UDC PO PRN ×2 (05:37→15:26)
[2022-08-17 06:00] VITALS: BP 127/64; TEMP 97.5; O2SAT 98
[2022-08-17] MEDS: OMEPRAZOLE/SODIUM BICARB 20-840MG 10ML ORAL SYRINGE PO SCH (08:53)
[2022-08-17] MEDS: SERTRALINE 100 MG TAB PO SCH (08:54)
[2022-08-17] MEDS: APIXABAN 5 MG TAB (ELIQUIS) PO SCH ×2 (08:54→20:47)
[2022-08-17] MEDS: DOXYCYCLINE HYCLATE 100MG TABLET PO SCH ×2 (08:54→20:47)
[2022-08-17] MEDS: POTASSIUM CHLORIDE 10MEQ SR TABLET PO SCH (08:54)
[2022-08-17] MEDS: TOPIRAMATE (TopAMAX) 100 MG TAB PO SCH (08:54)
[2022-08-17] MEDS: GABAPENTIN 100 MG CAP PO SCH ×3 (08:54→20:46)
[2022-08-17] MEDS: MAGNESIUM OXIDE 400MG TAB (MAG-OX) PO SCH ×2 (08:54→20:47)
[2022-08-17] MEDS: FUROSEMIDE 40 MG TAB PO SCH (08:55)
[2022-08-17] MEDS: KETOCONAZOLE 2% CREAM TOP SCH ×2 (08:55→20:48)
[2022-08-17] MEDS: METOPROLOL TART 25 MG TABLET PO SCH ×2 (08:56→20:45)
[2022-08-17] MEDS: TRIAMCINOLONE ACET 0.1% OINTMENT 15GM TOP SCH (08:57)
[2022-08-17] MEDS: LACRILUBE (AKWA TEARS) OPHTH OINT 3.5GM OS SCH (20:48)
[2022-08-18] MEDS: LEVOTHYROXINE 112MCG TABLET (0.112MG) PO SCH (05:28)
[2022-08-18] MEDS: ACETAMINOPHEN 325MG/10.15ML UDC PO PRN (05:29)
[2022-08-18 06:00] VITALS: BP 131/70; TEMP 98.6; O2SAT 99
[2022-08-18] MEDS: APIXABAN 5 MG TAB (ELIQUIS) PO SCH (07:39)
[2022-08-18] MEDS: DOXYCYCLINE HYCLATE 100MG TABLET PO SCH (07:39)
[2022-08-18 07:40] VITALS: BP 131/70
[2022-08-18] MEDS: GABAPENTIN 100 MG CAP PO SCH (07:40)
[2022-08-18] MEDS: METOPROLOL TART 25 MG TABLET PO SCH (07:40)
[2022-08-18] MEDS: MAGNESIUM OXIDE 400MG TAB (MAG-OX) PO SCH (07:41)
[2022-08-18] MEDS: SERTRALINE 100 MG TAB PO SCH (07:41)
[2022-08-18] MEDS: TOPIRAMATE (TopAMAX) 100 MG TAB PO SCH (07:41)
[2022-08-18] MEDS: POTASSIUM CHLORIDE 10MEQ SR TABLET PO SCH (07:42)
[2022-08-18] MEDS: FUROSEMIDE 40 MG TAB PO SCH (07:42)
[2022-08-18] MEDS: OMEPRAZOLE/SODIUM BICARB 20-840MG 10ML ORAL SYRINGE PO SCH (07:42)
[2022-08-18] MEDS: TRIAMCINOLONE ACET 0.1% OINTMENT 15GM TOP SCH (07:44)
[2022-08-18] MEDS: KETOCONAZOLE 2% CREAM TOP SCH (07:47)
[2022-08-18] MEDS ORDERED: FURO40TA2 PO (10:14)
[2022-08-18] MEDS ORDERED: VENTAER INH (10:14)
== END 2022-08-18 14:49 | disposition home health service (06) | DRG 221 ==
LOC: M ED 08:29 → EDBD 08:29 → M ED INP 13:09 → ENRESERV 22:50 → M PCU 23:39 → M MSPAV 05-08 15:58 → M PCU 05-13 20:24 → M ICU 05-16 12:40 → M PCU 06-13 12:22 → M MSPAV 07-06 18:06
PROVIDERS: ADMIT Internal Medicine; ATTEND Student in an Organized Health Care Education/Training Program
PROC: 5A1945Z Respiratory Ventilation, 24-96 Consecutive Hours (ICD-10-PCS; 2022-05-06)
PROC: 0DBK8ZX Excision of Ascending Colon, Via Natural or Artificial Opening Endoscopic, Diagnostic (ICD-10-PCS; 2022-05-15)
PROC: 0DBL8ZX Excision of Transverse Colon, Via Natural or Artificial Opening Endoscopic, Diagnostic (ICD-10-PCS; 2022-05-15)
PROC: 0DBM8ZX Excision of Descending Colon, Via Natural or Artificial Opening Endoscopic, Diagnostic (ICD-10-PCS; 2022-05-15)
PROC: 0DBN8ZX Excision of Sigmoid Colon, Via Natural or Artificial Opening Endoscopic, Diagnostic (ICD-10-PCS; 2022-05-15)
PROC: 0DBP8ZX Excision of Rectum, Via Natural or Artificial Opening Endoscopic, Diagnostic (ICD-10-PCS; 2022-05-15)
PROC: 0DBE0ZZ Excision of Large Intestine, Open Approach (ICD-10-PCS; 2022-05-16)
PROC: 0BJ08ZZ Inspection of Tracheobronchial Tree, Via Natural or Artificial Opening Endoscopic (ICD-10-PCS; 2022-05-16)
PROC: 0D1E0Z4 Bypass Large Intestine to Cutaneous, Open Approach (ICD-10-PCS; principal; 2022-05-16 11:54)
PROC: 0BHQ3YZ Insertion of Other Device into Pleura, Percutaneous Approach (ICD-10-PCS; 2022-05-17)
PROC: 0BJ08ZZ Inspection of Tracheobronchial Tree, Via Natural or Artificial Opening Endoscopic (ICD-10-PCS; 2022-05-18)
PROC: 02HV33Z Insertion of Infusion Device into Superior Vena Cava, Percutaneous Approach (ICD-10-PCS; 2022-05-28)
PROC: 0B110F4 Bypass Trachea to Cutaneous with Tracheostomy Device, Open Approach (ICD-10-PCS; 2022-05-31)
PROC: 0W9J30Z Drainage of Pelvic Cavity with Drainage Device, Percutaneous Approach (ICD-10-PCS; 2022-06-07)
PROC: 0DH64UZ Insertion of Feeding Device into Stomach, Percutaneous Endoscopic Approach (ICD-10-PCS; 2022-07-01)
DX: C20 Malignant neoplasm of rectum (principal); J86.0 Pyothorax with fistula; J96.01 Acute respiratory failure with hypoxia; K72.00 Acute and subacute hepatic failure without coma; R65.21 Severe sepsis with septic shock; A41.9 Sepsis, unspecified organism; G93.41 Metabolic encephalopathy; J69.0 Pneumonitis due to inhalation of food and vomit; K65.1 Peritoneal abscess; G62.81 Critical illness polyneuropathy; G72.81 Critical illness myopathy; K65.0 Generalized (acute) peritonitis; E43 Unspecified severe protein-calorie malnutrition; K63.1 Perforation of intestine (nontraumatic); N17.9 Acute kidney failure, unspecified; I82.402 Acute embolism and thrombosis of unspecified deep veins of left lower extremity; I82.622 Acute embolism and thrombosis of deep veins of left upper extremity; Z93.0 Tracheostomy status; K31.6 Fistula of stomach and duodenum; K56.699 Other intestinal obstruction unspecified as to partial versus complete obstruction; K56.600 Partial intestinal obstruction, unspecified as to cause; J95.811 Postprocedural pneumothorax; L02.211 Cutaneous abscess of abdominal wall; D50.9 Iron deficiency anemia, unspecified; D62 Acute posthemorrhagic anemia; F32.9 Major depressive disorder, single episode, unspecified; I10 Essential (primary) hypertension; I95.1 Orthostatic hypotension; K21.9 Gastro-esophageal reflux disease without esophagitis; K62.5 Hemorrhage of anus and rectum; R31.9 Hematuria, unspecified; Z79.01 Long term (current) use of anticoagulants; Z86.711 Personal history of pulmonary embolism; Z91.128 Patient's intentional underdosing of medication regimen for other reason; E03.9 Hypothyroidism, unspecified; E87.6 Hypokalemia; F32.A Depression, unspecified

== ENCOUNTER → 2022-08-20 | Outpatient (CLI) | payer OTHER ==
[~2022-08-20] MED LIST changes: +ALB2.5NEB NEB; +DOXY100T PO; +ELIQ5TAB PO; +FURO40TA2 PO; +GABA-1171 PO; +KETO2CR TOP; +LIDO4CR TOP; +METO1TAB87 PO; +OMEP90SU PO; +PATIENT COMMENT; +POTA-136 PO; +SYNT112T2 PO; +ZOLO100T PO
== END ==
LOC: M ONCR 14:16
PROVIDERS: ATTEND General Practice
DX: C20 Malignant neoplasm of rectum (principal); Z71.2 Person consulting for explanation of examination or test findings; Z79.01 Long term (current) use of anticoagulants; Z79.890 Hormone replacement therapy; Z79.899 Other long term (current) drug therapy; Z87.891 Personal history of nicotine dependence; Z88.8 Allergy status to other drugs, medicaments and biological substances; Z93.0 Tracheostomy status; Z93.3 Colostomy status

== ENCOUNTER → 2022-09-09 | Outpatient (CLI) | payer OTHER ==
[~2022-09-09] MED LIST changes: +PROHANCE 279.3MG/ML 15ML VIAL As Ordered ONE; +PROHANCE 279.3MG/ML 5ML VIAL As Ordered ONE
== END ==
LOC: M RAD 12:31
PROVIDERS: ATTEND General Practice
DX: C20 Malignant neoplasm of rectum (principal)
CPT/HCPCS: 72197; A9576

== ENCOUNTER → 2022-09-10 | Outpatient (CLI) | payer OTHER ==
[~2022-09-10] MED LIST changes: +LIDOCAINE W/EPINEPHRINE 1% 20ML VIAL As Ordered ONE; +MIDAZOLAM INJ 2MG/2ML VIAL As Ordered ONE; -PROHANCE 279.3MG/ML 15ML VIAL As Ordered ONE; -PROHANCE 279.3MG/ML 5ML VIAL As Ordered ONE; +ceFAZolin 2 GM/D5W 50 ML IV BAG As Ordered ONE; +fentaNYL 100 MCG/2 ML INJECTION As Ordered ONE
[2022-09-10 07:45] VITALS: TEMP 97.7
[2022-09-10 12:30] VITALS: BP 103/62; O2SAT 98
== END ==
LOC: M IRPRO 06:58
PROVIDERS: ATTEND Specialist
DX: C20 Malignant neoplasm of rectum (principal)
CPT/HCPCS: 36561; J0690; J2250; J3010

== ENCOUNTER 2022-09-15 22:38 | Inpatient (IN) | payer OTHER ==
[~2022-09-15] VITALS: Ht 180.3 cm; Wt 107.2 kg
[~2022-09-15 22:38] MED LIST changes: -LIDOCAINE W/EPINEPHRINE 1% 20ML VIAL As Ordered ONE; -MIDAZOLAM INJ 2MG/2ML VIAL As Ordered ONE; -ceFAZolin 2 GM/D5W 50 ML IV BAG As Ordered ONE; -fentaNYL 100 MCG/2 ML INJECTION As Ordered ONE
[2022-09-15] MEDS ORDERED: ONDANSETRON 4MG 2ML VIAL IV ONE (23:15)
[2022-09-15] MEDS ORDERED: NS 1,000 ML IV ONE (23:15)
[2022-09-16 00:33] LABS: ALBUMIN 2.4 G/DL (3.2-5.2); ALKALINE PHOSPHATASE 183 U/L (46-116); ALT/SGPT < 9 U/L (7.0-40); AST/SGOT 9 U/L (<34); BILIRUBIN,TOTAL 0.5 MG/DL (0.3-1.2); BLOOD UREA NITROGEN 18 MG/DL (9-23); CALCIUM LEVEL 9.1 MG/DL (8.5-10.1); CARBON DIOXIDE LEVEL 22 MMOL/L (20-31); CHLORIDE LEVEL 106 MMOL/L (98-107); CREATININE FOR GFR 1.08 MG/DL (0.70-1.30); GLOMERULAR FILTRATION RATE > 60.0 (>56); GLUCOSE, FASTING 177 MG/DL (60-100); MAGNESIUM LEVEL 1.4 MG/DL (1.8-2.4); POTASSIUM SERUM 3.2 MMOL/L (3.5-5.1); SODIUM LEVEL 142 MMOL/L (136-145); TOTAL PROTEIN 7.1 G/DL (5.7-8.2)
[2022-09-16] MEDS ORDERED: MAG SULF 1GM/100ML (MAG RUN) 1 GM in IV 1 EA IV ONE (00:40)
[2022-09-16] MEDS ORDERED: KCL 10MEQ/100ML SWI (KRUN) 10 MEQ in IV 1 EA IV ONE ×4 (00:40)
[2022-09-16 00:58] LABS: HEMATOCRIT 37.4 % (42.0-52.0); HEMOGLOBIN 12.2 g/dl (13.5-17.5); MEAN CORPUSCULAR HEMOGLOBIN 26.3 pg (27.0-33.0); MEAN CORPUSCULAR HGB CONC 32.6 g/dl (32.0-36.5); MEAN CORPUSCULAR VOLUME 80.8 fl (80.0-96.0); PLATELET COUNT, AUTOMATED 408 10^3/uL (150-450); RED BLOOD COUNT 4.63 10^6/uL (4.30-6.10)
[2022-09-16 01:37] LABS: WHITE BLOOD COUNT 30.9 10^3/uL (4.0-10.0)
[2022-09-16 01:55] LABS: MONOCYTES 4 % (0-5); NEUTROPHILS 94 % (28-66)
[2022-09-16 01:56] LABS: PLATELET ESTIMATE NORMAL (NORMAL)
[2022-09-16] MEDS ORDERED: ISOVUE-370 76% 100ML VIAL As Ordered ONE (02:07)
[2022-09-16] MEDS ORDERED: metroNIDAZOLE 500 MG in IV 1 EA IV ONE (04:00)
[2022-09-16] MEDS ORDERED: CIPROFLOXACIN 400 MG in IV 1 EA IV ONE (04:00)
[2022-09-16] MEDS ORDERED: MORPHINE 4 MG/ML 1ML VIAL IV PRN (04:35)
[2022-09-16] MEDS ORDERED: GLUCOSE 4GM CHEW TABLET PO PRN (04:45)
[2022-09-16] MEDS ORDERED: GLUCAGON INJ 1MG VIAL SC PRN (04:45)
[2022-09-16] MEDS ORDERED: DEXTROSE 50% 50ML SYRINGE IV PRN (04:45)
[2022-09-16] MEDS: INSULIN LISPRO (NovoLOG) PER UNIT SC SCH ×3 (06:00→18:00)
[2022-09-16] MEDS ORDERED: ZOLO100T PO (06:23)
[2022-09-16] MEDS ORDERED: CETI10TA4 PO (06:23)
[2022-09-16] MEDS ORDERED: METO25TA4 PO (06:23)
[2022-09-16] MEDS ORDERED: SYNT112T2 PO (06:23)
[2022-09-16] MEDS ORDERED: ALBU2.5V10 INH (06:23)
[2022-09-16] MEDS ORDERED: TOPI100T9 PO (06:23)
[2022-09-16] MEDS ORDERED: NEUR100C PO (06:23)
[2022-09-16] MEDS ORDERED: DOXY-259 PO (06:23)
[2022-09-16] MEDS ORDERED: AMAN100T PO (06:23)
[2022-09-16] MEDS ORDERED: INVE3TAB2 PO (06:23)
[2022-09-16] MEDS ORDERED: FURO40TA2 PO (06:23)
[2022-09-16] MEDS ORDERED: ELIQ5TAB PO (06:23)
[2022-09-16] MEDS ORDERED: ALBU8.5H INH (06:23)
[2022-09-16] MEDS ORDERED: MIRT-62 PO (06:23)
[2022-09-16] MEDS ORDERED: OMEP90SU PO (06:23)
[2022-09-16] MEDS ORDERED: KETO2CR EXT (06:23)
[2022-09-16] MEDS ORDERED: FLOM0.4C39 PO (06:23)
[2022-09-16] MEDS ORDERED: POTA-150 PO (06:23)
[2022-09-16] MEDS ORDERED: LIDO1CRE2 EXT (06:23)
[2022-09-16] MEDS ORDERED: HOME MED LIST COMPLETE! XX SCH (06:25)
[2022-09-16 06:35] LABS: HEMATOCRIT 35.9 % (42.0-52.0); HEMOGLOBIN 11.3 g/dl (13.5-17.5); MEAN CORPUSCULAR HEMOGLOBIN 25.6 pg (27.0-33.0); MEAN CORPUSCULAR HGB CONC 31.5 g/dl (32.0-36.5); MEAN CORPUSCULAR VOLUME 81.4 fl (80.0-96.0); PLATELET COUNT, AUTOMATED 333 10^3/uL (150-450); RED BLOOD COUNT 4.41 10^6/uL (4.30-6.10); WHITE BLOOD COUNT 24.7 10^3/uL (4.0-10.0)
[2022-09-16 06:52] LABS: ALBUMIN 2.2 G/DL (3.2-5.2); ALKALINE PHOSPHATASE 156 U/L (46-116); ALT/SGPT < 9 U/L (7.0-40); AST/SGOT < 8 U/L (<34); BILIRUBIN,TOTAL 0.4 MG/DL (0.3-1.2); BLOOD UREA NITROGEN 23 MG/DL (9-23); CALCIUM LEVEL 8.3 MG/DL (8.5-10.1); CARBON DIOXIDE LEVEL 20 MMOL/L (20-31); CHLORIDE LEVEL 106 MMOL/L (98-107); CREATININE FOR GFR 1.03 MG/DL (0.70-1.30); GLOMERULAR FILTRATION RATE > 60.0 (>56); GLUCOSE, FASTING 146 MG/DL (60-100); MAGNESIUM LEVEL 1.7 MG/DL (1.8-2.4); POTASSIUM SERUM 3.4 MMOL/L (3.5-5.1); SODIUM LEVEL 139 MMOL/L (136-145); TOTAL PROTEIN 6.3 G/DL (5.7-8.2)
[2022-09-16] MEDS: KCL 40MEQ in NS 1000ML 1,000 ML IV SCH ×3 (07:52→20:35)
[2022-09-16] MEDS: METOPROLOL TART 25 MG TABLET PO SCH ×2 (10:13→21:53)
[2022-09-16] MEDS: TOPIRAMATE (TopAMAX) 100 MG TAB PO SCH (10:13)
[2022-09-16] MEDS: SERTRALINE 100 MG TAB PO SCH (10:13)
[2022-09-16] MEDS: FIDAXOMICIN 200 MG TAB (DIFICID) PO SCH ×2 (10:14→21:54)
[2022-09-16] MEDS: ONDANSETRON 4MG 2ML VIAL IV PRN (10:16)
[2022-09-16] MEDS ORDERED: ENOXAPARIN 100MG/1ML SYRINGE (J1650 PER 10MG) SC ONE (13:00)
[2022-09-16] MEDS: metroNIDAZOLE 500 MG in IV 1 EA IV SCH (14:00)
[2022-09-16] MEDS: AMANTADINE 100MG TABLET PO SCH (16:02)
[2022-09-16] MEDS: GABAPENTIN 100 MG CAP PO SCH ×2 (16:02→21:52)
[2022-09-16] MEDS: CIPROFLOXACIN 400 MG in IV 1 EA IV SCH (17:00)
[2022-09-16] MEDS ORDERED: POTASSIUM CHLORIDE 10MEQ SR TABLET PO ONE (17:30)
[2022-09-16 20:40] LABS: RSV AMPLIFICATION NEGATIVE (NEGATIVE)
[2022-09-16] MEDS: MIRTAZAPINE 15 MG TAB PO SCH (21:54)
[2022-09-16] MEDS: TAMSULOSIN 0.4 MG CAP PO SCH (21:54)
[2022-09-16 22:32] VITALS: BP 126/59; TEMP 97.7; O2SAT 94
[2022-09-17] MEDS: PALIPERIDONE 3MG ER TAB (INVEGA) PO SCH ×2 (00:31→21:26)
[2022-09-17] MEDS: MORPHINE 2 MG/ML 1ML VIAL IV PRN ×4 (00:31→17:56)
[2022-09-17] MEDS: AMANTADINE 100MG TABLET PO SCH ×3 (00:32→21:26)
[2022-09-17] MEDS: metroNIDAZOLE 500 MG in IV 1 EA IV SCH ×4 (00:40→21:25)
[2022-09-17] MEDS: FLUCONAZOLE 400 MG in IV 1 EA IV SCH (02:11)
[2022-09-17 03:05] VITALS: BP 132/60; TEMP 97; O2SAT 91
[2022-09-17] MEDS: KCL 40MEQ in NS 1000ML 1,000 ML IV SCH ×3 (04:35→21:26)
[2022-09-17] MEDS: CIPROFLOXACIN 400 MG in IV 1 EA IV SCH ×2 (04:48→16:48)
[2022-09-17 05:23] LABS: BASO % 0.1 % (0.0-1.0); EOS % 0.1 % (0.0-3.0); HEMOGLOBIN 10.2 g/dl (13.5-17.5); LYMPH # 0.7 10^3/uL (1.5-5.0); LYMPH % 3.7 % (24.0-44.0); MEAN CORPUSCULAR HEMOGLOBIN 26.4 pg (27.0-33.0); MEAN CORPUSCULAR HGB CONC 31.9 g/dl (32.0-36.5); MEAN CORPUSCULAR VOLUME 82.7 fl (80.0-96.0); MONO # 1.2 10^3/uL (0.0-0.8); MONO % 5.8 % (2.0-8.0); NEUTROPHILS % 89.7 % (36.0-66.0); PLATELET COUNT, AUTOMATED 344 10^3/uL (150-450); RED BLOOD COUNT 3.87 10^6/uL (4.30-6.10)
[2022-09-17] MEDS: LEVOTHYROXINE 112MCG TABLET (0.112MG) PO SCH (05:59)
[2022-09-17 06:00] LABS: ALKALINE PHOSPHATASE 137 U/L (46-116); ALT/SGPT < 9 U/L (7.0-40); AST/SGOT 10 U/L (<34); BILIRUBIN,TOTAL 0.3 MG/DL (0.3-1.2); BLOOD UREA NITROGEN 27 MG/DL (9-23); CALCIUM LEVEL 8.5 MG/DL (8.5-10.1); CARBON DIOXIDE LEVEL 20 MMOL/L (20-31); CHLORIDE LEVEL 110 MMOL/L (98-107); CREATININE FOR GFR 1.07 MG/DL (0.70-1.30); GLOMERULAR FILTRATION RATE > 60.0 (>56); GLUCOSE, FASTING 105 MG/DL (60-100); PHOSPHORUS LEVEL 3.2 MG/DL (2.5-4.9); SODIUM LEVEL 142 MMOL/L (136-145); TOTAL PROTEIN 5.9 G/DL (5.7-8.2)
[2022-09-17] MEDS: INSULIN LISPRO (NovoLOG) PER UNIT SC SCH ×5 (06:00→23:39)
[2022-09-17 09:00] VITALS: BP 130/71; TEMP 97.1; O2SAT 94
[2022-09-17 09:30] LABS: MAGNESIUM LEVEL 1.9 MG/DL (1.8-2.4)
[2022-09-17] MEDS: ONDANSETRON 4MG 2ML VIAL IV PRN ×2 (11:22→17:56)
[2022-09-17] MEDS: SERTRALINE 100 MG TAB PO SCH (11:24)
[2022-09-17] MEDS: GABAPENTIN 100 MG CAP PO SCH ×3 (11:24→21:26)
[2022-09-17] MEDS: TOPIRAMATE (TopAMAX) 100 MG TAB PO SCH (11:25)
[2022-09-17] MEDS: METOPROLOL TART 25 MG TABLET PO SCH ×2 (11:25→21:26)
[2022-09-17] MEDS ORDERED: LIDOCAINE 1% MDV 20ML VIAL As Ordered ONE (12:25)
[2022-09-17] MEDS: FIDAXOMICIN 200 MG TAB (DIFICID) PO SCH ×2 (14:53→21:26)
[2022-09-17 15:30] VITALS: BP 128/64; TEMP 97.4; O2SAT 97
[2022-09-17 20:05] VITALS: BP 120/59; TEMP 97.3; O2SAT 94
[2022-09-17] MEDS: MIRTAZAPINE 15 MG TAB PO SCH (21:26)
[2022-09-17] MEDS: TAMSULOSIN 0.4 MG CAP PO SCH (21:26)
[2022-09-18] VITALS: BP 140/69; TEMP 97; O2SAT 92
[2022-09-18] MEDS: FLUCONAZOLE 400 MG in IV 1 EA IV SCH (02:51)
[2022-09-18 04:31] VITALS: BP 126/62; TEMP 96.5; O2SAT 96
[2022-09-18] MEDS: KCL 40MEQ in NS 1000ML 1,000 ML IV SCH (04:46)
[2022-09-18] MEDS: CIPROFLOXACIN 400 MG in IV 1 EA IV SCH ×2 (04:46→16:50)
[2022-09-18] MEDS: INSULIN LISPRO (NovoLOG) PER UNIT SC SCH ×3 (05:31→17:46)
[2022-09-18 05:44] LABS: HEMATOCRIT 34.1 % (42.0-52.0); HEMOGLOBIN 10.2 g/dl (13.5-17.5); MEAN CORPUSCULAR HEMOGLOBIN 25.6 pg (27.0-33.0); MEAN CORPUSCULAR HGB CONC 29.9 g/dl (32.0-36.5); MEAN CORPUSCULAR VOLUME 85.5 fl (80.0-96.0); PLATELET COUNT, AUTOMATED 311 10^3/uL (150-450); RED BLOOD COUNT 3.99 10^6/uL (4.30-6.10); WHITE BLOOD COUNT 17.6 10^3/uL (4.0-10.0)
[2022-09-18] MEDS: metroNIDAZOLE 500 MG in IV 1 EA IV SCH ×3 (06:00→22:31)
[2022-09-18] MEDS: LEVOTHYROXINE 112MCG TABLET (0.112MG) PO SCH (06:00)
[2022-09-18 06:12] LABS: BLOOD UREA NITROGEN 25 MG/DL (9-23); CALCIUM LEVEL 8.6 MG/DL (8.5-10.1); CARBON DIOXIDE LEVEL 20 MMOL/L (20-31); CHLORIDE LEVEL 111 MMOL/L (98-107); CREATININE FOR GFR 1.12 MG/DL (0.70-1.30); GLOMERULAR FILTRATION RATE > 60.0 (>56); GLUCOSE, FASTING 76 MG/DL (60-100); MAGNESIUM LEVEL 1.9 MG/DL (1.8-2.4); POTASSIUM SERUM 4.5 MMOL/L (3.5-5.1); SODIUM LEVEL 142 MMOL/L (136-145)
[2022-09-18] MEDS ORDERED: LR 1,000 ML IV SCH (06:40)
[2022-09-18] MEDS: SERTRALINE 100 MG TAB PO SCH (08:31)
[2022-09-18] MEDS: AMANTADINE 100MG TABLET PO SCH ×2 (08:31→22:29)
[2022-09-18] MEDS: TOPIRAMATE (TopAMAX) 100 MG TAB PO SCH (08:33)
[2022-09-18] MEDS: FIDAXOMICIN 200 MG TAB (DIFICID) PO SCH ×2 (08:33→22:29)
[2022-09-18] MEDS: GABAPENTIN 100 MG CAP PO SCH ×3 (08:34→22:29)
[2022-09-18] MEDS: D5W/0.45% SODIUM CHLORIDE 1,000 ML IV SCH ×2 (08:34→16:10)
[2022-09-18] MEDS: METOPROLOL TART 25 MG TABLET PO SCH ×2 (08:35→22:30)
[2022-09-18 08:52] VITALS: TEMP 97; O2SAT 92
[2022-09-18] MEDS: ENOXAPARIN 100MG/1ML SYRINGE (J1650 PER 10MG) SC SCH ×2 (10:31→21:22)
[2022-09-18 12:03] VITALS: BP 114/55; TEMP 96.7; O2SAT 97
[2022-09-18] MEDS ORDERED: MECLIZINE 12.5 MG TAB PO PRN (14:40)
[2022-09-18 16:29] VITALS: BP 117/58; TEMP 97; O2SAT 97
[2022-09-18 20:03] VITALS: BP 123/57; TEMP 97.8; O2SAT 96
[2022-09-18] MEDS: MORPHINE 2 MG/ML 1ML VIAL IV PRN (21:21)
[2022-09-18] MEDS: PALIPERIDONE 3MG ER TAB (INVEGA) PO SCH (22:29)
[2022-09-18] MEDS: TAMSULOSIN 0.4 MG CAP PO SCH (22:29)
[2022-09-18] MEDS: MIRTAZAPINE 15 MG TAB PO SCH (22:30)
[2022-09-19] VITALS (7 sets, daily range): BP systolic 124–132; BP diastolic 58–67; TEMP 96.3–97.8; O2SAT 90–97
[2022-09-19] MEDS: D5W/0.45% SODIUM CHLORIDE 1,000 ML IV SCH ×3 (01:43→21:56)
[2022-09-19] MEDS: FLUCONAZOLE 400 MG in IV 1 EA IV SCH (01:43)
[2022-09-19] MEDS: MORPHINE 2 MG/ML 1ML VIAL IV PRN ×3 (03:04→20:37)
[2022-09-19] MEDS: CIPROFLOXACIN 400 MG in IV 1 EA IV SCH ×2 (05:32→17:13)
[2022-09-19] MEDS: INSULIN LISPRO (NovoLOG) PER UNIT SC SCH ×5 (06:00→23:46)
[2022-09-19] MEDS: LEVOTHYROXINE 112MCG TABLET (0.112MG) PO SCH (06:17)
[2022-09-19] MEDS: metroNIDAZOLE 500 MG in IV 1 EA IV SCH ×3 (06:39→21:57)
[2022-09-19] MEDS: FIDAXOMICIN 200 MG TAB (DIFICID) PO SCH ×2 (08:31→20:37)
[2022-09-19] MEDS: TOPIRAMATE (TopAMAX) 100 MG TAB PO SCH (08:31)
[2022-09-19] MEDS: SERTRALINE 100 MG TAB PO SCH (08:31)
[2022-09-19] MEDS: GABAPENTIN 100 MG CAP PO SCH ×3 (08:31→20:37)
[2022-09-19] MEDS: AMANTADINE 100MG TABLET PO SCH ×2 (08:31→20:37)
[2022-09-19] MEDS: ENOXAPARIN 100MG/1ML SYRINGE (J1650 PER 10MG) SC SCH ×2 (08:31→20:36)
[2022-09-19] MEDS: METOPROLOL TART 25 MG TABLET PO SCH ×2 (08:38→20:40)
[2022-09-19] MEDS: TAMSULOSIN 0.4 MG CAP PO SCH (20:37)
[2022-09-19] MEDS: MIRTAZAPINE 15 MG TAB PO SCH (20:37)
[2022-09-19] MEDS: PALIPERIDONE 3MG ER TAB (INVEGA) PO SCH (20:37)
[2022-09-20] MEDS: FLUCONAZOLE 400 MG in IV 1 EA IV SCH (01:45)
[2022-09-20] MEDS: D5W/0.45% SODIUM CHLORIDE 1,000 ML IV SCH (01:48)
[2022-09-20 03:17] VITALS: BP 148/66; TEMP 97; O2SAT 96
[2022-09-20] MEDS: CIPROFLOXACIN 400 MG in IV 1 EA IV SCH (04:46)
[2022-09-20 05:18] LABS: HEMATOCRIT 30.6 % (42.0-52.0); HEMOGLOBIN 9.1 g/dl (13.5-17.5); MEAN CORPUSCULAR HEMOGLOBIN 25.3 pg (27.0-33.0); MEAN CORPUSCULAR HGB CONC 29.7 g/dl (32.0-36.5); MEAN CORPUSCULAR VOLUME 85.2 fl (80.0-96.0); PLATELET COUNT, AUTOMATED 356 10^3/uL (150-450); RED BLOOD COUNT 3.59 10^6/uL (4.30-6.10); WHITE BLOOD COUNT 14.9 10^3/uL (4.0-10.0)
[2022-09-20 05:34] LABS: CALCIUM LEVEL 8.4 MG/DL (8.5-10.1); CREATININE FOR GFR 1.32 MG/DL (0.70-1.30); GLOMERULAR FILTRATION RATE 59.9 (>56); MAGNESIUM LEVEL 1.8 MG/DL (1.8-2.4); PHOSPHORUS LEVEL 4.2 MG/DL (2.5-4.9); POTASSIUM SERUM 3.4 MMOL/L (3.5-5.1)
[2022-09-20] MEDS: INSULIN LISPRO (NovoLOG) PER UNIT SC SCH ×4 (06:00→23:44)
[2022-09-20] MEDS: metroNIDAZOLE 500 MG in IV 1 EA IV SCH ×2 (06:34→14:32)
[2022-09-20] MEDS: LEVOTHYROXINE 112MCG TABLET (0.112MG) PO SCH (06:34)
[2022-09-20 08:15] VITALS: BP 148/68; TEMP 97.3; O2SAT 97
[2022-09-20] MEDS: KCL 40MEQ IN D5/NS 1000ML 1,000 ML IV SCH ×3 (10:02→20:09)
[2022-09-20] MEDS: ENOXAPARIN 100MG/1ML SYRINGE (J1650 PER 10MG) SC SCH ×2 (10:02→20:09)
[2022-09-20] MEDS: GABAPENTIN 100 MG CAP PO SCH ×3 (10:03→20:10)
[2022-09-20] MEDS: SERTRALINE 100 MG TAB PO SCH (10:03)
[2022-09-20] MEDS: AMANTADINE 100MG TABLET PO SCH ×2 (10:03→20:10)
[2022-09-20] MEDS: METOPROLOL TART 25 MG TABLET PO SCH ×2 (10:03→20:11)
[2022-09-20] MEDS: TOPIRAMATE (TopAMAX) 100 MG TAB PO SCH (10:03)
[2022-09-20] MEDS: FIDAXOMICIN 200 MG TAB (DIFICID) PO SCH ×2 (10:03→20:10)
[2022-09-20 12:33] VITALS: BP 139/64; TEMP 97.2; O2SAT 95
[2022-09-20 15:51] VITALS: BP 148/65; TEMP 97.1; O2SAT 96
[2022-09-20] MEDS: MORPHINE 2 MG/ML 1ML VIAL IV PRN ×2 (16:36→23:04)
[2022-09-20 19:36] VITALS: BP 150/67; TEMP 97.7; O2SAT 93
[2022-09-20] MEDS: PALIPERIDONE 3MG ER TAB (INVEGA) PO SCH (20:10)
[2022-09-20] MEDS: TAMSULOSIN 0.4 MG CAP PO SCH (20:10)
[2022-09-20] MEDS: MIRTAZAPINE 15 MG TAB PO SCH (20:10)
[2022-09-20 23:05] VITALS: BP 140/63; TEMP 97.3; O2SAT 94
[2022-09-21 03:40] VITALS: BP 134/62; TEMP 97.8; O2SAT 98
[2022-09-21] MEDS: LEVOTHYROXINE 112MCG TABLET (0.112MG) PO SCH (05:17)
[2022-09-21] MEDS: FLUCONAZOLE 400 MG in IV 1 EA IV SCH (05:17)
[2022-09-21] MEDS: KCL 40MEQ IN D5/NS 1000ML 1,000 ML IV SCH (05:18)
[2022-09-21] MEDS: INSULIN LISPRO (NovoLOG) PER UNIT SC SCH ×4 (05:20→23:53)
[2022-09-21 06:09] LABS: HEMATOCRIT 31.5 % (42.0-52.0); HEMOGLOBIN 9.5 g/dl (13.5-17.5); MEAN CORPUSCULAR HEMOGLOBIN 25.7 pg (27.0-33.0); MEAN CORPUSCULAR HGB CONC 30.2 g/dl (32.0-36.5); MEAN CORPUSCULAR VOLUME 85.4 fl (80.0-96.0); PLATELET COUNT, AUTOMATED 345 10^3/uL (150-450); RED BLOOD COUNT 3.69 10^6/uL (4.30-6.10)
[2022-09-21 06:28] LABS: CALCIUM LEVEL 8.3 MG/DL (8.5-10.1); CREATININE FOR GFR 1.34 MG/DL (0.70-1.30); GLOMERULAR FILTRATION RATE 58.9 (>56); MAGNESIUM LEVEL 1.9 MG/DL (1.8-2.4); PHOSPHORUS LEVEL 4.2 MG/DL (2.5-4.9); POTASSIUM SERUM 4.3 MMOL/L (3.5-5.1)
[2022-09-21 08:35] VITALS: BP 156/80; TEMP 97.5; O2SAT 98
[2022-09-21] MEDS: AMANTADINE 100MG TABLET PO SCH ×2 (08:57→21:31)
[2022-09-21] MEDS: FIDAXOMICIN 200 MG TAB (DIFICID) PO SCH ×2 (08:57→21:30)
[2022-09-21] MEDS: ENOXAPARIN 100MG/1ML SYRINGE (J1650 PER 10MG) SC SCH ×2 (08:57→21:30)
[2022-09-21] MEDS: SERTRALINE 100 MG TAB PO SCH (08:57)
[2022-09-21] MEDS: GABAPENTIN 100 MG CAP PO SCH ×3 (08:58→21:31)
[2022-09-21] MEDS: METOPROLOL TART 25 MG TABLET PO SCH ×2 (08:58→21:33)
[2022-09-21] MEDS: TOPIRAMATE (TopAMAX) 100 MG TAB PO SCH (08:58)
[2022-09-21] MEDS ORDERED: FLUCONAZOLE 100 MG TAB PO SCH (09:00)
[2022-09-21] MEDS: MORPHINE 2 MG/ML 1ML VIAL IV PRN ×2 (09:11→21:35)
[2022-09-21] MEDS ORDERED: NS 0.45% 1,000 ML IV ONE (11:30)
[2022-09-21 12:11] VITALS: BP 149/70; TEMP 97.5; O2SAT 96
[2022-09-21] MEDS ORDERED: NS 0.45% 1,000 ML IV SCH (13:00)
[2022-09-21] MEDS: D5W/0.45% SODIUM CHLORIDE 1,000 ML IV SCH ×2 (15:16→23:50)
[2022-09-21 15:31] VITALS: BP 150/68; TEMP 97.4; O2SAT 96
[2022-09-21 17:20] LABS: CALCIUM LEVEL 8.1 MG/DL (8.5-10.1); CREATININE FOR GFR 1.42 MG/DL (0.70-1.30); GLOMERULAR FILTRATION RATE 55.1 (>56); POTASSIUM SERUM 3.9 MMOL/L (3.5-5.1)
[2022-09-21 19:44] VITALS: BP 149/70; TEMP 96.5; O2SAT 94
[2022-09-21 20:39] LABS: CREATININE FOR GFR 1.38 MG/DL (0.70-1.30); POTASSIUM SERUM 4.2 MMOL/L (3.5-5.1)
[2022-09-21] MEDS: PALIPERIDONE 3MG ER TAB (INVEGA) PO SCH (21:30)
[2022-09-21] MEDS: MIRTAZAPINE 15 MG TAB PO SCH (21:31)
[2022-09-21] MEDS: TAMSULOSIN 0.4 MG CAP PO SCH (21:31)
[2022-09-21] MEDS: ONDANSETRON 4MG 2ML VIAL IV PRN (21:35)
[2022-09-21 22:30] VITALS: BP 145/80; TEMP 97.3; O2SAT 100
[2022-09-22] MEDS: FLUCONAZOLE 400 MG in IV 1 EA IV SCH (05:41)
[2022-09-22] MEDS: LEVOTHYROXINE 112MCG TABLET (0.112MG) PO SCH (05:41)
[2022-09-22] MEDS: INSULIN LISPRO (NovoLOG) PER UNIT SC SCH ×3 (05:53→17:02)
[2022-09-22 06:00] VITALS: BP 150/79; TEMP 97.3; O2SAT 99
[2022-09-22 08:14] LABS: BASO # 0.1 10^3/uL (0.0-0.2); BASO % 0.5 % (0.0-1.0); EOS # 0.2 10^3/uL (0.0-0.5); EOS % 1.7 % (0.0-3.0); HEMATOCRIT 30.8 % (42.0-52.0); HEMOGLOBIN 9.4 g/dl (13.5-17.5); LYMPH # 0.9 10^3/uL (1.5-5.0); LYMPH % 6.8 % (24.0-44.0); MEAN CORPUSCULAR HEMOGLOBIN 25.8 pg (27.0-33.0); MEAN CORPUSCULAR HGB CONC 30.5 g/dl (32.0-36.5); MEAN CORPUSCULAR VOLUME 84.4 fl (80.0-96.0); MONO % 6.9 % (2.0-8.0); NEUTROPHILS # 11.3 10^3/uL (1.5-8.5); NEUTROPHILS % 81.3 % (36.0-66.0); PLATELET COUNT, AUTOMATED 354 10^3/uL (150-450); RED BLOOD COUNT 3.65 10^6/uL (4.30-6.10); WHITE BLOOD COUNT 13.8 10^3/uL (4.0-10.0)
[2022-09-22] MEDS: ENOXAPARIN 100MG/1ML SYRINGE (J1650 PER 10MG) SC SCH ×2 (08:33→21:30)
[2022-09-22] MEDS: TOPIRAMATE (TopAMAX) 100 MG TAB PO SCH (08:33)
[2022-09-22] MEDS: SERTRALINE 100 MG TAB PO SCH (08:33)
[2022-09-22] MEDS: GABAPENTIN 100 MG CAP PO SCH ×3 (08:33→21:30)
[2022-09-22] MEDS: FIDAXOMICIN 200 MG TAB (DIFICID) PO SCH ×2 (08:33→21:30)
[2022-09-22] MEDS: AMANTADINE 100MG TABLET PO SCH ×2 (08:33→21:30)
[2022-09-22] MEDS: METOPROLOL TART 25 MG TABLET PO SCH ×2 (08:34→21:34)
[2022-09-22] MEDS: D5W/0.45% SODIUM CHLORIDE 1,000 ML IV SCH (08:35)
[2022-09-22 09:11] LABS: CALCIUM LEVEL 8.1 MG/DL (8.5-10.1); CREATININE FOR GFR 1.45 MG/DL (0.70-1.30); GLOMERULAR FILTRATION RATE 53.8 (>56); POTASSIUM SERUM 4.1 MMOL/L (3.5-5.1)
[2022-09-22] MEDS: ONDANSETRON 4MG 2ML VIAL IV PRN ×2 (09:12→21:30)
[2022-09-22 17:15] LABS: MAGNESIUM LEVEL 1.8 MG/DL (1.8-2.4); PHOSPHORUS LEVEL 4.5 MG/DL (2.5-4.9)
[2022-09-22] MEDS ORDERED: FAT EMULSION IV 250 ML IV ONE (18:00)
[2022-09-22] MEDS ORDERED: MULTIVITAMIN -ADULT INJECTION 10 ML, ZINC/COPPER/MANGANESE/SELENIUM 1 ML in AMINO AC/EL... IV SCH (18:00)
[2022-09-22 18:11] VITALS: BP 124/73; TEMP 97.5; O2SAT 96
[2022-09-22 18:51] LABS: IONIZED CALCIUM 4.6 MG/DL (4.5-5.3)
[2022-09-22 19:28] LABS: CALCIUM LEVEL 7.9 MG/DL (8.5-10.1); CREATININE FOR GFR 1.46 MG/DL (0.70-1.30); GLOMERULAR FILTRATION RATE 53.4 (>56); POTASSIUM SERUM 3.8 MMOL/L (3.5-5.1)
[2022-09-22 19:32] LABS: PROLACTIN 50.6 NG/ML (2.1-17.7)
[2022-09-22 21:00] VITALS: BP 148/68; TEMP 97.3; O2SAT 96
[2022-09-22] MEDS: MIRTAZAPINE 15 MG TAB PO SCH (21:30)
[2022-09-22] MEDS: TAMSULOSIN 0.4 MG CAP PO SCH (21:30)
[2022-09-22] MEDS: PALIPERIDONE 3MG ER TAB (INVEGA) PO SCH (21:30)
[2022-09-22] MEDS: MORPHINE 2 MG/ML 1ML VIAL IV PRN (22:20)
[2022-09-23] MEDS: INSULIN LISPRO (NovoLOG) PER UNIT SC SCH ×5 (00:01→23:54)
[2022-09-23 05:20] VITALS: BP 156/77; TEMP 97.9; O2SAT 94
[2022-09-23] MEDS: FLUCONAZOLE 400 MG in IV 1 EA IV SCH (05:42)
[2022-09-23] MEDS: LEVOTHYROXINE 112MCG TABLET (0.112MG) PO SCH (05:42)
[2022-09-23] MEDS: ONDANSETRON 4MG 2ML VIAL IV PRN ×3 (05:42→18:59)
[2022-09-23 06:29] LABS: BASO # 0.1 10^3/uL (0.0-0.2); BASO % 0.4 % (0.0-1.0); EOS # 0.2 10^3/uL (0.0-0.5); EOS % 1.6 % (0.0-3.0); HEMATOCRIT 30.6 % (42.0-52.0); HEMOGLOBIN 9.3 g/dl (13.5-17.5); LYMPH # 0.9 10^3/uL (1.5-5.0); LYMPH % 6.3 % (24.0-44.0); MEAN CORPUSCULAR HEMOGLOBIN 25.5 pg (27.0-33.0); MEAN CORPUSCULAR HGB CONC 30.4 g/dl (32.0-36.5); MEAN CORPUSCULAR VOLUME 84.1 fl (80.0-96.0); MONO # 0.8 10^3/uL (0.0-0.8); MONO % 6.3 % (2.0-8.0); NEUTROPHILS # 10.9 10^3/uL (1.5-8.5); NEUTROPHILS % 80.9 % (36.0-66.0); PLATELET COUNT, AUTOMATED 396 10^3/uL (150-450); RED BLOOD COUNT 3.64 10^6/uL (4.30-6.10); WHITE BLOOD COUNT 13.4 10^3/uL (4.0-10.0)
[2022-09-23 06:51] LABS: CALCIUM LEVEL 8.2 MG/DL (8.5-10.1); CREATININE FOR GFR 1.38 MG/DL (0.70-1.30); MAGNESIUM LEVEL 1.7 MG/DL (1.8-2.4); PHOSPHORUS LEVEL 4.9 MG/DL (2.5-4.9); POTASSIUM SERUM 3.9 MMOL/L (3.5-5.1)
[2022-09-23 08:00] VITALS: BP 160/75; TEMP 97.5; O2SAT 94
[2022-09-23] MEDS: FIDAXOMICIN 200 MG TAB (DIFICID) PO SCH ×2 (09:16→20:50)
[2022-09-23] MEDS: METOPROLOL TART 25 MG TABLET PO SCH ×2 (09:16→20:51)
[2022-09-23] MEDS: SERTRALINE 100 MG TAB PO SCH (09:16)
[2022-09-23] MEDS: ENOXAPARIN 100MG/1ML SYRINGE (J1650 PER 10MG) SC SCH ×2 (09:16→20:51)
[2022-09-23] MEDS: GABAPENTIN 100 MG CAP PO SCH ×3 (09:16→20:51)
[2022-09-23] MEDS: TOPIRAMATE (TopAMAX) 100 MG TAB PO SCH (09:16)
[2022-09-23] MEDS: AMANTADINE 100MG TABLET PO SCH ×2 (09:17→20:50)
[2022-09-23] MEDS ORDERED: MAG SULF 1GM/100ML (MAG RUN) 1 GM in IV 1 EA IV ONE (11:30)
[2022-09-23 12:15] VITALS: BP 154/87; TEMP 97.7; O2SAT 94
[2022-09-23] MEDS: NS 0.45% 1,000 ML IV SCH ×2 (13:46→23:54)
[2022-09-23 16:01] VITALS: BP 155/85; TEMP 97.7; O2SAT 93
[2022-09-23] MEDS ORDERED: FAT EMULSION IV 250 ML IV ONE (18:00)
[2022-09-23] MEDS ORDERED: AMINO AC/ELECTROLYTE/DEX/CALC 2,000 ML IV SCH (18:00)
[2022-09-23] MEDS ORDERED: INSULIN LISPRO (NovoLOG) PER UNIT SC SCH (18:00)
[2022-09-23 20:50] VITALS: BP 144/83; TEMP 97.7; O2SAT 95
[2022-09-23] MEDS: MIRTAZAPINE 15 MG TAB PO SCH (20:50)
[2022-09-23] MEDS: TAMSULOSIN 0.4 MG CAP PO SCH (20:50)
[2022-09-23] MEDS: PALIPERIDONE 3MG ER TAB (INVEGA) PO SCH (20:51)
[2022-09-24] MEDS: ONDANSETRON 4MG 2ML VIAL IV PRN (03:54)
[2022-09-24 05:45] VITALS: BP 132/60; TEMP 97.7; O2SAT 97
[2022-09-24] MEDS: FLUCONAZOLE 400 MG in IV 1 EA IV SCH (05:58)
[2022-09-24] MEDS: LEVOTHYROXINE 112MCG TABLET (0.112MG) PO SCH (05:58)
[2022-09-24] MEDS: INSULIN LISPRO (NovoLOG) PER UNIT SC SCH ×3 (05:58→17:15)
[2022-09-24 06:31] LABS: BASO # 0.1 10^3/uL (0.0-0.2); BASO % 0.5 % (0.0-1.0); EOS # 0.2 10^3/uL (0.0-0.5); EOS % 1.1 % (0.0-3.0); HEMATOCRIT 31.2 % (42.0-52.0); HEMOGLOBIN 9.7 g/dl (13.5-17.5); LYMPH # 1.1 10^3/uL (1.5-5.0); LYMPH % 7.2 % (24.0-44.0); MEAN CORPUSCULAR HEMOGLOBIN 25.9 pg (27.0-33.0); MEAN CORPUSCULAR HGB CONC 31.1 g/dl (32.0-36.5); MEAN CORPUSCULAR VOLUME 83.4 fl (80.0-96.0); MONO % 6.6 % (2.0-8.0); NEUTROPHILS # 12.4 10^3/uL (1.5-8.5); PLATELET COUNT, AUTOMATED 375 10^3/uL (150-450); RED BLOOD COUNT 3.74 10^6/uL (4.30-6.10); WHITE BLOOD COUNT 15.3 10^3/uL (4.0-10.0)
[2022-09-24 07:00] LABS: CALCIUM LEVEL 8.4 MG/DL (8.5-10.1); CREATININE FOR GFR 1.33 MG/DL (0.70-1.30); GLOMERULAR FILTRATION RATE 59.4 (>56); MAGNESIUM LEVEL 1.9 MG/DL (1.8-2.4); PHOSPHORUS LEVEL 4.9 MG/DL (2.5-4.9); POTASSIUM SERUM 3.7 MMOL/L (3.5-5.1)
[2022-09-24 09:42] VITALS: BP 166/80
[2022-09-24] MEDS: FIDAXOMICIN 200 MG TAB (DIFICID) PO SCH ×2 (09:43→21:22)
[2022-09-24] MEDS: TOPIRAMATE (TopAMAX) 100 MG TAB PO SCH (09:43)
[2022-09-24] MEDS: GABAPENTIN 100 MG CAP PO SCH ×3 (09:43→21:22)
[2022-09-24] MEDS: METOPROLOL TART 25 MG TABLET PO SCH ×2 (09:43→21:21)
[2022-09-24] MEDS: SERTRALINE 100 MG TAB PO SCH (09:44)
[2022-09-24] MEDS: ENOXAPARIN 100MG/1ML SYRINGE (J1650 PER 10MG) SC SCH ×2 (09:44→21:25)
[2022-09-24] MEDS: AMANTADINE 100MG TABLET PO SCH ×2 (09:44→21:22)
[2022-09-24] MEDS: NS 0.45% 1,000 ML IV SCH ×2 (10:25→17:22)
[2022-09-24 14:00] VITALS: BP 147/73; TEMP 97.3; O2SAT 87
[2022-09-24] MEDS: AMINO AC/ELECTROLYTE/DEX/CALC 1,000 ML IV SCH (15:15)
[2022-09-24] MEDS ORDERED: METOCLOPRAMIDE INJ 10MG/2ML VIAL IV ONE (17:45)
[2022-09-24] MEDS ORDERED: SIMETHICONE 80MG CHEW TAB PO ONE (17:45)
[2022-09-24] MEDS ORDERED: PILL CUTTER 1 EACH XX PRN (17:50)
[2022-09-24] MEDS ORDERED: AMINO AC/ELECTROLYTE/DEX/CALC 1,000 ML IV SCH (18:00)
[2022-09-24] MEDS ORDERED: MULTIVITAMIN -ADULT INJECTION 10 ML, ZINC/COPPER/MANGANESE/SELENIUM 1 ML in AMINO AC/EL... IV SCH ×4 (18:00)
[2022-09-24] MEDS ORDERED: FAT EMULSION IV 250 ML IV ONE (18:00)
[2022-09-24 21:00] VITALS: BP 143/74; TEMP 97.3; O2SAT 95
[2022-09-24] MEDS: PALIPERIDONE 3MG ER TAB (INVEGA) PO SCH (21:22)
[2022-09-24] MEDS: MIRTAZAPINE 15 MG TAB PO SCH (21:22)
[2022-09-24] MEDS: TAMSULOSIN 0.4 MG CAP PO SCH (21:22)
[2022-09-24] MEDS: MORPHINE 2 MG/ML 1ML VIAL IV PRN (22:51)
[2022-09-24] MEDS: SIMETHICONE 80MG CHEW TAB PO PRN (22:58)
[2022-09-25] MEDS: INSULIN LISPRO (NovoLOG) PER UNIT SC SCH ×2 (00:12→05:59)
[2022-09-25] MEDS: NS 0.45% 1,000 ML IV SCH (02:43)
[2022-09-25] MEDS: LEVOTHYROXINE 112MCG TABLET (0.112MG) PO SCH (06:03)
[2022-09-25] MEDS: FLUCONAZOLE 400 MG in IV 1 EA IV SCH (06:03)
[2022-09-25 06:58] LABS: BASO # 0.1 10^3/uL (0.0-0.2); BASO % 0.6 % (0.0-1.0); EOS # 0.2 10^3/uL (0.0-0.5); EOS % 1.7 % (0.0-3.0); HEMATOCRIT 31.2 % (42.0-52.0); HEMOGLOBIN 9.5 g/dl (13.5-17.5); LYMPH # 1.2 10^3/uL (1.5-5.0); LYMPH % 9.2 % (24.0-44.0); MEAN CORPUSCULAR HEMOGLOBIN 25.6 pg (27.0-33.0); MEAN CORPUSCULAR HGB CONC 30.4 g/dl (32.0-36.5); MEAN CORPUSCULAR VOLUME 84.1 fl (80.0-96.0); MONO # 0.9 10^3/uL (0.0-0.8); MONO % 6.9 % (2.0-8.0); NEUTROPHILS # 9.9 10^3/uL (1.5-8.5); NEUTROPHILS % 78.2 % (36.0-66.0); PLATELET COUNT, AUTOMATED 344 10^3/uL (150-450); RED BLOOD COUNT 3.71 10^6/uL (4.30-6.10); WHITE BLOOD COUNT 12.6 10^3/uL (4.0-10.0)
[2022-09-25 06:59] VITALS: BP 140/70; TEMP 97.7; O2SAT 99
[2022-09-25 07:09] LABS: BLOOD UREA NITROGEN 25 MG/DL (9-23); CALCIUM LEVEL 8.1 MG/DL (8.5-10.1); CARBON DIOXIDE LEVEL 32 MMOL/L (20-31); CHLORIDE LEVEL 104 MMOL/L (98-107); CREATININE FOR GFR 1.27 MG/DL (0.70-1.30); GLOMERULAR FILTRATION RATE > 60.0 (>56); GLUCOSE, FASTING 100 MG/DL (60-100); MAGNESIUM LEVEL 1.9 MG/DL (1.8-2.4); PHOSPHORUS LEVEL 5.1 MG/DL (2.5-4.9); POTASSIUM SERUM 3.8 MMOL/L (3.5-5.1); SODIUM LEVEL 145 MMOL/L (136-145)
[2022-09-25] MEDS ORDERED: MORPHINE 2 MG/ML 1ML VIAL IV PRN (08:10)
[2022-09-25] MEDS ORDERED: LORazepam 2 MG/ML 1ML VIAL IV PRN (08:10)
[2022-09-25] MEDS: D5W/0.45% SODIUM CHLORIDE 1,000 ML IV SCH (08:24)
[2022-09-25] MEDS: AMINO AC/ELECTROLYTE/DEX/CALC 1,000 ML IV SCH ×2 (08:27→08:28)
[2022-09-25] MEDS: SIMETHICONE 80MG CHEW TAB PO PRN (10:23)
[2022-09-25] MEDS: FIDAXOMICIN 200 MG TAB (DIFICID) PO SCH ×2 (10:23→21:16)
[2022-09-25] MEDS: TOPIRAMATE (TopAMAX) 100 MG TAB PO SCH (10:23)
[2022-09-25] MEDS: SERTRALINE 100 MG TAB PO SCH (10:23)
[2022-09-25] MEDS: AMANTADINE 100MG TABLET PO SCH ×2 (10:24→21:14)
[2022-09-25] MEDS: METOPROLOL TART 25 MG TABLET PO SCH ×2 (10:24→21:15)
[2022-09-25] MEDS: GABAPENTIN 100 MG CAP PO SCH ×3 (10:24→21:16)
[2022-09-25] MEDS: ENOXAPARIN 100MG/1ML SYRINGE (J1650 PER 10MG) SC SCH ×2 (12:09→21:16)
[2022-09-25] MEDS: SCOPOLAMINE 1MG TRANSDERMAL PATCH TOP SCH (12:09)
[2022-09-25] MEDS ORDERED: FAT EMULSION IV 250 ML IV ONE (18:00)
[2022-09-25] MEDS ORDERED: INSULIN LISPRO (NovoLOG) PER UNIT SC SCH (18:00)
[2022-09-25] MEDS ORDERED: AMINO AC/ELECTROLYTE/DEX/CALC 2,000 ML, AMINO AC/ELECTROLYTE/DEX/CALC 1,000 ML IV SCH ×2 (18:00)
[2022-09-25] MEDS: MIRTAZAPINE 15 MG TAB PO SCH (21:14)
[2022-09-25] MEDS: TAMSULOSIN 0.4 MG CAP PO SCH (21:15)
[2022-09-25] MEDS: PALIPERIDONE 3MG ER TAB (INVEGA) PO SCH (21:16)
[2022-09-25] MEDS: ONDANSETRON 4MG 2ML VIAL IV PRN (21:29)
[2022-09-25 21:39] VITALS: O2SAT 94
[2022-09-26] MEDS: ONDANSETRON 4MG 2ML VIAL IV PRN ×4 (03:01→23:43)
[2022-09-26] MEDS: LEVOTHYROXINE 112MCG TABLET (0.112MG) PO SCH (05:58)
[2022-09-26] MEDS: SERTRALINE 100 MG TAB PO SCH (08:30)
[2022-09-26] MEDS: AMANTADINE 100MG TABLET PO SCH ×2 (08:30→20:42)
[2022-09-26] MEDS: METOPROLOL TART 25 MG TABLET PO SCH ×2 (08:30→20:41)
[2022-09-26] MEDS: TOPIRAMATE (TopAMAX) 100 MG TAB PO SCH (08:31)
[2022-09-26] MEDS: GABAPENTIN 100 MG CAP PO SCH ×3 (08:31→20:42)
[2022-09-26] MEDS: ENOXAPARIN 100MG/1ML SYRINGE (J1650 PER 10MG) SC SCH ×2 (08:31→20:41)
[2022-09-26] MEDS: FIDAXOMICIN 200 MG TAB (DIFICID) PO SCH ×2 (08:31→20:42)
[2022-09-26] MEDS: TAMSULOSIN 0.4 MG CAP PO SCH (20:42)
[2022-09-26] MEDS: PALIPERIDONE 3MG ER TAB (INVEGA) PO SCH (20:42)
[2022-09-26] MEDS: MIRTAZAPINE 15 MG TAB PO SCH (20:42)
[2022-09-27] MEDS: ONDANSETRON 4MG 2ML VIAL IV PRN (06:06)
[2022-09-27] MEDS: LEVOTHYROXINE 112MCG TABLET (0.112MG) PO SCH (06:06)
[2022-09-27] MEDS: ENOXAPARIN 100MG/1ML SYRINGE (J1650 PER 10MG) SC SCH ×2 (08:41→20:18)
[2022-09-27] MEDS: METOPROLOL TART 25 MG TABLET PO SCH ×2 (08:43→20:18)
[2022-09-27] MEDS: GABAPENTIN 100 MG CAP PO SCH ×3 (08:43→20:18)
[2022-09-27] MEDS: SERTRALINE 100 MG TAB PO SCH (08:43)
[2022-09-27] MEDS: TOPIRAMATE (TopAMAX) 100 MG TAB PO SCH (08:43)
[2022-09-27] MEDS: AMANTADINE 100MG TABLET PO SCH ×2 (08:43→20:18)
[2022-09-27] MEDS: FIDAXOMICIN 200 MG TAB (DIFICID) PO SCH ×2 (08:43→20:18)
[2022-09-27] MEDS ORDERED: ISOVUE-370 76% 100ML VIAL As Ordered ONE (08:53)
[2022-09-27] MEDS: PALIPERIDONE 3MG ER TAB (INVEGA) PO SCH (20:18)
[2022-09-27] MEDS: MIRTAZAPINE 15 MG TAB PO SCH (20:18)
[2022-09-27] MEDS: TAMSULOSIN 0.4 MG CAP PO SCH (20:18)
[2022-09-28] MEDS: LEVOTHYROXINE 112MCG TABLET (0.112MG) PO SCH (05:40)
[2022-09-28] MEDS: SCOPOLAMINE 1MG TRANSDERMAL PATCH TOP SCH (08:38)
[2022-09-28] MEDS: AMANTADINE 100MG TABLET PO SCH ×2 (08:38→19:56)
[2022-09-28] MEDS: TOPIRAMATE (TopAMAX) 100 MG TAB PO SCH (08:39)
[2022-09-28] MEDS: FIDAXOMICIN 200 MG TAB (DIFICID) PO SCH ×2 (08:39→19:56)
[2022-09-28] MEDS: GABAPENTIN 100 MG CAP PO SCH ×3 (08:40→19:56)
[2022-09-28] MEDS: ENOXAPARIN 100MG/1ML SYRINGE (J1650 PER 10MG) SC SCH ×2 (08:40→19:56)
[2022-09-28] MEDS: METOPROLOL TART 25 MG TABLET PO SCH ×2 (08:40→19:56)
[2022-09-28] MEDS: SERTRALINE 100 MG TAB PO SCH (08:40)
[2022-09-28] MEDS ORDERED: MORPHINE 10MG/0.5ML ORAL CONCENTRATE SOLUTION U/D SL PRN (16:20)
[2022-09-28] MEDS ORDERED: LORazepam 1 MG TAB PO PRN (17:00)
[2022-09-28] MEDS: TAMSULOSIN 0.4 MG CAP PO SCH (19:55)
[2022-09-28] MEDS: PALIPERIDONE 3MG ER TAB (INVEGA) PO SCH (19:55)
[2022-09-28] MEDS: MIRTAZAPINE 15 MG TAB PO SCH (19:56)
[2022-09-29] MEDS: LEVOTHYROXINE 112MCG TABLET (0.112MG) PO SCH (05:37)
[2022-09-29] MEDS: ENOXAPARIN 100MG/1ML SYRINGE (J1650 PER 10MG) SC SCH ×2 (09:01→20:24)
[2022-09-29] MEDS: AMANTADINE 100MG TABLET PO SCH ×2 (09:01→20:25)
[2022-09-29] MEDS: GABAPENTIN 100 MG CAP PO SCH ×3 (09:02→20:26)
[2022-09-29] MEDS: SERTRALINE 100 MG TAB PO SCH (09:02)
[2022-09-29] MEDS: FIDAXOMICIN 200 MG TAB (DIFICID) PO SCH ×2 (09:02→20:24)
[2022-09-29] MEDS: METOPROLOL TART 25 MG TABLET PO SCH ×2 (09:02→20:26)
[2022-09-29] MEDS: TOPIRAMATE (TopAMAX) 100 MG TAB PO SCH (09:02)
[2022-09-29] MEDS: TAMSULOSIN 0.4 MG CAP PO SCH (20:24)
[2022-09-29] MEDS: PALIPERIDONE 3MG ER TAB (INVEGA) PO SCH (20:24)
[2022-09-29] MEDS: MIRTAZAPINE 15 MG TAB PO SCH (20:25)
[2022-09-30] MEDS: LEVOTHYROXINE 112MCG TABLET (0.112MG) PO SCH (06:18)
[2022-09-30] MEDS: SERTRALINE 100 MG TAB PO SCH (10:07)
[2022-09-30] MEDS: AMANTADINE 100MG TABLET PO SCH ×2 (10:07→20:06)
[2022-09-30] MEDS: FIDAXOMICIN 200 MG TAB (DIFICID) PO SCH ×2 (10:07→20:06)
[2022-09-30] MEDS: ENOXAPARIN 100MG/1ML SYRINGE (J1650 PER 10MG) SC SCH ×2 (10:07→20:06)
[2022-09-30] MEDS: METOPROLOL TART 25 MG TABLET PO SCH ×2 (10:08→20:06)
[2022-09-30] MEDS: TOPIRAMATE (TopAMAX) 100 MG TAB PO SCH (10:08)
[2022-09-30] MEDS: GABAPENTIN 100 MG CAP PO SCH ×3 (10:08→20:05)
[2022-09-30] MEDS: PALIPERIDONE 3MG ER TAB (INVEGA) PO SCH (20:04)
[2022-09-30] MEDS: TAMSULOSIN 0.4 MG CAP PO SCH (20:04)
[2022-09-30] MEDS: MIRTAZAPINE 15 MG TAB PO SCH (20:05)
[2022-10-01] MEDS: LEVOTHYROXINE 112MCG TABLET (0.112MG) PO SCH (05:31)
[2022-10-01] MEDS: SCOPOLAMINE 1MG TRANSDERMAL PATCH TOP SCH (08:56)
[2022-10-01] MEDS: AMANTADINE 100MG TABLET PO SCH ×2 (08:56→20:40)
[2022-10-01] MEDS: FIDAXOMICIN 200 MG TAB (DIFICID) PO SCH (08:56)
[2022-10-01] MEDS: TOPIRAMATE (TopAMAX) 100 MG TAB PO SCH (08:56)
[2022-10-01] MEDS: SERTRALINE 100 MG TAB PO SCH (08:56)
[2022-10-01] MEDS: GABAPENTIN 100 MG CAP PO SCH ×3 (08:56→20:40)
[2022-10-01] MEDS: METOPROLOL TART 25 MG TABLET PO SCH ×2 (08:57→20:41)
[2022-10-01] MEDS: ENOXAPARIN 100MG/1ML SYRINGE (J1650 PER 10MG) SC SCH ×2 (08:57→20:41)
[2022-10-01] MEDS: MIRTAZAPINE 15 MG TAB PO SCH (20:40)
[2022-10-01] MEDS: TAMSULOSIN 0.4 MG CAP PO SCH (20:40)
[2022-10-01] MEDS: PALIPERIDONE 3MG ER TAB (INVEGA) PO SCH (20:40)
[2022-10-02] MEDS: LEVOTHYROXINE 112MCG TABLET (0.112MG) PO SCH (05:31)
[2022-10-02] MEDS: GABAPENTIN 100 MG CAP PO SCH ×3 (08:11→21:27)
[2022-10-02] MEDS: METOPROLOL TART 25 MG TABLET PO SCH ×2 (08:11→21:26)
[2022-10-02] MEDS: TOPIRAMATE (TopAMAX) 100 MG TAB PO SCH (08:11)
[2022-10-02] MEDS: ENOXAPARIN 100MG/1ML SYRINGE (J1650 PER 10MG) SC SCH ×2 (08:11→21:24)
[2022-10-02] MEDS: SERTRALINE 100 MG TAB PO SCH (08:11)
[2022-10-02] MEDS: AMANTADINE 100MG TABLET PO SCH ×2 (08:11→21:38)
[2022-10-02] MEDS: TAMSULOSIN 0.4 MG CAP PO SCH (21:24)
[2022-10-02] MEDS: MIRTAZAPINE 15 MG TAB PO SCH (21:27)
[2022-10-02] MEDS: PALIPERIDONE 3MG ER TAB (INVEGA) PO SCH (21:38)
[2022-10-03] MEDS: LEVOTHYROXINE 112MCG TABLET (0.112MG) PO SCH (05:33)
[2022-10-03] MEDS: AMANTADINE 100MG TABLET PO SCH ×2 (09:41→20:23)
[2022-10-03] MEDS: GABAPENTIN 100 MG CAP PO SCH ×3 (09:41→20:22)
[2022-10-03] MEDS: SERTRALINE 100 MG TAB PO SCH (09:41)
[2022-10-03] MEDS: TOPIRAMATE (TopAMAX) 100 MG TAB PO SCH (09:41)
[2022-10-03] MEDS: ENOXAPARIN 100MG/1ML SYRINGE (J1650 PER 10MG) SC SCH ×2 (09:42→20:22)
[2022-10-03] MEDS: METOPROLOL TART 25 MG TABLET PO SCH ×2 (09:42→20:26)
[2022-10-03] MEDS: ONDANSETRON 4MG TAB PO PRN (20:22)
[2022-10-03] MEDS: PALIPERIDONE 3MG ER TAB (INVEGA) PO SCH (20:22)
[2022-10-03] MEDS: TAMSULOSIN 0.4 MG CAP PO SCH (20:23)
[2022-10-03] MEDS: MIRTAZAPINE 15 MG TAB PO SCH (20:23)
[2022-10-04] MEDS: LEVOTHYROXINE 112MCG TABLET (0.112MG) PO SCH (05:41)
[2022-10-04] MEDS: ENOXAPARIN 100MG/1ML SYRINGE (J1650 PER 10MG) SC SCH ×2 (10:01→20:36)
[2022-10-04] MEDS: SERTRALINE 100 MG TAB PO SCH (10:02)
[2022-10-04] MEDS: AMANTADINE 100MG TABLET PO SCH ×2 (10:02→20:36)
[2022-10-04] MEDS: TOPIRAMATE (TopAMAX) 100 MG TAB PO SCH (10:02)
[2022-10-04] MEDS: SCOPOLAMINE 1MG TRANSDERMAL PATCH TOP SCH (10:02)
[2022-10-04] MEDS: METOPROLOL TART 25 MG TABLET PO SCH ×2 (10:03→20:39)
[2022-10-04] MEDS: GABAPENTIN 100 MG CAP PO SCH ×3 (10:04→20:36)
[2022-10-04] MEDS: TAMSULOSIN 0.4 MG CAP PO SCH (20:36)
[2022-10-04] MEDS: MIRTAZAPINE 15 MG TAB PO SCH (20:36)
[2022-10-04] MEDS: PALIPERIDONE 3MG ER TAB (INVEGA) PO SCH (20:37)
[2022-10-05] MEDS: ONDANSETRON 4MG TAB PO PRN (00:39)
[2022-10-05] MEDS: LEVOTHYROXINE 112MCG TABLET (0.112MG) PO SCH (05:11)
[2022-10-05] MEDS: METOPROLOL TART 25 MG TABLET PO SCH ×2 (09:34→21:34)
[2022-10-05] MEDS: TOPIRAMATE (TopAMAX) 100 MG TAB PO SCH (09:35)
[2022-10-05] MEDS: GABAPENTIN 100 MG CAP PO SCH ×3 (09:35→21:33)
[2022-10-05] MEDS: AMANTADINE 100MG TABLET PO SCH ×2 (09:35→21:34)
[2022-10-05] MEDS: ENOXAPARIN 100MG/1ML SYRINGE (J1650 PER 10MG) SC SCH ×2 (09:35→21:34)
[2022-10-05] MEDS: SERTRALINE 100 MG TAB PO SCH (09:35)
[2022-10-05] MEDS: MIRTAZAPINE 15 MG TAB PO SCH (21:33)
[2022-10-05] MEDS: PALIPERIDONE 3MG ER TAB (INVEGA) PO SCH (21:33)
[2022-10-05] MEDS: TAMSULOSIN 0.4 MG CAP PO SCH (21:33)
[2022-10-06] MEDS: LEVOTHYROXINE 112MCG TABLET (0.112MG) PO SCH (05:10)
[2022-10-06] MEDS: ONDANSETRON 4MG TAB PO PRN (06:21)
[2022-10-06] MEDS ORDERED: ATIV1TAB10 PO (08:56)
[2022-10-06] MEDS ORDERED: MORP1SOL5 PO (08:56)
[2022-10-06] MEDS ORDERED: HYOS125TA PO (08:56)
[2022-10-06] MEDS ORDERED: TRAN1DIS4 TOP (09:08)
[2022-10-06 09:15] VITALS: BP 118/74
[2022-10-06] MEDS: TOPIRAMATE (TopAMAX) 100 MG TAB PO SCH (09:15)
[2022-10-06] MEDS: METOPROLOL TART 25 MG TABLET PO SCH (09:15)
[2022-10-06] MEDS: AMANTADINE 100MG TABLET PO SCH (09:15)
[2022-10-06] MEDS: SERTRALINE 100 MG TAB PO SCH (09:15)
[2022-10-06] MEDS: GABAPENTIN 100 MG CAP PO SCH (09:15)
[2022-10-06] MEDS: ENOXAPARIN 100MG/1ML SYRINGE (J1650 PER 10MG) SC SCH (09:16)
[2022-10-06] MEDS ORDERED: PRIL20TA2 PO (11:02)
== END 2022-10-06 11:52 | disposition hospice, inpatient (51) | DRG 223 ==
LOC: M ED 22:38 → EDBD 22:38 → M ED INP 09-16 04:34 → ENRESERV 09-16 20:38 → M PCU 09-16 22:42 → M MSPAV 09-21 22:26
PROVIDERS: ADMIT Internal Medicine; ATTEND General Practice
PROC: 0D9P30Z Drainage of Rectum with Drainage Device, Percutaneous Approach (ICD-10-PCS; principal; 2022-09-17 10:00)
DX: K56.699 Other intestinal obstruction unspecified as to partial versus complete obstruction (principal); K65.1 Peritoneal abscess; N17.9 Acute kidney failure, unspecified; A04.72 Enterocolitis due to Clostridium difficile, not specified as recurrent; E87.0 Hyperosmolality and hypernatremia; E87.1 Hypo-osmolality and hyponatremia; N13.30 Unspecified hydronephrosis; R13.10 Dysphagia, unspecified; Z93.1 Gastrostomy status; C18.9 Malignant neoplasm of colon, unspecified; K61.0 Anal abscess; K61.1 Rectal abscess; E87.6 Hypokalemia; I10 Essential (primary) hypertension; K21.9 Gastro-esophageal reflux disease without esophagitis; K50.90 Crohn's disease, unspecified, without complications; E03.9 Hypothyroidism, unspecified; F32.A Depression, unspecified; F41.9 Anxiety disorder, unspecified; Z93.3 Colostomy status; Z86.711 Personal history of pulmonary embolism; Z86.718 Personal history of other venous thrombosis and embolism; Z79.01 Long term (current) use of anticoagulants; Z51.5 Encounter for palliative care; Z88.6 Allergy status to analgesic agent; Z79.899 Other long term (current) drug therapy; E86.0 Dehydration; D50.9 Iron deficiency anemia, unspecified